=== PATIENT | female | born 1930 | race Caucasian/White ===

== ENCOUNTER 2017-07-06 14:17 | Emergency (ER) | payer MEDICARE ==
[2017-07-06 16:29] LABS: ADD MAN DIFF? NO
[2017-07-06 16:32] LABS: BASO % 0 % (0-3); EOS % 1 % (0-3); HEMATOCRIT 27.6 % (36.0-47.0); HEMOGLOBIN 9.1 g/dL (12.0-15.5); LYMPH # 1.5 x10^3/uL (1.0-4.8); LYMPH % 19 % (24-48); MEAN CORPUSCULAR HEMOGLOBIN 30 pg (25-35); MEAN CORPUSCULAR HGB CONC 33 g/dL (31-37); MEAN CORPUSCULAR VOLUME 92 fL (79-100); MONO # 0.5 x10^3/uL (0.0-1.1); MONO % 6 % (0-9); NEUT % 74 % (31-73); PLATELET COUNT 238 x10^3/uL (140-400); RED BLOOD COUNT 3.01 x10^6/uL (3.50-5.40); RED CELL DISTRIBUTION WIDTH 12.5 % (11.5-14.5); WHITE BLOOD COUNT 8.1 x10^3/uL (4.0-11.0)
[2017-07-06 16:35] LABS: BILIRUBIN,URINE NEGATIVE (NEG); CLARITY,URINE CLEAR; COLOR,URINE YELLOW; GLUCOSE,URINE NEGATIVE (NEG); NITRITE,URINE NEGATIVE (NEG); PROTEIN,URINE NEGATIVE (NEG-TRACE); UROBILINOGEN,URINE 0.2 mg/dL (0.2 mg/dL)
[2017-07-06 16:44] LABS: BACTERIA,URINE MANY /HPF (0-FEW); HYALINE CASTS, URINE FEW /HPF; RBC,URINE 0 /HPF (0-2)
[2017-07-06 16:45] LABS: ANION GAP 8 (6-14); BLOOD UREA NITROGEN 78 mg/dL (7-20); BUN/CREATININE RATIO 33 (6-20); CALCIUM 9.5 mg/dL (8.5-10.1); CARBON DIOXIDE 37 mmol/L (21-32); CHLORIDE 100 mmol/L (98-107); CREATININE 2.4 mg/dL (0.6-1.0); GFR 19.1; GLUCOSE 123 mg/dL (70-99); POTASSIUM 4.1 mmol/L (3.5-5.1); SODIUM 145 mmol/L (136-145)
[2017-07-06 16:48] LABS: ALBUMIN 3.4 g/dL (3.4-5.0); ALK PHOS 57 U/L (46-116); ALT (SGPT) 12 U/L (14-59); AST (SGOT) 18 U/L (15-37); TOTAL BILIRUBIN 0.1 mg/dL (0.2-1.0); TOTAL PROTEIN 6.9 g/dL (6.4-8.2)
== END 2017-07-06 18:20 | disposition home or self-care (01) ==
LOC: ER 14:17
DX: D64.9 Anemia, unspecified (principal); N30.00 Acute cystitis without hematuria; I13.0 Hypertensive heart and chronic kidney disease with heart failure and stage 1 through stage 4 chronic kidney disease, or unspecified chronic kidney disease; I50.9 Heart failure, unspecified; N18.9 Chronic kidney disease, unspecified; J44.9 Chronic obstructive pulmonary disease, unspecified; Z90.710 Acquired absence of both cervix and uterus; Z88.2 Allergy status to sulfonamides
CPT/HCPCS: 36415; 74176; 80053; 81001; 85025; 87086; 87186; 99285-25; P9612

== ENCOUNTER 2017-10-22 18:52 | Inpatient (IN) | payer MEDICARE ==
[2017-10-22 19:20] LABS: ADD MAN DIFF? NO
[2017-10-22 19:24] LABS: BASO % 0 % (0-3); EOS # 0.2 x10^3/uL (0.0-0.7); EOS % 2 % (0-3); HEMATOCRIT 29.2 % (36.0-47.0); HEMOGLOBIN 9.6 g/dL (12.0-15.5); LYMPH # 3.6 x10^3/uL (1.0-4.8); LYMPH % 41 % (24-48); MEAN CORPUSCULAR HEMOGLOBIN 30 pg (25-35); MEAN CORPUSCULAR HGB CONC 33 g/dL (31-37); MEAN CORPUSCULAR VOLUME 90 fL (79-100); MONO # 0.9 x10^3/uL (0.0-1.1); MONO % 10 % (0-9); NEUT % 46 % (31-73); PLATELET COUNT 255 x10^3/uL (140-400); RED BLOOD COUNT 3.24 x10^6/uL (3.50-5.40); RED CELL DISTRIBUTION WIDTH 13.5 % (11.5-14.5); WHITE BLOOD COUNT 8.7 x10^3/uL (4.0-11.0)
[2017-10-22 19:32] LABS: ANION GAP 2 (6-14); BLOOD UREA NITROGEN 54 mg/dL (7-20); CALCIUM 9.3 mg/dL (8.5-10.1); CARBON DIOXIDE 39 mmol/L (21-32); CHLORIDE 97 mmol/L (98-107); CREATININE 2.6 mg/dL (0.6-1.0); GFR 17.3; GLUCOSE 90 mg/dL (70-99); POTASSIUM 4.6 mmol/L (3.5-5.1); SODIUM 138 mmol/L (136-145)
[2017-10-22 19:33] LABS: INR 0.9 (0.8-1.1); PROTHROMBIN TIME PATIENT 11.5 SEC (11.7-14.0)
[2017-10-22 19:39] LABS: ALBUMIN 3.5 g/dL (3.4-5.0); ALK PHOS 77 U/L (46-116); ALT (SGPT) 14 U/L (14-59); AST (SGOT) 16 U/L (15-37); DIRECT BILIRUBIN < 0.1 mg/dL (0.0-0.2); TOTAL BILIRUBIN 0.3 mg/dL (0.2-1.0); TOTAL PROTEIN 6.5 g/dL (6.4-8.2)
[2017-10-22 19:41] LABS: TROPONINI < 0.017 ng/mL (0.000-0.055)
[2017-10-22 19:44] LABS: NT-PRO BNP 1545 pg/mL (0-449)
[2017-10-22] MEDS: NITROGLYCERIN OINT 1 GM PACKET. TP (19:45)
[2017-10-22] MEDS: IPRATRPIUM/ALBUTEROL 0.5/2.5MG 3 ML NEBU. NEB ×2 (20:37→21:44)
[2017-10-22] MEDS ORDERED: hydrALAZINE 20 MG/ML VIAL. IVP (21:15)
[2017-10-22] MEDS: FUROSEMIDE 40 MG/4 ML VIAL. IVP (21:29)
[2017-10-22] MEDS: cloNIDine HCL 0.1 MG TABLET PO (21:45)
[2017-10-22] MEDS: hydrALAZINE 20 MG/ML VIAL. IVP ×2 (21:47)
[2017-10-22] MEDS: ONDANSETRON PF 4 MG/2 ML VIAL. IV (22:19)
[2017-10-23 03:49] LABS: TROPONINI 0.033 ng/mL (0.000-0.055)
[2017-10-23 05:01] LABS: ADD MAN DIFF? NO
[2017-10-23 05:46] LABS: TROPONINI 0.025 ng/mL (0.000-0.055)
[2017-10-23 06:11] LABS: BASO % 0 % (0-3); EOS # 0.2 x10^3/uL (0.0-0.7); EOS % 2 % (0-3); HEMATOCRIT 27.6 % (36.0-47.0); HEMOGLOBIN 9.2 g/dL (12.0-15.5); LYMPH # 2.3 x10^3/uL (1.0-4.8); LYMPH % 23 % (24-48); MEAN CORPUSCULAR HEMOGLOBIN 30 pg (25-35); MEAN CORPUSCULAR HGB CONC 33 g/dL (31-37); MEAN CORPUSCULAR VOLUME 90 fL (79-100); MONO % 10 % (0-9); NEUT # 6.7 x10^3uL (1.8-7.7); NEUT % 65 % (31-73); PLATELET COUNT 216 x10^3/uL (140-400); RED BLOOD COUNT 3.06 x10^6/uL (3.50-5.40); RED CELL DISTRIBUTION WIDTH 13.7 % (11.5-14.5); WHITE BLOOD COUNT 10.2 x10^3/uL (4.0-11.0)
[2017-10-23] MEDS: IPRATRPIUM/ALBUTEROL 0.5/2.5MG 3 ML NEBU. NEB ×4 (07:43→19:14)
[2017-10-23 07:55] LABS: ANION GAP 2 (6-14); BLOOD UREA NITROGEN 55 mg/dL (7-20); CALCIUM 9.1 mg/dL (8.5-10.1); CARBON DIOXIDE 40 mmol/L (21-32); CHLORIDE 99 mmol/L (98-107); CREATININE 2.6 mg/dL (0.6-1.0); GFR 17.3; GLUCOSE 100 mg/dL (70-99); SODIUM 141 mmol/L (136-145)
[2017-10-23] MEDS ORDERED: ACETAMINOPHEN 325 MG TABLET. PO (08:45)
[2017-10-23] MEDS ORDERED: FUROSEMIDE 40 MG/4 ML VIAL. IVP (09:00)
[2017-10-23] MEDS: cloNIDine HCL 0.1 MG TABLET PO ×3 (09:11→22:13)
[2017-10-23] MEDS: SENNOSIDES/DOCUSATE 8.6/50MG TABLET. PO (09:11)
[2017-10-23] MEDS: PANTOPRAZOLE 40 MG TABLET.DR. PO (09:12)
[2017-10-23] MEDS: methylPREDNISolone SOD SUCC PF 40 MG/ML VIAL. IV ×2 (09:12→22:14)
[2017-10-23] MEDS: CHOLECALCIFEROL (VITAMIN D3) 1,000 UNIT TABLET PO (09:12)
[2017-10-23] MEDS: amLODIPine BESYLATE 2.5 MG TABLET PO (09:12)
[2017-10-23] MEDS: FUROSEMIDE 80 MG TABLET. PO (09:12)
[2017-10-23] MEDS: HEPARIN PF for SUB-Q USE 5,000 UNIT/0.5 ML VIAL. SQ ×2 (09:19→22:20)
[2017-10-23] MEDS: BUDESONIDE 0.5 MG/2 ML NEBU. NEB ×2 (11:34→19:14)
[2017-10-23] MEDS: cefTRIAXone IV Push 1 GM VIAL. IVP (13:57)
[2017-10-23] MEDS: FUROSEMIDE 40 MG TABLET. PO (17:47)
[2017-10-23] MEDS: LACTOBACILLUS RHAMNOSUS GG 1 CAPSULE. PO (22:13)
[2017-10-24 04:34] LABS: BASO % 0 % (0-3); EOS % 0 % (0-3); HEMATOCRIT 26.8 % (36.0-47.0); LYMPH # 0.7 x10^3/uL (1.0-4.8); LYMPH % 12 % (24-48); MEAN CORPUSCULAR HEMOGLOBIN 30 pg (25-35); MEAN CORPUSCULAR HGB CONC 34 g/dL (31-37); MEAN CORPUSCULAR VOLUME 90 fL (79-100); MONO % 1 % (0-9); NEUT # 4.7 x10^3uL (1.8-7.7); NEUT % 87 % (31-73); PLATELET COUNT 201 x10^3/uL (140-400); RED BLOOD COUNT 2.98 x10^6/uL (3.50-5.40); RED CELL DISTRIBUTION WIDTH 13.4 % (11.5-14.5); WHITE BLOOD COUNT 5.4 x10^3/uL (4.0-11.0)
[2017-10-24 05:05] LABS: ADD MAN DIFF? YES
[2017-10-24 05:09] LABS: ANION GAP 3 (6-14); BLOOD UREA NITROGEN 58 mg/dL (7-20); CALCIUM 9.4 mg/dL (8.5-10.1); CARBON DIOXIDE 39 mmol/L (21-32); CHLORIDE 98 mmol/L (98-107); CHOLESTEROL 223 mg/dL (0-200); CREATININE 2.7 mg/dL (0.6-1.0); GFR 16.6; GLUCOSE 182 mg/dL (70-99); HDLC 79 mg/dL (40-60); LDLC 132 mg/dL (0-100); MAGNESIUM 1.9 mg/dL (1.8-2.4); NON-HDL CHOLESTEROL 144 mg/dL (0-129); POTASSIUM 4.7 mmol/L (3.5-5.1); SODIUM 140 mmol/L (136-145); TRIGLYCERIDES 59 mg/dL (0-150); VLDLC 12 mg/dL (0-40)
[2017-10-24 05:30] LABS: CHOLESTEROL/HDL RATIO 2.8
[2017-10-24] MEDS: IPRATRPIUM/ALBUTEROL 0.5/2.5MG 3 ML NEBU. NEB ×4 (07:29→19:53)
[2017-10-24] MEDS: BUDESONIDE 0.5 MG/2 ML NEBU. NEB ×2 (07:29→19:53)
[2017-10-24] MEDS: SENNOSIDES/DOCUSATE 8.6/50MG TABLET. PO (08:20)
[2017-10-24] MEDS: LACTOBACILLUS RHAMNOSUS GG 1 CAPSULE. PO ×2 (08:20→21:09)
[2017-10-24] MEDS: PANTOPRAZOLE 40 MG TABLET.DR. PO (08:20)
[2017-10-24] MEDS: CHOLECALCIFEROL (VITAMIN D3) 1,000 UNIT TABLET PO (08:21)
[2017-10-24] MEDS: cloNIDine HCL 0.1 MG TABLET PO ×3 (08:21→21:10)
[2017-10-24] MEDS: amLODIPine BESYLATE 2.5 MG TABLET PO (08:21)
[2017-10-24] MEDS: methylPREDNISolone SOD SUCC PF 40 MG/ML VIAL. IV (08:21)
[2017-10-24] MEDS: FUROSEMIDE 80 MG TABLET. PO (08:21)
[2017-10-24] MEDS: HEPARIN PF for SUB-Q USE 5,000 UNIT/0.5 ML VIAL. SQ ×2 (08:28→21:18)
[2017-10-24] MEDS: TAMSULOSIN 0.4 MG CAP.ER.24H. PO (11:07)
[2017-10-24] MEDS: MAGNESIUM HYDROXIDE 2,400 MG/30 ML ORAL.SUSP. PO (12:11)
[2017-10-24 12:35] LABS: % BANDS 4 % (0-9); % LYMPHS 12 % (24-48); % MONOS 1 % (0-10); % SEGS 83 % (35-66); PLT ESTIMATE ADEQUATE (ADEQUATE)
[2017-10-24 12:36] LABS: OVALOCYTES FEW
[2017-10-24] MEDS: cefTRIAXone IV Push 1 GM VIAL. IVP (15:09)
[2017-10-24] MEDS: FUROSEMIDE 40 MG TABLET. PO (15:09)
[2017-10-25 05:40] LABS: BLOOD UREA NITROGEN 67 mg/dL (7-20); CALCIUM 9.5 mg/dL (8.5-10.1); CARBON DIOXIDE 41 mmol/L (21-32); CHLORIDE 99 mmol/L (98-107); CREATININE 2.5 mg/dL (0.6-1.0); GFR 18.1; GLUCOSE 107 mg/dL (70-99); POTASSIUM 4.7 mmol/L (3.5-5.1)
[2017-10-25 05:46] LABS: ANION GAP 0 (6-14); SODIUM 140 mmol/L (136-145)
[2017-10-25] MEDS: cloNIDine HCL 0.1 MG TABLET PO ×3 (08:24→20:31)
[2017-10-25] MEDS: FUROSEMIDE 80 MG TABLET. PO (08:24)
[2017-10-25] MEDS: SENNOSIDES/DOCUSATE 8.6/50MG TABLET. PO (08:25)
[2017-10-25] MEDS: TAMSULOSIN 0.4 MG CAP.ER.24H. PO (08:25)
[2017-10-25] MEDS: PANTOPRAZOLE 40 MG TABLET.DR. PO (08:25)
[2017-10-25] MEDS: predniSONE 10 MG TABLET PO (08:25)
[2017-10-25] MEDS: MAGNESIUM HYDROXIDE 2,400 MG/30 ML ORAL.SUSP. PO (08:25)
[2017-10-25] MEDS: LACTOBACILLUS RHAMNOSUS GG 1 CAPSULE. PO ×2 (08:25→20:31)
[2017-10-25] MEDS: CHOLECALCIFEROL (VITAMIN D3) 1,000 UNIT TABLET PO (08:25)
[2017-10-25] MEDS: amLODIPine BESYLATE 2.5 MG TABLET PO (08:26)
[2017-10-25] MEDS: HEPARIN PF for SUB-Q USE 5,000 UNIT/0.5 ML VIAL. SQ ×2 (08:32→20:38)
[2017-10-25] MEDS: BUDESONIDE 0.5 MG/2 ML NEBU. NEB ×2 (09:25→19:42)
[2017-10-25] MEDS: IPRATRPIUM/ALBUTEROL 0.5/2.5MG 3 ML NEBU. NEB ×4 (09:25→19:42)
[2017-10-25] MEDS: LACTULOSE 20 GM/30 ML SOLUTION. PO (11:50)
[2017-10-25] MEDS: cefTRIAXone IV Push 1 GM VIAL. IVP (15:34)
[2017-10-25] MEDS: CALCIUM CARBONATE 500 MG TAB.CHEW PO (20:29)
[2017-10-26 04:46] LABS: ANION GAP 1 (6-14); BLOOD UREA NITROGEN 70 mg/dL (7-20); CALCIUM 9.3 mg/dL (8.5-10.1); CARBON DIOXIDE 39 mmol/L (21-32); CHLORIDE 98 mmol/L (98-107); CREATININE 2.6 mg/dL (0.6-1.0); GFR 17.3; GLUCOSE 116 mg/dL (70-99); POTASSIUM 4.5 mmol/L (3.5-5.1); SODIUM 138 mmol/L (136-145)
[2017-10-26] MEDS: IPRATRPIUM/ALBUTEROL 0.5/2.5MG 3 ML NEBU. NEB ×4 (07:51→20:19)
[2017-10-26] MEDS: BUDESONIDE 0.5 MG/2 ML NEBU. NEB ×2 (07:51→20:19)
[2017-10-26] MEDS: CEFPODOXIME PROXETIL 100 MG TABLET. PO (08:41)
[2017-10-26] MEDS: SENNOSIDES/DOCUSATE 8.6/50MG TABLET. PO (08:41)
[2017-10-26] MEDS: LACTOBACILLUS RHAMNOSUS GG 1 CAPSULE. PO ×2 (08:41→21:23)
[2017-10-26] MEDS: TAMSULOSIN 0.4 MG CAP.ER.24H. PO (08:41)
[2017-10-26] MEDS: CHOLECALCIFEROL (VITAMIN D3) 1,000 UNIT TABLET PO (08:41)
[2017-10-26] MEDS: predniSONE 10 MG TABLET PO (08:41)
[2017-10-26] MEDS: PANTOPRAZOLE 40 MG TABLET.DR. PO (08:42)
[2017-10-26] MEDS: amLODIPine BESYLATE 2.5 MG TABLET PO (08:42)
[2017-10-26] MEDS: cloNIDine HCL 0.1 MG TABLET PO ×3 (08:42→21:23)
[2017-10-26] MEDS: HEPARIN PF for SUB-Q USE 5,000 UNIT/0.5 ML VIAL. SQ ×2 (08:43→21:29)
[2017-10-27 05:42] LABS: ANION GAP 1 (6-14); BLOOD UREA NITROGEN 73 mg/dL (7-20); CARBON DIOXIDE 37 mmol/L (21-32); CHLORIDE 99 mmol/L (98-107); CREATININE 2.5 mg/dL (0.6-1.0); GFR 18.1; GLUCOSE 155 mg/dL (70-99); POTASSIUM 4.7 mmol/L (3.5-5.1); SODIUM 137 mmol/L (136-145)
[2017-10-27] MEDS: BUDESONIDE 0.5 MG/2 ML NEBU. NEB (06:55)
[2017-10-27] MEDS: IPRATRPIUM/ALBUTEROL 0.5/2.5MG 3 ML NEBU. NEB ×2 (06:55→10:57)
[2017-10-27] MEDS: HEPARIN PF for SUB-Q USE 5,000 UNIT/0.5 ML VIAL. SQ (09:00)
[2017-10-27] MEDS: predniSONE 10 MG TABLET PO (09:54)
[2017-10-27] MEDS: cloNIDine HCL 0.1 MG TABLET PO (09:55)
[2017-10-27] MEDS: CHOLECALCIFEROL (VITAMIN D3) 1,000 UNIT TABLET PO (09:55)
[2017-10-27] MEDS: LACTOBACILLUS RHAMNOSUS GG 1 CAPSULE. PO (09:55)
[2017-10-27] MEDS: CEPHALEXIN 250 MG CAPSULE. PO (09:55)
[2017-10-27] MEDS: TAMSULOSIN 0.4 MG CAP.ER.24H. PO (09:56)
[2017-10-27] MEDS: PANTOPRAZOLE 40 MG TABLET.DR. PO (09:56)
[2017-10-27] MEDS: SENNOSIDES/DOCUSATE 8.6/50MG TABLET. PO (09:56)
[2017-10-27] MEDS: amLODIPine BESYLATE 2.5 MG TABLET PO (09:56)
== END 2017-10-27 12:50 | disposition home or self-care (01) | DRG 193 ==
LOC: ER 18:52 → 6 SOUTH 21:10
DX: J18.9 Pneumonia, unspecified organism (principal); J96.21 Acute and chronic respiratory failure with hypoxia; I27.81 Cor pulmonale (chronic); N18.4 Chronic kidney disease, stage 4 (severe); J44.0 Chronic obstructive pulmonary disease with (acute) lower respiratory infection; I13.0 Hypertensive heart and chronic kidney disease with heart failure and stage 1 through stage 4 chronic kidney disease, or unspecified chronic kidney disease; I50.32 Chronic diastolic (congestive) heart failure; J44.1 Chronic obstructive pulmonary disease with (acute) exacerbation; Z99.81 Dependence on supplemental oxygen; Z90.710 Acquired absence of both cervix and uterus; Z88.8 Allergy status to other drugs, medicaments and biological substances; E78.5 Hyperlipidemia, unspecified; I25.10 Atherosclerotic heart disease of native coronary artery without angina pectoris; K21.9 Gastro-esophageal reflux disease without esophagitis; Z98.49 Cataract extraction status, unspecified eye; F17.210 Nicotine dependence, cigarettes, uncomplicated; G47.33 Obstructive sleep apnea (adult) (pediatric); D63.8 Anemia in other chronic diseases classified elsewhere; F41.9 Anxiety disorder, unspecified; Z91.19 Patient's noncompliance with other medical treatment and regimen; Z87.11 Personal history of peptic ulcer disease; Z79.899 Other long term (current) drug therapy; T67.5XXA Heat exhaustion, unspecified, initial encounter; X30.XXXA Exposure to excessive natural heat, initial encounter; N26.1 Atrophy of kidney (terminal); R32 Unspecified urinary incontinence; H91.90 Unspecified hearing loss, unspecified ear; E04.2 Nontoxic multinodular goiter
CPT/HCPCS: 36415; 71045; 71250; 76770; 80048; 80061; 80076; 83735; 83880; 84484; 85007; 85025; 85610; 93005; 93306; 93970; 94640; 94760; 96374; 96375; 97116-GP; 97161-GP; 97165-GO; 97530-GO; 99285; 99285-25; J0360; J0696; J1940; J2405; J2920; J7512; J7620; J7626

== ENCOUNTER → 2017-11-05 | Outpatient (CLI) | payer MEDICARE | END | disposition home or self-care (01) | LOC: CT 10:31 | DX: J90 Pleural effusion, not elsewhere classified (principal); J43.9 Emphysema, unspecified; E04.2 Nontoxic multinodular goiter | CPT/HCPCS: 71250 ==

== ENCOUNTER 2017-12-16 22:21 | Inpatient (IN) | payer MEDICARE ==
[2017-12-16] MEDS: IPRATRPIUM/ALBUTEROL 0.5/2.5MG 3 ML NEBU. NEB (22:45)
[2017-12-16 23:11] LABS: BASE EXCESS ABG 9 mmol/L (-3-3); HCO3 ABG 35 mmol/L (21-28); PH ABG 7.37 (7.35-7.45); PO2 ABG 143 mmHg (65-108); SAT O2 ABG 98 % (92-99)
[2017-12-16 23:19] LABS: ADD MAN DIFF? NO
[2017-12-16 23:24] LABS: PCO2 ABG 62 mmHg (35-46)
[2017-12-16] MEDS: methylPREDNISolone SOD SUCC PF 125 MG/2 ML VIAL. IV (23:24)
[2017-12-16 23:25] LABS: FIO2 ABG 32
[2017-12-16 23:27] LABS: BASO # 0.1 x10^3/uL (0.0-0.2); BASO % 1 % (0-3); EOS # 0.2 x10^3/uL (0.0-0.7); EOS % 2 % (0-3); HEMATOCRIT 24.8 % (36.0-47.0); HEMOGLOBIN 8.1 g/dL (12.0-15.5); LYMPH % 28 % (24-48); MEAN CORPUSCULAR HEMOGLOBIN 29 pg (25-35); MEAN CORPUSCULAR HGB CONC 33 g/dL (31-37); MEAN CORPUSCULAR VOLUME 89 fL (79-100); MONO # 0.6 x10^3/uL (0.0-1.1); MONO % 9 % (0-9); NEUT # 4.3 x10^3uL (1.8-7.7); NEUT % 60 % (31-73); PLATELET COUNT 265 x10^3/uL (140-400); RED BLOOD COUNT 2.77 x10^6/uL (3.50-5.40); RED CELL DISTRIBUTION WIDTH 14.3 % (11.5-14.5); WHITE BLOOD COUNT 7.1 x10^3/uL (4.0-11.0)
[2017-12-16] MEDS: AZITHRMYCN 500MG IVPB FOR OMNI 250 ML IV (23:27)
[2017-12-16 23:33] LABS: INR 0.9 (0.8-1.1); PROTHROMBIN TIME PATIENT 12.1 SEC (11.7-14.0)
[2017-12-16 23:44] LABS: TROPONINI 0.017 ng/mL (0.000-0.055)
[2017-12-16 23:51] LABS: BLOOD UREA NITROGEN 37 mg/dL (7-20); BUN/CREATININE RATIO 19 (6-20); CALCIUM 9.1 mg/dL (8.5-10.1); CHLORIDE 101 mmol/L (98-107); CREATININE 1.9 mg/dL (0.6-1.0); GFR 24.9; GLUCOSE 113 mg/dL (70-99); POTASSIUM 4.3 mmol/L (3.5-5.1); SODIUM 137 mmol/L (136-145)
[2017-12-16 23:55] LABS: NT-PRO BNP 2472 pg/mL (0-449)
[2017-12-16 23:55] LABS: CKMB MASS 1.1 ng/mL (0.0-3.6); CREATINE KINASE 26 U/L (26-192)
[2017-12-16 23:57] LABS: ALBUMIN 2.7 g/dL (3.4-5.0); ALBUMIN/GLOBULIN RATIO 0.8 (1.0-1.7); ALK PHOS 74 U/L (46-116); ALT (SGPT) 10 U/L (14-59); AST (SGOT) 16 U/L (15-37); MAGNESIUM 1.8 mg/dL (1.8-2.4); TOTAL BILIRUBIN 0.2 mg/dL (0.2-1.0)
[2017-12-16 23:58] LABS: ANION GAP -1 (6-14); CARBON DIOXIDE 37 mmol/L (21-32)
[2017-12-17] MEDS: IPRATRPIUM/ALBUTEROL 0.5/2.5MG 3 ML NEBU. NEB ×4 (00:15→19:30)
[2017-12-17] MEDS: methylPREDNISolone SOD SUCC PF 40 MG/ML VIAL. IV ×3 (07:29→17:53)
[2017-12-17] MEDS ORDERED: ACETAMINOPHEN 325 MG TABLET. PO (10:30)
[2017-12-17] MEDS ORDERED: ALBUTEROL SULFATE 2.5 MG/3 ML NEBU. NEB (11:00)
[2017-12-17] MEDS: PANTOPRAZOLE 40 MG TABLET.DR. PO (14:24)
[2017-12-17] MEDS: SENNOSIDES/DOCUSATE 8.6/50MG TABLET. PO ×2 (14:24→22:31)
[2017-12-17] MEDS: BUMETANIDE 1 MG/4 ML VIAL. IV (14:25)
[2017-12-17] MEDS: cloNIDine HCL 0.1 MG TABLET PO ×2 (14:25→22:31)
[2017-12-17] MEDS: POLYETHYLENE GLYCOL 3350 17 GM PACKET. PO (14:25)
[2017-12-17] MEDS ORDERED: hydrALAZINE 20 MG/ML VIAL. IVP (14:45)
[2017-12-17 15:13] LABS: ANION GAP 2 (6-14); BLOOD UREA NITROGEN 41 mg/dL (7-20); CALCIUM 9.3 mg/dL (8.5-10.1); CARBON DIOXIDE 35 mmol/L (21-32); CHLORIDE 98 mmol/L (98-107); GFR 23.5; GLUCOSE 173 mg/dL (70-99); POTASSIUM 4.7 mmol/L (3.5-5.1); SODIUM 135 mmol/L (136-145)
[2017-12-17 15:15] LABS: MAGNESIUM 1.8 mg/dL (1.8-2.4)
[2017-12-17] MEDS: CARVEDILOL 3.125 MG TABLET. PO (17:53)
[2017-12-17] MEDS: MONTELUKAST SODIUM 10 MG TABLET. PO (22:31)
[2017-12-17] MEDS: TAMSULOSIN 0.4 MG CAP.ER.24H. PO (22:32)
[2017-12-18] MEDS: methylPREDNISolone SOD SUCC PF 40 MG/ML VIAL. IV ×4 (00:15→21:49)
[2017-12-18 05:58] LABS: ADD MAN DIFF? NO
[2017-12-18 06:02] LABS: BASO % 0 % (0-3); EOS % 0 % (0-3); HEMATOCRIT 25.3 % (36.0-47.0); HEMOGLOBIN 8.4 g/dL (12.0-15.5); LYMPH % 16 % (24-48); MEAN CORPUSCULAR HEMOGLOBIN 30 pg (25-35); MEAN CORPUSCULAR HGB CONC 33 g/dL (31-37); MEAN CORPUSCULAR VOLUME 89 fL (79-100); MONO # 0.1 x10^3/uL (0.0-1.1); MONO % 2 % (0-9); NEUT # 5.5 x10^3uL (1.8-7.7); NEUT % 82 % (31-73); PLATELET COUNT 270 x10^3/uL (140-400); RED BLOOD COUNT 2.85 x10^6/uL (3.50-5.40); RED CELL DISTRIBUTION WIDTH 14.6 % (11.5-14.5); WHITE BLOOD COUNT 6.7 x10^3/uL (4.0-11.0)
[2017-12-18] MEDS: MAGNESIUM HYDROXIDE 2,400 MG/30 ML ORAL.SUSP. PO (06:17)
[2017-12-18 06:18] LABS: ANION GAP 0 (6-14); BLOOD UREA NITROGEN 42 mg/dL (7-20); CALCIUM 9.2 mg/dL (8.5-10.1); CARBON DIOXIDE 38 mmol/L (21-32); CHLORIDE 99 mmol/L (98-107); CREATININE 1.9 mg/dL (0.6-1.0); GFR 24.9; GLUCOSE 153 mg/dL (70-99); MAGNESIUM 1.8 mg/dL (1.8-2.4); SODIUM 137 mmol/L (136-145)
[2017-12-18] MEDS: IPRATRPIUM/ALBUTEROL 0.5/2.5MG 3 ML NEBU. NEB ×4 (08:18→20:13)
[2017-12-18] MEDS: SENNOSIDES/DOCUSATE 8.6/50MG TABLET. PO ×2 (09:06→20:31)
[2017-12-18] MEDS: POLYETHYLENE GLYCOL 3350 17 GM PACKET. PO (09:06)
[2017-12-18] MEDS: PANTOPRAZOLE 40 MG TABLET.DR. PO (09:07)
[2017-12-18] MEDS: cloNIDine HCL 0.1 MG TABLET PO ×3 (09:07→20:32)
[2017-12-18] MEDS: CARVEDILOL 3.125 MG TABLET. PO ×2 (09:08→17:10)
[2017-12-18] MEDS: BUMETANIDE 1 MG/4 ML VIAL. IV ×2 (09:08→14:26)
[2017-12-18] MEDS: amLODIPine BESYLATE 10 MG TABLET PO (11:57)
[2017-12-18] MEDS: metOLazone 2.5 MG TABLET PO (11:57)
[2017-12-18] MEDS: MONTELUKAST SODIUM 10 MG TABLET. PO (20:32)
[2017-12-18] MEDS: TAMSULOSIN 0.4 MG CAP.ER.24H. PO (20:32)
[2017-12-19] MEDS: methylPREDNISolone SOD SUCC PF 40 MG/ML VIAL. IV ×2 (06:32→20:32)
[2017-12-19 06:50] LABS: ANION GAP 2 (6-14); BLOOD UREA NITROGEN 50 mg/dL (7-20); CALCIUM 9.3 mg/dL (8.5-10.1); CARBON DIOXIDE 38 mmol/L (21-32); CHLORIDE 98 mmol/L (98-107); CREATININE 1.9 mg/dL (0.6-1.0); GFR 24.9; GLUCOSE 133 mg/dL (70-99); MAGNESIUM 2.1 mg/dL (1.8-2.4); POTASSIUM 4.5 mmol/L (3.5-5.1); SODIUM 138 mmol/L (136-145)
[2017-12-19] MEDS: IPRATRPIUM/ALBUTEROL 0.5/2.5MG 3 ML NEBU. NEB ×4 (07:14→19:09)
[2017-12-19] MEDS: POLYETHYLENE GLYCOL 3350 17 GM PACKET. PO (08:43)
[2017-12-19] MEDS: BUMETANIDE 1 MG/4 ML VIAL. IV (08:44)
[2017-12-19] MEDS: amLODIPine BESYLATE 10 MG TABLET PO (08:45)
[2017-12-19] MEDS: PANTOPRAZOLE 40 MG TABLET.DR. PO (08:45)
[2017-12-19] MEDS: cloNIDine HCL 0.1 MG TABLET PO ×3 (08:45→20:44)
[2017-12-19] MEDS: CARVEDILOL 3.125 MG TABLET. PO ×2 (08:46→17:21)
[2017-12-19] MEDS: SENNOSIDES/DOCUSATE 8.6/50MG TABLET. PO ×2 (08:46→20:33)
[2017-12-19] MEDS: MONTELUKAST SODIUM 10 MG TABLET. PO (20:33)
[2017-12-19] MEDS: TAMSULOSIN 0.4 MG CAP.ER.24H. PO (20:33)
[2017-12-20 05:22] LABS: ANION GAP 0 (6-14); BLOOD UREA NITROGEN 54 mg/dL (7-20); CALCIUM 9.1 mg/dL (8.5-10.1); CARBON DIOXIDE 38 mmol/L (21-32); CHLORIDE 95 mmol/L (98-107); CREATININE 2.1 mg/dL (0.6-1.0); GFR 22.2; GLUCOSE 150 mg/dL (70-99); POTASSIUM 4.5 mmol/L (3.5-5.1); SODIUM 133 mmol/L (136-145)
[2017-12-20] MEDS: IPRATRPIUM/ALBUTEROL 0.5/2.5MG 3 ML NEBU. NEB ×4 (07:22→19:39)
[2017-12-20] MEDS: methylPREDNISolone SOD SUCC PF 40 MG/ML VIAL. IV (09:00)
[2017-12-20] MEDS: POLYETHYLENE GLYCOL 3350 17 GM PACKET. PO (09:11)
[2017-12-20] MEDS: BUMETANIDE 1 MG TABLET. PO (09:11)
[2017-12-20] MEDS: amLODIPine BESYLATE 10 MG TABLET PO (09:12)
[2017-12-20] MEDS: CARVEDILOL 3.125 MG TABLET. PO ×2 (09:12→18:08)
[2017-12-20] MEDS: PANTOPRAZOLE 40 MG TABLET.DR. PO (09:12)
[2017-12-20] MEDS: cloNIDine HCL 0.1 MG TABLET PO ×3 (09:12→22:27)
[2017-12-20] MEDS: SENNOSIDES/DOCUSATE 8.6/50MG TABLET. PO ×2 (09:13→22:27)
[2017-12-20] MEDS: LACTULOSE 20 GM/30 ML SOLUTION. PO (12:27)
[2017-12-20] MEDS: predniSONE 10 MG TABLET PO (12:28)
[2017-12-20] MEDS: MONTELUKAST SODIUM 10 MG TABLET. PO (22:27)
[2017-12-20] MEDS: MAGNESIUM HYDROXIDE 2,400 MG/30 ML ORAL.SUSP. PO (22:27)
[2017-12-20] MEDS: TAMSULOSIN 0.4 MG CAP.ER.24H. PO (22:27)
[2017-12-21 06:59] LABS: ANION GAP 0 (6-14); BLOOD UREA NITROGEN 61 mg/dL (7-20); CARBON DIOXIDE 40 mmol/L (21-32); CHLORIDE 96 mmol/L (98-107); GFR 23.5; GLUCOSE 110 mg/dL (70-99); POTASSIUM 4.4 mmol/L (3.5-5.1); SODIUM 136 mmol/L (136-145)
[2017-12-21] MEDS: IPRATRPIUM/ALBUTEROL 0.5/2.5MG 3 ML NEBU. NEB ×2 (07:10→11:03)
[2017-12-21] MEDS: MAGNESIUM HYDROXIDE 2,400 MG/30 ML ORAL.SUSP. PO (07:36)
[2017-12-21] MEDS: predniSONE 10 MG TABLET PO (07:37)
[2017-12-21] MEDS: POLYETHYLENE GLYCOL 3350 17 GM PACKET. PO (07:37)
[2017-12-21] MEDS: BUMETANIDE 1 MG TABLET. PO (07:37)
[2017-12-21] MEDS: CARVEDILOL 3.125 MG TABLET. PO (07:37)
[2017-12-21] MEDS: PANTOPRAZOLE 40 MG TABLET.DR. PO (07:38)
[2017-12-21] MEDS: SENNOSIDES/DOCUSATE 8.6/50MG TABLET. PO (07:38)
[2017-12-21] MEDS: cloNIDine HCL 0.1 MG TABLET PO (07:38)
== END 2017-12-21 11:59 | disposition home health service (06) | DRG 291 ==
LOC: 5 SOUTH 12-17 00:05 → ER 22:21
DX: I13.0 Hypertensive heart and chronic kidney disease with heart failure and stage 1 through stage 4 chronic kidney disease, or unspecified chronic kidney disease (principal); J96.21 Acute and chronic respiratory failure with hypoxia; I50.33 Acute on chronic diastolic (congestive) heart failure; J18.9 Pneumonia, unspecified organism; J96.22 Acute and chronic respiratory failure with hypercapnia; E46 Unspecified protein-calorie malnutrition; J44.0 Chronic obstructive pulmonary disease with (acute) lower respiratory infection; J44.1 Chronic obstructive pulmonary disease with (acute) exacerbation; N18.4 Chronic kidney disease, stage 4 (severe); I27.20 Pulmonary hypertension, unspecified; I27.29 Other secondary pulmonary hypertension; I27.81 Cor pulmonale (chronic); D63.8 Anemia in other chronic diseases classified elsewhere; E78.5 Hyperlipidemia, unspecified; F17.210 Nicotine dependence, cigarettes, uncomplicated; G47.33 Obstructive sleep apnea (adult) (pediatric); I89.0 Lymphedema, not elsewhere classified; K21.9 Gastro-esophageal reflux disease without esophagitis; K57.90 Diverticulosis of intestine, part unspecified, without perforation or abscess without bleeding; K59.09 Other constipation; H26.9 Unspecified cataract; M19.90 Unspecified osteoarthritis, unspecified site; R91.1 Solitary pulmonary nodule; D64.9 Anemia, unspecified; Z68.28 Body mass index [BMI] 28.0-28.9, adult; Z86.010 Personal history of colon polyps; Z87.11 Personal history of peptic ulcer disease; Z90.710 Acquired absence of both cervix and uterus; Z91.19 Patient's noncompliance with other medical treatment and regimen; Z99.81 Dependence on supplemental oxygen; Z88.6 Allergy status to analgesic agent; Z98.49 Cataract extraction status, unspecified eye
CPT/HCPCS: 36415; 36600; 71045; 71250; 80048; 80053; 82553; 82805; 83735; 83880; 84484; 85025; 85610; 93005; 93308; 93320; 93325; 93970; 94640; 94760; 96365; 96367; 96375; 97116-GP; 97162-GP; 99285; 99285-25; J0456; J0690; J2920; J2930; J3490; J7512; J7620

== ENCOUNTER 2018-01-08 12:03 | Inpatient (IN) | payer MEDICARE ==
[2018-01-08 12:47] LABS: ADD MAN DIFF? NO
[2018-01-08 12:49] LABS: BASO % 1 % (0-3); EOS # 0.1 x10^3/uL (0.0-0.7); EOS % 1 % (0-3); HEMATOCRIT 27.8 % (36.0-47.0); HEMOGLOBIN 9.4 g/dL (12.0-15.5); LYMPH # 1.5 x10^3/uL (1.0-4.8); LYMPH % 27 % (24-48); MEAN CORPUSCULAR HEMOGLOBIN 30 pg (25-35); MEAN CORPUSCULAR HGB CONC 34 g/dL (31-37); MEAN CORPUSCULAR VOLUME 89 fL (79-100); MONO # 0.5 x10^3/uL (0.0-1.1); MONO % 8 % (0-9); NEUT # 3.5 x10^3uL (1.8-7.7); NEUT % 63 % (31-73); PLATELET COUNT 198 x10^3/uL (140-400); RED BLOOD COUNT 3.12 x10^6/uL (3.50-5.40); RED CELL DISTRIBUTION WIDTH 15.4 % (11.5-14.5); WHITE BLOOD COUNT 5.5 x10^3/uL (4.0-11.0)
[2018-01-08 12:58] LABS: ANION GAP 4 (6-14); BLOOD UREA NITROGEN 24 mg/dL (7-20); BUN/CREATININE RATIO 16 (6-20); CALCIUM 9.5 mg/dL (8.5-10.1); CARBON DIOXIDE 36 mmol/L (21-32); CHLORIDE 98 mmol/L (98-107); CREATININE 1.5 mg/dL (0.6-1.0); GFR 32.7; GLUCOSE 93 mg/dL (70-99); SODIUM 138 mmol/L (136-145)
[2018-01-08 12:59] LABS: POTASSIUM 4.8 mmol/L (3.5-5.1)
[2018-01-08] MEDS: IPRATRPIUM/ALBUTEROL 0.5/2.5MG 3 ML NEBU. NEB ×2 (13:01→20:04)
[2018-01-08 13:04] LABS: ALBUMIN 3.2 g/dL (3.4-5.0); ALK PHOS 81 U/L (46-116); ALT (SGPT) 14 U/L (14-59); AST (SGOT) 21 U/L (15-37); MAGNESIUM 1.9 mg/dL (1.8-2.4); TOTAL BILIRUBIN 0.4 mg/dL (0.2-1.0); TOTAL PROTEIN 6.3 g/dL (6.4-8.2)
[2018-01-08 13:05] LABS: TROPONINI < 0.017 ng/mL (0.000-0.055)
[2018-01-08] MEDS: FUROSEMIDE 40 MG/4 ML VIAL. IVP ×2 (13:06→18:07)
[2018-01-08 13:10] LABS: NT-PRO BNP 3069 pg/mL (0-449)
[2018-01-08 13:53] LABS: BILIRUBIN,URINE NEGATIVE (NEG); CLARITY,URINE CLEAR; COLOR,URINE YELLOW; GLUCOSE,URINE NEGATIVE (NEG); NITRITE,URINE NEGATIVE (NEG); PROTEIN,URINE NEGATIVE (NEG-TRACE); UROBILINOGEN,URINE 0.2 mg/dL (0.2 mg/dL)
[2018-01-08 14:03] LABS: BACTERIA,URINE 0 /HPF (0-FEW); RBC,URINE 0 /HPF (0-2); SQUAMOUS EPITHELIAL CELL,UR FEW /LPF; WBC,URINE 0 /HPF (0-4)
[2018-01-08 14:04] LABS: HYALINE CASTS, URINE OCCASIONAL /HPF
[2018-01-08] MEDS: CARVEDILOL 3.125 MG TABLET. PO (18:07)
[2018-01-08] MEDS: hydrALAZINE 20 MG/ML VIAL. IVP (18:07)
[2018-01-08] MEDS: PANTOPRAZOLE 40 MG TABLET.DR. PO (18:07)
[2018-01-08] MEDS: ENOXAPARIN 30 MG/0.3 ML SYRINGE. SQ (18:08)
[2018-01-08] MEDS: NITROGLYCERIN PREMIX 250 ML IV (19:52)
[2018-01-08] MEDS: BUDESONIDE 0.5 MG/2 ML NEBU. NEB (20:04)
[2018-01-08] MEDS: POTASSIUM CHLORIDE 20 MEQ TABLET.ER. PO (21:31)
[2018-01-08] MEDS: cloNIDine HCL 0.1 MG TABLET PO (21:31)
[2018-01-08] MEDS: SENNOSIDES/DOCUSATE 8.6/50MG TABLET. PO (21:31)
[2018-01-08] MEDS: methylPREDNISolone SOD SUCC PF 40 MG/ML VIAL. IV (21:32)
[2018-01-09] MEDS: hydrALAZINE 20 MG/ML VIAL. IVP ×2 (00:02→22:38)
[2018-01-09] MEDS: ACETAMINOPHEN 325 MG TABLET. PO (02:54)
[2018-01-09 04:13] LABS: ADD MAN DIFF? NO
[2018-01-09 04:20] LABS: BASO % 0 % (0-3); EOS % 0 % (0-3); HEMATOCRIT 27.6 % (36.0-47.0); HEMOGLOBIN 9.3 g/dL (12.0-15.5); LYMPH # 0.7 x10^3/uL (1.0-4.8); LYMPH % 17 % (24-48); MEAN CORPUSCULAR HEMOGLOBIN 30 pg (25-35); MEAN CORPUSCULAR HGB CONC 34 g/dL (31-37); MEAN CORPUSCULAR VOLUME 89 fL (79-100); MONO % 1 % (0-9); NEUT # 3.4 x10^3uL (1.8-7.7); NEUT % 82 % (31-73); PLATELET COUNT 178 x10^3/uL (140-400); RED BLOOD COUNT 3.11 x10^6/uL (3.50-5.40); RED CELL DISTRIBUTION WIDTH 15.5 % (11.5-14.5); WHITE BLOOD COUNT 4.2 x10^3/uL (4.0-11.0)
[2018-01-09 04:34] LABS: ANION GAP 3 (6-14); BLOOD UREA NITROGEN 25 mg/dL (7-20); CALCIUM 9.1 mg/dL (8.5-10.1); CARBON DIOXIDE 36 mmol/L (21-32); CHLORIDE 100 mmol/L (98-107); CREATININE 1.7 mg/dL (0.6-1.0); GFR 28.3; GLUCOSE 141 mg/dL (70-99); MAGNESIUM 1.7 mg/dL (1.8-2.4); POTASSIUM 4.2 mmol/L (3.5-5.1); SODIUM 139 mmol/L (136-145)
[2018-01-09] MEDS: FUROSEMIDE 40 MG/4 ML VIAL. IVP ×3 (06:31→22:28)
[2018-01-09] MEDS: BUDESONIDE 0.5 MG/2 ML NEBU. NEB ×2 (07:27→19:19)
[2018-01-09] MEDS: IPRATRPIUM/ALBUTEROL 0.5/2.5MG 3 ML NEBU. NEB ×4 (07:27→19:19)
[2018-01-09] MEDS ORDERED: POTASSIUM CHLORIDE 20 MEQ TABLET.ER. PO (09:00)
[2018-01-09] MEDS: MAGNESIUM SULFATE 2GM 50 ML IV (09:19)
[2018-01-09] MEDS: methylPREDNISolone SOD SUCC PF 40 MG/ML VIAL. IV ×2 (09:22→20:05)
[2018-01-09] MEDS: TAMSULOSIN 0.4 MG CAP.ER.24H. PO (09:23)
[2018-01-09] MEDS: PANTOPRAZOLE 40 MG TABLET.DR. PO (09:23)
[2018-01-09] MEDS: SENNOSIDES/DOCUSATE 8.6/50MG TABLET. PO ×2 (09:23→20:02)
[2018-01-09] MEDS: CHOLECALCIFEROL (VITAMIN D3) 1,000 UNIT TABLET PO (09:23)
[2018-01-09] MEDS: POTASSIUM CHLORIDE 20 MEQ TABLET.ER. PO (09:23)
[2018-01-09] MEDS: CARVEDILOL 3.125 MG TABLET. PO ×2 (09:24→17:17)
[2018-01-09] MEDS: cloNIDine HCL 0.1 MG TABLET PO ×3 (09:24→20:02)
[2018-01-09] MEDS: POLYETHYLENE GLYCOL 3350 17 GM PACKET. PO (17:16)
[2018-01-09] MEDS: ENOXAPARIN 30 MG/0.3 ML SYRINGE. SQ (17:17)
[2018-01-10] MEDS: ALBUTEROL SULFATE 2.5 MG/3 ML NEBU. NEB (00:52)
[2018-01-10 05:52] LABS: ANION GAP 4 (6-14); BLOOD UREA NITROGEN 34 mg/dL (7-20); CALCIUM 9.9 mg/dL (8.5-10.1); CARBON DIOXIDE 36 mmol/L (21-32); CHLORIDE 97 mmol/L (98-107); CREATININE 2.1 mg/dL (0.6-1.0); GFR 22.2; GLUCOSE 142 mg/dL (70-99); MAGNESIUM 2.3 mg/dL (1.8-2.4); POTASSIUM 4.5 mmol/L (3.5-5.1); SODIUM 137 mmol/L (136-145)
[2018-01-10] MEDS: FUROSEMIDE 40 MG/4 ML VIAL. IVP ×2 (06:00→20:47)
[2018-01-10] MEDS: BUDESONIDE 0.5 MG/2 ML NEBU. NEB ×2 (07:53→19:58)
[2018-01-10] MEDS: IPRATRPIUM/ALBUTEROL 0.5/2.5MG 3 ML NEBU. NEB ×4 (07:53→19:58)
[2018-01-10] MEDS: POLYETHYLENE GLYCOL 3350 17 GM PACKET. PO (09:14)
[2018-01-10] MEDS: methylPREDNISolone SOD SUCC PF 40 MG/ML VIAL. IV ×2 (09:15→20:48)
[2018-01-10] MEDS: TAMSULOSIN 0.4 MG CAP.ER.24H. PO (09:15)
[2018-01-10] MEDS: CHOLECALCIFEROL (VITAMIN D3) 1,000 UNIT TABLET PO (09:15)
[2018-01-10] MEDS: SENNOSIDES/DOCUSATE 8.6/50MG TABLET. PO ×2 (09:15→20:46)
[2018-01-10] MEDS: POTASSIUM CHLORIDE 20 MEQ TABLET.ER. PO (09:16)
[2018-01-10] MEDS: PANTOPRAZOLE 40 MG TABLET.DR. PO (09:16)
[2018-01-10] MEDS: cloNIDine HCL 0.1 MG TABLET PO ×3 (09:16→20:47)
[2018-01-10] MEDS: CARVEDILOL 3.125 MG TABLET. PO ×2 (09:18→16:58)
[2018-01-10] MEDS: ENOXAPARIN 30 MG/0.3 ML SYRINGE. SQ (17:00)
[2018-01-11 04:44] LABS: ADD MAN DIFF? NO
[2018-01-11 04:53] LABS: BASO % 0 % (0-3); EOS % 0 % (0-3); HEMATOCRIT 25.5 % (36.0-47.0); HEMOGLOBIN 8.5 g/dL (12.0-15.5); LYMPH # 0.9 x10^3/uL (1.0-4.8); LYMPH % 12 % (24-48); MEAN CORPUSCULAR HEMOGLOBIN 30 pg (25-35); MEAN CORPUSCULAR HGB CONC 33 g/dL (31-37); MEAN CORPUSCULAR VOLUME 90 fL (79-100); MONO # 0.2 x10^3/uL (0.0-1.1); MONO % 3 % (0-9); NEUT # 6.6 x10^3uL (1.8-7.7); NEUT % 85 % (31-73); PLATELET COUNT 227 x10^3/uL (140-400); RED BLOOD COUNT 2.82 x10^6/uL (3.50-5.40); RED CELL DISTRIBUTION WIDTH 16.3 % (11.5-14.5); WHITE BLOOD COUNT 7.8 x10^3/uL (4.0-11.0)
[2018-01-11 05:10] LABS: ANION GAP -1 (6-14); BLOOD UREA NITROGEN 42 mg/dL (7-20); CARBON DIOXIDE 38 mmol/L (21-32); CHLORIDE 99 mmol/L (98-107); CREATININE 2.1 mg/dL (0.6-1.0); GFR 22.2; GLUCOSE 145 mg/dL (70-99); MAGNESIUM 2.2 mg/dL (1.8-2.4); SODIUM 136 mmol/L (136-145)
[2018-01-11] MEDS: POLYETHYLENE GLYCOL 3350 17 GM PACKET. PO (07:18)
[2018-01-11] MEDS: BUDESONIDE 0.5 MG/2 ML NEBU. NEB ×2 (07:52→19:26)
[2018-01-11] MEDS: IPRATRPIUM/ALBUTEROL 0.5/2.5MG 3 ML NEBU. NEB ×4 (07:52→19:26)
[2018-01-11] MEDS: methylPREDNISolone SOD SUCC PF 40 MG/ML VIAL. IV (08:33)
[2018-01-11] MEDS: CHOLECALCIFEROL (VITAMIN D3) 1,000 UNIT TABLET PO (08:33)
[2018-01-11] MEDS: CARVEDILOL 3.125 MG TABLET. PO ×2 (08:33→17:52)
[2018-01-11] MEDS: TAMSULOSIN 0.4 MG CAP.ER.24H. PO (08:33)
[2018-01-11] MEDS: PANTOPRAZOLE 40 MG TABLET.DR. PO (08:33)
[2018-01-11] MEDS: cloNIDine HCL 0.1 MG TABLET PO ×3 (08:34→20:51)
[2018-01-11] MEDS: FUROSEMIDE 80 MG TABLET. PO ×2 (09:19→13:55)
[2018-01-11] MEDS: SENNOSIDES/DOCUSATE 8.6/50MG TABLET. PO ×2 (09:23→20:43)
[2018-01-11] MEDS: ENOXAPARIN 30 MG/0.3 ML SYRINGE. SQ (17:52)
[2018-01-11] MEDS: MAGNESIUM HYDROXIDE 2,400 MG/30 ML ORAL.SUSP. PO (20:42)
[2018-01-11] MEDS: CALCIUM CARBONATE 500 MG TAB.CHEW PO (20:48)
[2018-01-11] MEDS: hydrALAZINE 20 MG/ML VIAL. IVP (23:27)
[2018-01-12] MEDS: BISACODYL 10 MG SUPP.RECT. PR (00:42)
[2018-01-12 04:46] LABS: ANION GAP 0 (6-14); BLOOD UREA NITROGEN 47 mg/dL (7-20); CARBON DIOXIDE 40 mmol/L (21-32); CHLORIDE 97 mmol/L (98-107); CREATININE 1.9 mg/dL (0.6-1.0); GFR 24.9; GLUCOSE 100 mg/dL (70-99); MAGNESIUM 2.3 mg/dL (1.8-2.4); POTASSIUM 4.3 mmol/L (3.5-5.1); SODIUM 137 mmol/L (136-145)
[2018-01-12] MEDS: POLYETHYLENE GLYCOL 3350 17 GM PACKET. PO (07:51)
[2018-01-12] MEDS: BUDESONIDE 0.5 MG/2 ML NEBU. NEB ×2 (07:53→20:46)
[2018-01-12] MEDS: IPRATRPIUM/ALBUTEROL 0.5/2.5MG 3 ML NEBU. NEB ×4 (07:53→20:46)
[2018-01-12] MEDS: TAMSULOSIN 0.4 MG CAP.ER.24H. PO (07:55)
[2018-01-12] MEDS: predniSONE 20 MG TABLET PO (07:55)
[2018-01-12] MEDS: cloNIDine HCL 0.1 MG TABLET PO ×3 (07:55→20:52)
[2018-01-12] MEDS: CARVEDILOL 3.125 MG TABLET. PO ×2 (07:55→17:37)
[2018-01-12] MEDS: CHOLECALCIFEROL (VITAMIN D3) 1,000 UNIT TABLET PO (07:55)
[2018-01-12] MEDS: SENNOSIDES/DOCUSATE 8.6/50MG TABLET. PO ×2 (07:55→20:53)
[2018-01-12] MEDS: PANTOPRAZOLE 40 MG TABLET.DR. PO (07:56)
[2018-01-12] MEDS: FUROSEMIDE 80 MG TABLET. PO ×2 (08:37→14:40)
[2018-01-12] MEDS: ENOXAPARIN 30 MG/0.3 ML SYRINGE. SQ (17:36)
[2018-01-13] MEDS: PANTOPRAZOLE 40 MG TABLET.DR. PO (06:07)
[2018-01-13 06:32] LABS: ANION GAP 1 (6-14); BLOOD UREA NITROGEN 48 mg/dL (7-20); CALCIUM 8.8 mg/dL (8.5-10.1); CARBON DIOXIDE 40 mmol/L (21-32); CHLORIDE 97 mmol/L (98-107); GFR 23.5; GLUCOSE 92 mg/dL (70-99); POTASSIUM 4.4 mmol/L (3.5-5.1); SODIUM 138 mmol/L (136-145)
[2018-01-13] MEDS: BUDESONIDE 0.5 MG/2 ML NEBU. NEB (07:30)
[2018-01-13] MEDS: IPRATRPIUM/ALBUTEROL 0.5/2.5MG 3 ML NEBU. NEB ×3 (07:30→15:37)
[2018-01-13] MEDS: TAMSULOSIN 0.4 MG CAP.ER.24H. PO (08:00)
[2018-01-13] MEDS: CARVEDILOL 3.125 MG TABLET. PO ×2 (08:00→15:48)
[2018-01-13] MEDS: SENNOSIDES/DOCUSATE 8.6/50MG TABLET. PO (08:01)
[2018-01-13] MEDS: CHOLECALCIFEROL (VITAMIN D3) 1,000 UNIT TABLET PO (08:01)
[2018-01-13] MEDS: FUROSEMIDE 80 MG TABLET. PO ×2 (08:02→15:48)
[2018-01-13] MEDS: cloNIDine HCL 0.1 MG TABLET PO ×2 (08:02→15:48)
[2018-01-13] MEDS: POLYETHYLENE GLYCOL 3350 17 GM PACKET. PO (08:02)
[2018-01-13] MEDS: predniSONE 20 MG TABLET PO ×2 (08:02→11:43)
[2018-01-14] MEDS ORDERED: predniSONE 20 MG TABLET PO (09:00)
== END 2018-01-13 15:40 | disposition home health service (06) | DRG 291 ==
LOC: ER 12:03 → 2 NORTH 13:30
DX: I13.0 Hypertensive heart and chronic kidney disease with heart failure and stage 1 through stage 4 chronic kidney disease, or unspecified chronic kidney disease (principal); I50.33 Acute on chronic diastolic (congestive) heart failure; J96.21 Acute and chronic respiratory failure with hypoxia; J44.1 Chronic obstructive pulmonary disease with (acute) exacerbation; N18.4 Chronic kidney disease, stage 4 (severe); N17.9 Acute kidney failure, unspecified; G47.33 Obstructive sleep apnea (adult) (pediatric); K21.9 Gastro-esophageal reflux disease without esophagitis; K57.90 Diverticulosis of intestine, part unspecified, without perforation or abscess without bleeding; M19.90 Unspecified osteoarthritis, unspecified site; D63.8 Anemia in other chronic diseases classified elsewhere; F17.210 Nicotine dependence, cigarettes, uncomplicated; H91.90 Unspecified hearing loss, unspecified ear; E83.42 Hypomagnesemia; E78.5 Hyperlipidemia, unspecified; I27.81 Cor pulmonale (chronic); N76.2 Acute vulvitis; I27.29 Other secondary pulmonary hypertension; R91.1 Solitary pulmonary nodule; Z90.710 Acquired absence of both cervix and uterus; Z88.6 Allergy status to analgesic agent; Z91.018 Allergy to other foods; Z91.19 Patient's noncompliance with other medical treatment and regimen; Z98.49 Cataract extraction status, unspecified eye; Z90.49 Acquired absence of other specified parts of digestive tract; Z82.49 Family history of ischemic heart disease and other diseases of the circulatory system; Z87.01 Personal history of pneumonia (recurrent); Z87.11 Personal history of peptic ulcer disease; Z79.899 Other long term (current) drug therapy; Z90.79 Acquired absence of other genital organ(s); Z90.722 Acquired absence of ovaries, bilateral; N28.1 Cyst of kidney, acquired
CPT/HCPCS: 36415; 71045; 80048; 80053; 81001; 83735; 83880; 84484; 85025; 93005; 93970; 94640; 94760; 96374; 97110-GP; 97116-GP; 97162-GP; 97166-GO; 97530-GO; 97535-GO; 99285; 99285-25; J0360; J1650; J1940; J2920; J3475; J3490; J7512; J7613; J7620; J7626

== ENCOUNTER 2018-02-05 08:18 | Inpatient (IN) | payer MEDICARE ==
[~2018-02-05] VITALS: Ht 160 cm; Wt 62.1 kg
[~2018-02-05 08:18] MED LIST: AMLO2.5T3 PO; BISA-42 PO; BUDE0.5A NEB; BUME2TAB PO; CARV3.122 PO; CEPH-264 PO; CEPH250C PO; CLON0.1T PO; CLON1PAT9 TD; DOCU100C28 PO; FURO40TA4 PO; FURO80TA3 PO; IPRA3AMP29 NEB; LOSA100T7 PO; OLME40TA12 PO; OMEP40CA5 PO; ONDA4TAB7 PO; POLY17PO29 PO; PRED-220 PO; PROAIR HFA8.5 GM INH; Pantoprazole PO; SENN8.6T4 PO; SENN8.6T99 PO; TAMS0.4C97 PO; VENTOLIN HFA18 GM INH
--- NOTE | 2018-02-05 09:22 | EKG ---
[facility] [address] [place] [address] Test Date: 2018-02-05 Test Time: 08:38:11 Pat Name: BINU FONTAINE Department: Room: Gender: F Internet Specialist: : [id number] Requested By: MARGI SÁNCHEZ Order Number: [id number] Reading MD: Clemente Nichols MD Measurements Intervals [place] Rate: 54 P: 39 MA: 170 QRS: -34 QRSD: 104 T: 69 QT: 424 QTc: 407 Interpretive Statements SINUS RHYTHM Electronically Signed On 02-05-2018 16:57:17 CDT by Clemente Nichols MD
[2018-02-05 09:50] LABS: BASO % 1 % (0-3); EOS # 0.1 x10^3/uL (0.0-0.7); EOS % 1 % (0-3); HEMATOCRIT 25.5 % (36.0-47.0); HEMOGLOBIN 8.8 g/dL (12.0-15.5); LYMPH % 33 % (24-48); MEAN CORPUSCULAR HEMOGLOBIN 30 pg (25-35); MEAN CORPUSCULAR HGB CONC 34 g/dL (31-37); MEAN CORPUSCULAR VOLUME 89 fL (79-100); MONO # 0.5 x10^3/uL (0.0-1.1); MONO % 9 % (0-9); NEUT # 3.5 x10^3uL (1.8-7.7); NEUT % 57 % (31-73); PLATELET COUNT 199 x10^3/uL (140-400); RED BLOOD COUNT 2.88 x10^6/uL (3.50-5.40); RED CELL DISTRIBUTION WIDTH 14.9 % (11.5-14.5); WHITE BLOOD COUNT 6.1 x10^3/uL (4.0-11.0)
[2018-02-05 09:55] LABS: ALBUMIN 3.1 g/dL (3.4-5.0); CALCIUM 9.4 mg/dL (8.5-10.1); CREATININE 2.5 mg/dL (0.6-1.0); GFR 18.1; TOTAL BILIRUBIN 0.3 mg/dL (0.2-1.0); TOTAL PROTEIN 6.3 g/dL (6.4-8.2)
[2018-02-05 09:58] LABS: PROTHROMBIN TIME PATIENT 12.3 SEC (11.7-14.0)
[2018-02-05 10:28] LABS: BILIRUBIN,URINE NEGATIVE (NEG); CLARITY,URINE CLEAR; COLOR,URINE YELLOW; NITRITE,URINE NEGATIVE (NEG); PROTEIN,URINE NEGATIVE (NEG-TRACE); UROBILINOGEN,URINE 0.2 mg/dL (0.2 mg/dL)
--- NOTE | 2018-02-05 11:10 | RAD ---
CT of the head without contrast, 02/05/2018: HISTORY: Altered mental status Comparison is made to a study from 03/16/2015. The ventricles are within normal limits in size. There is no shift of the midline structures. There is no evidence of acute intracranial hemorrhage or mass effect. A small amount of debris is present in the left sphenoid sinus, likely on an inflammatory basis. The bone windows show no evidence of a fracture. IMPRESSION: 1. No acute intracranial abnormality is detected. 2. Material in the left sphenoid sinus likely on an inflammatory basis. Electronically signed by: Germain Earl MD (02/05/2018 11:07 AM) [facility]
[2018-02-05 11:11] LABS: SQUAMOUS EPITHELIAL CELL,UR FEW /LPF
[2018-02-05 11:12] LABS: BACTERIA,URINE 0 /HPF (0-FEW); HYALINE CASTS, URINE FEW /HPF; RBC,URINE OCC /HPF (0-2)
[2018-02-05] MEDS ORDERED: POTASSIUM CHLORIDE 20 MEQ TABLET.ER. PO ONE (11:30)
--- NOTE | 2018-02-05 13:11 | PHYS DOC ---
Past Medical History Past Medical History: Anemia, COPD, Hypertension, Renal Failure Additional Past Medical Histor: Sleep Apnea, CKD Past Surgical History: Colectomy, Hysterectomy Additional Past Surgical Histo: Hernia Repair Additional Information: Quit 2013 Alcohol Use: Rarely Drug Use: None Adult General Chief Complaint Chief Complaint: MECHANICAL FALL HPI HPI Patient is a 87 year old [f__sex] who presents with [] Review of Systems Review of Systems Constitutional: Denies fever or chills [] Eyes: Denies change in visual acuity, redness, or eye pain [] HENT: Denies nasal congestion or sore throat [] Respiratory: Denies cough or shortness of breath [] Cardiovascular: No additional information not addressed in HPI [] GI: Denies abdominal pain, nausea, vomiting, bloody stools or diarrhea [] : Denies dysuria or hematuria [] Musculoskeletal: Denies back pain or joint pain [] Integument: Denies rash or skin lesions [] Neurologic: Denies headache, focal weakness or sensory changes [] Endocrine: Denies polyuria or polydipsia [] All other systems were reviewed and found to be within normal limits, except as documented in this note. Current Medications Current Medications Current Medications Medications (Trade) Dose Ordered Sig/Ofe Start Time Stop Time Status Last Admin Dose Admin Potassium Chloride (Klor-Con) 40 meq 1X ONCE 02/05/18 11:30 02/05/18 11:31 DC 02/05/18 11:36 40 MEQ Allergies Allergies Allergies Coded Allergies Type Severity Reaction Last Updated Verified aspirin Allergy Intermediate 12/17/17 Yes ciprofloxacin Allergy Intermediate Unknown 02/05/18 Yes honey Allergy Intermediate 12/17/17 Yes hydralazine Allergy Intermediate Leg Edema 02/05/18 Yes sertraline Allergy Intermediate Anxiety 02/05/18 Yes simvastatin Allergy Mild Nausea 02/05/18 Yes Physical Exam Physical Exam Constitutional: Well developed, well nourished, no acute distress, non-toxic appearance. [] HENT: Normocephalic, atraumatic, bilateral external ears normal, oropharynx moist, no oral exudates, nose normal. [] Eyes: PERRLA, EOMI, conjunctiva normal, no discharge. [] Neck: Normal range of motion, no tenderness, supple, no stridor. [] Cardiovascular:Heart rate regular rhythm, no murmur [] Lungs & Thorax: Bilateral breath sounds clear to auscultation [] Abdomen: Bowel sounds normal, soft, no tenderness, no masses, no pulsatile masses. [] Skin: Warm, dry, no erythema, no rash. [] Back: No tenderness, no CVA tenderness. [] Extremities: No tenderness, no cyanosis, no clubbing, ROM intact, no edema. [] Neurologic: Alert and oriented X 3, normal motor function, normal sensory function, no focal deficits noted. [] Psychologic: Affect normal, judgement normal, mood normal. [] Current Patient Data Vital Signs Vital Signs Date Time Temp Pulse Resp B/P (MAP) Pulse Ox O2 Delivery O2 Flow Rate FiO2 02/05/18 11:42 55 18 100 02/05/18 08:19 97.7 199/80 (119) Room Air 97.7 Lab Values Laboratory Tests Test 02/05/18 09:30 02/05/18 10:10 White Blood Count 6.1 x10^3/uL (4.0-11.0) Red Blood Count 2.88 x10^6/uL (3.50-5.40) L Hemoglobin 8.8 g/dL (12.0-15.5) L Hematocrit 25.5 % (36.0-47.0) L Mean Corpuscular Volume 89 fL (79-100) Mean Corpuscular Hemoglobin 30 pg (25-35) Mean Corpuscular Hemoglobin Concent 34 g/dL (31-37) Red Cell Distribution Width 14.9 % (11.5-14.5) H Platelet Count 199 x10^3/uL (140-400) Neutrophils (%) (Auto) 57 % (31-73) Lymphocytes (%) (Auto) 33 % (24-48) Monocytes (%) (Auto) 9 % (0-9) Eosinophils (%) (Auto) 1 % (0-3) Basophils (%) (Auto) 1 % (0-3) Neutrophils # (Auto) 3.5 x10^3uL (1.8-7.7) Lymphocytes # (Auto) 2.0 x10^3/uL (1.0-4.8) Monocytes # (Auto) 0.5 x10^3/uL (0.0-1.1) Eosinophils # (Auto) 0.1 x10^3/uL (0.0-0.7) Basophils # (Auto) 0.0 x10^3/uL (0.0-0.2) Prothrombin Time 12.3 SEC (11.7-14.0) Prothrombin Time INR 1.0 (0.8-1.1) Sodium Level 137 mmol/L (136-145) Potassium Level 3.0 mmol/L (3.5-5.1) L Chloride Level 95 mmol/L (98-107) L Carbon Dioxide Level 40 mmol/L (21-32) H Anion Gap 2 (6-14) L Blood Urea Nitrogen 71 mg/dL (7-20) H Creatinine 2.5 mg/dL (0.6-1.0) H Estimated GFR (Cockcroft-Gault) 18.1 BUN/Creatinine Ratio 28 (6-20) H Glucose Level 114 mg/dL (70-99) H Calcium Level 9.4 mg/dL (8.5-10.1) Total Bilirubin 0.3 mg/dL (0.2-1.0) Aspartate Amino Transferase (AST) 12 U/L (15-37) L Alanine Aminotransferase (ALT) 15 U/L (14-59) Alkaline Phosphatase 68 U/L (46-116) Troponin I Quantitative < 0.017 ng/mL (0.000-0.055) EM-Wkw-X-Type Natriuretic Peptide 1946 pg/mL (0-449) H Total Protein 6.3 g/dL (6.4-8.2) L Albumin 3.1 g/dL (3.4-5.0) L Albumin/Globulin Ratio 1.0 (1.0-1.7) Urine Color Yellow Urine Clarity Clear Urine pH 7.0 Urine Specific [place] 1.010 Urine Protein Negative mg/dL (NEG-TRACE) Urine Glucose (UA) Negative mg/dL (NEG) Urine Ketones (Stick) Negative mg/dL (NEG) Urine Blood Negative (NEG) Urine Nitrite Negative (NEG) Urine Bilirubin Negative (NEG) Urine Urobilinogen Dipstick 0.2 mg/dL (0.2 mg/dL) Urine Leukocyte Esterase Negative (NEG) Urine RBC Occ /HPF (0-2) Urine WBC 1-4 /HPF (0-4) Urine Squamous Epithelial Cells Few /LPF Urine Bacteria 0 /HPF (0-FEW) Urine Hyaline Casts Few /HPF Urine Mucus Slight /LPF Laboratory Tests 02/05/18 09:30 Laboratory Tests 02/05/18 09:30 EKG EKG [] Radiology/Procedures Radiology/Procedures [] Course & Med Decision Making Course & Med Decision Making Pertinent Labs and Imaging studies reviewed. (See chart for details) [] Dragon Disclaimer Dragon Disclaimer This electronic medical record was generated, in whole or in part, using a voice recognition dictation system. Departure Departure Impression: Primary Impression: Syncope Additional Impressions: Hypokalemia Chronic kidney disease (CKD) Disposition: ADMITTED INPATIENT Admitting Physician: Tim Henao Condition: STABLE Referrals: TIM HENAO MD (PCP) Problem Qualifiers Primary Impression: Syncope Syncope type: unspecified Qualified Codes: R55 - Syncope and collapse Additional Impressions: Chronic kidney disease (CKD) Chronic kidney disease stage: unspecified stage Qualified Codes: N18.9 - Chronic kidney disease, unspecified MARGI SÁNCHEZ APRN Feb 05, 2018 13:11
[2018-02-05 13:45] VITALS: BP 177/64
--- NOTE | 2018-02-05 15:29 | PDOC2 ---
CARDIAC CONSULT DATE OF CONSULT Date of Consult DATE: 02/05/18 TIME: 15:26 REASON FOR CONSULT Reason for Consult: syncope REFERRING PHYSICIAN Referring Physician: Wilner SOURCE Source: Chart review HISTORY OF PRESENT ILLNESS HISTORY OF PRESENT ILLNESS 87 year old female admitted through ER after fall a week ago today. Reports she was leaving bathroom, fell backwards striking her head and left shoulder on the tub and toilet. She remembers coming to on the floor and not being able to get up so she crawled into her kitchen and then used the counter to pull herself up and sit in a captain's chair. She reports not finding any injuries so did not seek evaluation. She was seen and evaluated in her PCP's office earlier today and sent to the ER. She reports no recent increase in her dyspnea and denies having chest pain prior to her syncopal episode but reports occasional bilateral and single sided chest pain, though she does not have specific details. EKG without acute changes and initial troponin not consistent with AMI. CT head without acute abnormality. CT of chest demonstrates an increase in the BRITNEY nodule that was 7 mm 10/2017 and is now 1.1 X 1.2 cm. Anemic with Hgb of 8.8; hypokalemic with K of 3.0. Known history of CKD and BUN now 71 and Cr of 2.5 with NT-proBNP of 1946. BP of 199/60 on presentation - reports not taking meds today. Reason for Visit: syncope PAST MEDICAL HISTORY Cardiovascular: CHF (diastolic), HTN, Hyperlipidemia, Valve insufficiency, Pulmonary hypertension Pulmonary: COPD, Other (SHERRY) CENTRAL NERVOUS SYSTEM: Other (none) GI: Constipation, Diverticulosis, GERD, Peptic Ulcer disease Heme/Onc: Anemia NOS Hepatobiliary: No pertinent hx Psych: No pertinent hx Musculoskeletal: Osteoarthritis Rheumatologic: No pertinent hx Infectious disease: No pertinent hx ENT: No pertinent hx Renal/: Chronic renal insuff (stage IV), Urinary Incontinence Endocrine: No pertinent hx Dermatology: No pertinent hx PAST SURGICAL HISTORY Past Surgical History: Appendectomy, Cataract Removal, Hernia Repair FAMILY HISTORY Family History: Hypertension SOCIAL HISTORY Smoke: No ALCOHOL: rare Drugs: None Lives: with Family CURRENT MEDICATIONS CURRENT MEDICATIONS Current Medications Medications (Trade) Dose Ordered Sig/Ofe Route PRN Reason Start Time Stop Time Status Last Admin Dose Admin Potassium Chloride (Klor-Con) 40 meq 1X ONCE PO 02/05/18 11:30 02/05/18 11:31 DC 02/05/18 11:36 ALLERGIES ALLERGIES: Coded Allergies: aspirin (Verified Allergy, Intermediate, 12/17/17) ciprofloxacin (Verified Allergy, Intermediate, Unknown, 02/05/18) honey (Verified Allergy, Intermediate, 12/17/17) hydralazine (Verified Allergy, Intermediate, Leg Edema, 02/05/18) sertraline (Verified Allergy, Intermediate, Anxiety, 02/05/18) simvastatin (Verified Allergy, Mild, Nausea, 02/05/18) ROS General: No: Chills, Night Sweats, Fatigue, Malaise, Appetite, Other PSYCHOLOGICAL ROS: No: Anxiety, Behavioral Disorder, Concentration difficultie , Decreased libido, Depression, Disorientation, Hallucinations, Hostility, Irritablity, Memory difficulties, Mood Swings, Obsessive thoughts, Physical abuse, Sexual abuse, Sleep disturbances, Suicidal ideation, Other Eyes: No Blurry vision, No Decreased vision, No Double vision, No Dry eyes, No Excessive tearing, No Eye Pain, No Itchy Eyes, No Loss of vision, No Photophobia , No Scotomata, No Uses contacts, No Uses glasses, No Other HEENT: No: Heacaches, Visual Changes, Hearing change, Nasal congestion, Nasal discharge, Oral lesions, Sinus pain, Sore Throat, Epistaxis, Sneezing, Snoring, Tinnitus, Vertigo, Vocal changes, Other ALLERGY AND IMMUNOLOGY: No: Hives, Insect Bite Sensitivity, Itchy/Watery Eyes, Nasal Congestion, Post Nasal Drip, Seasonal Allergies, Other Hematological and Lymphatic: YES: Brusing; No: Bleeding Problems, Blood Clots, Blood Transfusions, Night Sweats, Pallor , Swollen Lymph Nodes, Other ENDOCRINE: No: Breast Changes, Galactorrhea, Hair Pattern Changes, Hot Flashes , Malaise/lethargy, Mood Swings, Palpitations, Polydipsia/polyuria, Skin Changes , Temperature Intolerance, Unexpected Weight Changes, Other Respiratory: YES: SOB with excertion, Wheezing; No: Cough, Hemoptysis, Orthopnea, Pleuritic Pain, Shortness of breath, Sputum Changes, Stridor, Tachypnea, Other Cardiovascular: yes Chest Pain; No Palpitations, No Orthopnea, No Paroxysmal Noc. Dyspnea, No Edema, No Lt Headedness, No Other Gastrointestinal: No Nausea, No Vomiting, No Abdominal Pain, No Diarrhea, No Constipation, No Melena, No Hematochezia, No Other Genitourinary: YES ; No Dysuria, No Frequency, No Incontinence, No Hematuria, No Retention, No Discharge, No Urgency, No Pain, No Flank Pain, No Other Musculoskeletal: No Gait Disturbance, No Joint Pain, No Joint Stiffness, No Joint Swelling, No Muscle Pain, No Muscular Weakness, No Pain In:, No Swelling In:, No Other Neurological: No Behavorial Changes, No Bowel/Bladder ControlChng, No Confusion , No Dizziness, No Gait Disturbance, No Headaches, No Impaired Coord/balance, No Memory Loss, No Numbness/Tingling, No Seizures, No Speech Problems, No Tremors, No Visual Changes, No Weakness, No Other Skin: No Dry Skin, No Eczema, No Hair Changes, No Lumps, No Mole Changes, No Mottling, No Nail Changes, No Pruritus, No Rash, No Skin Lesion Changes, No Other, No Acne PHYSICAL EXAM General: Alert, Oriented X3, Cooperative HEENT: Atraumatic Lungs: Other (exp wheezing throughout) Heart: Normal S1, Normal S2, Other (tele: no dysrhythmias) Abdomen: Soft Extremities: No edema Skin: No rashes Neuro: Normal speech Psych/Mental Status: Mental status NL, Mood NL MUSCULOSKELETAL: Osteoarthritic changes both hands VITALS VITALS Vital Signs Date Time Temp Pulse Resp B/P (MAP) Pulse Ox O2 Delivery O2 Flow Rate FiO2 02/05/18 13:45 97.8 56 17 177/64 (101) 100 Room Air 97.8 LABS Lab: Laboratory Tests Test 02/05/18 09:30 02/05/18 10:10 White Blood Count 6.1 x10^3/uL (4.0-11.0) Red Blood Count 2.88 x10^6/uL (3.50-5.40) Hemoglobin 8.8 g/dL (12.0-15.5) Hematocrit 25.5 % (36.0-47.0) Mean Corpuscular Volume 89 fL (79-100) Mean Corpuscular Hemoglobin 30 pg (25-35) Mean Corpuscular Hemoglobin Concent 34 g/dL (31-37) Red Cell Distribution Width 14.9 % (11.5-14.5) Platelet Count 199 x10^3/uL (140-400) Neutrophils (%) (Auto) 57 % (31-73) Lymphocytes (%) (Auto) 33 % (24-48) Monocytes (%) (Auto) 9 % (0-9) Eosinophils (%) (Auto) 1 % (0-3) Basophils (%) (Auto) 1 % (0-3) Neutrophils # (Auto) 3.5 x10^3uL (1.8-7.7) Lymphocytes # (Auto) 2.0 x10^3/uL (1.0-4.8) Monocytes # (Auto) 0.5 x10^3/uL (0.0-1.1) Eosinophils # (Auto) 0.1 x10^3/uL (0.0-0.7) Basophils # (Auto) 0.0 x10^3/uL (0.0-0.2) Prothrombin Time 12.3 SEC (11.7-14.0) Prothromb Time International Ratio 1.0 (0.8-1.1) Sodium Level 137 mmol/L (136-145) Potassium Level 3.0 mmol/L (3.5-5.1) Chloride Level 95 mmol/L (98-107) Carbon Dioxide Level 40 mmol/L (21-32) Anion Gap 2 (6-14) Blood Urea Nitrogen 71 mg/dL (7-20) Creatinine 2.5 mg/dL (0.6-1.0) Estimated GFR (Cockcroft-Gault) 18.1 BUN/Creatinine Ratio 28 (6-20) Glucose Level 114 mg/dL (70-99) Calcium Level 9.4 mg/dL (8.5-10.1) Total Bilirubin 0.3 mg/dL (0.2-1.0) Aspartate Amino Transf (AST/SGOT) 12 U/L (15-37) Alanine Aminotransferase (ALT/SGPT) 15 U/L (14-59) Alkaline Phosphatase 68 U/L (46-116) Troponin I Quantitative < 0.017 ng/mL (0.000-0.055) XL-Mmp-L-Type Natriuretic Peptide 1946 pg/mL (0-449) Total Protein 6.3 g/dL (6.4-8.2) Albumin 3.1 g/dL (3.4-5.0) Albumin/Globulin Ratio 1.0 (1.0-1.7) Urine Color Yellow Urine Clarity Clear Urine pH 7.0 Urine Specific [place] 1.010 Urine Protein Negative mg/dL (NEG-TRACE) Urine Glucose (UA) Negative mg/dL (NEG) Urine Ketones (Stick) Negative mg/dL (NEG) Urine Blood Negative (NEG) Urine Nitrite Negative (NEG) Urine Bilirubin Negative (NEG) Urine Urobilinogen Dipstick 0.2 mg/dL (0.2 mg/dL) Urine Leukocyte Esterase Negative (NEG) Urine RBC Occ /HPF (0-2) Urine WBC 1-4 /HPF (0-4) Urine Squamous Epithelial Cells Few /LPF Urine Bacteria 0 /HPF (0-FEW) Urine Hyaline Casts Few /HPF Urine Mucus Slight /LPF IMAGES IMAGES CT chest: 1. A 1.1 x 1.2 cm left upper lobe spiculated lung nodule is seen, which has increased in size measuring 7 mm on 10/23/2017. Given the interval enlargement and suspicious imaging features, histopathologic correlation versus PET scan is recommended. 2. Multiple thyroid nodules are seen, which extend into the mediastinum, likely not amenable to percutaneous biopsy or adequate sonographic assessment. These are stable however. 3. Lobar atelectasis of the middle lobe with associated air bronchograms. This is of uncertain etiology as no discrete obstructing mass is identified and can be further assessed by bronchoscopy if clinically indicated. EKG EKG no acute changes ECHOCARDIOGRAM ECHOCARDIOGRAM 12/18/2017: TTE: The left ventricular systolic function is normal and the ejection fraction is within normal range. EF 55% Doppler and Color Flow revealed mild to moderate tricuspid regurgitation.There is moderate-severe pulmonary hypertension.The PA pressure was estimated at 70 mmHg. The IVC is dilated and collapses <50% with inspiration. Technically limited study. 10/23/2017: TTE: <Conclusion> Left ventricle systolic function is normal. The Ejection Fraction is 50-55%. There is normal LV segmental wall motion. ASSESSMENT/PLAN ASSESSMENT/PLAN 1. syncope --no evidence of dysrhythmias on tele so far; continue to monitor --EKG and troponin levels not consistent with AMI --recent TTE with preserved LVEF --check orthostatics --? vasovagal vs dehydration as BUN/Cr more elevated than previously 2. BRITNEY nodule --size increased from 10/2017 --consult to PULM 3. ? AECOPD with pulmonary HTN --wheezing, will restart DuoNeb --Pulm consult 4. MARY ELLEN/CKD --has been treated with diuretics and metolazone 5. chronic diastolic HF --reasonably compensated at this time 6. hypokalemia --has been replaced --check Mg and replace if < 2 CAMELIA PENA APRN Feb 05, 2018 15:29
[2018-02-05] MEDS ORDERED: METO2.5T PO (15:41)
[2018-02-05] MEDS ORDERED: MONT5TAB9 PO (15:45)
[2018-02-05] MEDS ORDERED: PANT20TA2 PO (15:46)
[2018-02-05] MEDS ORDERED: TAMS0.4C2 PO (15:48)
[2018-02-05] MEDS ORDERED: PROAIR RESPICL90 MCG IH (15:49)
[2018-02-05] MEDS ORDERED: CHOL10003 PO (15:49)
[2018-02-05] MEDS: IPRATRPIUM/ALBUTEROL 0.5/2.5MG 3 ML NEBU. NEB SCH ×2 (17:04→19:55)
[2018-02-05] MEDS ORDERED: MAGNESIUM SULFATE 2GM 50 ML IV ONE (17:45)
[2018-02-05] MEDS ORDERED: ACETAMINOPHEN 325 MG TABLET. PO PRN (17:45)
--- NOTE | 2018-02-05 17:56 | PDOC ---
Provider Note Provider Note history and physical dictated # [id number] HANS ELIZONDO MD Feb 05, 2018 17:56
[2018-02-05] MEDS ORDERED: ALBUTEROL SULFATE 2.5 MG/3 ML NEBU. NEB PRN (18:00)
[2018-02-05] MEDS: CARVEDILOL 3.125 MG TABLET. PO SCH (18:38)
--- NOTE | 2018-02-05 18:52 | HP ---
ADMIT DATE: 02/05/2018 LOCATION: Room 648, Bed 1. HISTORY OF PRESENT ILLNESS: The patient is an 87-year-old white female who has a history of chronic diastolic congestive heart failure, chronic obstructive pulmonary disease with chronic kidney disease stage 4, secondary pulmonary hypertension, left upper lobe lung nodule, bilateral lower extremity swelling secondary to her chronic diastolic congestive heart failure and secondary pulmonary hypertension, treated with diuretics, was admitted to [facility] through the Emergency Room on 02/05/2018 for apparent syncopal episode about a week ago. She apparently was leaving the bathroom and she fell backwards striking her head and left shoulder on the tub and toilet and remembers coming off the floor and crawling to the kitchen, used the corner to pull herself up and went into a chair. She hurt the back of her head behind the left ear. She actually was seen in my office a couple days ago on 02/02/2018. A CAT scan of head was to be ordered. At that time, her lungs were clear and her lower extremity edema was much improved. A basic metabolic profile was actually ordered, but only the BUN was 65 and there was no creatinine or electrolytes on the lab test that was ordered. In any case, the patient went on her own to the Emergency Room because she said she felt pain all over and weak and did not feel well. In the Emergency Room, EKG showed no acute change, a chest x-ray apparently has not been done, initial troponin was negative, and a CAT scan of head showed no acute abnormality. She did have a workup recently including a CAT scan of the chest, which showed that her left upper lobe lung nodule increased from 7 mm in 10/2017 to 1.1 cm I believe about a couple of months later. She also had a transthoracic echocardiogram done on 10/23/2017 which showed a left ventricular ejection fraction of 50-55%. She was therefore admitted for further evaluation of her syncopal episode and acute exacerbation of chronic obstructive pulmonary disease and acute kidney injury on top of chronic kidney disease. Her lower extremity edema was quite significant and has been treated as an outpatient. She has been on various diuretics, but currently he was on furosemide 80 mg p.o. b.i.d. and metolazone 2.5 mg on Tuesdays and Fridays prior to admission. She had about 3+ bilateral lower extremity edema, the edema has pretty much resolved at the expense of an elevated BUN and creatinine, which is expected. As mentioned, she has a history of chronic kidney disease stage 4 and her previous serum creatinine was 2.0, now is 2.5. Previous BUN was in the neighborhood of about 48, now it is in the 70s. She is on chronic oxygen and has chronic hypoxic respiratory failure. ALLERGIES AND INTOLERANCES: ASPIRIN, CIPROFLOXACIN, HONEY, HYDRALAZINE, SERTRALINE AND SIMVASTATIN. MEDICATIONS: Prior to admission include furosemide 80 mg p.o. b.i.d., metolazone 2.5 mg on Tuesdays and Fridays, vitamin D 1000 units every day, ProAir inhaler 1-2 puffs every 4 hours p.r.n., clonidine 0.1 mg t.i.d., tamsulosin 0.4 mg every day, carvedilol 3.125 mg b.i.d., Protonix 40 mg every day, MiraLax 17 grams 8 ounces of fluid every day, DuoNeb nebulizer treatments every 4 hours p.r.n. PAST MEDICAL HISTORY: Significant for chronic obstructive pulmonary disease, chronic diastolic congestive heart failure, chronic hypoxic respiratory failure, chronic kidney disease stage 4, obstructive sleep apnea, I believe in the past. She also has anemia of chronic disease, chronic cor pulmonale secondary to pulmonary hypertension from her chronic obstructive pulmonary disease. She had gastritis and esophagitis in 2010, had a colon polypectomy I believe in 2010, cardiac catheterization in 2003, pneumonia in 2002. She had a gastric ulcer in 2010, had an abdominal hernia repair in 2010, benign colon polypectomy was in 2008. She had a release of a small-bowel obstruction due to adhesions in 2007. She has gastroesophageal reflux disease and hyperlipidemia, has a mention of coronary artery disease. She has chronic cor pulmonale. She has a history of obstructive sleep apnea, treated with CPAP in the past. She has had an appendectomy, hysterectomy and cataract extraction. SOCIAL HISTORY: She does not drink alcohol. She did smoke in the past, it is unclear how much she is actually smoking now or if she is smoking at all. FAMILY HISTORY: Noncontributory. REVIEW OF SYSTEMS: GENERAL: There has been no fever, chills or sweats in the last 3 days. CARDIOVASCULAR: No chest pain. PULMONARY: She is wheezing. GASTROINTESTINAL: No diarrhea. ENDOCRINE: No diabetes mellitus. SKIN: No rashes. The rest of systems reviewed are negative except as stated in history of present illness. PHYSICAL EXAMINATION: VITAL SIGNS: Temperature 97.8 degrees, apical pulse regular at 56, respiratory rate 17, blood pressure 177/64, oxygen saturation 95% here on room air, but she has been on 2 liters of oxygen per nasal cannula. HEENT: Eyes: Gaze is conjugate. Mouth: Tongue is midline. NECK: There is no cervical lymphadenopathy or thyroid enlargement. HEART: Reveals an S1, S2. There is no S3 or murmur. LUNGS: She has got bilateral expiratory wheezes with decreased breath sounds. ABDOMEN: Soft, nontender. EXTREMITIES: Lower extremities without edema. SKIN: No rashes. NEUROLOGIC: She is coherent, hard of hearing. No focal weakness in arms or legs or facial asymmetry. LABORATORY DATA: White count is 6.1, hemoglobin 8.8, this is unchanged. Platelet count 199,000, 57 polys, 33 lymphocytes. Previous hemoglobins have been 8.5 and 9.3. She had 57 polys and 33 lymphocytes, platelet count 199,000. INR 1.0. Sodium 137, potassium 3.0, chloride 95, total CO2 was 40 with a BUN of 71 and the previous BUN was 48. Her serum creatinine was 2.5 and her previous serum creatinine was 2.0 on 01/13/2018. Her blood sugar was 114. Magnesium was low at 1.7. Liver function tests were okay. ProBNP was increased to 1946 in the setting of chronic kidney disease. Troponin level was less than 0.017. Albumin 3.1. Urinalysis showed 1-4 white cells and occasional red blood cell. She had a CAT scan of the head, which showed no acute abnormality. ASSESSMENT: 1. Acute exacerbation of chronic obstructive pulmonary disease. 2. Recent syncopal episode. 3. Chronic diastolic congestive heart failure. 4. Acute kidney injury, expected on diuretics on chronic kidney disease stage 4. 5. Hypokalemia. 6. Hypomagnesemia. 7. Hypertension. 8. Secondary pulmonary hypertension with chronic cor pulmonale. 9. Left lung nodule. 10. Chronic hypoxic respiratory failure. 11. Anemia of chronic disease. PLAN: At this time is to consult Dr. Nichols and his nurse practitioner has already seen the patient. I will also consult Dr. Ace for Pulmonary, Dr. Ku for Nephrology. As far as her syncopal episode, we will continue with the telemetry and check orthostatic blood pressures. As far as her acute exacerbation of chronic obstructive pulmonary disease, we will start her on IV Solu-Medrol and also DuoNeb nebulized treatments q.i.d. and every 4 hours p.r.n. We will also have Dr. Ace follow up on the left upper lobe lung nodule in addition to her acute exacerbation of COPD. Dr. Ku will see the patient for acute kidney injury on top of chronic kidney disease and we will currently hold her diuretics. We will also recheck her labs tomorrow including a basic metabolic profile and magnesium. We will give her 2 g of magnesium sulfate IV and she received 40 mEq of potassium chloride in the Emergency Room. We will also order SCDs for deep vein thrombosis prophylaxis and physical and occupational therapy. Continue with her antihypertensive medication, clonidine and carvedilol. HANS ELIZONDO MD DR: BENNY/jessica JOB#: [id number] / [id number]
[2018-02-05 19:00] VITALS: BP_SYST 147; BP_SYST 158; BP_SYST 166; BP_DIAS 46; BP_DIAS 48; BP_DIAS 50
[2018-02-05] MEDS: TAMSULOSIN 0.4 MG CAP.ER.24H. PO SCH (21:48)
[2018-02-05] MEDS: cloNIDine HCL 0.1 MG TABLET PO SCH (21:48)
[2018-02-05] MEDS: methylPREDNISolone SOD SUCC PF 40 MG/ML VIAL. IV SCH (21:49)
[2018-02-05 22:37] VITALS: BP 180/56
[2018-02-06] VITALS (7 sets, daily range): BP systolic 131–188; BP diastolic 36–62
[2018-02-06 05:39] LABS: CALCIUM 8.9 mg/dL (8.5-10.1); CREATININE 2.4 mg/dL (0.6-1.0); MAGNESIUM 2.3 mg/dL (1.8-2.4); POTASSIUM 3.8 mmol/L (3.5-5.1)
[2018-02-06 06:14] LABS: FREE T4 1.15 ng/dL (0.76-1.46); THYROID STIM HORMONE (TSH) 0.599 uIU/mL (0.358-3.74)
[2018-02-06] MEDS: IPRATRPIUM/ALBUTEROL 0.5/2.5MG 3 ML NEBU. NEB SCH ×4 (07:10→20:21)
--- NOTE | 2018-02-06 07:48 | RAD ---
EXAM: Chest, single view. HISTORY: Wheezing. COMPARISON: CT dated 02/05/2018. FINDINGS: A frontal view of the chest is obtained. There is stable right middle lobe consolidation. There is stable small right and trace left pleural effusions. There is stable right basilar infiltrate. There is stable right upper lobe interstitial opacity likely due to interstitial infiltrate. There is a stable nodular opacity overlying the left upper lobe. There is no pneumothorax. The heart is normal in size. There is dense calcification of the mitral valve annulus. IMPRESSION: 1. Stable right middle lobe consolidation.. 2. Stable right basilar and upper lobe infiltrate and small right and trace left pleural effusions. 3. Stable left upper lobe pulmonary nodule, better characterized on the prior CT. Please refer to the CT report for further recommendations regarding this finding. Electronically signed by: Marisa Sierra MD (02/06/2018 7:45 AM) [facility]
[2018-02-06] MEDS: methylPREDNISolone SOD SUCC PF 40 MG/ML VIAL. IV SCH ×3 (08:03→20:58)
[2018-02-06] MEDS: PANTOPRAZOLE 40 MG TABLET.DR. PO SCH (08:03)
[2018-02-06] MEDS: CHOLECALCIFEROL (VITAMIN D3) 1,000 UNIT TABLET PO SCH (08:03)
[2018-02-06] MEDS: CARVEDILOL 3.125 MG TABLET. PO SCH (08:05)
[2018-02-06] MEDS: cloNIDine HCL 0.1 MG TABLET PO SCH ×3 (08:06→20:58)
[2018-02-06] MEDS: POLYETHYLENE GLYCOL 3350 17 GM PACKET. PO SCH (08:06)
--- NOTE | 2018-02-06 09:18 | PDOC ---
CARDIOLOGY PROGRESS NOTE SUBJECTIVE: Reports feeling better. No chest pain. No near syncope. OBJECTIVE: Vital SIgns: bradycardic Objective: Gen: A/o x3. NAD CVS: RRR PULM: Bilateral rhonchi. No edema. CURRENT MEDICATIONS: coreg, clonidine previously on bumex and amlodipine and metolazone DIAGNOSTIC TESTING: Hgb 8.8 Cr 2.5 ASSESSMENT: 1. Syncope - She states that her legs gave out and thats why she fell. DDx is broad but bradycardia could also be contributing. 2. Chronic diastolic HF - stable 3. MARY ELLEN on CKD 4. HTN PLAN: 1. Await input from Dr. Henao and [place], but would stop Coreg. Restart amlodipine for her BP and when diuretics can be restarted, she will have good BP control. Removing coreg will help improve her HR and take this out as a possibility of her syncope/fall. Supportive care from cardiac standpoint. PT/OT eval pending. WILLAM MONTERO MD Feb 06, 2018 09:18
--- NOTE | 2018-02-06 11:18 | PDOC ---
PROGRESS NOTES Subjective Subjective feels better . not short of breath. lab reviewed. bun 70 and creatinine 2.4 and will hold off on lasix for now. no leg edema.. ct chest shows slowly growing BRITNEY lung nodule located far from chest wall making a percutaneous bx difficult . has persistent RML lung atalectasis. discussed with dr. Ace and patient and patient concurs with bronchoscopy on Thursday and out patient PET scan. will d/ c carvedilol as heart rate 57. she had more leg edema in past on amlodipine . note wide pulse pressure consistent with endothelial dysfunction. would like to keep [id number] or higher. will hold off on amlodipine for the time being as diastolic bp less than 60 and last systolic bp was okay. Objective Objective Vital Signs Date Time Temp Pulse Resp B/P (MAP) Pulse Ox O2 Delivery O2 Flow Rate FiO2 02/06/18 11:00 97.7 56 20 137/45 (75) 100 Nasal Cannula 2.5 97.7 131/36 (67) Intake and Output 02/06/18 07:00 Intake Total 320 ml Output Total 0 ml Balance 320 ml Intake Oral 320 ml Output Urine Total 0 ml # Voids 1 Physical Exam Abdomen: Soft Heart: Normal S1, Normal S2 Extremities: No edema General: Alert, Cooperative HEENT: Atraumatic, Other Lungs: Other (decreased breath sounds with mild wheezes) Neuro: Normal speech Psych/Mental Status: Mental status NL Skin: No rashes Assessment Assessment Problems1. Acute exacerbation of chronic obstructive pulmonary disease. 2. Recent syncopal episode. 3. Chronic diastolic congestive heart failure. 4. Acute kidney injury, expected on diuretics on chronic kidney disease stage 4 5. Hypokalemia.resolved 6. Hypomagnesemia.resolved 7. Hypertension. 8. Secondary pulmonary hypertension with chronic cor pulmonale. 9. Left lung nodule.slow increase in size 10. Chronic hypoxic respiratory failure. 11. Anemia of chronic disease. RML atalectasis Medical Problems: (1) Chronic kidney disease (CKD) Status: Acute (2) Hypokalemia Status: Acute (3) Syncope Status: Acute Plan Plan of Care bronchoscopy thursday out patient PET scan continue iv solumedrol and oxygen and nebulizer rx. add budesonide rx d/c carvedilol and continue clonidine hold furosemide for now elevate legs Comment Review of Relevant I have reviewed the following items brandan (where applicable) has been applied. Labs Laboratory Tests Test 02/05/18 09:30 02/05/18 10:10 02/06/18 04:25 White Blood Count 6.1 x10^3/uL (4.0-11.0) Red Blood Count 2.88 x10^6/uL (3.50-5.40) Hemoglobin 8.8 g/dL (12.0-15.5) Hematocrit 25.5 % (36.0-47.0) Mean Corpuscular Volume 89 fL (79-100) Mean Corpuscular Hemoglobin 30 pg (25-35) Mean Corpuscular Hemoglobin Concent 34 g/dL (31-37) Red Cell Distribution Width 14.9 % (11.5-14.5) Platelet Count 199 x10^3/uL (140-400) Neutrophils (%) (Auto) 57 % (31-73) Lymphocytes (%) (Auto) 33 % (24-48) Monocytes (%) (Auto) 9 % (0-9) Eosinophils (%) (Auto) 1 % (0-3) Basophils (%) (Auto) 1 % (0-3) Neutrophils # (Auto) 3.5 x10^3uL (1.8-7.7) Lymphocytes # (Auto) 2.0 x10^3/uL (1.0-4.8) Monocytes # (Auto) 0.5 x10^3/uL (0.0-1.1) Eosinophils # (Auto) 0.1 x10^3/uL (0.0-0.7) Basophils # (Auto) 0.0 x10^3/uL (0.0-0.2) Prothrombin Time 12.3 SEC (11.7-14.0) Prothromb Time International Ratio 1.0 (0.8-1.1) Sodium Level 137 mmol/L (136-145) 136 mmol/L (136-145) Potassium Level 3.0 mmol/L (3.5-5.1) 3.8 mmol/L (3.5-5.1) Chloride Level 95 mmol/L (98-107) 93 mmol/L (98-107) Carbon Dioxide Level 40 mmol/L (21-32) 38 mmol/L (21-32) Anion Gap 2 (6-14) 5 (6-14) Blood Urea Nitrogen 71 mg/dL (7-20) 70 mg/dL (7-20) Creatinine 2.5 mg/dL (0.6-1.0) 2.4 mg/dL (0.6-1.0) Estimated GFR (Cockcroft-Gault) 18.1 19.0 BUN/Creatinine Ratio 28 (6-20) Glucose Level 114 mg/dL (70-99) 174 mg/dL (70-99) Calcium Level 9.4 mg/dL (8.5-10.1) 8.9 mg/dL (8.5-10.1) Magnesium Level 1.7 mg/dL (1.8-2.4) 2.3 mg/dL (1.8-2.4) Total Bilirubin 0.3 mg/dL (0.2-1.0) Aspartate Amino Transf (AST/SGOT) 12 U/L (15-37) Alanine Aminotransferase (ALT/SGPT) 15 U/L (14-59) Alkaline Phosphatase 68 U/L (46-116) Troponin I Quantitative < 0.017 ng/mL (0.000-0.055) [id number]-Wrk-F-Type Natriuretic Peptide 1946 pg/mL (0-449) Total Protein 6.3 g/dL (6.4-8.2) Albumin 3.1 g/dL (3.4-5.0) Albumin/Globulin Ratio 1.0 (1.0-1.7) Urine Color Yellow Urine Clarity Clear Urine pH 7.0 Urine Specific [place] 1.010 Urine Protein Negative mg/dL (NEG-TRACE) Urine Glucose (UA) Negative mg/dL (NEG) Urine Ketones (Stick) Negative mg/dL (NEG) Urine Blood Negative (NEG) Urine Nitrite Negative (NEG) Urine Bilirubin Negative (NEG) Urine Urobilinogen Dipstick 0.2 mg/dL (0.2 mg/dL) Urine Leukocyte Esterase Negative (NEG) Urine RBC Occ /HPF (0-2) Urine WBC 1-4 /HPF (0-4) Urine Squamous Epithelial Cells Few /LPF Urine Bacteria 0 /HPF (0-FEW) Urine Hyaline Casts Few /HPF Urine Mucus Slight /LPF Thyroid Stimulating Hormone (TSH) 0.599 uIU/mL (0.358-3.74) Free Thyroxine 1.15 ng/dL (0.76-1.46) Laboratory Tests Test 02/06/18 04:25 Sodium Level 136 mmol/L (136-145) Potassium Level 3.8 mmol/L (3.5-5.1) Chloride Level 93 mmol/L (98-107) Carbon Dioxide Level 38 mmol/L (21-32) Anion Gap 5 (6-14) Blood Urea Nitrogen 70 mg/dL (7-20) Creatinine 2.4 mg/dL (0.6-1.0) Estimated GFR (Cockcroft-Gault) 19.0 Glucose Level 174 mg/dL (70-99) Calcium Level 8.9 mg/dL (8.5-10.1) Magnesium Level 2.3 mg/dL (1.8-2.4) Thyroid Stimulating Hormone (TSH) 0.599 uIU/mL (0.358-3.74) Free Thyroxine 1.15 ng/dL (0.76-1.46) Medications Current Medications Potassium Chloride (Klor-Con) 40 meq 1X ONCE PO Last administered on at 11:36; Start 02/05/18 at 11:30; Stop 02/05/18 at 11:31; Status DC Albuterol/ Ipratropium (Duoneb) 3 ml RTQID NEB Last administered on 02/06/18 07:10; Start 02/05/18 at 16:30 Methylprednisolone Sodium Succinate (SOLU-Medrol 40MG VIAL) 40 mg Q8HRS IV Last administered on 02/06/18 08:03; Start 02/05/18 at 22:00 Vitamin D (Vitamin D3) 1,000 unit DAILY PO Last administered on 02/06/18 08:03 ; Start 02/06/18 at 09:00 Clonidine HCl (Catapres) 0.1 mg TID PO Last administered on 02/06/18 08:06; Start 02/05/18 at 21:00 Tamsulosin HCl (Flomax) 0.4 mg QHS PO Last administered on 02/05/18 21:48; Start 02/05/18 at 21:00 Carvedilol (Coreg) 3.125 mg BIDWMEALS PO Last administered on 02/06/18 08:05; Start 02/05/18 at 18:00 Pantoprazole Sodium (Protonix) 40 mg DAILYAC PO Last administered on 02/06/18at 08:03; Start 02/06/18 at 07:30 Polyethylene Glycol (miraLAX PACKET) 17 gm DAILY PO Last administered on at 08:06; Start 02/06/18 at 09:00 Acetaminophen (Tylenol) 650 mg PRN Q6HRS PRN PO MILD PAIN / TEMP; Start at 17:45 Albuterol Sulfate (Ventolin Neb Soln) 2.5 mg PRN Q4HRS PRN NEB SHORTNESS OF BREATH; Start 02/05/18 at 18:00 Magnesium Sulfate 50 ml @ 25 mls/hr 1X ONCE IV Last administered on 02/05/18at 18:38; Start 02/05/18 at 17:45; Stop 02/05/18 at 19:44; Status DC Active Scripts Active Budesonide 0.5 Mg/2 Ml Ampul.neb 0.5 Mg NEB RTBID 30 Days Furosemide 80 Mg Tablet 80 Mg PO [id number] 30 Days Omeprazole 40 Mg Capsule.dr 40 Mg PO DAILY 30 Days Prednisone (Prednisone) 10 Mg Tablet 40 Mg PO DAILY 8 Days Duoneb 0.5-3(2.5) Mg/3 Ml (Albuterol/Ipratropium) 3 Ml Ampul.neb 3 Ml NEB RTQID 30 Days Flomax (Tamsulosin Hcl) 0.4 Mg Cap.er.24h 0.4 Mg PO DAILY 30 Days Reported Proair Respiclick (Albuterol Sulfate) 90 Mcg Aer.pow.ba 1 Puff IH PRN Q4HRS PRN Vitamin D3 (Cholecalciferol (Vitamin D3)) 1,000 Unit Tablet 1 Tab PO DAILY Protonix (Pantoprazole Sodium) 20 Mg Tablet. 40 Mg PO DAILY Montelukast Sodium Chew.tablet (Montelukast Sodium) 5 Mg Tab.chew 10 Mg PO HS Metolazone 2.5 Mg Tablet 2.5 Mg PO TWICE WEEKLY Senokot (Sennosides) 8.6 Mg Tablet 1 Tab PO BID Miralax (Polyethylene Glycol 3350) 17 Gm Powd.pack 1 Packet PO DAILY Carvedilol 3.125 Mg Tablet 1 Tab PO BID Clonidine Hcl 0.1 Mg Tablet 0.1 Mg PO TID Vitals/I & O Vital Sign - Last 24 Hours 02/05/18 02/05/18 02/05/18 02/05/18 11:17 11:42 12:12 13:45 Temp 97.8 97.8 Pulse 54 55 56 56 Resp 18 18 24 17 B/P (MAP) 177/64 (101) Pulse Ox 100 100 100 100 O2 Delivery Room Air 02/05/18 02/05/18 02/05/18 02/05/18 15:53 17:06 18:38 19:00 Temp 97.7 97.7 Pulse 56 65 Resp 18 B/P (MAP) 177/64 158/46 (83) Pulse Ox 95 99 O2 Delivery Nasal Cannula Room Air Nasal Cannula O2 Flow Rate 2.0 3.5 02/05/18 02/05/18 02/05/18 02/05/18 19:00 19:00 19:55 20:04 Pulse 68 65 B/P (MAP) 147/48 (81) 166/50 (88) Pulse Ox 98 O2 Delivery Nasal Cannula Room Air O2 Flow Rate 3.5 02/05/18 02/05/18 02/06/18 02/06/18 21:48 22:37 02:47 07:00 Temp 97.7 97.7 97.5 97.7 97.7 97.5 Pulse 65 62 61 57 Resp 18 18 16 B/P (MAP) 166/50 180/56 (97) 173/55 (94) 157/46 (83) Pulse Ox 99 98 100 O2 Delivery Nasal Cannula Nasal Cannula Nasal Cannula O2 Flow Rate 3.5 3.5 3.0 02/06/18 02/06/18 02/06/18 02/06/18 07:11 07:20 08:05 08:06 Pulse 57 57 B/P (MAP) 157/46 157/46 Pulse Ox 99 O2 Delivery Nasal Cannula Nasal Cannula O2 Flow Rate 3.0 2.0 02/06/18 11:00 Temp 97.7 97.7 Pulse 56 Resp 20 B/P (MAP) 137/45 (75) 131/36 (67) Pulse Ox 100 O2 Delivery Nasal Cannula O2 Flow Rate 2.5 Intake and Output 02/05/18 02/05/18 02/06/18 15:00 23:00 07:00 Intake Total 320 ml Output Total 0 ml Balance 320 ml 0 ml HANS ELIZONDO MD Feb 06, 2018 11:18
--- NOTE | 2018-02-06 12:27 | CONS ---
DATE OF CONSULTATION: ATTENDING PHYSICIAN: Dr. Henao. REASON FOR CONSULTATION: Enlarging lung nodule and abnormal CT chest. HISTORY OF PRESENT ILLNESS: The patient is an 87-year-old pleasant female who has a history of tobacco use for at least 40 years before quitting 3-4 years ago. She says that she does wear oxygen up to 3-4 liters. She was brought in to the hospital after she tripped and fell. The patient was worked up and a CT of the chest was performed. I personally reviewed the CT chest and compared the one from December as well as from October of this year. The patient's CT of the chest had shown an enlarging left upper lobe nodule. This was 7 mm in October and then increased to 10 mm in December and now it is 1.1 x 1.2 cm in size. The patient also noted to have persistent atelectasis involving the right middle lobe. No definite mass was observed on the right side. I have been asked to see her for further evaluation. The patient says that she has lost some weight over the last few years. She used to be in the 190s. Now, she is in the 120s. She has an occasional cough with thick white sputum production. No hemoptysis. She has occasional shortness of breath. No headaches, no nausea or vomiting, no diarrhea. Consultation requested for further evaluation and management. PAST MEDICAL HISTORY: Significant for history of chronic obstructive airway disease, history of chronic respiratory failure, history of chronic diastolic heart failure, history of cor pulmonale, history of esophagitis and history of gastric ulcer. PAST SURGICAL HISTORY: Including colonoscopy, polypectomy, history of cardiac catheterization, history of adhesions removal post-bowel obstruction, appendectomy and hysterectomy. SOCIAL HISTORY: Quit tobacco about 3 years ago, before that she smoked for at least 40 years. FAMILY HISTORY: Noncontributory to lungs. REVIEW OF SYSTEMS: Twelve-point system obtained. Pertinent positives discussed in my history of present illness, otherwise noncontributory. All systems that were negative were reviewed as well. ALLERGIES: ASPIRIN, CIPRO, HONEY, HYDRALAZINE, SERTRALINE and SIMVASTATIN. MEDICATIONS: On admission were all reviewed including bronchodilator, DuoNebs and IV steroids. PHYSICAL EXAMINATION: GENERAL: She is awake, following commands. VITAL SIGNS: Reviewed. They were stable. Pulse ox 99% on 2.5 liters. HEENT: Sclerae nonicteric. NECK: Supple. LUNGS: With diminished breath sounds at the bases. CARDIOVASCULAR: Regular rate. ABDOMEN: Soft, nontender. EXTREMITIES: With 1+ pitting edema. LABORATORY DATA: Reviewed. White cell count 6.1, hemoglobin 8.8 and platelets are 199. INR 1.0. BUN is 17 and creatinine of 2.4. IMPRESSION: 1. Enlarging left upper lobe nodule. This is now 1.1 cm in size. This was 0.7 mm in October and 10 mm in December. 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 The patient also has a persistent right middle lobe atelectasis, which was seen in December and now is persistent. Although no obvious mass is seen on the CT chest, but a small endobronchial lesion cannot be ruled out. 2. Underlying chronic obstructive pulmonary disease with chronic hypoxic respiratory failure. 3. Weight loss over the past few years. Could be related to underlying malignancy. 4. History of coronary artery disease and diastolic heart failure, clinically compensated. 5. Chronic kidney disease. RECOMMENDATIONS: 1. I have discussed with the patient in detail about her abnormal CT chest findings. She says that she makes her own decisions and she wants to live and I did give her the options of bronchoscopy to rule out the possibility of any endobronchial lesion in the right middle lobe. I also explained to her that the bronchoscopy would not be able to diagnose the nodule seen on the left upper lobe and for that reason she would need an outpatient PET scan. The nodule is not close to the chest wall and it would be tough to get a CT-guided biopsy if the PET scan is positive. 2. The patient says that she will think about the invasive procedure bronchoscopy and let me know in the next 24 hours. 3. Continue bronchodilators. 4. Taper steroids. 5. Follow renal function. 6. Discussed with Dr. Henao and further recommendations to follow. MADHAVI HEATH MD DR: MAYDA/jessica JOB#: [id number] / [id number]
--- NOTE | 2018-02-06 12:53 | PDOC2 ---
CONSULT Date of Consult Date of Consult DATE: 02/06/18 TIME: 12:49 Reason for Consult Reason for Consult: Acute kidney injury on CK D stage IV Referring Physician Referring Physician: Dr. Henao Identification/Chief Complaint Chief Complaint : "I had multiple problems" Source Source: Chart review, Patient History of Present Illness Reason for Visit: Yee is an 87-year-old female who is followed by Dr. Henao on a regular basis. She is known to have underlying chronic renal insufficiency with what appears to be an atrophied right kidney. She is not aware of having seen nephrology in the past. TMs to run a baseline creatinine of approximately 1.7- 2.1 in the past. She recently has developed issues with edema in her lower extremity requiring diuresis. Her edema was attribute it to pulmonary hypertension. Most recent echo did not report pulmonary pressure and is felt to have at least some amount of diastolic dysfunction. Patient is a poor historian and is unable to provide me much in terms of details of her current ongoing problems. I have discussed her care with Dr. Henao whereby it appears that this is the best she has been with regards to her edema. Her other imaging studies do reveal significant amount of atherosclerotic vascular disease. She does admit to taking NSAIDs from time to time. UA at presentation was nonrevealing for gross abnormalities. She does admit to being "sick to my stomach"on arrival. Past Medical History Cardiovascular: CHF (diastolic), HTN, Hyperlipidemia, Valve insufficiency, Pulmonary hypertension Pulmonary: COPD, Other ([place]) CENTRAL NERVOUS SYSTEM: Other (none) GI: Constipation, Diverticulosis, GERD, Peptic Ulcer disease Heme/Onc: Anemia NOS Hepatobiliary: No pertinent hx Musculoskeletal: Osteoarthritis ENT: Other ([place]) Renal/: Chronic renal insuff (stage IV), Urinary Incontinence Endocrine: No pertinent hx Dermatology: No pertinent hx Past Surgical History Past Surgical History: Appendectomy, Cataract Removal, Hernia Repair Family History Family History: Hypertension Social History No ALCOHOL: rare Drugs: None Lives: with Family Current Problem List Problem List Problems Medical Problems: (1) Chronic kidney disease (CKD) Status: Acute (2) Hypokalemia Status: Acute (3) Syncope Status: Acute Current Medications Current Medications Current Medications Potassium Chloride (Klor-Con) 40 meq 1X ONCE PO Last administered on at 11:36; Start 02/05/18 at 11:30; Stop 02/05/18 at 11:31; Status DC Albuterol/ Ipratropium (Duoneb) 3 ml RTQID NEB Last administered on 02/06/18 11:17; Start 02/05/18 at 16:30 Methylprednisolone Sodium Succinate (SOLU-Medrol 40MG VIAL) 40 mg Q8HRS IV Last administered on 02/06/18 12:44; Start 02/05/18 at 22:00 Vitamin D (Vitamin D3) 1,000 unit DAILY PO Last administered on 02/06/18 08:03 ; Start 02/06/18 at 09:00 Clonidine HCl (Catapres) 0.1 mg TID PO Last administered on 02/06/18 08:06; Start 02/05/18 at 21:00 Tamsulosin HCl (Flomax) 0.4 mg QHS PO Last administered on 02/05/18 21:48; Start 02/05/18 at 21:00 Carvedilol (Coreg) 3.125 mg BIDWMEALS PO Last administered on 02/06/18 08:05; Start 02/05/18 at 18:00; Stop 02/06/18 at 11:23; Status DC Pantoprazole Sodium (Protonix) 40 mg DAILYAC PO Last administered on 02/06/18 08:03; Start 02/06/18 at 07:30 Polyethylene Glycol (miraLAX PACKET) 17 gm DAILY PO Last administered on 08:06; Start 02/06/18 at 09:00 Acetaminophen (Tylenol) 650 mg PRN Q6HRS PRN PO MILD PAIN / TEMP; Start at 17:45 Albuterol Sulfate (Ventolin Neb Soln) 2.5 mg PRN Q4HRS PRN NEB SHORTNESS OF BREATH; Start 02/05/18 at 18:00 Magnesium Sulfate 50 ml @ 25 mls/hr 1X ONCE IV Last administered on 02/05/18at 18:38; Start 02/05/18 at 17:45; Stop 02/05/18 at 19:44; Status DC Lactulose (Lactulose) 20 gm BID PO Last administered on 02/06/18 12:43; Start 02/06/18 at 13:00; Stop 02/06/18 at 18:00 Budesonide (Pulmicort) 0.5 mg RTBID NEB ; Start 02/06/18 at 20:00 Active Scripts Active Budesonide 0.5 Mg/2 Ml Ampul.neb 0.5 Mg NEB RTBID 30 Days Furosemide 80 Mg Tablet 80 Mg PO BID92 30 Days Omeprazole 40 Mg Capsule.dr 40 Mg PO DAILY 30 Days Prednisone (Prednisone) 10 Mg Tablet 40 Mg PO DAILY 8 Days Duoneb 0.5-3(2.5) Mg/3 Ml (Albuterol/Ipratropium) 3 Ml Ampul.neb 3 Ml NEB RTQID 30 Days Flomax (Tamsulosin Hcl) 0.4 Mg Cap.er.24h 0.4 Mg PO DAILY 30 Days Reported Proair Respiclick (Albuterol Sulfate) 90 Mcg Aer.pow.ba 1 Puff IH PRN Q4HRS PRN Vitamin D3 (Cholecalciferol (Vitamin D3)) 1,000 Unit Tablet 1 Tab PO DAILY Protonix (Pantoprazole Sodium) 20 Mg Tablet.dr 40 Mg PO DAILY Montelukast Sodium Chew.tablet (Montelukast Sodium) 5 Mg Tab.chew 10 Mg PO HS Metolazone 2.5 Mg Tablet 2.5 Mg PO TWICE WEEKLY Senokot (Sennosides) 8.6 Mg Tablet 1 Tab PO BID Miralax (Polyethylene Glycol 3350) 17 Gm Powd.pack 1 Packet PO DAILY Carvedilol 3.125 Mg Tablet 1 Tab PO BID Clonidine Hcl 0.1 Mg Tablet 0.1 Mg PO TID Allergies Allergies: Coded Allergies: aspirin (Verified Allergy, Intermediate, 12/17/17) ciprofloxacin (Verified Allergy, Intermediate, Unknown, 02/05/18) honey (Verified Allergy, Intermediate, 12/17/17) hydralazine (Verified Allergy, Intermediate, Leg Edema, 02/05/18) sertraline (Verified Allergy, Intermediate, Anxiety, 02/05/18) simvastatin (Verified Allergy, Mild, Nausea, 02/05/18) ROS Review of System She denies any specific complaints at this time. Given her difficulty hearing I am not sure that she is able to provide me with accurate review of systems. Her son is sitting at her side but does not have any comment with regards to specific complaints. Physical Exam Physical Exam General Appearance: Awake Alert Oriented x 1-2 In no Distress Eyes: VIsion Unchanged Conjunctiva Normal EN: No EN Drainage Mucous Memb. m oist Neck: no JVD min JVP Supple no Thyromegaly CVS: S1 S2 ? Soft Murmur No Gallop No Rub no Edema Resp: no Rales ? Wheeze vs Rhonchi in Rt LLL no Acc. Muscle use GI: BAS +ve NO Bruit Non Tender Non Distended : no CVA tenderness; no Suprapubic Tenderness SKIN: no Rashes Breast Exam deferred Mu.Sk: Adequate ROM no Muscle Atrophy Heme: Unable to palpate Obvious LAD no Splenomegaly NEURO: Good Strength and Tone no asterixis was elicitable Psych: no Depressed no Active hallucination Vital Signs Vital Signs Date Time Temp Pulse Resp B/P (MAP) Pulse Ox O2 Delivery O2 Flow Rate FiO2 02/06/18 11:44 56 131/36 02/06/18 11:17 99 Nasal Cannula 2.5 02/06/18 11:00 97.7 20 97.7 Assessment & Plan CK D stage IV: Current FLuid and E-lyte status does not necessitate emergent need for Dialysis. I believe this will be her new baseline in a fluid optimized state Atrophic right kidney with numerous cysts as noted on recent sonogram: Presumed ischemic given other atherosclerotic vascular disease foci Anemia: We'll check iron profile, and order Epogen if needed, she appears asymptomatic currently HTN: Blood pressures appear to be well controlled on Current BP meds as reviewed. No changes recommended at this time. Bone & Mineral: Can check PTH and vitamin D for completion if needed Hypomagnesemia and hypokalemia yesterday: Now corrected Left lower pole kidney mass: Deemed stable on most recent sonogram. Given advanced age I am not sure that she would be a candidate for any intervention. Urological input would be useful to outline further plans "Sick to my stomach" unclear if this is an early uremic indication. Albumin is low suggesting decreased by mouth intake Discussed Plan of Care and prognosis etc. at length with family. Labs Labs Laboratory Tests Test 02/05/18 09:30 02/05/18 10:10 02/06/18 04:25 White Blood Count 6.1 x10^3/uL (4.0-11.0) Red Blood Count 2.88 x10^6/uL (3.50-5.40) Hemoglobin 8.8 g/dL (12.0-15.5) Hematocrit 25.5 % (36.0-47.0) Mean Corpuscular Volume 89 fL (79-100) Mean Corpuscular Hemoglobin 30 pg (25-35) Mean Corpuscular Hemoglobin Concent 34 g/dL (31-37) Red Cell Distribution Width 14.9 % (11.5-14.5) Platelet Count 199 x10^3/uL (140-400) Neutrophils (%) (Auto) 57 % (31-73) Lymphocytes (%) (Auto) 33 % (24-48) Monocytes (%) (Auto) 9 % (0-9) Eosinophils (%) (Auto) 1 % (0-3) Basophils (%) (Auto) 1 % (0-3) Neutrophils # (Auto) 3.5 x10^3uL (1.8-7.7) Lymphocytes # (Auto) 2.0 x10^3/uL (1.0-4.8) Monocytes # (Auto) 0.5 x10^3/uL (0.0-1.1) Eosinophils # (Auto) 0.1 x10^3/uL (0.0-0.7) Basophils # (Auto) 0.0 x10^3/uL (0.0-0.2) Prothrombin Time 12.3 SEC (11.7-14.0) Prothromb Time International Ratio 1.0 (0.8-1.1) Sodium Level 137 mmol/L (136-145) 136 mmol/L (136-145) Potassium Level 3.0 mmol/L (3.5-5.1) 3.8 mmol/L (3.5-5.1) Chloride Level 95 mmol/L (98-107) 93 mmol/L (98-107) Carbon Dioxide Level 40 mmol/L (21-32) 38 mmol/L (21-32) Anion Gap 2 (6-14) 5 (6-14) Blood Urea Nitrogen 71 mg/dL (7-20) 70 mg/dL (7-20) Creatinine 2.5 mg/dL (0.6-1.0) 2.4 mg/dL (0.6-1.0) Estimated GFR (Cockcroft-Gault) 18.1 19.0 BUN/Creatinine Ratio 28 (6-20) Glucose Level 114 mg/dL (70-99) 174 mg/dL (70-99) Calcium Level 9.4 mg/dL (8.5-10.1) 8.9 mg/dL (8.5-10.1) Magnesium Level 1.7 mg/dL (1.8-2.4) 2.3 mg/dL (1.8-2.4) Total Bilirubin 0.3 mg/dL (0.2-1.0) Aspartate Amino Transf (AST/SGOT) 12 U/L (15-37) Alanine Aminotransferase (ALT/SGPT) 15 U/L (14-59) Alkaline Phosphatase 68 U/L (46-116) Troponin I Quantitative < 0.017 ng/mL (0.000-0.055) [id number]-Wtz-X-Type Natriuretic Peptide 1946 pg/mL (0-449) Total Protein 6.3 g/dL (6.4-8.2) Albumin 3.1 g/dL (3.4-5.0) Albumin/Globulin Ratio 1.0 (1.0-1.7) Urine Color Yellow Urine Clarity Clear Urine pH 7.0 Urine Specific [place] 1.010 Urine Protein Negative mg/dL (NEG-TRACE) Urine Glucose (UA) Negative mg/dL (NEG) Urine Ketones (Stick) Negative mg/dL (NEG) Urine Blood Negative (NEG) Urine Nitrite Negative (NEG) Urine Bilirubin Negative (NEG) Urine Urobilinogen Dipstick 0.2 mg/dL (0.2 mg/dL) Urine Leukocyte Esterase Negative (NEG) Urine RBC Occ /HPF (0-2) Urine WBC 1-4 /HPF (0-4) Urine Squamous Epithelial Cells Few /LPF Urine Bacteria 0 /HPF (0-FEW) Urine Hyaline Casts Few /HPF Urine Mucus Slight /LPF Thyroid Stimulating Hormone (TSH) 0.599 uIU/mL (0.358-3.74) Free Thyroxine 1.15 ng/dL (0.76-1.46) Laboratory Tests Test 02/06/18 04:25 Sodium Level 136 mmol/L (136-145) Potassium Level 3.8 mmol/L (3.5-5.1) Chloride Level 93 mmol/L (98-107) Carbon Dioxide Level 38 mmol/L (21-32) Anion Gap 5 (6-14) Blood Urea Nitrogen 70 mg/dL (7-20) Creatinine 2.4 mg/dL (0.6-1.0) Estimated GFR (Cockcroft-Gault) 19.0 Glucose Level 174 mg/dL (70-99) Calcium Level 8.9 mg/dL (8.5-10.1) Magnesium Level 2.3 mg/dL (1.8-2.4) Thyroid Stimulating Hormone (TSH) 0.599 uIU/mL (0.358-3.74) Free Thyroxine 1.15 ng/dL (0.76-1.46) Review All relevant outside records, renal labs, imaging studies, telemetry/EKG's were reviewed. Images Images CT scan of the abdomen pelvis done June 2017 shows: Right renal cortical atrophy. Calcifications within both kidneys may be related to nonobstructing calculi or vascular calcification, vascular calcification is favored. Left inferior renal pole mass, likely a cyst is stable. Diffuse atheromatous aortic calcification without aneurysm. Renal ultrasound : 10/23/2017 IMPRESSION: 1. Atrophic right kidney containing several cysts. 2. Stable left lower pole renal mass. 3. No evidence of hydronephrosis. KAYLYNN JIMENEZ MD Feb 06, 2018 12:53
[2018-02-06] MEDS ORDERED: LACTULOSE 20 GM/30 ML SOLUTION. PO SCH (13:00)
[2018-02-06] MEDS: MAG HYDROX/ALUMINUM HYD/SIMETH 30 ML ORAL.SUSP PO PRN ×2 (15:28→17:55)
[2018-02-06] MEDS: BUDESONIDE 0.5 MG/2 ML NEBU. NEB SCH (20:21)
[2018-02-06] MEDS: TAMSULOSIN 0.4 MG CAP.ER.24H. PO SCH (20:58)
[2018-02-07 03:10] VITALS: BP 147/50
[2018-02-07] MEDS: methylPREDNISolone SOD SUCC PF 40 MG/ML VIAL. IV SCH ×2 (05:25→21:29)
[2018-02-07 06:03] LABS: CALCIUM 9.6 mg/dL (8.5-10.1); CREATININE 2.1 mg/dL (0.6-1.0); GFR 22.2; POTASSIUM 3.7 mmol/L (3.5-5.1)
[2018-02-07 07:00] VITALS: BP 163/48
[2018-02-07] MEDS: IPRATRPIUM/ALBUTEROL 0.5/2.5MG 3 ML NEBU. NEB SCH ×3 (07:23→19:42)
[2018-02-07] MEDS: BUDESONIDE 0.5 MG/2 ML NEBU. NEB SCH ×2 (07:24→19:43)
[2018-02-07] MEDS: CHOLECALCIFEROL (VITAMIN D3) 1,000 UNIT TABLET PO SCH (09:52)
[2018-02-07] MEDS: PANTOPRAZOLE 40 MG TABLET.DR. PO SCH (09:52)
[2018-02-07] MEDS: cloNIDine HCL 0.1 MG TABLET PO SCH ×3 (09:52→21:30)
[2018-02-07] MEDS: POLYETHYLENE GLYCOL 3350 17 GM PACKET. PO SCH (09:52)
--- NOTE | 2018-02-07 10:17 | PDOC ---
SUBJECTIVE ROS Asked to see for elevated creatinine, CK D stage IV Patient denies any new complaints today. CVS: no Orthopnea, no CP RESP: no SOB, no BECERRA GI: no Nausea, no Vomiting : no Dysuria, no Urgency OBJECTIVE Vital Signs Vital Signs Date Time Temp Pulse Resp B/P (MAP) Pulse Ox O2 Delivery O2 Flow Rate FiO2 02/07/18 09:52 60 163/48 02/07/18 07:00 97.7 16 98 Nasal Cannula 2.0 97.7 I & 0 Intake and Output 02/07/18 07:00 Intake Total 840 ml Output Total 651 ml Balance 189 ml Intake Oral 840 ml Output Urine Total 651 ml # Voids 1 # Bowel Movements 2 PHYSICAL EXAM Physical Exam General Appearance: Awake Alert Oriented x 1-2 In no Distress Eyes: VIsion Unchanged Conjunctiva Normal EN: No EN Drainage Mucous Memb. m oist Neck: no JVD min JVP Supple no Thyromegaly CVS: S1 S2 ? Soft Murmur No Gallop No Rub no Edema Resp: no Rales ? Wheeze vs Rhonchi in Rt LLL no Acc. Muscle use GI: BAS +ve NO Bruit Non Tender Non Distended : no CVA tenderness; no Suprapubic Tenderness DIAGNOSIS/ASSESSMENT Assessment & Plan CK D stage IV: Current FLuid and E-lyte status does not necessitate emergent need for Dialysis. I believe this will be her new baseline in a fluid optimized state Atrophic right kidney with numerous cysts as noted on recent sonogram: Presumed ischemic given other atherosclerotic vascular disease foci Anemia: We'll check iron profile, and order Epogen if needed, she appears asymptomatic currently HTN: Blood pressures appear to be inadequately controlled currently. Hence we' ll add Cardura given her listed allergy to hydralazine, inability to use our AAS blockade agents due to proximity to ESRD status and risk for hyperkalemia, tendency to edema(which makes calcium channel blockers challenging to use). May benefit from resuming metolazone Bone & Mineral: will check PTH and then vitamin D for completion if needed Left lower pole kidney mass: Deemed stable on most recent sonogram. Given advanced age I am not sure that she would be a candidate for any intervention. Urological input would be useful to outline further plans "Sick to my stomach" unclear if this is an early uremic indication. Albumin is low suggesting decreased by mouth intake. Will begin 24-hour urine collection to assess renal function Discussed Plan of Care and prognosis etc. at length with family. COMMENT/RELEVANT DATA Meds Current Medications Medications (Trade) Dose Ordered Sig/Ofe Start Time Stop Time Status Last Admin Dose Admin Acetaminophen (Tylenol) 650 mg PRN Q6HRS PRN 02/05/18 17:45 Al Hydroxide/Mg Hydroxide (Mylanta Plus Xs) 30 ml PRN Q2HR PRN 02/06/18 15:15 02/06/18 17:55 30 ML Albuterol Sulfate (Ventolin Neb Soln) 2.5 mg PRN Q4HRS PRN 02/05/18 18:00 Albuterol/ Ipratropium (Duoneb) 3 ml RTQID 02/05/18 16:30 02/06/18 15:27 3 ML Budesonide (Pulmicort) 0.5 mg RTBID 02/06/18 20:00 Carvedilol (Coreg) 3.125 mg BIDWMEALS 02/05/18 18:00 02/06/18 11:23 DC 02/06/18 08:05 3.125 MG Clonidine HCl (Catapres) 0.1 mg TID 02/05/18 21:00 02/07/18 09:52 0.1 MG Lactulose (Lactulose) 20 gm BID 02/06/18 13:00 02/06/18 18:00 DC 02/06/18 12:43 20 GM Magnesium Sulfate 50 ml @ 25 mls/hr 1X ONCE 02/05/18 17:45 02/05/18 19:44 DC 02/05/18 18:38 25 MLS/HR Methylprednisolone Sodium Succinate (SOLU-Medrol 40MG VIAL) 40 mg Q8HRS 02/05/18 22:00 02/07/18 05:25 40 MG Pantoprazole Sodium (Protonix) 40 mg DAILYAC 02/06/18 07:30 02/07/18 09:52 40 MG Polyethylene Glycol (miraLAX PACKET) 17 gm DAILY 02/06/18 09:00 02/07/18 09:52 17 GM Potassium Chloride (Klor-Con) 40 meq 1X ONCE 02/05/18 11:30 02/05/18 11:31 DC 02/05/18 11:36 40 MEQ Tamsulosin HCl (Flomax) 0.4 mg QHS 02/05/18 21:00 02/06/18 20:58 0.4 MG Vitamin D (Vitamin D3) 1,000 unit DAILY 02/06/18 09:00 02/07/18 09:52 1,000 UNIT Lab Laboratory Tests Test 02/07/18 04:40 Sodium Level 133 mmol/L (136-145) Potassium Level 3.7 mmol/L (3.5-5.1) Chloride Level 93 mmol/L (98-107) Carbon Dioxide Level 39 mmol/L (21-32) Anion Gap 1 (6-14) Blood Urea Nitrogen 73 mg/dL (7-20) Creatinine 2.1 mg/dL (0.6-1.0) Estimated GFR (Cockcroft-Gault) 22.2 Glucose Level 160 mg/dL (70-99) Calcium Level 9.6 mg/dL (8.5-10.1) Results All relevant outside records, renal labs, imaging studies, telemetry/EKG's were reviewed. KAYLYNN JIMENEZ MD Feb 07, 2018 10:17
--- NOTE | 2018-02-07 10:48 | PDOC ---
PROGRESS NOTES Subjective Subjective feels better. no wheezes. lungs are clear. says second albuterol rx caused nausea yesterday, lab reviewed, Objective Objective Vital Signs Date Time Temp Pulse Resp B/P (MAP) Pulse Ox O2 Delivery O2 Flow Rate FiO2 02/07/18 09:52 60 163/48 02/07/18 07:00 97.7 16 98 Nasal Cannula 2.0 97.7 Intake and Output 02/07/18 07:00 Intake Total 840 ml Output Total 651 ml Balance 189 ml Intake Oral 840 ml Output Urine Total 651 ml # Voids 1 # Bowel Movements 2 Physical Exam Abdomen: Soft Heart: Regular rate, Normal S1, Normal S2 Extremities: No edema General: Alert HEENT: Atraumatic Lungs: Clear to auscultation Neuro: Normal speech Psych/Mental Status: Mood NL Skin: No rashes Assessment Assessment Problems1. Acute exacerbation of chronic obstructive pulmonary disease. improved 2. Recent syncopal episode. 3. Chronic diastolic congestive heart failure. 4. Acute kidney injury, expected on diuretics on chronic kidney disease stage 4 5. Hypokalemia.resolved 6. Hypomagnesemia.resolved 7. Hypertension. 8. Secondary pulmonary hypertension with chronic cor pulmonale. 9. Left lung nodule.slow increase in size 10. Chronic hypoxic respiratory failure. 11. Anemia of chronic disease. RML atelectasis left kidney mass. stable on 10/30 ultrasound. likely cyst on ct scan abdomen/pelvis 07/02 Medical Problems: (1) Chronic kidney disease (CKD) Status: Acute (2) Hypokalemia Status: Acute (3) Syncope Status: Acute Plan Plan of Care decrease iv solumedrol and decrease duoneb nebulizer rx and continue budesonide nebulizer rx bronchoscopy tomorrow zofran prn consult urology for left kidney mass ultrasound of kidneys hold furosemide lab tomorrow 24 hour urine collection for cr cl and protein Comment Review of Relevant I have reviewed the following items brandan (where applicable) has been applied. Labs Laboratory Tests Test 02/06/18 04:25 02/07/18 04:40 Sodium Level 136 mmol/L (136-145) 133 mmol/L (136-145) Potassium Level 3.8 mmol/L (3.5-5.1) 3.7 mmol/L (3.5-5.1) Chloride Level 93 mmol/L (98-107) 93 mmol/L (98-107) Carbon Dioxide Level 38 mmol/L (21-32) 39 mmol/L (21-32) Anion Gap 5 (6-14) 1 (6-14) Blood Urea Nitrogen 70 mg/dL (7-20) 73 mg/dL (7-20) Creatinine 2.4 mg/dL (0.6-1.0) 2.1 mg/dL (0.6-1.0) Estimated GFR (Cockcroft-Gault) 19.0 22.2 Glucose Level 174 mg/dL (70-99) 160 mg/dL (70-99) Calcium Level 8.9 mg/dL (8.5-10.1) 9.6 mg/dL (8.5-10.1) Magnesium Level 2.3 mg/dL (1.8-2.4) Thyroid Stimulating Hormone (TSH) 0.599 uIU/mL (0.358-3.74) Free Thyroxine 1.15 ng/dL (0.76-1.46) Laboratory Tests Test 02/07/18 04:40 Sodium Level 133 mmol/L (136-145) Potassium Level 3.7 mmol/L (3.5-5.1) Chloride Level 93 mmol/L (98-107) Carbon Dioxide Level 39 mmol/L (21-32) Anion Gap 1 (6-14) Blood Urea Nitrogen 73 mg/dL (7-20) Creatinine 2.1 mg/dL (0.6-1.0) Estimated GFR (Cockcroft-Gault) 22.2 Glucose Level 160 mg/dL (70-99) Calcium Level 9.6 mg/dL (8.5-10.1) Medications Current Medications Potassium Chloride (Klor-Con) 40 meq 1X ONCE PO Last administered on at 11:36; Start 02/05/18 at 11:30; Stop 02/05/18 at 11:31; Status DC Albuterol/ Ipratropium (Duoneb) 3 ml RTQID NEB Last administered on 02/06/18at 15:27; Start 02/05/18 at 16:30; Stop 02/07/18 at 10:38; Status DC Methylprednisolone Sodium Succinate (SOLU-Medrol 40MG VIAL) 40 mg Q8HRS IV Last administered on 02/07/18 05:25; Start 02/05/18 at 22:00; Stop 02/07/18 at 10:38; Status DC Vitamin D (Vitamin D3) 1,000 unit DAILY PO Last administered on 02/07/18 09:52 ; Start 02/06/18 at 09:00 Clonidine HCl (Catapres) 0.1 mg TID PO Last administered on 02/07/18 09:52; Start 02/05/18 at 21:00 Tamsulosin HCl (Flomax) 0.4 mg QHS PO Last administered on 02/06/18 20:58; Start 02/05/18 at 21:00 Carvedilol (Coreg) 3.125 mg BIDWMEALS PO Last administered on 02/06/18 08:05; Start 02/05/18 at 18:00; Stop 02/06/18 at 11:23; Status DC Pantoprazole Sodium (Protonix) 40 mg DAILYAC PO Last administered on 02/07/18 09:52; Start 02/06/18 at 07:30 Polyethylene Glycol (miraLAX PACKET) 17 gm DAILY PO Last administered on 09:52; Start 02/06/18 at 09:00 Acetaminophen (Tylenol) 650 mg PRN Q6HRS PRN PO MILD PAIN / TEMP; Start at 17:45 Albuterol Sulfate (Ventolin Neb Soln) 2.5 mg PRN Q4HRS PRN NEB SHORTNESS OF BREATH; Start 02/05/18 at 18:00 Magnesium Sulfate 50 ml @ 25 mls/hr 1X ONCE IV Last administered on 02/05/18at 18:38; Start 02/05/18 at 17:45; Stop 02/05/18 at 19:44; Status DC Lactulose (Lactulose) 20 gm BID PO Last administered on 02/06/18at 12:43; Start 02/06/18 at 13:00; Stop 02/06/18 at 18:00; Status DC Budesonide (Pulmicort) 0.5 mg RTBID NEB ; Start 02/06/18 at 20:00 Al Hydroxide/Mg Hydroxide (Mylanta Plus Xs) 30 ml PRN Q2HR PRN PO HEARTBURN / GAS Last administered on 02/06/18at 17:55; Start 02/06/18 at 15:15 Albuterol/ Ipratropium (Duoneb) 3 ml TID NEB ; Start 02/07/18 at 14:00 Methylprednisolone Sodium Succinate (SOLU-Medrol 40MG VIAL) 40 mg Q12HR IV ; Start 02/07/18 at 21:00 Active Scripts Active Budesonide 0.5 Mg/2 Ml Ampul.neb 0.5 Mg NEB RTBID 30 Days Furosemide 80 Mg Tablet 80 Mg PO BID92 30 Days Omeprazole 40 Mg Capsule.dr 40 Mg PO DAILY 30 Days Prednisone (Prednisone) 10 Mg Tablet 40 Mg PO DAILY 8 Days Duoneb 0.5-3(2.5) Mg/3 Ml (Albuterol/Ipratropium) 3 Ml Ampul.neb 3 Ml NEB RTQID 30 Days Flomax (Tamsulosin Hcl) 0.4 Mg Cap.er.24h 0.4 Mg PO DAILY 30 Days Reported Proair Respiclick (Albuterol Sulfate) 90 Mcg Aer.pow.ba 1 Puff IH PRN Q4HRS PRN Vitamin D3 (Cholecalciferol (Vitamin D3)) 1,000 Unit Tablet 1 Tab PO DAILY Protonix (Pantoprazole Sodium) 20 Mg Tablet.dr 40 Mg PO DAILY Montelukast Sodium Chew.tablet (Montelukast Sodium) 5 Mg Tab.chew 10 Mg PO HS Metolazone 2.5 Mg Tablet 2.5 Mg PO TWICE WEEKLY Senokot (Sennosides) 8.6 Mg Tablet 1 Tab PO BID Miralax (Polyethylene Glycol 3350) 17 Gm Powd.pack 1 Packet PO DAILY Carvedilol 3.125 Mg Tablet 1 Tab PO BID Clonidine Hcl 0.1 Mg Tablet 0.1 Mg PO TID Vitals/I & O Vital Sign - Last 24 Hours 02/06/18 02/06/18 02/06/18 02/06/18 11:00 11:17 11:44 15:00 Temp 97.7 96.3 97.7 96.3 Pulse 56 56 57 Resp 20 20 B/P (MAP) 137/45 (75) 131/36 167/50 (89) 131/36 (67) Pulse Ox 100 99 99 O2 Delivery Nasal Cannula Nasal Cannula Nasal Cannula O2 Flow Rate 2.5 2.5 2.5 02/06/18 02/06/18 02/06/1825/18 15:28 19:20 20:00 20:58 Temp 98.3 98.3 Pulse 67 67 Resp 16 B/P (MAP) 188/62 (104) 188/62 Pulse Ox 98 O2 Delivery Nasal Cannula Nasal Cannula Nasal Cannula O2 Flow Rate 2.0 2.0 2.0 02/06/18 02/06/18 02/07/18 02/07/18 22:00 22:01 03:10 07:00 Temp 97.9 97.8 97.7 97.9 97.8 97.7 Pulse 63 65 60 Resp 16 18 16 B/P (MAP) 174/54 (94) 170/55 (93) 147/50 (82) 163/48 (86) Pulse Ox 99 99 98 O2 Delivery Room Air Nasal Cannula Nasal Cannula O2 Flow Rate 2.0 2.0 02/07/18 09:52 Pulse 60 B/P (MAP) 163/48 Intake and Output 02/06/18 02/06/18 02/07/18 15:00 23:00 07:00 Intake Total 360 ml 180 ml 300 ml Output Total 1 ml 225 ml 425 ml Balance 359 ml -45 ml -125 ml HANS ELIZONDO MD Feb 07, 2018 10:48
[2018-02-07 10:49] VITALS: BP 152/42
[2018-02-07] MEDS ORDERED: ONDANSETRON ODT 4 MG TAB.RAPDIS. PO PRN (11:00)
--- NOTE | 2018-02-07 11:17 | PDOC ---
PULMONARY PROGRESS NOTES Subjective no soa feels better Vitals Vital Signs Date Time Temp Pulse Resp B/P (MAP) Pulse Ox O2 Delivery O2 Flow Rate FiO2 02/07/18 10:49 97.5 61 20 152/42 (78) 100 Nasal Cannula 2.0 97.5 ROS: No Chest Pain, No Increase Cough General: Alert, No acute distress Lungs: Clear Cardiovascular: S1, S2 Abdomen: Soft, Non-tender Neuro Exam: Alert Extremities: No Edema, Other Labs Laboratory Tests Test 02/06/18 04:25 02/07/18 04:40 Sodium Level 136 mmol/L (136-145) 133 mmol/L (136-145) Potassium Level 3.8 mmol/L (3.5-5.1) 3.7 mmol/L (3.5-5.1) Chloride Level 93 mmol/L (98-107) 93 mmol/L (98-107) Carbon Dioxide Level 38 mmol/L (21-32) 39 mmol/L (21-32) Anion Gap 5 (6-14) 1 (6-14) Blood Urea Nitrogen 70 mg/dL (7-20) 73 mg/dL (7-20) Creatinine 2.4 mg/dL (0.6-1.0) 2.1 mg/dL (0.6-1.0) Estimated GFR (Cockcroft-Gault) 19.0 22.2 Glucose Level 174 mg/dL (70-99) 160 mg/dL (70-99) Calcium Level 8.9 mg/dL (8.5-10.1) 9.6 mg/dL (8.5-10.1) Magnesium Level 2.3 mg/dL (1.8-2.4) Thyroid Stimulating Hormone (TSH) 0.599 uIU/mL (0.358-3.74) Free Thyroxine 1.15 ng/dL (0.76-1.46) Laboratory Tests Test 02/07/18 04:40 Sodium Level 133 mmol/L (136-145) Potassium Level 3.7 mmol/L (3.5-5.1) Chloride Level 93 mmol/L (98-107) Carbon Dioxide Level 39 mmol/L (21-32) Anion Gap 1 (6-14) Blood Urea Nitrogen 73 mg/dL (7-20) Creatinine 2.1 mg/dL (0.6-1.0) Estimated GFR (Cockcroft-Gault) 22.2 Glucose Level 160 mg/dL (70-99) Calcium Level 9.6 mg/dL (8.5-10.1) Medications Active Scripts Medications Dose Route/Sig Max Daily Dose Days Date Category Proair Respiclick (Albuterol Sulfate) 90 Mcg Aer.pow.ba 1 Puff IH PRN Q4HRS PRN 02/05/18 Reported Vitamin D3 (Cholecalciferol (Vitamin D3)) 1,000 Unit Tablet 1 Tab PO DAILY 02/05/18 Reported Protonix (Pantoprazole Sodium) 20 Mg Tablet.dr 40 Mg PO DAILY 02/05/18 Reported Montelukast Sodium Chew.tablet (Montelukast Sodium) 5 Mg Tab.chew 10 Mg PO HS 02/05/18 Reported Metolazone 2.5 Mg Tablet 2.5 Mg PO TWICE WEEKLY 02/05/18 Reported Budesonide 0.5 Mg/2 Ml Ampul.neb 0.5 Mg NEB RTBID 30 01/13/18 Rx Furosemide 80 Mg Tablet 80 Mg PO BID92 30 01/13/18 Rx Omeprazole 40 Mg Capsule.dr 40 Mg PO DAILY 30 01/13/18 Rx Prednisone (Prednisone) 10 Mg Tablet 40 Mg PO DAILY 8 12/21/17 Rx Duoneb 0.5-3(2.5) Mg/3 Ml (Albuterol/Ipratropium) 3 Ml Ampul.neb 3 Ml NEB RTQID 30 12/21/17 Rx Senokot (Sennosides) 8.6 Mg Tablet 1 Tab PO BID 12/17/17 Reported Miralax (Polyethylene Glycol 3350) 17 Gm Powd.pack 1 Packet PO DAILY 12/17/17 Reported Carvedilol 3.125 Mg Tablet 1 Tab PO BID 12/17/17 Reported Flomax (Tamsulosin Hcl) 0.4 Mg Cap.er.24h 0.4 Mg PO DAILY 30 10/27/17 Rx Clonidine Hcl 0.1 Mg Tablet 0.1 Mg PO TID 08/24/17 Reported Impression . 1. Enlarging left upper lobe nodule. This is now 1.1 cm in size. This was 0.7 mm in October and 10 mm in December. 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 The patient also has a persistent right middle lobe atelectasis, which was seen in December and now is persistent. Although no obvious mass is seen on the CT chest, but a small endobronchial lesion cannot be ruled out. 2. Underlying chronic obstructive pulmonary disease with chronic hypoxic respiratory failure. 3. Weight loss over the past few years. Could be related to underlying malignancy. 4. History of coronary artery disease and diastolic heart failure, clinically compensated. 5. Chronic kidney disease. Plan . 1. I have discussed with the patient in detail about her abnormal CT chest findings. She says that she makes her own decisions and she wants to live and I did give her the options of bronchoscopy to rule out the possibility of any endobronchial lesion in the right middle lobe. I also explained to her that the bronchoscopy would not be able to diagnose the nodule seen on the left upper lobe and for that reason she would need an outpatient PET scan. The nodule is not close to the chest wall and it would be tough to get a CT-guided biopsy if the PET scan is positive. 2. Patient agrees to proceed with bronchoscopy .All R/B explained. Dr Grigsby will perform in am 3. Continue bronchodilators. 4. Taper steroids. 5. Follow renal function. 6. Discussed with Dr. Henao 7. PET scan as MADHAVI LARA MD Feb 07, 2018 11:17
--- NOTE | 2018-02-07 14:57 | RAD ---
EXAM: Renal sonogram. HISTORY: Renal mass. TECHNIQUE: Sonographic imaging of the kidneys and bladder was performed. COMPARISON: CT dated 07/06/2017. FINDINGS: The right kidney measures 7.4 cm. The left kidney measures 10.2 cm [id number]. There is a 1.6 cm suspected cyst with internal echoes within the upper mid zone of the left kidney. There is a 1.5 cm cyst within the lower pole the right kidney and 1.7 cm cyst with internal septation within the lateral right kidney. The right kidney is atrophic and hyperechoic. There is a suspected 4 mm nonobstructing right renal stone or vascular calcification. The proximal abdominal aorta is obscured due to bowel gas. The remainder of the abdominal aorta is normal in caliber. The inferior vena cava is patent. There is a Kwong catheter within a decompressed urinary bladder. There is a right pleural effusion. IMPRESSION: 1. Atrophic right kidney. There is increased right renal parenchymal echogenicity, a finding which can be seen with medical renal disease. 2. Right renal cysts, the larger of which measures 1.7 cm and contains a suspected internal septation. There is also a suspected complex cyst within the left kidney measuring 1.6 cm. No convincing solid renal lesion is seen. Continued follow-up is recommended. 3. Kwong catheter within the bladder. 4. Right pleural effusion. Electronically signed by: Marisa Sierra MD (02/07/2018 2:54 PM) [facility]
[2018-02-07 15:35] VITALS: BP 144/46
[2018-02-07 19:00] VITALS: BP 128/50
[2018-02-07] MEDS: TAMSULOSIN 0.4 MG CAP.ER.24H. PO SCH (21:29)
[2018-02-07 23:00] VITALS: BP 138/41
[2018-02-08 00:11] LABS: CALCIUM PTH 9.5 mg/dL (8.7-10.3); CREATININE PTH 2.05 mg/dL (0.57-1.00); PHOSPHORUS PTH 3.3 mg/dL (2.5-4.5); PTH INTACT 108 pg/mL (15-65)
[2018-02-08 03:00] VITALS: BP 138/41
[2018-02-08 04:43] LABS: BASO % 0 % (0-3); EOS % 0 % (0-3); HEMATOCRIT 27.5 % (36.0-47.0); HEMOGLOBIN 9.3 g/dL (12.0-15.5); LYMPH # 1.4 x10^3/uL (1.0-4.8); LYMPH % 14 % (24-48); MEAN CORPUSCULAR HEMOGLOBIN 30 pg (25-35); MEAN CORPUSCULAR HGB CONC 34 g/dL (31-37); MEAN CORPUSCULAR VOLUME 90 fL (79-100); MONO # 0.2 x10^3/uL (0.0-1.1); MONO % 2 % (0-9); NEUT # 8.5 x10^3uL (1.8-7.7); NEUT % 84 % (31-73); PLATELET COUNT 243 x10^3/uL (140-400); RED BLOOD COUNT 3.06 x10^6/uL (3.50-5.40)
[2018-02-08 05:33] LABS: CALCIUM 9.5 mg/dL (8.5-10.1); CREATININE 2.3 mg/dL (0.6-1.0); MAGNESIUM 3.5 mg/dL (1.8-2.4)
[2018-02-08] MEDS: PANTOPRAZOLE 40 MG TABLET.DR. PO SCH (07:30)
[2018-02-08] MEDS: IPRATRPIUM/ALBUTEROL 0.5/2.5MG 3 ML NEBU. NEB SCH ×3 (07:42→19:43)
[2018-02-08 07:49] VITALS: BP 152/37
[2018-02-08] MEDS: methylPREDNISolone SOD SUCC PF 40 MG/ML VIAL. IV SCH ×2 (08:12→20:29)
[2018-02-08] MEDS: cloNIDine HCL 0.1 MG TABLET PO SCH ×3 (08:22→20:29)
[2018-02-08] MEDS: CHOLECALCIFEROL (VITAMIN D3) 1,000 UNIT TABLET PO SCH (08:23)
--- NOTE | 2018-02-08 08:41 | PDOC ---
PROGRESS NOTES Subjective Subjective feels better. mild wheezes this morning. lab reviewed. Objective Objective Vital Signs Date Time Temp Pulse Resp B/P (MAP) Pulse Ox O2 Delivery O2 Flow Rate FiO2 02/08/18 08:22 50 152/37 02/08/18 08:16 Nasal Cannula 2.0 02/08/18 07:49 97.5 18 98 97.5 Intake and Output 02/08/18 07:00 Intake Total 1020 ml Output Total 600 ml Balance 420 ml Intake Oral 1020 ml Output Urine Total 600 ml Physical Exam Abdomen: Soft Heart: Regular rate, Normal S1, Normal S2 Extremities: No edema General: Alert HEENT: Atraumatic Lungs: Other (mild wheezes) Neuro: Normal speech Psych/Mental Status: Mental status NL Skin: No rashes Assessment Assessment Problems1. Acute exacerbation of chronic obstructive pulmonary disease. improved 2. Recent syncopal episode. 3. Chronic diastolic congestive heart failure. 4. chronic kidney disease stage 4 5. Hypokalemia.resolved 6. Hypomagnesemia.resolved 7. Hypertension. 8. Secondary pulmonary hypertension with chronic cor pulmonale. 9. Left lung nodule.slow increase in size 10. Chronic hypoxic respiratory failure. 11. Anemia of chronic disease. RML atelectasis left kidney mass. stable on 10/30 ultrasound. likely cyst on ct scan abdomen/pelvis 07/02 Medical Problems: (1) Chronic kidney disease (CKD) Status: Acute (2) Hypokalemia Status: Acute (3) Syncope Status: Acute Plan Plan of Care bronchoscopy today continue oxygen and nebulizer rx and solumedrol start singulair continue clonidine d/c hickman after urine collection completed PT hold furosemide as no leg swelling Comment Review of Relevant I have reviewed the following items brandan (where applicable) has been applied. Labs Laboratory Tests Test 02/07/18 04:40 02/07/18 11:00 02/08/18 03:00 Sodium Level 133 mmol/L (136-145) 135 mmol/L (136-145) Potassium Level 3.7 mmol/L (3.5-5.1) 4.0 mmol/L (3.5-5.1) Chloride Level 93 mmol/L (98-107) 96 mmol/L (98-107) Carbon Dioxide Level 39 mmol/L (21-32) 38 mmol/L (21-32) Anion Gap 1 (6-14) 1 (6-14) Blood Urea Nitrogen 73 mg/dL (7-20) 79 mg/dL (7-20) Creatinine 2.1 mg/dL (0.6-1.0) 2.3 mg/dL (0.6-1.0) Estimated GFR (Cockcroft-Gault) 22.2 20.0 Glucose Level 160 mg/dL (70-99) 153 mg/dL (70-99) Calcium Level 9.6 mg/dL (8.5-10.1) 9.5 mg/dL (8.5-10.1) Estimated GFR (Non- 21 (>59) EGFR 24 (>59) PTH (Intact) Specimen Description Comment (.) Parathyroid Hormone (Intact) 108 pg/mL (15-65) Calcium (PTH Intact) 9.5 mg/dL (8.7-10.3) Creatinine (PTH Intact) 2.05 mg/dL (0.57-1.00) Phosphorus (PTH Intact) 3.3 mg/dL (2.5-4.5) White Blood Count 10.0 x10^3/uL (4.0-11.0) Red Blood Count 3.06 x10^6/uL (3.50-5.40) Hemoglobin 9.3 g/dL (12.0-15.5) Hematocrit 27.5 % (36.0-47.0) Mean Corpuscular Volume 90 fL (79-100) Mean Corpuscular Hemoglobin 30 pg (25-35) Mean Corpuscular Hemoglobin Concent 34 g/dL (31-37) Red Cell Distribution Width 15.0 % (11.5-14.5) Platelet Count 243 x10^3/uL (140-400) Neutrophils (%) (Auto) 84 % (31-73) Lymphocytes (%) (Auto) 14 % (24-48) Monocytes (%) (Auto) 2 % (0-9) Eosinophils (%) (Auto) 0 % (0-3) Basophils (%) (Auto) 0 % (0-3) Neutrophils # (Auto) 8.5 x10^3uL (1.8-7.7) Lymphocytes # (Auto) 1.4 x10^3/uL (1.0-4.8) Monocytes # (Auto) 0.2 x10^3/uL (0.0-1.1) Eosinophils # (Auto) 0.0 x10^3/uL (0.0-0.7) Basophils # (Auto) 0.0 x10^3/uL (0.0-0.2) Magnesium Level 3.5 mg/dL (1.8-2.4) Laboratory Tests Test 02/07/18 11:00 02/08/18 03:00 Estimated GFR (Non- 21 (>59) EGFR 24 (>59) PTH (Intact) Specimen Description Comment (.) Parathyroid Hormone (Intact) 108 pg/mL (15-65) Calcium (PTH Intact) 9.5 mg/dL (8.7-10.3) Creatinine (PTH Intact) 2.05 mg/dL (0.57-1.00) Phosphorus (PTH Intact) 3.3 mg/dL (2.5-4.5) White Blood Count 10.0 x10^3/uL (4.0-11.0) Red Blood Count 3.06 x10^6/uL (3.50-5.40) Hemoglobin 9.3 g/dL (12.0-15.5) Hematocrit 27.5 % (36.0-47.0) Mean Corpuscular Volume 90 fL (79-100) Mean Corpuscular Hemoglobin 30 pg (25-35) Mean Corpuscular Hemoglobin Concent 34 g/dL (31-37) Red Cell Distribution Width 15.0 % (11.5-14.5) Platelet Count 243 x10^3/uL (140-400) Neutrophils (%) (Auto) 84 % (31-73) Lymphocytes (%) (Auto) 14 % (24-48) Monocytes (%) (Auto) 2 % (0-9) Eosinophils (%) (Auto) 0 % (0-3) Basophils (%) (Auto) 0 % (0-3) Neutrophils # (Auto) 8.5 x10^3uL (1.8-7.7) Lymphocytes # (Auto) 1.4 x10^3/uL (1.0-4.8) Monocytes # (Auto) 0.2 x10^3/uL (0.0-1.1) Eosinophils # (Auto) 0.0 x10^3/uL (0.0-0.7) Basophils # (Auto) 0.0 x10^3/uL (0.0-0.2) Sodium Level 135 mmol/L (136-145) Potassium Level 4.0 mmol/L (3.5-5.1) Chloride Level 96 mmol/L (98-107) Carbon Dioxide Level 38 mmol/L (21-32) Anion Gap 1 (6-14) Blood Urea Nitrogen 79 mg/dL (7-20) Creatinine 2.3 mg/dL (0.6-1.0) Estimated GFR (Cockcroft-Gault) 20.0 Glucose Level 153 mg/dL (70-99) Calcium Level 9.5 mg/dL (8.5-10.1) Magnesium Level 3.5 mg/dL (1.8-2.4) Medications Current Medications Potassium Chloride (Klor-Con) 40 meq 1X ONCE PO Last administered on at 11:36; Start 02/05/18 at 11:30; Stop 02/05/18 at 11:31; Status DC Albuterol/ Ipratropium (Duoneb) 3 ml RTQID NEB Last administered on 02/06/18at 15:27; Start 02/05/18 at 16:30; Stop 02/07/18 at 10:38; Status DC Methylprednisolone Sodium Succinate (SOLU-Medrol 40MG VIAL) 40 mg Q8HRS IV Last administered on 02/07/18at 05:25; Start 02/05/18 at 22:00; Stop 02/07/18 at 10:38; Status DC Vitamin D (Vitamin D3) 1,000 unit DAILY PO Last administered on 02/07/18at 09:52 ; Start 02/06/18 at 09:00 Clonidine HCl (Catapres) 0.1 mg TID PO Last administered on 02/07/18at 21:30; Start 02/05/18 at 21:00 Tamsulosin HCl (Flomax) 0.4 mg QHS PO Last administered on 02/07/18at 21:29; Start 02/05/18 at 21:00 Carvedilol (Coreg) 3.125 mg BIDWMEALS PO Last administered on 02/06/18at 08:05; Start 02/05/18 at 18:00; Stop 02/06/18 at 11:23; Status DC Pantoprazole Sodium (Protonix) 40 mg DAILYAC PO Last administered on 02/07/18at 09:52; Start 02/06/18 at 07:30 Polyethylene Glycol (miraLAX PACKET) 17 gm DAILY PO Last administered on at 09:52; Start 02/06/18 at 09:00 Acetaminophen (Tylenol) 650 mg PRN Q6HRS PRN PO MILD PAIN / TEMP; Start at 17:45 Albuterol Sulfate (Ventolin Neb Soln) 2.5 mg PRN Q4HRS PRN NEB SHORTNESS OF BREATH; Start 02/05/18 at 18:00 Magnesium Sulfate 50 ml @ 25 mls/hr 1X ONCE IV Last administered on 02/05/18at 18:38; Start 02/05/18 at 17:45; Stop 02/05/18 at 19:44; Status DC Lactulose (Lactulose) 20 gm BID PO Last administered on 02/06/18at 12:43; Start 02/06/18 at 13:00; Stop 02/06/18 at 18:00; Status DC Budesonide (Pulmicort) 0.5 mg RTBID NEB ; Start 02/06/18 at 20:00 Al Hydroxide/Mg Hydroxide (Mylanta Plus Xs) 30 ml PRN Q2HR PRN PO HEARTBURN / GAS Last administered on 02/06/18at 17:55; Start 02/06/18 at 15:15 Albuterol/ Ipratropium (Duoneb) 3 ml TID NEB Last administered on 02/08/18at 07: 42; Start 02/07/18 at 14:00 Methylprednisolone Sodium Succinate (SOLU-Medrol 40MG VIAL) 40 mg Q12HR IV Last administered on 02/08/18at 08:12; Start 02/07/18 at 21:00 Ondansetron HCl (Zofran Odt) 4 mg PRN Q6HRS PRN PO NAUSEA/VOMITING; Start 02/07 at 11:00 Active Scripts Active Budesonide 0.5 Mg/2 Ml Ampul.neb 0.5 Mg NEB RTBID 30 Days Furosemide 80 Mg Tablet 80 Mg PO BID92 30 Days Omeprazole 40 Mg Capsule.dr 40 Mg PO DAILY 30 Days Prednisone (Prednisone) 10 Mg Tablet 40 Mg PO DAILY 8 Days Duoneb 0.5-3(2.5) Mg/3 Ml (Albuterol/Ipratropium) 3 Ml Ampul.neb 3 Ml NEB RTQID 30 Days Flomax (Tamsulosin Hcl) 0.4 Mg Cap.er.24h 0.4 Mg PO DAILY 30 Days Reported Proair Respiclick (Albuterol Sulfate) 90 Mcg Aer.pow.ba 1 Puff IH PRN Q4HRS PRN Vitamin D3 (Cholecalciferol (Vitamin D3)) 1,000 Unit Tablet 1 Tab PO DAILY Protonix (Pantoprazole Sodium) 20 Mg Tablet.dr 40 Mg PO DAILY Montelukast Sodium Chew.tablet (Montelukast Sodium) 5 Mg Tab.chew 10 Mg PO HS Metolazone 2.5 Mg Tablet 2.5 Mg PO TWICE WEEKLY Senokot (Sennosides) 8.6 Mg Tablet 1 Tab PO BID Miralax (Polyethylene Glycol 3350) 17 Gm Powd.pack 1 Packet PO DAILY Carvedilol 3.125 Mg Tablet 1 Tab PO BID Clonidine Hcl 0.1 Mg Tablet 0.1 Mg PO TID Vitals/I & O Vital Sign - Last 24 Hours 02/07/18 02/07/18 02/07/18 02/07/18 09:52 10:49 13:27 13:52 Temp 97.5 97.5 Pulse 60 61 61 Resp 20 B/P (MAP) 163/48 152/42 (78) 152/42 Pulse Ox 100 98 O2 Delivery Nasal Cannula Nasal Cannula O2 Flow Rate 2.0 2.0 02/07/18 02/07/18 02/07/18 02/07/18 15:35 19:00 19:43 20:00 Temp 97.7 97.9 97.7 97.9 Pulse 79 59 Resp 19 18 B/P (MAP) 144/46 (78) 128/50 (76) Pulse Ox 99 97 98 O2 Delivery Nasal Cannula Nasal Cannula Nasal Cannula Nasal Cannula O2 Flow Rate 2.0 2.0 2.0 2.0 02/07/18 02/07/18 02/08/18 02/08/18 21:30 23:00 03:00 07:44 Temp 97.1 97.1 97.1 97.1 Pulse 59 59 57 Resp 18 17 B/P (MAP) 128/50 138/41 (73) 138/41 (73) Pulse Ox 100 99 98 O2 Delivery Nasal Cannula Nasal Cannula Nasal Cannula O2 Flow Rate 2.0 2.0 2.0 02/08/18 02/08/18 02/08/18 02/08/18 07:45 07:49 08:16 08:22 Temp 97.5 97.5 Pulse 50 50 Resp 18 B/P (MAP) 152/37 (75) 152/37 Pulse Ox 98 98 O2 Delivery Nasal Cannula Nasal Cannula Nasal Cannula O2 Flow Rate 2.0 2.0 2.0 Intake and Output 02/07/18 02/07/18 02/08/18 15:00 23:00 07:00 Intake Total 180 ml 300 ml 540 ml Output Total 600 ml Balance 180 ml 300 ml -60 ml HANS ELIZONDO MD Feb 08, 2018 08:41
[2018-02-08] MEDS: POLYETHYLENE GLYCOL 3350 17 GM PACKET. PO SCH (09:00)
--- NOTE | 2018-02-08 09:10 | PDOC ---
PULMONARY PROGRESS NOTES Subjective not more soa no chest pain Vitals Vital Signs Date Time Temp Pulse Resp B/P (MAP) Pulse Ox O2 Delivery O2 Flow Rate FiO2 02/08/18 08:22 50 152/37 02/08/18 08:16 Nasal Cannula 2.0 02/08/18 07:49 97.5 18 98 97.5 ROS: No Nausea, No Chest Pain, No Abdominal Pain, No Increase Cough General: Alert, No acute distress Lungs: Clear Cardiovascular: S1, S2 Abdomen: Soft, Non-tender Neuro Exam: Alert Extremities: No Edema, Other Labs Laboratory Tests Test 02/07/18 04:40 02/07/18 11:00 02/08/18 03:00 Sodium Level 133 mmol/L (136-145) 135 mmol/L (136-145) Potassium Level 3.7 mmol/L (3.5-5.1) 4.0 mmol/L (3.5-5.1) Chloride Level 93 mmol/L (98-107) 96 mmol/L (98-107) Carbon Dioxide Level 39 mmol/L (21-32) 38 mmol/L (21-32) Anion Gap 1 (6-14) 1 (6-14) Blood Urea Nitrogen 73 mg/dL (7-20) 79 mg/dL (7-20) Creatinine 2.1 mg/dL (0.6-1.0) 2.3 mg/dL (0.6-1.0) Estimated GFR (Cockcroft-Gault) 22.2 20.0 Glucose Level 160 mg/dL (70-99) 153 mg/dL (70-99) Calcium Level 9.6 mg/dL (8.5-10.1) 9.5 mg/dL (8.5-10.1) Estimated GFR (Non- 21 (>59) EGFR 24 (>59) PTH (Intact) Specimen Description Comment (.) Parathyroid Hormone (Intact) 108 pg/mL (15-65) Calcium (PTH Intact) 9.5 mg/dL (8.7-10.3) Creatinine (PTH Intact) 2.05 mg/dL (0.57-1.00) Phosphorus (PTH Intact) 3.3 mg/dL (2.5-4.5) White Blood Count 10.0 x10^3/uL (4.0-11.0) Red Blood Count 3.06 x10^6/uL (3.50-5.40) Hemoglobin 9.3 g/dL (12.0-15.5) Hematocrit 27.5 % (36.0-47.0) Mean Corpuscular Volume 90 fL (79-100) Mean Corpuscular Hemoglobin 30 pg (25-35) Mean Corpuscular Hemoglobin Concent 34 g/dL (31-37) Red Cell Distribution Width 15.0 % (11.5-14.5) Platelet Count 243 x10^3/uL (140-400) Neutrophils (%) (Auto) 84 % (31-73) Lymphocytes (%) (Auto) 14 % (24-48) Monocytes (%) (Auto) 2 % (0-9) Eosinophils (%) (Auto) 0 % (0-3) Basophils (%) (Auto) 0 % (0-3) Neutrophils # (Auto) 8.5 x10^3uL (1.8-7.7) Lymphocytes # (Auto) 1.4 x10^3/uL (1.0-4.8) Monocytes # (Auto) 0.2 x10^3/uL (0.0-1.1) Eosinophils # (Auto) 0.0 x10^3/uL (0.0-0.7) Basophils # (Auto) 0.0 x10^3/uL (0.0-0.2) Magnesium Level 3.5 mg/dL (1.8-2.4) Laboratory Tests Test 02/07/18 11:00 02/08/18 03:00 Estimated GFR (Non- 21 (>59) EGFR 24 (>59) PTH (Intact) Specimen Description Comment (.) Parathyroid Hormone (Intact) 108 pg/mL (15-65) Calcium (PTH Intact) 9.5 mg/dL (8.7-10.3) Creatinine (PTH Intact) 2.05 mg/dL (0.57-1.00) Phosphorus (PTH Intact) 3.3 mg/dL (2.5-4.5) White Blood Count 10.0 x10^3/uL (4.0-11.0) Red Blood Count 3.06 x10^6/uL (3.50-5.40) Hemoglobin 9.3 g/dL (12.0-15.5) Hematocrit 27.5 % (36.0-47.0) Mean Corpuscular Volume 90 fL (79-100) Mean Corpuscular Hemoglobin 30 pg (25-35) Mean Corpuscular Hemoglobin Concent 34 g/dL (31-37) Red Cell Distribution Width 15.0 % (11.5-14.5) Platelet Count 243 x10^3/uL (140-400) Neutrophils (%) (Auto) 84 % (31-73) Lymphocytes (%) (Auto) 14 % (24-48) Monocytes (%) (Auto) 2 % (0-9) Eosinophils (%) (Auto) 0 % (0-3) Basophils (%) (Auto) 0 % (0-3) Neutrophils # (Auto) 8.5 x10^3uL (1.8-7.7) Lymphocytes # (Auto) 1.4 x10^3/uL (1.0-4.8) Monocytes # (Auto) 0.2 x10^3/uL (0.0-1.1) Eosinophils # (Auto) 0.0 x10^3/uL (0.0-0.7) Basophils # (Auto) 0.0 x10^3/uL (0.0-0.2) Sodium Level 135 mmol/L (136-145) Potassium Level 4.0 mmol/L (3.5-5.1) Chloride Level 96 mmol/L (98-107) Carbon Dioxide Level 38 mmol/L (21-32) Anion Gap 1 (6-14) Blood Urea Nitrogen 79 mg/dL (7-20) Creatinine 2.3 mg/dL (0.6-1.0) Estimated GFR (Cockcroft-Gault) 20.0 Glucose Level 153 mg/dL (70-99) Calcium Level 9.5 mg/dL (8.5-10.1) Magnesium Level 3.5 mg/dL (1.8-2.4) Medications Active Scripts Medications Dose Route/Sig Max Daily Dose Days Date Category Proair Respiclick (Albuterol Sulfate) 90 Mcg Aer.pow.ba 1 Puff IH PRN Q4HRS PRN 02/05/18 Reported Vitamin D3 (Cholecalciferol (Vitamin D3)) 1,000 Unit Tablet 1 Tab PO DAILY 02/05/18 Reported Protonix (Pantoprazole Sodium) 20 Mg Tablet.dr 40 Mg PO DAILY 02/05/18 Reported Montelukast Sodium Chew.tablet (Montelukast Sodium) 5 Mg Tab.chew 10 Mg PO HS 02/05/18 Reported Metolazone 2.5 Mg Tablet 2.5 Mg PO TWICE WEEKLY 02/05/18 Reported Budesonide 0.5 Mg/2 Ml Ampul.neb 0.5 Mg NEB RTBID 30 01/13/18 Rx Furosemide 80 Mg Tablet 80 Mg PO BID92 30 01/13/18 Rx Omeprazole 40 Mg Capsule.dr 40 Mg PO DAILY 30 01/13/18 Rx Prednisone (Prednisone) 10 Mg Tablet 40 Mg PO DAILY 8 12/21/17 Rx Duoneb 0.5-3(2.5) Mg/3 Ml (Albuterol/Ipratropium) 3 Ml Ampul.neb 3 Ml NEB RTQID 30 12/21/17 Rx Senokot (Sennosides) 8.6 Mg Tablet 1 Tab PO BID 12/17/17 Reported Miralax (Polyethylene Glycol 3350) 17 Gm Powd.pack 1 Packet PO DAILY 12/17/17 Reported Carvedilol 3.125 Mg Tablet 1 Tab PO BID 12/17/17 Reported Flomax (Tamsulosin Hcl) 0.4 Mg Cap.er.24h 0.4 Mg PO DAILY 30 10/27/17 Rx Clonidine Hcl 0.1 Mg Tablet 0.1 Mg PO TID 08/24/17 Reported Impression . 1. Enlarging left upper lobe nodule. This is now 1.1 cm in size. This was 0.7 mm in October and 10 mm in December. 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 The patient also has a persistent right middle lobe atelectasis, which was seen in December and now is persistent. Although no obvious mass is seen on the CT chest, but a small endobronchial lesion cannot be ruled out. 2. Underlying chronic obstructive pulmonary disease with chronic hypoxic respiratory failure. 3. Weight loss over the past few years. Could be related to underlying malignancy. 4. History of coronary artery disease and diastolic heart failure, clinically compensated. 5. Chronic kidney disease. Plan . REVIEWED R/B AND A TO BRONCH PT CONSENTED WILL PROCEED WITH BRONCH AND POSSIBLE BX OUPT PET SCAN KATALINA LE MD Feb 08, 2018 09:10
--- NOTE | 2018-02-08 10:49 | PDOC ---
Renal-Progress Notes Subjective Notes Notes NONE History of Present Illness Hx of present illness STABLE Vitals Vitals Vital Signs Date Time Temp Pulse Resp B/P (MAP) Pulse Ox O2 Delivery O2 Flow Rate FiO2 02/08/18 08:22 50 152/37 02/08/18 08:16 Nasal Cannula 2.0 02/08/18 07:49 97.5 18 98 97.5 Weight Weight [ ] I.O. Intake and Output Intake and Output 02/08/18 07:00 Intake Total 1020 ml Output Total 600 ml Balance 420 ml Intake Oral 1020 ml Output Urine Total 600 ml Labs Labs Laboratory Tests Test 02/07/18 11:00 02/08/18 03:00 Estimated GFR (Non- 21 (>59) EGFR 24 (>59) PTH (Intact) Specimen Description Comment (.) Parathyroid Hormone (Intact) 108 pg/mL (15-65) Calcium (PTH Intact) 9.5 mg/dL (8.7-10.3) Creatinine (PTH Intact) 2.05 mg/dL (0.57-1.00) Phosphorus (PTH Intact) 3.3 mg/dL (2.5-4.5) White Blood Count 10.0 x10^3/uL (4.0-11.0) Red Blood Count 3.06 x10^6/uL (3.50-5.40) Hemoglobin 9.3 g/dL (12.0-15.5) Hematocrit 27.5 % (36.0-47.0) Mean Corpuscular Volume 90 fL (79-100) Mean Corpuscular Hemoglobin 30 pg (25-35) Mean Corpuscular Hemoglobin Concent 34 g/dL (31-37) Red Cell Distribution Width 15.0 % (11.5-14.5) Platelet Count 243 x10^3/uL (140-400) Neutrophils (%) (Auto) 84 % (31-73) Lymphocytes (%) (Auto) 14 % (24-48) Monocytes (%) (Auto) 2 % (0-9) Eosinophils (%) (Auto) 0 % (0-3) Basophils (%) (Auto) 0 % (0-3) Neutrophils # (Auto) 8.5 x10^3uL (1.8-7.7) Lymphocytes # (Auto) 1.4 x10^3/uL (1.0-4.8) Monocytes # (Auto) 0.2 x10^3/uL (0.0-1.1) Eosinophils # (Auto) 0.0 x10^3/uL (0.0-0.7) Basophils # (Auto) 0.0 x10^3/uL (0.0-0.2) Sodium Level 135 mmol/L (136-145) Potassium Level 4.0 mmol/L (3.5-5.1) Chloride Level 96 mmol/L (98-107) Carbon Dioxide Level 38 mmol/L (21-32) Anion Gap 1 (6-14) Blood Urea Nitrogen 79 mg/dL (7-20) Creatinine 2.3 mg/dL (0.6-1.0) Estimated GFR (Cockcroft-Gault) 20.0 Glucose Level 153 mg/dL (70-99) Calcium Level 9.5 mg/dL (8.5-10.1) Magnesium Level 3.5 mg/dL (1.8-2.4) Review of Systems Constitutional: yes: alert, oriented Ears/Nose/Throat: Yes: no symptom reported Eyes: Yes: no symptom reported Pulmonary: Yes no symptom reported Cardiovascular: Yes no symptom reported Gastrointestional: Yes: no symptom reported Genitourinary: Yes: no symptom reported Musculoskeletal: Yes: no symptom reported Skin: Yes no symptom reported Endocrine: Yes: no symptom reported Physical Exam General Appearance: no apparent distress Respiratory: bilateral CTA Heart: S1S2 Abdomen: soft, bowel sounds present Extremities: pulses present Neurology: alert Musculoskeletal: Osteoarthritis Assessment Assessment IMP HTN CKD STAGE 3-STABLE CR AT 2.3 COPD ? RENAL MASS VS CYST PLAN CONT SAME NO NEED FOR FURTHER LEFT RENAL MASS F/U SINCE PT IS NOT A CANDIDATE FOR ANY TX EVEN IF IT WAS A [facility] WILL FOLLOW ARSEN SUAREZ MD Feb 08, 2018 10:49
[2018-02-08] MEDS ORDERED: ALBUTEROL SULFATE 2.5 MG/3 ML NEBU. NEB PRN (11:00)
[2018-02-08] MEDS ORDERED: LIDOCAINE 1% Multi-Dose 50 ML VIAL. INJ PRN (11:00)
[2018-02-08] MEDS ORDERED: LIDOCAINE 2% VISCOUS 100 ML BOTTLE. MM PRN (11:00)
[2018-02-08] MEDS ORDERED: LIDOCAINE 4% TOPICAL 50 ML SOLUTION. MM PRN (11:00)
[2018-02-08] MEDS ORDERED: 0.9 % SODIUM CHLORIDE 10 ML DISP.SYRIN. IV PRN (11:00)
[2018-02-08] MEDS ORDERED: EPINEPHrine 1 MG/ML VIAL INJ PRN (11:00)
[2018-02-08 11:07] VITALS: BP 185/57
--- NOTE | 2018-02-08 12:29 | PDOC2 ---
LATISHA DELAROSA Joel [employer] 02/08/18 1229: UROLOGY CONSULT Date of Consult Date of Consult DATE: 02/08/18 TIME: 12:17 Reason for Consult Reason for Consult: Right renal cysts, (1.7 cm) and contains a suspected internal septation. There is also a suspected complex cyst within the left kidney Identification/Chief Complaint Chief Complaint Renal cysts. Source Source: Caregiver, Chart review, Patient History of Present Illness Reason for Visit: 87 year old female admitted with recent syncopal episode, COPD, MARY ELLEN, hypokalemia , hypomagnesemia, HTN and secondary pulmonary hypertension with chronic cor pulmonale. During the course of her hospitalization, a renal ultrasound was done. She was found to have an atrophic right kidney and bilateral renal cysts. The larger of which measures 1.7 cm and contains a suspected internal septation. There is also a suspected complex cyst within the left kidney measuring 1.6 cm. She denies any flank pain, history of kidney cysts or cancer that she is aware of, and she also denies history of kidney stones or cancer. Past Medical History Cardiovascular: CHF (diastolic), HTN, Hyperlipidemia, Valve insufficiency, Pulmonary hypertension Pulmonary: COPD, Other (SH[place]Y) CENTRAL NERVOUS SYSTEM: Other (none) GI: Constipation, Diverticulosis, GERD, Peptic Ulcer disease Heme/Onc: Anemia NOS Hepatobiliary: No pertinent hx Musculoskeletal: Osteoarthritis ENT: Other ([place]) Renal/: Chronic renal insuff (stage IV), Urinary Incontinence Endocrine: No pertinent hx Dermatology: No pertinent hx Past Surgical History Past Surgical History: Appendectomy, Cataract Removal, Hernia Repair Family History Family History: Hypertension Social History No ALCOHOL: rare Drugs: None Lives: with Family Current Problem List Problems: (1) Kidney cysts (2) Chronic kidney disease (CKD) Current Medications Current Medications Current Medications Albuterol Sulfate (Ventolin Neb Soln) 2.5 mg PRN 1X PRN NEB SHORTNESS OF BREATH ; Start 02/08/18 at 11:00; Stop 02/09/18 at 10:59 Albuterol/ Ipratropium (Duoneb) 3 ml TID NEB Last administered on 02/08/18at 11: 50; Start 02/07/18 at 14:00 Epinephrine HCl (Adrenalin) 1 mg PRN 1X PRN INJ SEE COMMENTS; Start 02/08/18 at 11:00; Stop 02/09/18 at 10:59 Lidocaine HCl 2 ml PRN 1X PRN MM MOUTH PAIN; Start 02/08/18 at 11:00; Stop at 10:59 Lidocaine HCl 50 ml PRN 1X PRN MM SEE COMMENTS; Start 02/08/18 at 11:00; Stop 02/09/18 at 10:59 Lidocaine HCl (Lidocaine 1% 50ml Vial) 50 ml PRN 1X PRN INJ SEE COMMENTS; Start 02/08/18 at 11:00; Stop 02/09/18 at 10:59 Methylprednisolone Sodium Succinate (SOLU-Medrol 40MG VIAL) 40 mg Q12HR IV Last administered on 02/08/18at 08:12; Start 02/07/18 at 21:00 Montelukast Sodium (Singulair) 10 mg QHS PO ; Start 02/08/18 at 21:00 Sodium Chloride (Normal Saline Flush) 3 ml QSHIFT PRN IV AFTER MEDS AND BLOOD DRAWS; Start 02/08/18 at 11:00 Allergies Allergies: Coded Allergies: aspirin (Verified Allergy, Intermediate, 02/08/18) ciprofloxacin (Verified Allergy, Intermediate, Unknown, 02/08/18) honey (Verified Allergy, Intermediate, 02/08/18) hydralazine (Verified Allergy, Intermediate, Leg Edema, 02/08/18) sertraline (Verified Allergy, Intermediate, Anxiety, 02/08/18) simvastatin (Verified Allergy, Mild, Nausea, 02/08/18) ROS Review Of Systems: CONSTITUTIONAL: No fever or chills EYES: No recent changes SKIN: No rash or itching CARDIOVASCULAR: No chest pain, syncope, palpitations, or edema RESPIRATORY: No SOB or cough GASTROINTESTINAL: No nausea, vomiting or abdominal pain NEUROLOGICAL: No headaches or weakness ENDOCRINE: No cold or heat intolerance GENITOURINARY: No urgency or frequency of urination MUSCULOSKELETAL: No back pain or joint pain LYMPHATICS: No enlarged lymph nodes PSYCHIATRIC: No anxiety or depression Physical Exam Physical Exam: General: Pleasant, no acute distress, well groomed Eyes: conjunctiva anicteric, eyes full range of motion ENT: moist oral mucosa, normal dentition Neck: Trachea midline, no masses Respiratory: unlabored breathing, not using accessory muscles. Back: No CVA pain bilaterally. Abdomen: nontender, nondistended, no hepatosplenomegaly, no masses Skin: no rashes or skin lesions on visualized skin Psych: normal mood, affect. Alert and oriented x 3. Vitals VITALS Vital Signs Date Time Temp Pulse Resp B/P (MAP) Pulse Ox O2 Delivery O2 Flow Rate FiO2 02/08/18 11:51 97 Nasal Cannula 2.0 02/08/18 11:07 97.5 53 18 185/57 (99) 97.5 Labs Labs Laboratory Tests Test 02/07/18 04:40 02/07/18 11:00 02/08/18 03:00 Sodium Level 133 mmol/L (136-145) 135 mmol/L (136-145) Potassium Level 3.7 mmol/L (3.5-5.1) 4.0 mmol/L (3.5-5.1) Chloride Level 93 mmol/L (98-107) 96 mmol/L (98-107) Carbon Dioxide Level 39 mmol/L (21-32) 38 mmol/L (21-32) Anion Gap 1 (6-14) 1 (6-14) Blood Urea Nitrogen 73 mg/dL (7-20) 79 mg/dL (7-20) Creatinine 2.1 mg/dL (0.6-1.0) 2.3 mg/dL (0.6-1.0) Estimated GFR (Cockcroft-Gault) 22.2 20.0 Glucose Level 160 mg/dL (70-99) 153 mg/dL (70-99) Calcium Level 9.6 mg/dL (8.5-10.1) 9.5 mg/dL (8.5-10.1) Estimated GFR (Non- 21 (>59) EGFR 24 (>59) PTH (Intact) Specimen Description Comment (.) Parathyroid Hormone (Intact) 108 pg/mL (15-65) Calcium (PTH Intact) 9.5 mg/dL (8.7-10.3) Creatinine (PTH Intact) 2.05 mg/dL (0.57-1.00) Phosphorus (PTH Intact) 3.3 mg/dL (2.5-4.5) White Blood Count 10.0 x10^3/uL (4.0-11.0) Red Blood Count 3.06 x10^6/uL (3.50-5.40) Hemoglobin 9.3 g/dL (12.0-15.5) Hematocrit 27.5 % (36.0-47.0) Mean Corpuscular Volume 90 fL (79-100) Mean Corpuscular Hemoglobin 30 pg (25-35) Mean Corpuscular Hemoglobin Concent 34 g/dL (31-37) Red Cell Distribution Width 15.0 % (11.5-14.5) Platelet Count 243 x10^3/uL (140-400) Neutrophils (%) (Auto) 84 % (31-73) Lymphocytes (%) (Auto) 14 % (24-48) Monocytes (%) (Auto) 2 % (0-9) Eosinophils (%) (Auto) 0 % (0-3) Basophils (%) (Auto) 0 % (0-3) Neutrophils # (Auto) 8.5 x10^3uL (1.8-7.7) Lymphocytes # (Auto) 1.4 x10^3/uL (1.0-4.8) Monocytes # (Auto) 0.2 x10^3/uL (0.0-1.1) Eosinophils # (Auto) 0.0 x10^3/uL (0.0-0.7) Basophils # (Auto) 0.0 x10^3/uL (0.0-0.2) Magnesium Level 3.5 mg/dL (1.8-2.4) Laboratory Tests Test 02/08/18 03:00 White Blood Count 10.0 x10^3/uL (4.0-11.0) Red Blood Count 3.06 x10^6/uL (3.50-5.40) Hemoglobin 9.3 g/dL (12.0-15.5) Hematocrit 27.5 % (36.0-47.0) Mean Corpuscular Volume 90 fL (79-100) Mean Corpuscular Hemoglobin 30 pg (25-35) Mean Corpuscular Hemoglobin Concent 34 g/dL (31-37) Red Cell Distribution Width 15.0 % (11.5-14.5) Platelet Count 243 x10^3/uL (140-400) Neutrophils (%) (Auto) 84 % (31-73) Lymphocytes (%) (Auto) 14 % (24-48) Monocytes (%) (Auto) 2 % (0-9) Eosinophils (%) (Auto) 0 % (0-3) Basophils (%) (Auto) 0 % (0-3) Neutrophils # (Auto) 8.5 x10^3uL (1.8-7.7) Lymphocytes # (Auto) 1.4 x10^3/uL (1.0-4.8) Monocytes # (Auto) 0.2 x10^3/uL (0.0-1.1) Eosinophils # (Auto) 0.0 x10^3/uL (0.0-0.7) Basophils # (Auto) 0.0 x10^3/uL (0.0-0.2) Sodium Level 135 mmol/L (136-145) Potassium Level 4.0 mmol/L (3.5-5.1) Chloride Level 96 mmol/L (98-107) Carbon Dioxide Level 38 mmol/L (21-32) Anion Gap 1 (6-14) Blood Urea Nitrogen 79 mg/dL (7-20) Creatinine 2.3 mg/dL (0.6-1.0) Estimated GFR (Cockcroft-Gault) 20.0 Glucose Level 153 mg/dL (70-99) Calcium Level 9.5 mg/dL (8.5-10.1) Magnesium Level 3.5 mg/dL (1.8-2.4) Images Images IMPRESSION Renal Ultrasound: 1. Atrophic right kidney. There is increased right renal parenchymal echogenicity, a finding which can be seen with medical renal disease. 2. Right renal cysts, the larger of which measures 1.7 cm and contains a suspected internal septation. There is also a suspected complex cyst within the left kidney measuring 1.6 cm. No convincing solid renal lesion is seen. Continued follow-up is recommended. 3. Kwong catheter within the bladder. 4. Right pleural effusion. Assessment/Plan Assessment/Plan Renal cysts, asymptomatic: Recommend follow up US in six months. This can be done as an outpatient. Discussed case with Dr. Ocampo, who will see patient tomorrow. Will coordinate with microbiology quality control technician to get her a follow up appointment with Dr. Ocampo of Urology. Will follow while in house, but from a urology perspective could go home whenever medical team/other specialities are ready. TERRELL COAMPO MD 02/09/18 4520: UROLOGY CONSULT Assessment/Plan Assessment/Plan 87 yo female with multiple medical comorbidites found to have incidental complex renal cysts. Has baseline renal insufficiency with a Cr around 2. Do not recommend intervention given that they are likely benign and any intervention could jeopardize her renal fcn. Offered surveillance imaging with repeat renal US in 6 mo. She decline observation and states that she will f/u with us in clinic only as needed. LATISHA DELAROSA APRN Feb 08, 2018 12:29 TERRELL OCAMPO MD Feb 09, 2018 17:18
[2018-02-08] MEDS: IV RINGERS,LACTATED 1000ML 1,000 ML IV SCH ×2 (12:50→13:39)
[2018-02-08] MEDS ORDERED: PROPOFOL 20 ML IV ONE (13:32)
--- NOTE | 2018-02-08 13:49 | PDOC4 ---
PROCEDURE Procedure BRONCH/BAL NO ENDOBRONCHIAL LESION BAL OF RML DONE RML OPENING SLIGHTLY NARROWED SPOKE WITH FAMILY KATALINA LE MD Feb 08, 2018 13:49
--- NOTE | 2018-02-08 14:18 | OP ---
DATE OF SURGERY: 02/08/2018 ATTENDING PHYSICIAN: Tim Henao MD. PROCEDURE: Bronchoscopy, bronchoalveolar lavage. INDICATION: The patient with persistent right middle lobe atelectasis and an enlarging left upper lobe pulmonary nodule, undergoing a diagnostic bronchoscopy. Risks, benefits, and alternatives reviewed with the patient and she consented. DESCRIPTION OF PROCEDURE: A timeout was performed prior to sedation. Vital signs and O2 saturation were maintained within normal limits throughout the procedure. The patient was sedated with the aid of the anesthesiologist. Please see the note. Bronchoscope was passed orally through a bite block. The vocal cords were identified moving bilaterally without any dysfunction. The vocal cords were then anesthetized with a total of 5 mL of 4% lidocaine. The bronchoscope was passed through the vocal cords into the proximal trachea, which was normal. The distal trachea was likewise normal. The right and left segments and subsegments were all visualized. There were no endobronchial lesions. The scope was then wedged into the right middle lobe. The opening to the right middle lobe segment was slightly fishmouth, but I was able to pass the scope through. A lavage of that area was performed. FINDINGS: 1. Normal vocal cords. 2. Normal trachea. 3. No endobronchial lesions. 4. Slight variant to the opening of the right middle lobe, slightly fishmouth in appearance. 5. No endobronchial lesion seen on the right or left. PLAN: We will await the BAL results. The patient tolerated procedure well with no immediate complications. KATALINA LE MD DR: LUCINDA/jessica JOB#: [id number] / [id number]
[2018-02-08 15:30] VITALS: BP 127/40
[2018-02-08 18:34] VITALS: BP 190/58
[2018-02-08] MEDS: BUDESONIDE 0.5 MG/2 ML NEBU. NEB SCH (19:44)
[2018-02-08 20:10] LABS: TOTAL SERUM CREATININE 1.99 mg/dL (0.57-1.00); TOTAL URINE CREATININE 54.7 mg/dL (Not Estab.); UR PROTEIN 14.3 mg/dL (Not Estab.)
[2018-02-08] MEDS: TAMSULOSIN 0.4 MG CAP.ER.24H. PO SCH (20:30)
[2018-02-08] MEDS: MONTELUKAST SODIUM 10 MG TABLET. PO SCH (20:30)
[2018-02-08 23:00] VITALS: BP 156/50
[2018-02-09 03:19] VITALS: BP 153/50
[2018-02-09 04:43] LABS: CALCIUM 9.4 mg/dL (8.5-10.1); CREATININE 2.4 mg/dL (0.6-1.0); POTASSIUM 4.2 mmol/L (3.5-5.1)
[2018-02-09] MEDS: IPRATRPIUM/ALBUTEROL 0.5/2.5MG 3 ML NEBU. NEB SCH ×3 (07:13→19:28)
[2018-02-09] MEDS: BUDESONIDE 0.5 MG/2 ML NEBU. NEB SCH ×2 (07:13→19:28)
[2018-02-09 07:35] VITALS: BP 161/52
--- NOTE | 2018-02-09 09:12 | PDOC ---
PROGRESS NOTES Subjective Subjective no endobronchial mass per bronchoscopy. constipated and will order lactulose today. lab reviewed. bun higher 87 and creatinine 2.4. will order gentle iv hydration . off diuretics. says she did not drink much yesterday due to npo before bronchoscopy. Objective Objective Vital Signs Date Time Temp Pulse Resp B/P (MAP) Pulse Ox O2 Delivery O2 Flow Rate FiO2 02/09/18 07:35 97.7 58 18 161/52 (88) 98 Nasal Cannula 2.0 97.7 Intake and Output 02/09/18 07:00 Intake Total 1000 ml Output Total 950 ml Balance 50 ml Intake Oral 800 ml IV Total 200 ml Output Urine Total 950 ml # Bowel Movements 1 Physical Exam Abdomen: Soft Heart: Regular rate, Normal S1, Normal S2 Extremities: No edema General: Alert HEENT: Atraumatic Lungs: Other (decreased breath sounds. scattered mild rhonchi and wheezes) Neuro: Normal speech Psych/Mental Status: Mood NL Skin: No rashes Assessment Assessment Problems. Acute exacerbation of chronic obstructive pulmonary disease. improved 2. Recent syncopal episode. 3. Chronic diastolic congestive heart failure. 4. chronic kidney disease stage 4. EST GFR 21. bun higher 5. Hypokalemia.resolved 6. Hypomagnesemia.resolved 7. Hypertension. 8. Secondary pulmonary hypertension with chronic cor pulmonale. 9. Left lung nodule.slow increase in size 10. Chronic hypoxic respiratory failure. 11. Anemia of chronic disease. RML atelectasis. no endobronchial lesion per bronchoscopy left kidney mass. stable on 10/30 ultrasound. likely cyst on ct scan abdomen/pelvis constipation Medical Problems: (1) Chronic kidney disease (CKD) Status: Acute (2) Hypokalemia Status: Acute (3) Syncope Status: Acute Plan Plan of Care gently iv hydration NS at 40cc/hr labs tomorrow continue iv solumedrol and nebulizer rx lactulose today PT Comment Review of Relevant I have reviewed the following items brandan (where applicable) has been applied. Labs Laboratory Tests Test 02/07/18 10:50 02/07/18 11:00 02/08/18 03:00 02/09/18 03:00 Urine Protein 14.3 mg/dL (Not Estab.) Urine Creatinine 24 Hour 55.0 mg/dL (Not Estab.) Urine Creatinine mg/24 hr 633 mg/24 hr (800-1800) Creatinine Clearance 24 Hour 22 mL/min (88-128) Urine Protein 24 Hr Calculated 164 mg/24 hr (30-150) Creatinine 1.99 mg/dL (0.57-1.00) 2.3 mg/dL (0.6-1.0) 2.4 mg/dL (0.6-1.0) Estimated GFR (Non- 22 (>59) 21 (>59) EGFR 25 (>59) 24 (>59) PTH (Intact) Specimen Description Comment (.) Parathyroid Hormone (Intact) 108 pg/mL (15-65) Calcium (PTH Intact) 9.5 mg/dL (8.7-10.3) Creatinine (PTH Intact) 2.05 mg/dL (0.57-1.00) Phosphorus (PTH Intact) 3.3 mg/dL (2.5-4.5) White Blood Count 10.0 x10^3/uL (4.0-11.0) Red Blood Count 3.06 x10^6/uL (3.50-5.40) Hemoglobin 9.3 g/dL (12.0-15.5) Hematocrit 27.5 % (36.0-47.0) Mean Corpuscular Volume 90 fL (79-100) Mean Corpuscular Hemoglobin 30 pg (25-35) Mean Corpuscular Hemoglobin Concent 34 g/dL (31-37) Red Cell Distribution Width 15.0 % (11.5-14.5) Platelet Count 243 x10^3/uL (140-400) Neutrophils (%) (Auto) 84 % (31-73) Lymphocytes (%) (Auto) 14 % (24-48) Monocytes (%) (Auto) 2 % (0-9) Eosinophils (%) (Auto) 0 % (0-3) Basophils (%) (Auto) 0 % (0-3) Neutrophils # (Auto) 8.5 x10^3uL (1.8-7.7) Lymphocytes # (Auto) 1.4 x10^3/uL (1.0-4.8) Monocytes # (Auto) 0.2 x10^3/uL (0.0-1.1) Eosinophils # (Auto) 0.0 x10^3/uL (0.0-0.7) Basophils # (Auto) 0.0 x10^3/uL (0.0-0.2) Sodium Level 135 mmol/L (136-145) 138 mmol/L (136-145) Potassium Level 4.0 mmol/L (3.5-5.1) 4.2 mmol/L (3.5-5.1) Chloride Level 96 mmol/L (98-107) 99 mmol/L (98-107) Carbon Dioxide Level 38 mmol/L (21-32) 38 mmol/L (21-32) Anion Gap 1 (6-14) 1 (6-14) Blood Urea Nitrogen 79 mg/dL (7-20) 87 mg/dL (7-20) Estimated GFR (Cockcroft-Gault) 20.0 19.0 Glucose Level 153 mg/dL (70-99) 137 mg/dL (70-99) Calcium Level 9.5 mg/dL (8.5-10.1) 9.4 mg/dL (8.5-10.1) Magnesium Level 3.5 mg/dL (1.8-2.4) Medications Current Medications Potassium Chloride (Klor-Con) 40 meq 1X ONCE PO Last administered on at 11:36; Start 02/05/18 at 11:30; Stop 02/05/18 at 11:31; Status DC Albuterol/ Ipratropium (Duoneb) 3 ml RTQID NEB Last administered on 02/06/18at 15:27; Start 02/05/18 at 16:30; Stop 02/07/18 at 10:38; Status DC Methylprednisolone Sodium Succinate (SOLU-Medrol 40MG VIAL) 40 mg Q8HRS IV Last administered on 02/07/18at 05:25; Start 02/05/18 at 22:00; Stop 02/07/18 at 10:38; Status DC Vitamin D (Vitamin D3) 1,000 unit DAILY PO Last administered on 02/07/18at 09:52 ; Start 02/06/18 at 09:00 Clonidine HCl (Catapres) 0.1 mg TID PO Last administered on 02/08/18at 20:29; Start 02/05/18 at 21:00 Tamsulosin HCl (Flomax) 0.4 mg QHS PO Last administered on 02/08/18at 20:30; Start 02/05/18 at 21:00 Carvedilol (Coreg) 3.125 mg BIDWMEALS PO Last administered on 02/06/18at 08:05; Start 02/05/18 at 18:00; Stop 02/06/18 at 11:23; Status DC Pantoprazole Sodium (Protonix) 40 mg DAILYAC PO Last administered on 02/07/18 09:52; Start 02/06/18 at 07:30 Polyethylene Glycol (miraLAX PACKET) 17 gm DAILY PO Last administered on at 09:52; Start 02/06/18 at 09:00 Acetaminophen (Tylenol) 650 mg PRN Q6HRS PRN PO MILD PAIN / TEMP; Start at 17:45 Albuterol Sulfate (Ventolin Neb Soln) 2.5 mg PRN Q4HRS PRN NEB SHORTNESS OF BREATH; Start 02/05/18 at 18:00 Magnesium Sulfate 50 ml @ 25 mls/hr 1X ONCE IV Last administered on 02/05/18at 18:38; Start 02/05/18 at 17:45; Stop 02/05/18 at 19:44; Status DC Lactulose (Lactulose) 20 gm BID PO Last administered on 02/06/18at 12:43; Start 02/06/18 at 13:00; Stop 02/06/18 at 18:00; Status DC Budesonide (Pulmicort) 0.5 mg RTBID NEB Last administered on 02/09/18at 07:13; Start 02/06/18 at 20:00 Al Hydroxide/Mg Hydroxide (Mylanta Plus Xs) 30 ml PRN Q2HR PRN PO HEARTBURN / GAS Last administered on 02/06/18at 17:55; Start 02/06/18 at 15:15 Albuterol/ Ipratropium (Duoneb) 3 ml TID NEB Last administered on 02/09/18at 07: 13; Start 02/07/18 at 14:00 Methylprednisolone Sodium Succinate (SOLU-Medrol 40MG VIAL) 40 mg Q12HR IV Last administered on 02/08/18at 20:29; Start 02/07/18 at 21:00 Ondansetron HCl (Zofran Odt) 4 mg PRN Q6HRS PRN PO NAUSEA/VOMITING; Start 02/07 at 11:00 Montelukast Sodium (Singulair) 10 mg QHS PO Last administered on 02/08/18at 20: 30; Start 02/08/18 at 21:00 Albuterol Sulfate (Ventolin Neb Soln) 2.5 mg PRN 1X PRN NEB SHORTNESS OF BREATH Last administered on 02/08/18at 12:45; Start 02/08/18 at 11:00; Stop 02/09 at 10:59 Sodium Chloride (Normal Saline Flush) 3 ml QSHIFT PRN IV AFTER MEDS AND BLOOD DRAWS; Start 02/08/18 at 11:00 Lidocaine HCl 2 ml PRN 1X PRN MM MOUTH PAIN Last administered on 02/08/18at 12: 46; Start 02/08/18 at 11:00; Stop 02/09/18 at 10:59 Lidocaine HCl (Lidocaine 1% 50ml Vial) 50 ml PRN 1X PRN INJ SEE COMMENTS; Start 02/08/18 at 11:00; Stop 02/09/18 at 10:59 Epinephrine HCl (Adrenalin) 1 mg PRN 1X PRN INJ SEE COMMENTS; Start 02/08/18 at 11:00; Stop 02/09/18 at 10:59 Lidocaine HCl 50 ml PRN 1X PRN MM SEE COMMENTS Last administered on 02/08/18at 12:47; Start 02/08/18 at 11:00; Stop 02/09/18 at 10:59 Ringer's Solution 1,000 ml @ 75 mls/hr [id number] IV Last administered on at 13:39; Start 02/08/18 at 13:00 Propofol 20 ml @ As Directed STK-MED ONCE IV ; Start 02/08/18 at 13:32; Stop at 13:33; Status DC Active Scripts Active Budesonide 0.5 Mg/2 Ml Ampul.neb 0.5 Mg NEB RTBID 30 Days Furosemide 80 Mg Tablet 80 Mg PO [id number] 30 Days Omeprazole 40 Mg Capsule.dr 40 Mg PO DAILY 30 Days Prednisone (Prednisone) 10 Mg Tablet 40 Mg PO DAILY 8 Days Duoneb 0.5-3(2.5) Mg/3 Ml (Albuterol/Ipratropium) 3 Ml Ampul.neb 3 Ml NEB RTQID 30 Days Flomax (Tamsulosin Hcl) 0.4 Mg Cap.er.24h 0.4 Mg PO DAILY 30 Days Reported Proair Respiclick (Albuterol Sulfate) 90 Mcg Aer.pow.ba 1 Puff IH PRN Q4HRS PRN Vitamin D3 (Cholecalciferol (Vitamin D3)) 1,000 Unit Tablet 1 Tab PO DAILY Protonix (Pantoprazole Sodium) 20 Mg Tablet.dr 40 Mg PO DAILY Montelukast Sodium Chew.tablet (Montelukast Sodium) 5 Mg Tab.chew 10 Mg PO HS Metolazone 2.5 Mg Tablet 2.5 Mg PO TWICE WEEKLY Senokot (Sennosides) 8.6 Mg Tablet 1 Tab PO BID Miralax (Polyethylene Glycol 3350) 17 Gm Powd.pack 1 Packet PO DAILY Carvedilol 3.125 Mg Tablet 1 Tab PO BID Clonidine Hcl 0.1 Mg Tablet 0.1 Mg PO TID Vitals/I & O Vital Sign - Last 24 Hours 02/08/18 02/08/18 02/08/18 02/08/18 11:07 11:51 12:16 12:26 Temp 97.5 97.4 97.5 97.4 Pulse 53 54 Resp 18 20 B/P (MAP) 185/57 (99) Pulse Ox 99 97 99 O2 Delivery Nasal Cannula Nasal Cannula Nasal Cannula O2 Flow Rate 2.0 2.0 2.0 02/08/18 02/08/18 02/08/18 02/08/18 12:47 13:26 13:41 13:56 Temp 97.4 97.4 97.4 97.4 97.4 97.4 Pulse 57 58 58 Resp 18 18 18 B/P (MAP) 163/48 172/58 183/65 Pulse Ox 96 99 92 93 O2 Delivery Nasal Cannula Nasal Cannula Nasal Cannula Nasal Cannula Simple Mask Simple Mask O2 Flow Rate 2.0 8 2 2 02/08/18 02/08/18 02/08/18 02/08/18 15:30 17:18 18:34 19:44 Temp 97.9 98.0 97.9 98.0 Pulse 59 59 65 Resp 20 20 B/P (MAP) 127/40 (69) 127/40 190/58 (102) Pulse Ox 99 99 96 O2 Delivery Nasal Cannula Nasal Cannula Nasal Cannula O2 Flow Rate 2.0 2.0 2.0 02/08/18 02/08/18 02/08/18 02/09/18 20:00 20:29 23:00 03:19 Temp 97.9 97.5 97.9 97.5 Pulse 64 64 Resp 16 18 B/P (MAP) 190/58 156/50 (85) 153/50 (84) Pulse Ox 100 97 O2 Delivery Nasal Cannula Nasal Cannula Nasal Cannula O2 Flow Rate 2.0 2.0 2.0 02/09/18 02/09/18 02/09/18 07:14 07:17 07:35 Temp 97.7 97.7 Pulse 58 Resp 18 B/P (MAP) 161/52 (88) Pulse Ox 97 97 98 O2 Delivery Nasal Cannula Nasal Cannula Nasal Cannula O2 Flow Rate 2.0 2.0 2.0 Intake and Output 02/08/18 02/08/18 02/09/18 15:00 23:00 07:00 Intake Total 200 ml 400 ml 400 ml Output Total 450 ml 500 ml Balance 200 ml -50 ml -100 ml HANS ELIZONDO MD Feb 09, 2018 09:12
[2018-02-09] MEDS: CHOLECALCIFEROL (VITAMIN D3) 1,000 UNIT TABLET PO SCH (09:15)
[2018-02-09] MEDS: methylPREDNISolone SOD SUCC PF 40 MG/ML VIAL. IV SCH ×2 (09:15→21:17)
[2018-02-09] MEDS: PANTOPRAZOLE 40 MG TABLET.DR. PO SCH (09:16)
[2018-02-09] MEDS: POLYETHYLENE GLYCOL 3350 17 GM PACKET. PO SCH (09:16)
[2018-02-09] MEDS: cloNIDine HCL 0.1 MG TABLET PO SCH ×3 (09:16→21:16)
[2018-02-09] MEDS: IV NORMAL SALINE 1000ML BAG 1,000 ML IV SCH (09:25)
--- NOTE | 2018-02-09 10:37 | PDOC ---
Renal-Progress Notes Subjective Notes Notes SITTING UP AND FEELING MUCH BETTER History of Present Illness Hx of present illness STABLE Vitals Vitals Vital Signs Date Time Temp Pulse Resp B/P (MAP) Pulse Ox O2 Delivery O2 Flow Rate FiO2 02/09/18 09:16 58 161/52 02/09/18 08:00 Nasal Cannula 2.0 02/09/18 07:35 97.7 18 98 97.7 Weight Weight [ ] I.O. Intake and Output Intake and Output 02/09/18 07:00 Intake Total 1000 ml Output Total 950 ml Balance 50 ml Intake Oral 800 ml IV Total 200 ml Output Urine Total 950 ml # Bowel Movements 1 Labs Labs Laboratory Tests Test 02/09/18 03:00 Sodium Level 138 mmol/L (136-145) Potassium Level 4.2 mmol/L (3.5-5.1) Chloride Level 99 mmol/L (98-107) Carbon Dioxide Level 38 mmol/L (21-32) Anion Gap 1 (6-14) Blood Urea Nitrogen 87 mg/dL (7-20) Creatinine 2.4 mg/dL (0.6-1.0) Estimated GFR (Cockcroft-Gault) 19.0 Glucose Level 137 mg/dL (70-99) Calcium Level 9.4 mg/dL (8.5-10.1) Review of Systems Constitutional: yes: alert, oriented Ears/Nose/Throat: Yes: no symptom reported Eyes: Yes: no symptom reported Pulmonary: Yes no symptom reported Cardiovascular: Yes no symptom reported Gastrointestional: Yes: no symptom reported Genitourinary: Yes: no symptom reported Musculoskeletal: Yes: no symptom reported Skin: Yes no symptom reported Endocrine: Yes: no symptom reported Physical Exam General Appearance: no apparent distress Respiratory: bilateral CTA Heart: S1S2 Abdomen: soft, bowel sounds present Extremities: pulses present Neurology: alert Musculoskeletal: Osteoarthritis Assessment Assessment IMP HTN CKD STAGE 3-STABLE CR AT 2.3 COPD ? RENAL MASS VS CYST PLAN CONT SAME NO NEED FOR FURTHER LEFT RENAL MASS F/U SINCE PT IS NOT A CANDIDATE FOR ANY TX EVEN IF IT WAS A [facility] WILL FOLLOW NEEDED ARSEN SUAREZ MD Feb 09, 2018 10:37
[2018-02-09 11:00] VITALS: BP 153/48
[2018-02-09] MEDS ORDERED: LACTULOSE 20 GM/30 ML SOLUTION. PO SCH (11:00)
--- NOTE | 2018-02-09 11:22 | PDOC ---
PULMONARY PROGRESS NOTES Subjective DENIES SOA Vitals Vital Signs Date Time Temp Pulse Resp B/P (MAP) Pulse Ox O2 Delivery O2 Flow Rate FiO2 02/09/18 11:00 97.5 48 18 153/48 (83) 99 Nasal Cannula 2.0 97.5 ROS: No Nausea, No Chest Pain, No Abdominal Pain, No Increase Cough General: Alert, No acute distress Lungs: Clear Cardiovascular: S1, S2 Abdomen: Soft, Non-tender Neuro Exam: Alert Extremities: No Edema, Other Labs Laboratory Tests Test 02/08/18 03:00 02/09/18 03:00 White Blood Count 10.0 x10^3/uL (4.0-11.0) Red Blood Count 3.06 x10^6/uL (3.50-5.40) Hemoglobin 9.3 g/dL (12.0-15.5) Hematocrit 27.5 % (36.0-47.0) Mean Corpuscular Volume 90 fL (79-100) Mean Corpuscular Hemoglobin 30 pg (25-35) Mean Corpuscular Hemoglobin Concent 34 g/dL (31-37) Red Cell Distribution Width 15.0 % (11.5-14.5) Platelet Count 243 x10^3/uL (140-400) Neutrophils (%) (Auto) 84 % (31-73) Lymphocytes (%) (Auto) 14 % (24-48) Monocytes (%) (Auto) 2 % (0-9) Eosinophils (%) (Auto) 0 % (0-3) Basophils (%) (Auto) 0 % (0-3) Neutrophils # (Auto) 8.5 x10^3uL (1.8-7.7) Lymphocytes # (Auto) 1.4 x10^3/uL (1.0-4.8) Monocytes # (Auto) 0.2 x10^3/uL (0.0-1.1) Eosinophils # (Auto) 0.0 x10^3/uL (0.0-0.7) Basophils # (Auto) 0.0 x10^3/uL (0.0-0.2) Sodium Level 135 mmol/L (136-145) 138 mmol/L (136-145) Potassium Level 4.0 mmol/L (3.5-5.1) 4.2 mmol/L (3.5-5.1) Chloride Level 96 mmol/L (98-107) 99 mmol/L (98-107) Carbon Dioxide Level 38 mmol/L (21-32) 38 mmol/L (21-32) Anion Gap 1 (6-14) 1 (6-14) Blood Urea Nitrogen 79 mg/dL (7-20) 87 mg/dL (7-20) Creatinine 2.3 mg/dL (0.6-1.0) 2.4 mg/dL (0.6-1.0) Estimated GFR (Cockcroft-Gault) 20.0 19.0 Glucose Level 153 mg/dL (70-99) 137 mg/dL (70-99) Calcium Level 9.5 mg/dL (8.5-10.1) 9.4 mg/dL (8.5-10.1) Magnesium Level 3.5 mg/dL (1.8-2.4) Laboratory Tests Test 02/09/18 03:00 Sodium Level 138 mmol/L (136-145) Potassium Level 4.2 mmol/L (3.5-5.1) Chloride Level 99 mmol/L (98-107) Carbon Dioxide Level 38 mmol/L (21-32) Anion Gap 1 (6-14) Blood Urea Nitrogen 87 mg/dL (7-20) Creatinine 2.4 mg/dL (0.6-1.0) Estimated GFR (Cockcroft-Gault) 19.0 Glucose Level 137 mg/dL (70-99) Calcium Level 9.4 mg/dL (8.5-10.1) Medications Active Scripts Medications Dose Route/Sig Max Daily Dose Days Date Category Proair Respiclick (Albuterol Sulfate) 90 Mcg Aer.pow.ba 1 Puff IH PRN Q4HRS PRN 02/05/18 Reported Vitamin D3 (Cholecalciferol (Vitamin D3)) 1,000 Unit Tablet 1 Tab PO DAILY 02/05/18 Reported Protonix (Pantoprazole Sodium) 20 Mg Tablet.dr 40 Mg PO DAILY 02/05/18 Reported Montelukast Sodium Chew.tablet (Montelukast Sodium) 5 Mg Tab.chew 10 Mg PO HS 02/05/18 Reported Metolazone 2.5 Mg Tablet 2.5 Mg PO TWICE WEEKLY 02/05/18 Reported Budesonide 0.5 Mg/2 Ml Ampul.neb 0.5 Mg NEB RTBID 30 01/13/18 Rx Furosemide 80 Mg Tablet 80 Mg PO BID92 01/13/18 Rx Omeprazole 40 Mg Capsule.dr 40 Mg PO DAILY 30 01/13/18 Rx Prednisone (Prednisone) 10 Mg Tablet 40 Mg PO DAILY 8 12/21/17 Rx Duoneb 0.5-3(2.5) Mg/3 Ml (Albuterol/Ipratropium) 3 Ml Ampul.neb 3 Ml NEB RTQID 30 12/21/17 Rx Senokot (Sennosides) 8.6 Mg Tablet 1 Tab PO BID 12/17/17 Reported Miralax (Polyethylene Glycol 3350) 17 Gm Powd.pack 1 Packet PO DAILY 12/17/17 Reported Carvedilol 3.125 Mg Tablet 1 Tab PO BID 12/17/17 Reported Flomax (Tamsulosin Hcl) 0.4 Mg Cap.er.24h 0.4 Mg PO DAILY 30 10/27/17 Rx Clonidine Hcl 0.1 Mg Tablet 0.1 Mg PO TID 08/24/17 Reported Impression . 1. Enlarging left upper lobe nodule. This is now 1.1 cm in size. This was 0.7 mm in October and 10 mm in December. 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 The patient also has a persistent right middle lobe atelectasis, which was seen in December and now is persistent. Although no obvious mass is seen on the CT chest, but a small endobronchial lesion cannot be ruled out. 2. Underlying chronic obstructive pulmonary disease with chronic hypoxic respiratory failure. 3. Weight loss over the past few years. Could be related to underlying malignancy. 4. History of coronary artery disease and diastolic heart failure, clinically compensated. 5. Chronic kidney disease. Plan . DOING BETTER HOME IN AM?, FOLLOW UP IN OFFICE OUPT PET SCAN KATALINA LE MD Feb 09, 2018 11:22
[2018-02-09 15:03] VITALS: BP 158/54
[2018-02-09] MEDS: IV RINGERS,LACTATED 1000ML 1,000 ML IV SCH (15:40)
[2018-02-09 19:15] VITALS: BP 149/41
[2018-02-09] MEDS: TAMSULOSIN 0.4 MG CAP.ER.24H. PO SCH (21:16)
[2018-02-09] MEDS: MONTELUKAST SODIUM 10 MG TABLET. PO SCH (21:16)
[2018-02-09 23:49] VITALS: BP 186/59
[2018-02-10 03:09] VITALS: BP 185/52
[2018-02-10] MEDS: IV RINGERS,LACTATED 1000ML 1,000 ML IV SCH (05:00)
[2018-02-10 07:00] VITALS: BP 176/53
[2018-02-10] MEDS: BUDESONIDE 0.5 MG/2 ML NEBU. NEB SCH ×2 (07:38→19:38)
[2018-02-10] MEDS: IPRATRPIUM/ALBUTEROL 0.5/2.5MG 3 ML NEBU. NEB SCH ×3 (07:38→19:38)
[2018-02-10] MEDS: POLYETHYLENE GLYCOL 3350 17 GM PACKET. PO SCH (08:04)
[2018-02-10] MEDS: PANTOPRAZOLE 40 MG TABLET.DR. PO SCH (08:05)
[2018-02-10] MEDS: methylPREDNISolone SOD SUCC PF 40 MG/ML VIAL. IV SCH ×2 (08:05→20:22)
[2018-02-10] MEDS: cloNIDine HCL 0.1 MG TABLET PO SCH ×3 (08:05→20:21)
[2018-02-10] MEDS: CHOLECALCIFEROL (VITAMIN D3) 1,000 UNIT TABLET PO SCH (08:06)
[2018-02-10 09:28] LABS: CALCIUM 9.2 mg/dL (8.5-10.1); CREATININE 2.3 mg/dL (0.6-1.0); POTASSIUM 4.3 mmol/L (3.5-5.1)
--- NOTE | 2018-02-10 10:05 | PDOC ---
SUBJECTIVE Subjective Patient doing well, no dysuria, hematuria. No flank pain or bladder pain. She thinks she is doing well emptying her bladder. She is not interested in following up for her kidney cysts because they are not bothering her OBJECTIVE Objective Physical Exam: General appearance: Alert and Oriented Head: Normocephalic, without obvious abnormality Eyes: conjunctivae/corneas clear. PERRL, EOM's intact. Fundi benign Back: negative Lungs: regular respirations Abdomen: soft, non-tender. Vital Signs Vital Signs Date Time Temp Pulse Resp B/P (MAP) Pulse Ox O2 Delivery O2 Flow Rate FiO2 02/10/18 08:14 Nasal Cannula 2.0 02/10/18 08:05 53 176/53 02/10/18 07:40 100 Nasal Cannula 3.0 02/10/18 07:00 98.3 53 18 176/53 (94) 100 Nasal Cannula 3.0 98.3 02/10/18 03:09 97.6 53 18 185/52 (96) 99 Nasal Cannula 2.5 97.6 02/09/18 23:49 97.6 54 18 186/59 (101) 99 Nasal Cannula 2.5 97.6 02/09/18 21:16 55 149/41 02/09/18 20:00 Nasal Cannula 2.0 02/09/18 19:29 Nasal Cannula 2.0 02/09/18 19:15 98.1 55 18 149/41 (77) 99 Nasal Cannula 2.5 98.1 02/09/18 15:14 58 158/54 02/09/18 15:03 98.1 58 18 158/54 (88) 99 Nasal Cannula 2.0 98.1 02/09/18 12:27 Nasal Cannula 2.0 02/09/18 11:00 97.5 48 18 153/48 (83) 99 Nasal Cannula 2.0 97.5 I & O Intake and Output 02/10/18 07:00 Intake Total 800 ml Output Total 600 ml Balance 200 ml Intake Oral 800 ml Output Urine Total 600 ml # Voids 1 PHYSICAL EXAM Physical Exam Physical Exam: General appearance: Alert and Oriented Head: Normocephalic, without obvious abnormality Eyes: conjunctivae/corneas clear. PERRL, EOM's intact. Fundi benign Back: negative Lungs: regular respirations Abdomen: soft, non-tender. ASSESSMENT/PLAN Assessment/Plan 87 yo female with multiple medical comorbidites found to have incidental complex renal cysts. Has baseline renal insufficiency with a Cr around 2. Dr. Huang does not recommend surgical intervention given that they are likely benign and any intervention could jeopardize her renal fcn. Dr. Huang and myself do recommend interval Ultrasounds for monitoring, the first one to occur in six months as an outpatient. However, patient declined as they are "not bothering her." She has our card should she change her mind. Will sign off at this time, but please call with questions or change in patient condition. COMMENT Lab Laboratory Tests Test 02/10/18 08:52 Sodium Level 138 mmol/L (136-145) Potassium Level 4.3 mmol/L (3.5-5.1) Chloride Level 99 mmol/L (98-107) Carbon Dioxide Level 35 mmol/L (21-32) Anion Gap 4 (6-14) Blood Urea Nitrogen 83 mg/dL (7-20) Creatinine 2.3 mg/dL (0.6-1.0) Estimated GFR (Cockcroft-Gault) 20.0 Glucose Level 171 mg/dL (70-99) Calcium Level 9.2 mg/dL (8.5-10.1) LATISHA DELAROSA APRN Feb 10, 2018 10:05
--- NOTE | 2018-02-10 10:22 | PDOC ---
PULMONARY PROGRESS NOTES Subjective DENIES SOA Vitals Vital Signs Date Time Temp Pulse Resp B/P (MAP) Pulse Ox O2 Delivery O2 Flow Rate FiO2 02/10/18 08:14 Nasal Cannula 2.0 02/10/18 08:05 53 176/53 02/10/18 07:40 100 02/10/18 07:00 98.3 18 98.3 ROS: No Nausea, No Chest Pain, No Abdominal Pain, No Increase Cough General: Alert, No acute distress Lungs: Clear Cardiovascular: S1, S2 Abdomen: Soft, Non-tender Neuro Exam: Alert Extremities: No Edema, Other Labs Laboratory Tests Test 02/09/18 03:00 02/10/18 08:52 Sodium Level 138 mmol/L (136-145) 138 mmol/L (136-145) Potassium Level 4.2 mmol/L (3.5-5.1) 4.3 mmol/L (3.5-5.1) Chloride Level 99 mmol/L (98-107) 99 mmol/L (98-107) Carbon Dioxide Level 38 mmol/L (21-32) 35 mmol/L (21-32) Anion Gap 1 (6-14) 4 (6-14) Blood Urea Nitrogen 87 mg/dL (7-20) 83 mg/dL (7-20) Creatinine 2.4 mg/dL (0.6-1.0) 2.3 mg/dL (0.6-1.0) Estimated GFR (Cockcroft-Gault) 19.0 20.0 Glucose Level 137 mg/dL (70-99) 171 mg/dL (70-99) Calcium Level 9.4 mg/dL (8.5-10.1) 9.2 mg/dL (8.5-10.1) Laboratory Tests Test 02/10/18 08:52 Sodium Level 138 mmol/L (136-145) Potassium Level 4.3 mmol/L (3.5-5.1) Chloride Level 99 mmol/L (98-107) Carbon Dioxide Level 35 mmol/L (21-32) Anion Gap 4 (6-14) Blood Urea Nitrogen 83 mg/dL (7-20) Creatinine 2.3 mg/dL (0.6-1.0) Estimated GFR (Cockcroft-Gault) 20.0 Glucose Level 171 mg/dL (70-99) Calcium Level 9.2 mg/dL (8.5-10.1) Medications Active Scripts Medications Dose Route/Sig Max Daily Dose Days Date Category Proair Respiclick (Albuterol Sulfate) 90 Mcg Aer.pow.ba 1 Puff IH PRN Q4HRS PRN 02/05/18 Reported Vitamin D3 (Cholecalciferol (Vitamin D3)) 1,000 Unit Tablet 1 Tab PO DAILY 02/05/18 Reported Protonix (Pantoprazole Sodium) 20 Mg Tablet.dr 40 Mg PO DAILY 02/05/18 Reported Montelukast Sodium Chew.tablet (Montelukast Sodium) 5 Mg Tab.chew 10 Mg PO HS 02/05/18 Reported Metolazone 2.5 Mg Tablet 2.5 Mg PO TWICE WEEKLY 02/05/18 Reported Budesonide 0.5 Mg/2 Ml Ampul.neb 0.5 Mg NEB RTBID 30 01/13/18 Rx Furosemide 80 Mg Tablet 80 Mg PO BID92 30 01/13/18 Rx Omeprazole 40 Mg Capsule.dr 40 Mg PO DAILY 30 01/13/18 Rx Prednisone (Prednisone) 10 Mg Tablet 40 Mg PO DAILY 8 12/21/17 Rx Duoneb 0.5-3(2.5) Mg/3 Ml (Albuterol/Ipratropium) 3 Ml Ampul.neb 3 Ml NEB RTQID 30 12/21/17 Rx Senokot (Sennosides) 8.6 Mg Tablet 1 Tab PO BID 12/17/17 Reported Miralax (Polyethylene Glycol 3350) 17 Gm Powd.pack 1 Packet PO DAILY 12/17/17 Reported Carvedilol 3.125 Mg Tablet 1 Tab PO BID 12/17/17 Reported Flomax (Tamsulosin Hcl) 0.4 Mg Cap.er.24h 0.4 Mg PO DAILY 30 10/27/17 Rx Clonidine Hcl 0.1 Mg Tablet 0.1 Mg PO TID 08/24/17 Reported Impression . 1. Enlarging left upper lobe nodule. This is now 1.1 cm in size. This was 0.7 mm in October and 10 mm in December. 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 The patient also has a persistent right middle lobe atelectasis, which was seen in December and now is persistent. Although no obvious mass is seen on the CT chest, but a small endobronchial lesion cannot be ruled out. 2. Underlying chronic obstructive pulmonary disease with chronic hypoxic respiratory failure. 3. Weight loss over the past few years. Could be related to underlying malignancy. 4. History of coronary artery disease and diastolic heart failure, clinically compensated. 5. Chronic kidney disease. Plan . RESP STATUS IS COMPENSATED WILL CONTINUE THE SAME FOLLOW UP IN OFFICE OUPT PET SCAN KATALINA LE MD Feb 10, 2018 10:22
[2018-02-10 11:00] VITALS: BP 141/40
--- NOTE | 2018-02-10 11:04 | PDOC ---
Renal-Progress Notes Subjective Notes Notes NONE History of Present Illness Hx of present illness STABLE Vitals Vitals Vital Signs Date Time Temp Pulse Resp B/P (MAP) Pulse Ox O2 Delivery O2 Flow Rate FiO2 02/10/18 08:14 Nasal Cannula 2.0 02/10/18 08:05 53 176/53 02/10/18 07:40 100 02/10/18 07:00 98.3 18 98.3 Weight Weight [ ] I.O. Intake and Output Intake and Output 02/10/18 07:00 Intake Total 800 ml Output Total 600 ml Balance 200 ml Intake Oral 800 ml Output Urine Total 600 ml # Voids 1 Labs Labs Laboratory Tests Test 02/10/18 08:52 Sodium Level 138 mmol/L (136-145) Potassium Level 4.3 mmol/L (3.5-5.1) Chloride Level 99 mmol/L (98-107) Carbon Dioxide Level 35 mmol/L (21-32) Anion Gap 4 (6-14) Blood Urea Nitrogen 83 mg/dL (7-20) Creatinine 2.3 mg/dL (0.6-1.0) Estimated GFR (Cockcroft-Gault) 20.0 Glucose Level 171 mg/dL (70-99) Calcium Level 9.2 mg/dL (8.5-10.1) Review of Systems Constitutional: yes: alert, oriented Ears/Nose/Throat: Yes: no symptom reported Eyes: Yes: no symptom reported Pulmonary: Yes no symptom reported Cardiovascular: Yes no symptom reported Gastrointestional: Yes: no symptom reported Genitourinary: Yes: no symptom reported Musculoskeletal: Yes: no symptom reported Skin: Yes no symptom reported Endocrine: Yes: no symptom reported Physical Exam General Appearance: no apparent distress Respiratory: bilateral CTA Heart: S1S2 Abdomen: soft, bowel sounds present Extremities: pulses present Neurology: alert Musculoskeletal: Osteoarthritis Assessment Assessment IMP HTN-LABILE CKD STAGE 3-STABLE CR AT 2.3 COPD ? RENAL MASS VS CYST PLAN LOW DOSE NORVASC NO NEED FOR FURTHER LEFT RENAL MASS F/U SINCE PT IS NOT A CANDIDATE FOR ANY TX EVEN IF IT WAS A [facility] WILL FOLLOW NEEDED ARSEN SUAREZ MD Feb 10, 2018 11:04
[2018-02-10] MEDS: IV NORMAL SALINE 1000ML BAG 1,000 ML IV SCH (14:52)
[2018-02-10] MEDS: amLODIPine BESYLATE 2.5 MG TABLET PO SCH (14:53)
[2018-02-10 15:00] VITALS: BP 139/60
--- NOTE | 2018-02-10 15:24 | PDOC ---
PROGRESS NOTES Subjective Subjective seen earlier today. feels better. constipated and told nurse to give dulcolax suppository. labs reviewed. Objective Objective Vital Signs Date Time Temp Pulse Resp B/P (MAP) Pulse Ox O2 Delivery O2 Flow Rate FiO2 02/10/18 14:53 57 141/40 02/10/18 12:53 Nasal Cannula 2.0 02/10/18 11:00 98.1 16 98 98.1 Intake and Output 02/10/18 07:00 Intake Total 800 ml Output Total 600 ml Balance 200 ml Intake Oral 800 ml Output Urine Total 600 ml # Voids 1 Physical Exam Abdomen: Soft Heart: Regular rate, Normal S1, Normal S2 Extremities: No edema General: Alert HEENT: Atraumatic Lungs: Other (few rhonchi) Neuro: Normal speech Psych/Mental Status: Mental status NL Skin: No rashes Assessment Assessment Problems Acute exacerbation of chronic obstructive pulmonary disease. improved 2. Recent syncopal episode. 3. Chronic diastolic congestive heart failure. 4. chronic kidney disease stage 4. EST GFR 21. bun higher 5. Hypokalemia.resolved 6. Hypomagnesemia.resolved 7. Hypertension. 8. Secondary pulmonary hypertension with chronic cor pulmonale. 9. Left lung nodule.slow increase in size 10. Chronic hypoxic respiratory failure. 11. Anemia of chronic disease. RML atelectasis. no endobronchial lesion per bronchoscopy left kidney mass. stable on 10/30 ultrasound. likely cyst on ct scan abdomen/pelvis constipation Medical Problems: (1) Chronic kidney disease (CKD) Status: Acute (2) Hypokalemia Status: Acute (3) Syncope Status: Acute Plan Plan of Care d/c iv fluids lab tomorrow anticipate dismissal tomorrow continue nebulizer rx hold furosemide Comment Review of Relevant I have reviewed the following items brandan (where applicable) has been applied. Labs Laboratory Tests Test 02/09/18 03:00 02/10/18 08:52 Sodium Level 138 mmol/L (136-145) 138 mmol/L (136-145) Potassium Level 4.2 mmol/L (3.5-5.1) 4.3 mmol/L (3.5-5.1) Chloride Level 99 mmol/L (98-107) 99 mmol/L (98-107) Carbon Dioxide Level 38 mmol/L (21-32) 35 mmol/L (21-32) Anion Gap 1 (6-14) 4 (6-14) Blood Urea Nitrogen 87 mg/dL (7-20) 83 mg/dL (7-20) Creatinine 2.4 mg/dL (0.6-1.0) 2.3 mg/dL (0.6-1.0) Estimated GFR (Cockcroft-Gault) 19.0 20.0 Glucose Level 137 mg/dL (70-99) 171 mg/dL (70-99) Calcium Level 9.4 mg/dL (8.5-10.1) 9.2 mg/dL (8.5-10.1) Laboratory Tests Test 02/10/18 08:52 Sodium Level 138 mmol/L (136-145) Potassium Level 4.3 mmol/L (3.5-5.1) Chloride Level 99 mmol/L (98-107) Carbon Dioxide Level 35 mmol/L (21-32) Anion Gap 4 (6-14) Blood Urea Nitrogen 83 mg/dL (7-20) Creatinine 2.3 mg/dL (0.6-1.0) Estimated GFR (Cockcroft-Gault) 20.0 Glucose Level 171 mg/dL (70-99) Calcium Level 9.2 mg/dL (8.5-10.1) Medications Current Medications Potassium Chloride (Klor-Con) 40 meq 1X ONCE PO Last administered on at 11:36; Start 02/05/18 at 11:30; Stop 02/05/18 at 11:31; Status DC Albuterol/ Ipratropium (Duoneb) 3 ml RTQID NEB Last administered on 02/06/18at 15:27; Start 02/05/18 at 16:30; Stop 02/07/18 at 10:38; Status DC Methylprednisolone Sodium Succinate (SOLU-Medrol 40MG VIAL) 40 mg Q8HRS IV Last administered on 02/07/18at 05:25; Start 02/05/18 at 22:00; Stop 02/07/18 at 10:38; Status DC Vitamin D (Vitamin D3) 1,000 unit DAILY PO Last administered on 02/10/18at 08:06 ; Start 02/06/18 at 09:00 Clonidine HCl (Catapres) 0.1 mg TID PO Last administered on 02/10/18at 14:53; Start 02/05/18 at 21:00 Tamsulosin HCl (Flomax) 0.4 mg QHS PO Last administered on 02/09/18 21:16; Start 02/05/18 at 21:00 Carvedilol (Coreg) 3.125 mg BIDWMEALS PO Last administered on 02/06/18 08:05; Start 02/05/18 at 18:00; Stop 02/06/18 at 11:23; Status DC Pantoprazole Sodium (Protonix) 40 mg DAILYAC PO Last administered on 02/10/18 08:05; Start 02/06/18 at 07:30 Polyethylene Glycol (miraLAX PACKET) 17 gm DAILY PO Last administered on 08:04; Start 02/06/18 at 09:00 Acetaminophen (Tylenol) 650 mg PRN Q6HRS PRN PO MILD PAIN / TEMP; Start at 17:45 Albuterol Sulfate (Ventolin Neb Soln) 2.5 mg PRN Q4HRS PRN NEB SHORTNESS OF BREATH; Start 02/05/18 at 18:00 Magnesium Sulfate 50 ml @ 25 mls/hr 1X ONCE IV Last administered on 02/05/18at 18:38; Start 02/05/18 at 17:45; Stop 02/05/18 at 19:44; Status DC Lactulose (Lactulose) 20 gm BID PO Last administered on 02/06/18 12:43; Start 02/06/18 at 13:00; Stop 02/06/18 at 18:00; Status DC Budesonide (Pulmicort) 0.5 mg RTBID NEB Last administered on 02/10/18at 07:38; Start 02/06/18 at 20:00 Al Hydroxide/Mg Hydroxide (Mylanta Plus Xs) 30 ml PRN Q2HR PRN PO HEARTBURN / GAS Last administered on 02/06/18 17:55; Start 02/06/18 at 15:15; Stop at 15:06; Status DC Albuterol/ Ipratropium (Duoneb) 3 ml TID NEB Last administered on 02/10/18 12: 52; Start 02/07/18 at 14:00 Methylprednisolone Sodium Succinate (SOLU-Medrol 40MG VIAL) 40 mg Q12HR IV Last administered on 02/10/18at 08:05; Start 02/07/18 at 21:00 Ondansetron HCl (Zofran Odt) 4 mg PRN Q6HRS PRN PO NAUSEA/VOMITING 1ST CHOICE; Start 02/07/18 at 11:00 Montelukast Sodium (Singulair) 10 mg QHS PO Last administered on 02/09/18at 21: 16; Start 02/08/18 at 21:00 Albuterol Sulfate (Ventolin Neb Soln) 2.5 mg PRN 1X PRN NEB SHORTNESS OF BREATH Last administered on 02/08/18at 12:45; Start 02/08/18 at 11:00; Stop 02/09 at 10:59; Status DC Sodium Chloride (Normal Saline Flush) 3 ml QSHIFT PRN IV AFTER MEDS AND BLOOD DRAWS; Start 02/08/18 at 11:00 Lidocaine HCl 2 ml PRN 1X PRN MM MOUTH PAIN Last administered on 02/08/18at 12: 46; Start 02/08/18 at 11:00; Stop 02/09/18 at 10:59; Status DC Lidocaine HCl (Lidocaine 1% 50ml Vial) 50 ml PRN 1X PRN INJ SEE COMMENTS; Start 02/08/18 at 11:00; Stop 02/09/18 at 10:59; Status DC Epinephrine HCl (Adrenalin) 1 mg PRN 1X PRN INJ SEE COMMENTS; Start 02/08/18 at 11:00; Stop 02/09/18 at 10:59; Status DC Lidocaine HCl 50 ml PRN 1X PRN MM SEE COMMENTS Last administered on 02/08/18at 12:47; Start 02/08/18 at 11:00; Stop 02/09/18 at 10:59; Status DC Ringer's Solution 1,000 ml @ 75 mls/hr [id number] IV Last administered on at 13:39; Start 02/08/18 at 13:00; Stop 02/10/18 at 15:08; Status DC Propofol 20 ml @ As Directed STK-MED ONCE IV ; Start 02/08/18 at 13:32; Stop at 13:33; Status DC Lactulose (Lactulose) 20 gm BID PO Last administered on 02/09/18at 11:12; Start 02/09/18 at 11:00; Stop 02/09/18 at 16:00; Status DC Sodium Chloride 1,000 ml @ 40 mls/hr Q24H IV Last administered on 02/10/18at 14 :52; Start 02/09/18 at 09:15 Amlodipine Besylate (Norvasc) 2.5 mg DAILY PO Last administered on 02/10/18at 14 :53; Start 02/10/18 at 11:30 Active Scripts Active Budesonide 0.5 Mg/2 Ml Ampul.neb 0.5 Mg NEB RTBID 30 Days Furosemide 80 Mg Tablet 80 Mg PO BID92 30 Days Omeprazole 40 Mg Capsule.dr 40 Mg PO DAILY 30 Days Prednisone (Prednisone) 10 Mg Tablet 40 Mg PO DAILY 8 Days Duoneb 0.5-3(2.5) Mg/3 Ml (Albuterol/Ipratropium) 3 Ml Ampul.neb 3 Ml NEB RTQID 30 Days Flomax (Tamsulosin Hcl) 0.4 Mg Cap.er.24h 0.4 Mg PO DAILY 30 Days Reported Proair Respiclick (Albuterol Sulfate) 90 Mcg Aer.pow.ba 1 Puff IH PRN Q4HRS PRN Vitamin D3 (Cholecalciferol (Vitamin D3)) 1,000 Unit Tablet 1 Tab PO DAILY Protonix (Pantoprazole Sodium) 20 Mg Tablet.dr 40 Mg PO DAILY Montelukast Sodium Chew.tablet (Montelukast Sodium) 5 Mg Tab.chew 10 Mg PO HS Metolazone 2.5 Mg Tablet 2.5 Mg PO TWICE WEEKLY Senokot (Sennosides) 8.6 Mg Tablet 1 Tab PO BID Miralax (Polyethylene Glycol 3350) 17 Gm Powd.pack 1 Packet PO DAILY Carvedilol 3.125 Mg Tablet 1 Tab PO BID Clonidine Hcl 0.1 Mg Tablet 0.1 Mg PO TID Vitals/I & O Vital Sign - Last 24 Hours 02/09/18 02/09/18 02/09/18 02/09/18 19:15 19:29 20:00 21:16 Temp 98.1 98.1 Pulse 55 55 Resp 18 B/P (MAP) 149/41 (77) 149/41 Pulse Ox 99 O2 Delivery Nasal Cannula Nasal Cannula Nasal Cannula O2 Flow Rate 2.5 2.0 2.0 02/09/18 02/10/18 02/10/18 02/10/18 23:49 03:09 07:00 07:40 Temp 97.6 97.6 98.3 97.6 97.6 98.3 Pulse 54 53 53 Resp 18 18 18 B/P (MAP) 186/59 (101) 185/52 (96) 176/53 (94) Pulse Ox 99 99 100 100 O2 Delivery Nasal Cannula Nasal Cannula Nasal Cannula Nasal Cannula O2 Flow Rate 2.5 2.5 3.0 3.0 02/10/18 02/10/18 02/10/18 02/10/18 08:05 08:14 11:00 12:53 Temp 98.1 98.1 Pulse 53 57 Resp 16 B/P (MAP) 176/53 141/40 (73) Pulse Ox 98 O2 Delivery Nasal Cannula Nasal Cannula Nasal Cannula O2 Flow Rate 2.0 2.0 2.0 02/10/18 02/10/18 14:53 14:53 Pulse 57 57 B/P (MAP) 141/40 141/40 Intake and Output 02/09/18 02/09/18 02/10/18 15:00 23:00 07:00 Intake Total 500 ml 300 ml Output Total 300 ml 300 ml Balance 200 ml 0 ml HANS ELIZONDO MD Feb 10, 2018 15:24
[2018-02-10 19:52] VITALS: BP 162/48
[2018-02-10] MEDS: MONTELUKAST SODIUM 10 MG TABLET. PO SCH (20:21)
[2018-02-10] MEDS: TAMSULOSIN 0.4 MG CAP.ER.24H. PO SCH (20:21)
[2018-02-10 23:20] VITALS: BP 159/42
[2018-02-11 02:56] VITALS: BP 166/52
[2018-02-11] MEDS: IPRATRPIUM/ALBUTEROL 0.5/2.5MG 3 ML NEBU. NEB SCH ×2 (06:07→11:50)
[2018-02-11] MEDS: BUDESONIDE 0.5 MG/2 ML NEBU. NEB SCH (06:07)
[2018-02-11 07:00] VITALS: BP 166/46
[2018-02-11] MEDS: PANTOPRAZOLE 40 MG TABLET.DR. PO SCH (08:27)
[2018-02-11] MEDS: CHOLECALCIFEROL (VITAMIN D3) 1,000 UNIT TABLET PO SCH (08:27)
[2018-02-11] MEDS: POLYETHYLENE GLYCOL 3350 17 GM PACKET. PO SCH (08:27)
[2018-02-11] MEDS: cloNIDine HCL 0.1 MG TABLET PO SCH ×2 (08:28→13:23)
[2018-02-11] MEDS: amLODIPine BESYLATE 2.5 MG TABLET PO SCH (08:28)
[2018-02-11] MEDS: methylPREDNISolone SOD SUCC PF 40 MG/ML VIAL. IV SCH (08:28)
[2018-02-11] MEDS ORDERED: BISACODYL 10 MG SUPP.RECT. PR ONE (09:00)
--- NOTE | 2018-02-11 09:19 | PDOC ---
PULMONARY PROGRESS NOTES Subjective DENIES SOA Vitals Vital Signs Date Time Temp Pulse Resp B/P (MAP) Pulse Ox O2 Delivery O2 Flow Rate FiO2 02/11/18 08:28 58 166/46 02/11/18 07:35 Nasal Cannula 2.0 02/11/18 07:00 97.8 18 97 97.8 ROS: No Nausea, No Chest Pain, No Abdominal Pain, No Increase Cough General: Alert, No acute distress Lungs: Clear Cardiovascular: S1, S2 Abdomen: Soft, Non-tender Neuro Exam: Alert Extremities: No Edema, Other Labs Laboratory Tests Test 02/10/18 08:52 02/11/18 05:54 Sodium Level 138 mmol/L (136-145) Potassium Level 4.3 mmol/L (3.5-5.1) Chloride Level 99 mmol/L (98-107) Carbon Dioxide Level 35 mmol/L (21-32) Anion Gap 4 (6-14) Blood Urea Nitrogen 83 mg/dL (7-20) Creatinine 2.3 mg/dL (0.6-1.0) Estimated GFR (Cockcroft-Gault) 20.0 Glucose Level 171 mg/dL (70-99) Calcium Level 9.2 mg/dL (8.5-10.1) Glucose (Fingerstick) 133 mg/dL (70-99) Laboratory Tests Test 02/11/18 05:54 Glucose (Fingerstick) 133 mg/dL (70-99) Medications Active Scripts Medications Dose Route/Sig Max Daily Dose Days Date Category Proair Respiclick (Albuterol Sulfate) 90 Mcg Aer.pow.ba 1 Puff IH PRN Q4HRS PRN 02/05/18 Reported Vitamin D3 (Cholecalciferol (Vitamin D3)) 1,000 Unit Tablet 1 Tab PO DAILY 02/05/18 Reported Protonix (Pantoprazole Sodium) 20 Mg Tablet.dr 40 Mg PO DAILY 02/05/18 Reported Montelukast Sodium Chew.tablet (Montelukast Sodium) 5 Mg Tab.chew 10 Mg PO HS 02/05/18 Reported Metolazone 2.5 Mg Tablet 2.5 Mg PO TWICE WEEKLY 02/05/18 Reported Budesonide 0.5 Mg/2 Ml Ampul.neb 0.5 Mg NEB RTBID 30 01/13/18 Rx Furosemide 80 Mg Tablet 80 Mg PO BID92 30 01/13/18 Rx Omeprazole 40 Mg Capsule.dr 40 Mg PO DAILY 30 01/13/18 Rx Prednisone (Prednisone) 10 Mg Tablet 40 Mg PO DAILY 8 12/21/17 Rx Duoneb 0.5-3(2.5) Mg/3 Ml (Albuterol/Ipratropium) 3 Ml Ampul.neb 3 Ml NEB RTQID 30 12/21/17 Rx Senokot (Sennosides) 8.6 Mg Tablet 1 Tab PO BID 12/17/17 Reported Miralax (Polyethylene Glycol 3350) 17 Gm Powd.pack 1 Packet PO DAILY 12/17/17 Reported Carvedilol 3.125 Mg Tablet 1 Tab PO BID 12/17/17 Reported Flomax (Tamsulosin Hcl) 0.4 Mg Cap.er.24h 0.4 Mg PO DAILY 30 10/27/17 Rx Clonidine Hcl 0.1 Mg Tablet 0.1 Mg PO TID 08/24/17 Reported Impression . 1. Enlarging left upper lobe nodule. This is now 1.1 cm in size. This was 0.7 mm in October and 10 mm in December. 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 The patient also has a persistent right middle lobe atelectasis, which was seen in December and now is persistent. Although no obvious mass is seen on the CT chest, but a small endobronchial lesion cannot be ruled out. 2. Underlying chronic obstructive pulmonary disease with chronic hypoxic respiratory failure. 3. Weight loss over the past few years. Could be related to underlying malignancy. 4. History of coronary artery disease and diastolic heart failure, clinically compensated. 5. Chronic kidney disease. Plan . RESP STATUS IS COMPENSATED WILL CONTINUE THE SAME FOLLOW UP IN OFFICE OUPT PET SCAN KATALINA LE MD Feb 11, 2018 09:19
[2018-02-11 11:00] VITALS: BP 161/43
--- NOTE | 2018-02-11 11:29 | PDOC ---
Renal-Progress Notes Subjective Notes Notes NONE History of Present Illness Hx of present illness STABLE Vitals Vitals Vital Signs Date Time Temp Pulse Resp B/P (MAP) Pulse Ox O2 Delivery O2 Flow Rate FiO2 02/11/18 11:00 98.0 53 18 161/43 (82) 97 Nasal Cannula 2.0 98.0 Weight Weight [ ] I.O. Intake and Output Intake and Output 02/11/18 07:00 Intake Total 1700 ml Output Total 1250 ml Balance 450 ml Intake Oral 1700 ml Output Urine Total 1250 ml # Voids 1 Labs Labs Laboratory Tests Test 02/11/18 05:54 Glucose (Fingerstick) 133 mg/dL (70-99) Review of Systems Constitutional: yes: alert, oriented Ears/Nose/Throat: Yes: no symptom reported Eyes: Yes: no symptom reported Pulmonary: Yes no symptom reported Cardiovascular: Yes no symptom reported Gastrointestional: Yes: no symptom reported Genitourinary: Yes: no symptom reported Musculoskeletal: Yes: no symptom reported Skin: Yes no symptom reported Endocrine: Yes: no symptom reported Physical Exam General Appearance: no apparent distress Respiratory: bilateral CTA Heart: S1S2 Abdomen: soft, bowel sounds present Extremities: pulses present Neurology: alert Musculoskeletal: Osteoarthritis Assessment Assessment IMP HTN-LABILE CKD STAGE 3-STABLE CR AT 2.3 COPD ? RENAL MASS VS CYST PLAN INCREASE NORVASC NO NEED FOR FURTHER LEFT RENAL MASS F/U SINCE PT IS NOT A CANDIDATE FOR ANY TX EVEN IF IT WAS A [facility] WILL FOLLOW NEEDED ARSEN SUAREZ MD Feb 11, 2018 11:29
--- NOTE | 2018-02-11 12:46 | PDOC ---
PROGRESS NOTES Subjective Subjective feels well. ready for dismissal. Objective Objective Vital Signs Date Time Temp Pulse Resp B/P (MAP) Pulse Ox O2 Delivery O2 Flow Rate FiO2 02/11/18 11:50 97 Nasal Cannula 2.0 02/11/18 11:00 98.0 53 18 161/43 (82) 98.0 Intake and Output 02/11/18 07:00 Intake Total 1700 ml Output Total 1250 ml Balance 450 ml Intake Oral 1700 ml Output Urine Total 1250 ml # Voids 1 Physical Exam Abdomen: Soft Heart: Regular rate, Normal S1, Normal S2 Extremities: Other (trace edema legs) General: Alert HEENT: Atraumatic Lungs: Other (few rhonchi. decreased breath sounds) Neuro: Normal speech Psych/Mental Status: Mood NL Skin: No rashes Assessment Assessment ProblemsAcute exacerbation of chronic obstructive pulmonary disease. improved 2. Recent syncopal episode. 3. Chronic diastolic congestive heart failure. 4. chronic kidney disease stage 4. EST GFR 21. bun higher 5. Hypokalemia.resolved 6. Hypomagnesemia.resolved 7. Hypertension. 8. Secondary pulmonary hypertension with chronic cor pulmonale. 9. Left lung nodule.slow increase in size 10. Chronic hypoxic respiratory failure. 11. Anemia of chronic disease. RML atelectasis. no endobronchial lesion per bronchoscopy left kidney mass. stable on 10/30 ultrasound. likely cyst on ct scan abdomen/pelvis Medical Problems: (1) Chronic kidney disease (CKD) Status: Acute (2) Hypokalemia Status: Acute (3) Syncope Status: Acute Plan Plan of Care dismiss today will need to start oral furosemide 80 mg po bid starting tomorrow and will keep off of metolazone for now maintain amlodipine as higher doses have caused increased leg edema Comment Review of Relevant I have reviewed the following items brandan (where applicable) has been applied. Labs Laboratory Tests Test 02/10/18 08:52 02/11/18 05:54 Sodium Level 138 mmol/L (136-145) Potassium Level 4.3 mmol/L (3.5-5.1) Chloride Level 99 mmol/L (98-107) Carbon Dioxide Level 35 mmol/L (21-32) Anion Gap 4 (6-14) Blood Urea Nitrogen 83 mg/dL (7-20) Creatinine 2.3 mg/dL (0.6-1.0) Estimated GFR (Cockcroft-Gault) 20.0 Glucose Level 171 mg/dL (70-99) Calcium Level 9.2 mg/dL (8.5-10.1) Glucose (Fingerstick) 133 mg/dL (70-99) Laboratory Tests Test 02/11/18 05:54 Glucose (Fingerstick) 133 mg/dL (70-99) Medications Current Medications Potassium Chloride (Klor-Con) 40 meq 1X ONCE PO Last administered on at 11:36; Start 02/05/18 at 11:30; Stop 02/05/18 at 11:31; Status DC Albuterol/ Ipratropium (Duoneb) 3 ml RTQID NEB Last administered on 02/06/18 15:27; Start 02/05/18 at 16:30; Stop 02/07/18 at 10:38; Status DC Methylprednisolone Sodium Succinate (SOLU-Medrol 40MG VIAL) 40 mg Q8HRS IV Last administered on 02/07/18 05:25; Start 02/05/18 at 22:00; Stop 02/07/18 at 10:38; Status DC Vitamin D (Vitamin D3) 1,000 unit DAILY PO Last administered on 02/11/18 08:27 ; Start 02/06/18 at 09:00 Clonidine HCl (Catapres) 0.1 mg TID PO Last administered on 02/11/18 08:28; Start 02/05/18 at 21:00 Tamsulosin HCl (Flomax) 0.4 mg QHS PO Last administered on 02/10/18at 20:21; Start 02/05/18 at 21:00 Carvedilol (Coreg) 3.125 mg BIDWMEALS PO Last administered on 02/06/18 08:05; Start 02/05/18 at 18:00; Stop 02/06/18 at 11:23; Status DC Pantoprazole Sodium (Protonix) 40 mg DAILYAC PO Last administered on 02/11/18 08:27; Start 02/06/18 at 07:30 Polyethylene Glycol (miraLAX PACKET) 17 gm DAILY PO Last administered on 08:27; Start 02/06/18 at 09:00 Acetaminophen (Tylenol) 650 mg PRN Q6HRS PRN PO MILD PAIN / TEMP; Start at 17:45 Albuterol Sulfate (Ventolin Neb Soln) 2.5 mg PRN Q4HRS PRN NEB SHORTNESS OF BREATH; Start 02/05/18 at 18:00 Magnesium Sulfate 50 ml @ 25 mls/hr 1X ONCE IV Last administered on 02/05/18at 18:38; Start 02/05/18 at 17:45; Stop 02/05/18 at 19:44; Status DC Lactulose (Lactulose) 20 gm BID PO Last administered on 02/06/18at 12:43; Start 02/06/18 at 13:00; Stop 02/06/18 at 18:00; Status DC Budesonide (Pulmicort) 0.5 mg RTBID NEB Last administered on 02/11/18at 06:07; Start 02/06/18 at 20:00 Al Hydroxide/Mg Hydroxide (Mylanta Plus Xs) 30 ml PRN Q2HR PRN PO HEARTBURN / GAS Last administered on 02/06/18at 17:55; Start 02/06/18 at 15:15; Stop at 15:06; Status DC Albuterol/ Ipratropium (Duoneb) 3 ml TID NEB Last administered on 02/11/18at 11: 50; Start 02/07/18 at 14:00 Methylprednisolone Sodium Succinate (SOLU-Medrol 40MG VIAL) 40 mg Q12HR IV Last administered on 02/11/18at 08:28; Start 02/07/18 at 21:00 Ondansetron HCl (Zofran Odt) 4 mg PRN Q6HRS PRN PO NAUSEA/VOMITING 1ST CHOICE; Start 02/07/18 at 11:00 Montelukast Sodium (Singulair) 10 mg QHS PO Last administered on 02/10/18at 20: 21; Start 02/08/18 at 21:00 Albuterol Sulfate (Ventolin Neb Soln) 2.5 mg PRN 1X PRN NEB SHORTNESS OF BREATH Last administered on 02/08/18at 12:45; Start 02/08/18 at 11:00; Stop 02/09 at 10:59; Status DC Sodium Chloride (Normal Saline Flush) 3 ml QSHIFT PRN IV AFTER MEDS AND BLOOD DRAWS; Start 02/08/18 at 11:00 Lidocaine HCl 2 ml PRN 1X PRN MM MOUTH PAIN Last administered on 02/08/18at 12: 46; Start 02/08/18 at 11:00; Stop 02/09/18 at 10:59; Status DC Lidocaine HCl (Lidocaine 1% 50ml Vial) 50 ml PRN 1X PRN INJ SEE COMMENTS; Start 02/08/18 at 11:00; Stop 02/09/18 at 10:59; Status DC Epinephrine HCl (Adrenalin) 1 mg PRN 1X PRN INJ SEE COMMENTS; Start 02/08/18 at 11:00; Stop 02/09/18 at 10:59; Status DC Lidocaine HCl 50 ml PRN 1X PRN MM SEE COMMENTS Last administered on 02/08/18at 12:47; Start 02/08/18 at 11:00; Stop 02/09/18 at 10:59; Status DC Ringer's Solution 1,000 ml @ 75 mls/hr [id number] IV Last administered on at 13:39; Start 02/08/18 at 13:00; Stop 02/10/18 at 15:08; Status DC Propofol 20 ml @ As Directed STK-MED ONCE IV ; Start 02/08/18 at 13:32; Stop at 13:33; Status DC Lactulose (Lactulose) 20 gm BID PO Last administered on 02/09/18at 11:12; Start 02/09/18 at 11:00; Stop 02/09/18 at 16:00; Status DC Sodium Chloride 1,000 ml @ 40 mls/hr Q24H IV Last administered on 02/10/18at 14 :52; Start 02/09/18 at 09:15; Stop 02/10/18 at 15:27; Status DC Amlodipine Besylate (Norvasc) 2.5 mg DAILY PO Last administered on 02/11/18at 08 :28; Start 02/10/18 at 11:30; Stop 02/11/18 at 11:30; Status DC Bisacodyl (Dulcolax Supp) 10 mg 1X ONCE RI Last administered on 02/11/18at 08: 33; Start 02/11/18 at 09:00; Stop 02/11/18 at 09:01; Status DC Amlodipine Besylate (Norvasc) 5 mg DAILY PO ; Start 02/12/18 at 09:00 Active Scripts Active Budesonide 0.5 Mg/2 Ml Ampul.neb 0.5 Mg NEB RTBID 30 Days Furosemide 80 Mg Tablet 80 Mg PO BID92 30 Days Omeprazole 40 Mg Capsule.dr 40 Mg PO DAILY 30 Days Prednisone (Prednisone) 10 Mg Tablet 40 Mg PO DAILY 8 Days Duoneb 0.5-3(2.5) Mg/3 Ml (Albuterol/Ipratropium) 3 Ml Ampul.neb 3 Ml NEB RTQID 30 Days Flomax (Tamsulosin Hcl) 0.4 Mg Cap.er.24h 0.4 Mg PO DAILY 30 Days Reported Proair Respiclick (Albuterol Sulfate) 90 Mcg Aer.pow.ba 1 Puff IH PRN Q4HRS PRN Vitamin D3 (Cholecalciferol (Vitamin D3)) 1,000 Unit Tablet 1 Tab PO DAILY Protonix (Pantoprazole Sodium) 20 Mg Tablet.dr 40 Mg PO DAILY Montelukast Sodium Chew.tablet (Montelukast Sodium) 5 Mg Tab.chew 10 Mg PO HS Metolazone 2.5 Mg Tablet 2.5 Mg PO TWICE WEEKLY Senokot (Sennosides) 8.6 Mg Tablet 1 Tab PO BID Miralax (Polyethylene Glycol 3350) 17 Gm Powd.pack 1 Packet PO DAILY Carvedilol 3.125 Mg Tablet 1 Tab PO BID Clonidine Hcl 0.1 Mg Tablet 0.1 Mg PO TID Vitals/I & O Vital Sign - Last 24 Hours 02/10/18 02/10/18 02/10/18 02/10/18 12:53 14:53 14:53 15:00 Temp 98.1 98.1 Pulse 57 57 49 Resp 16 B/P (MAP) 141/40 141/40 139/60 (86) Pulse Ox 98 O2 Delivery Nasal Cannula Nasal Cannula O2 Flow Rate 2.0 2.0 02/10/18 02/10/18 02/10/18 02/10/18 19:39 19:39 19:52 20:00 Temp 97.6 97.6 Pulse 62 Resp 18 B/P (MAP) 162/48 (86) Pulse Ox 98 O2 Delivery Nasal Cannula Nasal Cannula Nasal Cannula Nasal Cannula O2 Flow Rate 2.0 2.0 2.5 2.0 02/10/18 02/10/18 02/11/18 02/11/18 20:21 23:20 02:56 06:08 Temp 97.6 97.9 97.6 97.9 Pulse 62 53 56 Resp 18 18 B/P (MAP) 162/48 159/42 (81) 166/52 (90) Pulse Ox 100 99 97 O2 Delivery Nasal Cannula Nasal Cannula Nasal Cannula O2 Flow Rate 2.5 2.5 2.0 02/11/18 02/11/18 02/11/18 02/11/18 06:11 07:00 07:35 08:28 Temp 97.8 97.8 Pulse 58 58 Resp 18 B/P (MAP) 166/46 (86) 166/46 Pulse Ox 97 O2 Delivery Nasal Cannula Nasal Cannula Nasal Cannula O2 Flow Rate 2.0 2.0 2.0 02/11/18 02/11/18 02/11/18 08:28 11:00 11:50 Temp 98.0 98.0 Pulse 58 53 Resp 18 B/P (MAP) 166/46 161/43 (82) Pulse Ox 97 97 O2 Delivery Nasal Cannula Nasal Cannula O2 Flow Rate 2.0 2.0 Intake and Output 02/10/18 02/10/18 02/11/18 15:00 23:00 07:00 Intake Total 1600 ml 100 ml Output Total 950 ml 300 ml Balance 650 ml -200 ml HANS ELIZONDO MD Feb 11, 2018 12:45
--- NOTE | 2018-02-11 12:58 | PDOC ---
Provider Note Provider Note discharge summary dictated # [id number] HANS ELIZONDO MD Feb 11, 2018 12:58
--- NOTE | 2018-02-11 13:29 | DS ---
DATE OF DISCHARGE: 02/11/2018 CONSULTANTS: Include Dr. Grigsby, Dr. Paradise Arshad, Dr. Ku, Dr. Ace, Dr. Huang, Dr. Jade. FINAL DIAGNOSES: 1. Acute exacerbation of chronic obstructive pulmonary disease. 2. Recent syncopal episode. 3. Chronic diastolic congestive heart failure. 4. Acute kidney injury on top of chronic kidney disease stage 4 expected due to her diuretics with an estimated GFR of 22. 5. Hypokalemia, resolved. 6. Hypomagnesemia, resolved. 7. Hypertension. 8. Secondary pulmonary hypertension with chronic cor pulmonale. 9. Left lung nodule slowly increasing in size and she will have an outpatient PET scan, to be followed by Dr. Grigsby and Dr. Ace. 10. Chronic hypoxic respiratory failure. 11. Anemia of chronic disease. 12. Right middle lobe atelectasis with no endobronchial lesion noted per bronchoscopy. 13. Left kidney mass, which is stable, most probably a cyst noted on the CAT scan of the abdomen and pelvis. PROCEDURE: Bronchoscopy. HOSPITAL COURSE: The patient is an 87-year-old white female with history of chronic diastolic congestive heart failure and COPD with chronic kidney disease stage 4, secondary pulmonary hypertension, left upper lobe lung nodule slowly increasing in size. There is bilateral lower extremity swelling secondary to chronic diastolic congestive heart failure secondary to hypertension, treated with diuretics, admitted to [facility] at the Emergency Room on 02/05/2018 for apparent syncopal episode about a week prior to admission. She apparently was leaving the bathroom and fell backwards striking her head and left shoulder on the tub and toilet and remembers coming off the floor and crawling to the kitchen, used the corner to help herself up and she was able to get up into a chair. She hurt her head behind the left ear. She was actually seen in the office a couple days ago on 02/02/2018. A CAT scan of head was ordered, but apparently she showed up in the Emergency Room where she was noted to have acute kidney injury as expected due to her diuretic on top of chronic kidney disease stage 4. Serum creatinine went up from 2 to 2.5, BUN went up from 71 to 80s. She had a CAT scan of head, which showed no acute abnormality. She had a chest x-ray, which showed left upper lobe nodule, was increased to 1.1 cm. An echocardiogram done in 10/2017 showed a preserved left ventricular ejection fraction of 50-55%. She did not have any arrhythmias. She was seen by the industrial electrician journeyman, I believe Dr. Jade. Diuretics were held, which included furosemide 80 mg p.o. b.i.d. and metolazone 2.5 mg on Tuesdays and Fridays. The lower extremity edema that she had, which was 3+ prior to admission, resolved with the diuretics. She had an acute exacerbation of chronic obstructive pulmonary disease with shortness of breath and wheezing. She was treated with IV Solu-Medrol and nebulizer treatments. She continued to improve. Her blood pressure medicine was changed to amlodipine 2.5 mg every day and heart rate was around 57, so the carvedilol was discontinued. Her wheezing improved. She underwent a bronchoscopy, had right middle lobe atelectasis and no endobronchial lesions noted. She will have an outpatient CAT scan per Dr. Grigsby and Dr. Ace to evaluate the slowly growing left upper lobe lung nodule. She was given laxatives. She had hypokalemia and hypomagnesemia that were treated and corrected. She will be dismissed to home health. She was told to make an appointment to see Dr. Henao in the office next week and she will be dismissed on Tylenol 650 mg every 6 hours p.r.n., budesonide 0.5 mg b.i.d. per nebulizer, vitamin D 1000 units every day. She is on a DuoNeb nebulizer treatment t.i.d. and she will be on Singulair 10 mg at bedtime. Also take MiraLax 17 grams daily, tamsulosin 0.4 mg every day, amlodipine is going to be 2.5 mg every day, clonidine will be 0.1 mg t.i.d. She will be on a prednisone taper 40 mg daily for 2 days, 30 mg daily for 2 days, 20 mg daily for 2 days, 10 mg daily for 2 days and then she will stop the prednisone. She will start furosemide 80 mg p.o. b.i.d. starting tomorrow. She will stay off the metolazone and stay off the carvedilol. She was told to elevate her legs and stick to a low salt diet. HANS HENAO MD DR: Ray JOB#: [id number] / [id number]
[2018-02-12] MEDS ORDERED: amLODIPine BESYLATE 5 MG TABLET PO SCH (09:00)
[2018-02-12] MEDS ORDERED: amLODIPine BESYLATE 2.5 MG TABLET PO SCH (09:00)
[2018-02-12] MEDS ORDERED: predniSONE 20 MG TABLET PO SCH (09:00)
--- NOTE | 2018-02-12 09:11 | PATHOLOGY ---
Note [facility] Accession Number: [id number] TESTS RESULT FLAG UNITS REF RANGE LAB Clinician Provided Cytology Information No. of containers..01 ThinPrep Vial Source: RML BAL DIAGNOSIS: RML BAL NEGATIVE FOR MALIGNANT CELLS. NORMAL BRONCHIAL CELLS AND MACROPHAGES ARE PRESENT. ABUNDANT RED BLOOD CELLS ARE PRESENT. Signed out by: 02 Fletcher Rust MD, Pathologist NPI- [id number] Performed by: Wanda Howard, Tinning Machine Set Up Operator ([facility]) Gross description: 01 5ML, RED, CLOUDY /LCS FLAG LEGEND: L-Low Normal,H-High Normal,LL-Alert Low,HH-Alert High <-Panic Low,>-Panic High,A-Abnormal,AA-Critical Abnormal Performed at: [address] [place] [address] Ronn Fitzpatrick MD, 02 [facility] [address] [place] [address] Fletcher Rust MD, A courtesy copy of this report has been sent to [phone]. Performed at: [address], [place], [place] [id number] MD Ronn Fitzpatrick MD Phone: [phone]
== END 2018-02-11 13:30 | disposition home health service (06) | DRG 167 ==
LOC: ER 08:18 → 6 SOUTH 11:54
PROVIDERS: ADMIT Internal Medicine; ATTEND Internal Medicine
PROC: 0B9D8ZX Drainage of Right Middle Lung Lobe, Via Natural or Artificial Opening Endoscopic, Diagnostic (ICD-10-PCS; principal; 2018-02-08 13:00)
DX: J44.1 Chronic obstructive pulmonary disease with (acute) exacerbation (principal); J98.11 Atelectasis; J96.11 Chronic respiratory failure with hypoxia; N17.9 Acute kidney failure, unspecified; I50.32 Chronic diastolic (congestive) heart failure; I13.0 Hypertensive heart and chronic kidney disease with heart failure and stage 1 through stage 4 chronic kidney disease, or unspecified chronic kidney disease; N18.4 Chronic kidney disease, stage 4 (severe); D63.8 Anemia in other chronic diseases classified elsewhere; E87.6 Hypokalemia; I27.29 Other secondary pulmonary hypertension; I25.10 Atherosclerotic heart disease of native coronary artery without angina pectoris; G47.33 Obstructive sleep apnea (adult) (pediatric); E83.42 Hypomagnesemia; M19.90 Unspecified osteoarthritis, unspecified site; E78.5 Hyperlipidemia, unspecified; K59.00 Constipation, unspecified; K21.9 Gastro-esophageal reflux disease without esophagitis; K57.90 Diverticulosis of intestine, part unspecified, without perforation or abscess without bleeding; N28.89 Other specified disorders of kidney and ureter; N26.1 Atrophy of kidney (terminal); T50.2X5A Adverse effect of carbonic-anhydrase inhibitors, benzothiadiazides and other diuretics, initial encounter; W07.XXXA Fall from chair, initial encounter; Z82.49 Family history of ischemic heart disease and other diseases of the circulatory system; Z87.11 Personal history of peptic ulcer disease; Z87.891 Personal history of nicotine dependence; Z99.81 Dependence on supplemental oxygen; Z90.710 Acquired absence of both cervix and uterus; Z88.6 Allergy status to analgesic agent; Z88.1 Allergy status to other antibiotic agents; Z91.02 Food additives allergy status
CPT/HCPCS: 31622; 36415; 70450; 71045; 76770; 80048; 80053; 81001; 82570; 82575; 82962; 83735; 83880; 83970; 84156; 84439; 84443; 84484; 85025; 85610; 86704; 88112; 93005; 94640; 94760; J2704; J2920; J3475; J7030; J7120; J7613; J7620; J7626; 97110; 97116; 97530; 97535; 99285-25

== ENCOUNTER → 2018-03-04 | Outpatient (CLI) | payer MEDICARE ==
[2018-02-11 11:00] VITALS: BP 161/43
[~2018-03-04] MED LIST changes: +CHOL10003 PO; +METO2.5T PO; +MONT5TAB9 PO; +PANT20TA2 PO; +PROAIR RESPICL90 MCG IH; +TAMS0.4C2 PO
--- NOTE | 2018-03-04 11:14 | RAD ---
FDG tumor localization scan, PET/CT, 03/04/2018: History: Lung mass Following IV injection of 14.2 mCi of 18 F-FDG, imaging was performed from the skull base to the proximal thighs. The noncontrast CT component was performed for attenuation correction and anatomic localization purposes rather than for primary diagnosis. The patient's blood glucose level at the time of injection was 130 MG/DL. Physiologic activity is present in the neck. 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 There is a hypermetabolic component in the left lobe of the gland extending into the isthmus with maximum SUV values of 4.0-6.7. A prominent component arising from the posterior aspect of the lower pole of the right lobe of the gland which extends into the upper mediastinum adjacent to the esophagus does not demonstrate hypermetabolic activity. The patient's known 13 mm lobulated left upper lobe pulmonary nodule is hypermetabolic with a maximum SUV of 10.2. Tiny nearby nodules along the lateral aspect of this main nodule demonstrate only faint FDG uptake which is likely related to their sizes. These could be satellite nodules or inflammatory foci. There is a small amount of left-sided pleural fluid. There is hypermetabolic pulmonary infiltrate in the posterolateral aspect of the right lower lobe. The maximum SUV within this infiltrate is 4.4. There is adjacent pleural fluid. There is a lesser degree of peripheral infiltrate superomedially in the right lower lobe which is mildly hypermetabolic. There is a separate hypermetabolic focus in the posterior aspect of the right lower lobe which corresponds in location to a 14 mm thin-walled irregular cavitary nodule. The maximum SUV at this level is 3.8. Activity at the right hilum is slightly greater than that of the mediastinal background. No definite underlying adenopathy is seen. Normal GI tract and urinary tract activity is present in the abdomen and pelvis. No hypermetabolic abdominal or pelvic lesion is seen. Incidental CT findings include the presence of moderate right renal atrophy. There are bilateral renal cysts. A medium density nodule arises from the posterior aspect of the left kidney. A solid renal mass cannot be excluded. Several sigmoid diverticula are noted. IMPRESSION: 1. Hypermetabolic pulmonary nodule in the left upper lobe suggesting malignancy, probably a primary lung malignancy, although metastasis cannot be excluded. 2. Hypermetabolic peripheral infiltrates in the right lower lobe are probably inflammatory. 3. A small cavitary nodule in the right lower lobe is hypermetabolic and may be neoplastic or inflammatory. 4. Minimally increased FDG uptake at the right hilum could be reactive or neoplastic. 5. Multinodular thyroid gland with a moderate sized hypermetabolic component on the left extending into the isthmus. This could be benign or malignant.
== END | disposition home or self-care (01) ==
LOC: PETSC 08:21
PROVIDERS: ATTEND Internal Medicine Pulmonary Disease
DX: R91.1 Solitary pulmonary nodule (principal); J44.9 Chronic obstructive pulmonary disease, unspecified; N18.9 Chronic kidney disease, unspecified; Z87.891 Personal history of nicotine dependence; Z88.8 Allergy status to other drugs, medicaments and biological substances; Z79.899 Other long term (current) drug therapy
CPT/HCPCS: 78815; A9552

== ENCOUNTER 2018-04-16 15:54 | Inpatient (IN) | payer MEDICARE ==
[~2018-04-16] VITALS: Ht 157.5 cm; Wt 65.3 kg
[2018-04-16] MEDS ORDERED: 0.9 % SODIUM CHLORIDE 10 ML DISP.SYRIN. IV PRN (16:45)
[2018-04-16] MEDS ORDERED: MAGNESIUM HYDROXIDE 2,400 MG/30 ML ORAL.SUSP. PO PRN (17:00)
[2018-04-16] MEDS ORDERED: ACETAMINOPHEN 325 MG TABLET. PO PRN (17:00)
[2018-04-16 18:08] LABS: BILIRUBIN,URINE NEGATIVE (NEG); CLARITY,URINE CLEAR; COLOR,URINE YELLOW; NITRITE,URINE NEGATIVE (NEG); PH,URINE 6.5; PROTEIN,URINE NEGATIVE (NEG-TRACE); UROBILINOGEN,URINE 0.2 mg/dL (0.2 mg/dL)
[2018-04-16] MEDS: TAMSULOSIN 0.4 MG CAP.ER.24H. PO SCH (18:08)
[2018-04-16] MEDS: ACETAMINOPHEN 325 MG TABLET. PO PRN ×2 (18:08→22:17)
[2018-04-16] MEDS: CHOLECALCIFEROL (VITAMIN D3) 1,000 UNIT TABLET PO SCH (18:09)
[2018-04-16] MEDS: POTASSIUM CHLORIDE 10 MEQ TABLET.ER. PO SCH (18:09)
[2018-04-16] MEDS: amLODIPine BESYLATE 2.5 MG TABLET PO SCH (18:13)
[2018-04-16 18:16] LABS: BACTERIA,URINE MANY /HPF (0-FEW); RBC,URINE 0 /HPF (0-2); SQUAMOUS EPITHELIAL CELL,UR FEW /LPF
[2018-04-16 19:00] VITALS: BP 164/51
[2018-04-16] MEDS: PANTOPRAZOLE IV PUSH 40 MG VIAL. IVP SCH (19:37)
[2018-04-16] MEDS: MONTELUKAST SODIUM 10 MG TABLET. PO SCH (20:47)
[2018-04-16] MEDS: HEPARIN for SUB-Q USE 5,000 UNIT/ML VIAL. SQ SCH (20:55)
[2018-04-16 20:58] LABS: BASO % 0 % (0-3); EOS # 0.3 x10^3/uL (0.0-0.7); EOS % 5 % (0-3); HEMATOCRIT 24.2 % (36.0-47.0); HEMOGLOBIN 8.2 g/dL (12.0-15.5); LYMPH # 1.7 x10^3/uL (1.0-4.8); LYMPH % 27 % (24-48); MEAN CORPUSCULAR HEMOGLOBIN 30 pg (25-35); MEAN CORPUSCULAR HGB CONC 34 g/dL (31-37); MEAN CORPUSCULAR VOLUME 89 fL (79-100); MONO # 0.6 x10^3/uL (0.0-1.1); MONO % 10 % (0-9); NEUT # 3.7 x10^3uL (1.8-7.7); NEUT % 57 % (31-73); PLATELET COUNT 280 x10^3/uL (140-400); RED BLOOD COUNT 2.73 x10^6/uL (3.50-5.40); WHITE BLOOD COUNT 6.4 x10^3/uL (4.0-11.0)
[2018-04-16 21:24] LABS: ALBUMIN 2.6 g/dL (3.4-5.0); ALBUMIN/GLOBULIN RATIO 0.7 (1.0-1.7); CALCIUM 9.7 mg/dL (8.5-10.1); CREATININE 2.3 mg/dL (0.6-1.0); POTASSIUM 4.3 mmol/L (3.5-5.1); TOTAL BILIRUBIN 0.2 mg/dL (0.2-1.0); TOTAL PROTEIN 6.3 g/dL (6.4-8.2)
--- NOTE | 2018-04-16 21:26 | EKG ---
[facility] [address] [place] [address] Test Date: 2018-04-16 Test Time: 21:21:15 Pat Name: BINU FONTAINE Department: Room: 432 1 Gender: F Phlebotomy Supervisor: JEANETHRT : [id number] Requested By: HANS ELIZONDO Order Number: [id number] Reading MD: Clemente Nichols MD Measurements Intervals [place] Rate: 97 P: 49 MI: 158 QRS: 10 QRSD: 84 T: 41 QT: 348 QTc: 446 Interpretive Statements SINUS RHYTHM PAC'S Electronically Signed On 04-19-2018 14:08:31 [employer] by Clemente Nichols MD
--- NOTE | 2018-04-16 22:13 | RAD ---
Examination: CHEST AP ONLY History: Anasarca, lung ca Comparison/Correlation: 02/05/2018 portable upright chest x-ray exam Findings: Portable upright frontal views of chest were obtained. Heart size is within upper limits of normal. Pulmonary vasculature congestion is present. No pneumothorax. Right medial apical infiltrate may present. Oblique positioning on the images provided limits assessment. Small pleural effusions noted. Interstitial edema of lung girard noted. Osteopenia present. Small hiatal hernia is suspected. Impression: Congestive heart failure. Small pleural effusions. Right upper lung field infiltrate may present. Interval follow-up two-view chest x-ray is recommended to assess for resolution. Electronically signed by: Patricio Juarez MD (04/16/2018 10:10 PM) [facility]
[2018-04-16] MEDS: cloNIDine HCL 0.1 MG TABLET PO SCH (22:18)
[2018-04-16] MEDS: FUROSEMIDE 100 MG/10 ML VIAL. IVP SCH (22:18)
[2018-04-16 23:00] VITALS: BP 153/49
[2018-04-17 03:00] VITALS: BP 130/39
[2018-04-17 05:07] LABS: CALCIUM 9.4 mg/dL (8.5-10.1); CREATININE 2.2 mg/dL (0.6-1.0); MAGNESIUM 2.3 mg/dL (1.8-2.4); POTASSIUM 4.5 mmol/L (3.5-5.1)
[2018-04-17] MEDS: cloNIDine HCL 0.1 MG TABLET PO SCH ×3 (06:00→21:39)
[2018-04-17] MEDS: FUROSEMIDE 100 MG/10 ML VIAL. IVP SCH ×3 (06:11→16:00)
[2018-04-17 07:39] VITALS: BP 147/44
--- NOTE | 2018-04-17 08:13 | RAD ---
Examination: Lower Extremity Venous Doppler Ultrasound History: Bilateral lower extremity swelling Comparison: None Procedure: Shaw scale, color flow 2D and spectal waveform analysis images are obtained with and without compression in the area of the common femoral vein, superficial femoral vein - femoral vein junction, main femoral vein (superficial femoral vein) and popliteal vein. Veins of the proximal calf are also imaged. Findings: There is normal duplex flow, color flow and compressibility of all visualized vein segments. No evidence of deep venous thrombus is present. There is a 4 cm fluid collection identified in the right popliteal fossa likely popliteal cyst. Impression: 1. No evidence of DVT. 2. 4 cm right popliteal cyst. Electronically signed by: Masood Pacheco MD (04/17/2018 8:10 AM) [facility]
[2018-04-17] MEDS: TAMSULOSIN 0.4 MG CAP.ER.24H. PO SCH (08:56)
[2018-04-17] MEDS: PANTOPRAZOLE IV PUSH 40 MG VIAL. IVP SCH (08:57)
[2018-04-17] MEDS: POTASSIUM CHLORIDE 10 MEQ TABLET.ER. PO SCH (08:57)
[2018-04-17] MEDS: CHOLECALCIFEROL (VITAMIN D3) 1,000 UNIT TABLET PO SCH (08:57)
[2018-04-17] MEDS: amLODIPine BESYLATE 2.5 MG TABLET PO SCH (08:57)
[2018-04-17] MEDS: HEPARIN for SUB-Q USE 5,000 UNIT/ML VIAL. SQ SCH ×2 (09:07→21:34)
--- NOTE | 2018-04-17 10:37 | PDOC ---
Provider Note Provider Note history and physical dictated # [id number] HANS ELIZONDO MD Apr 17, 2018 10:37
[2018-04-17 11:00] VITALS: BP 155/44
--- NOTE | 2018-04-17 11:58 | HP ---
ADMIT DATE: 04/17/2018 LOCATION: She is in room 432. HISTORY OF PRESENT ILLNESS: The patient is an 87-year-old white female with history of chronic diastolic congestive heart failure, chronic hypoxic respiratory failure, chronic cor pulmonale, chronic kidney disease stage 4, chronic obstructive pulmonary disease, anemia of chronic disease, who was admitted to [facility] from my office on 04/16/2018 with a 1-week history of increasing bilateral lower extremity swelling. She denied any shortness of breath, normally uses oxygen 2-4 liters per nasal cannula at home. She does take furosemide at home 80 mg p.o. b.i.d. She tends to sit in a chair good part of the day and has not been elevating her legs. She had significant bilateral lower extremity edema in the office and was subsequently admitted to the hospital for further evaluation and treatment. ALLERGIES AND INTOLERANCES: ASPIRIN, CIPROFLOXACIN, HONEY HYDRALAZINE, SERTRALINE AND SIMVASTATIN. MEDICATIONS: Prior to admission include amlodipine 2.5 mg every day, clonidine 0.1 mg t.i.d., DuoNeb nebulizer treatments every 4 hours p.r.n., furosemide 80 mg p.o. b.i.d., potassium chloride 10 mEq every day, Protonix 40 mg every day, Singulair 10 mg every evening, tamsulosin 0.4 mg every day, Ventolin inhaler 2 puffs every 4 hours p.r.n., vitamin D 1000 units every day. PAST MEDICAL HISTORY: Significant for obstructive sleep apnea, but she does not use a CPAP and she is I believe CPAP intolerant. She also has a history of chronic obstructive pulmonary disease, hypertension, anemia of chronic disease, chronic respiratory failure with hypoxia, chronic kidney disease stage 4, hypertension, chronic cor pulmonale. She had gastritis and esophagitis in 2010. She had a cardiac catheterization in 2003. She had a colonoscopy with biopsy in 2010. She had an EGD with an esophageal dilatation in 2010. She has had abdominal hernia repair in 2010, benign colon polypectomy in 2008, release of a small-bowel obstruction for adhesions in 2007. She had pneumonia in 2002, history of gastric ulcer. She has had an appendectomy, cataract extraction, hysterectomy. She has gastroesophageal reflux disease and hyperlipidemia. She has morbid obesity. FAMILY HISTORY: Remarkable in that mother had diabetes mellitus. REVIEW OF SYSTEMS: GENERAL: She denies any fever, chills or sweats. CARDIOVASCULAR: No chest pain. PULMONARY: Denies any cough or shortness of breath. GASTROINTESTINAL: No constipation. ENDOCRINE: No diabetes mellitus. SKIN: No rashes. NEUROLOGIC: No focal weakness. The rest of systems reviewed are negative except as stated in history of present illness. PHYSICAL EXAMINATION: VITAL SIGNS: Temperature is 97.9 degrees, apical pulse regular at 60, respiratory rate 18, blood pressure 147/44, oxygen saturation 98% on 2 liters per nasal cannula. HEENT: Eyes: Gaze is conjugate. Extraocular muscles are intact. Mouth: Tongue is midline. NECK: There is no cervical lymphadenopathy or thyroid enlargement. HEART: Reveals an S1, S2. There is no S3 or murmur. LUNGS: Reveal decreased breath sounds with a few scattered wheezes. ABDOMEN: Soft, nontender. EXTREMITIES: Lower extremities, she has got 2+ edema, improved from yesterday. NEUROLOGIC: Shows she is coherent, but hard of hearing, without any focal weakness in arms or legs or facial asymmetry. SKIN: No rashes. LABORATORY TESTS: The white count 6.4, hemoglobin 8.2, similar to last time. Platelet count 280,000, 57 polys and 27 lymphocytes. Serum sodium today is 143, potassium 4.5, chloride 104, total CO2 35, BUN 51, creatinine 2.2, blood sugar 114. Magnesium 2.3, albumin was 2.6 yesterday. Liver function tests were okay. Urinalysis showed 1-4 white cells and 0 red blood cell. EKG showed normal sinus rhythm with premature atrial contraction. She had a bilateral lower extremity venous Doppler, which was negative for deep vein thrombosis. She had a 4-cm right popliteal cyst. A chest x-ray was consistent with congestive heart failure with small pleural effusions. She had a possible right upper lung infiltrate. ASSESSMENT: 1. Acute on chronic diastolic congestive heart failure. She had an echocardiogram in 10/2007, which showed preserved left ventricular ejection fraction 55% and also had a [id number] pulmonary hypertension with moderate tricuspid regurgitation. 2. Anasarca. 3. Chronic kidney disease, stage 4. 4. Chronic obstructive pulmonary disease. 5. Chronic cor pulmonale. 6. Chronic hypoxic respiratory failure. 7. Hypertension. 8. Anemia of chronic disease. 9. Severe protein-calorie malnutrition. PLAN: At this time is to consult Dr. Jade for Cardiology and Dr. Ku for Nephrology. We will continue with IV Lasix 80 mg IV every 8 hours, follow her labs daily including a basic metabolic profile and magnesium level. We will continue the heparin for deep vein thrombosis prophylaxis. Nebulizer treatments every 4 hours p.r.n. Continue amlodipine and clonidine for the hypertension. She had a Kwong catheter placed also. We will be following her urine output and place her on a 1500 mL fluid restriction and elevate her legs. Continue with her oxygen. She wishes to be a full code. HANS ELIZONDO MD DR: BENNY/jessica JOB#: [id number] / [id number]
--- NOTE | 2018-04-17 13:33 | PDOC2 ---
CONSULT Date of Consult Date of Consult DATE: 04/17/18 TIME: 13:32 Reason for Consult Reason for Consult: Congestive heart failure Referring Physician Referring Physician: Dr. Henao Identification/Chief Complaint Chief Complaint Edema Source Source: Chart review, Patient History of Present Illness Reason for Visit: 87-year-old female with history of chronic diastolic heart failure was seen by PCP for one week history of progressive lower extremity edema and admitted for further management. She denied any chest pain, orthopnea/PND, palpitations or syncope. She claimed compliance with medications. Past Medical History Cardiovascular: CHF, HTN, Hyperlipidemia, Valve insufficiency, Pulmonary hypertension Pulmonary: COPD, Other CENTRAL NERVOUS SYSTEM: Other GI: Constipation, Diverticulosis, GERD, Peptic Ulcer disease Heme/Onc: Anemia NOS Hepatobiliary: No pertinent hx Musculoskeletal: Osteoarthritis Renal/: Chronic renal insuff, Urinary Incontinence Endocrine: No pertinent hx Past Surgical History Past Surgical History: Appendectomy, Cataract Removal, Hernia Repair Family History Family History: Hypertension Social History ALCOHOL: rare Drugs: None Lives: with Family Current Medications Current Medications Current Medications Sodium Chloride (Normal Saline Flush) 3 ml PRN DAILY PRN IV AFTER MEDS AND BLOOD DRAWS; Start 04/16/18 at 16:45 Furosemide (Lasix) 80 mg Q8HRS IVP Last administered on 04/17/18 06:11; Start 04/16/18 at 22:00 Amlodipine Besylate (Norvasc) 2.5 mg DAILY PO Last administered on 04/17/18 08 :57; Start 04/16/18 at 17:30 Clonidine HCl (Catapres) 0.1 mg Q8HRS PO Last administered on 04/16/18 22:18; Start 04/16/18 at 22:00 Pantoprazole Sodium (PROTONIX VIAL for IV PUSH) 40 mg DAILYAC IVP Last administered on 04/17/18 08:57; Start 04/16/18 at 17:30 Montelukast Sodium (Singulair) 10 mg QHS PO Last administered on 04/16/18 20: 47; Start 04/16/18 at 21:00 Tamsulosin HCl (Flomax) 0.4 mg DAILY PO Last administered on 04/17/18 08:56; Start 04/16/18 at 17:30 Vitamin D (Vitamin D3) 1,000 unit DAILY PO Last administered on 11/3/18at 08:57 ; Start 04/16/18 at 17:30 Acetaminophen (Tylenol) 325 mg PRN Q4HRS PRN PO MILD PAIN / TEMP; Start at 17:00 Acetaminophen (Tylenol) 650 mg PRN Q4HRS PRN PO MILD PAIN Last administered on 04/16/18at 22:17; Start 04/16/18 at 17:00 Magnesium Hydroxide (Milk Of Magnesia) 2,400 mg PRN DAILY PRN PO CONSTIPATION; Start 04/16/18 at 17:00 Potassium Chloride (Klor-Con) 10 meq DAILYWBKFT PO Last administered on at 08:57; Start 04/16/18 at 17:30 Heparin Sodium (Porcine) (Heparin Sodium) 5,000 unit Q12HR SQ Last administered on 04/17/18at 09:07; Start 04/16/18 at 21:00 Albuterol Sulfate (Ventolin Neb Soln) 2.5 mg PRN Q4HRS PRN NEB SHORTNESS OF BREATH; Start 04/17/18 at 10:30 Active Scripts Active Budesonide 0.5 Mg/2 Ml Ampul.neb 0.5 Mg NEB RTBID 30 Days Furosemide 80 Mg Tablet 80 Mg PO [id number] 30 Days Omeprazole 40 Mg Capsule.dr 40 Mg PO DAILY 30 Days Prednisone (Prednisone) 10 Mg Tablet 40 Mg PO DAILY 8 Days Duoneb 0.5-3(2.5) Mg/3 Ml (Albuterol/Ipratropium) 3 Ml Ampul.neb 3 Ml NEB RTQID 30 Days Flomax (Tamsulosin Hcl) 0.4 Mg Cap.er.24h 0.4 Mg PO DAILY 30 Days Reported Proair Respiclick (Albuterol Sulfate) 90 Mcg Aer.pow.ba 1 Puff IH PRN Q4HRS PRN Vitamin D3 (Cholecalciferol (Vitamin D3)) 1,000 Unit Tablet 1 Tab PO DAILY Montelukast Sodium Chew.tablet (Montelukast Sodium) 5 Mg Tab.chew 10 Mg PO HS Senokot (Sennosides) 8.6 Mg Tablet 1 Tab PO BID Miralax (Polyethylene Glycol 3350) 17 Gm Powd.pack 1 Packet PO DAILY Clonidine Hcl 0.1 Mg Tablet 0.1 Mg PO TID Allergies Allergies: Coded Allergies: aspirin (Verified Allergy, Intermediate, 02/08/18) ciprofloxacin (Verified Allergy, Intermediate, Unknown, 02/08/18) honey (Verified Allergy, Intermediate, 02/08/18) hydralazine (Verified Allergy, Intermediate, Leg Edema, 02/08/18) sertraline (Verified Allergy, Intermediate, Anxiety, 02/08/18) simvastatin (Verified Allergy, Mild, Nausea, 02/08/18) ROS PSYCHOLOGICAL ROS: No: Hallucinations Eyes: No Loss of vision HEENT: No: Epistaxis Respiratory: No: Cough, Hemoptysis, Shortness of breath Cardiovascular: yes Edema; No Chest Pain, No Palpitations Gastrointestinal: No Vomiting Genitourinary: No Hematuria Neurological: No Seizures Skin: No Rash Physical Exam General: Alert, No acute distress HEENT: Atraumatic Lungs: Clear to auscultation Heart: Regular rate Abdomen: Soft, No tenderness Extremities: Other (2+ pitting edema) Psych/Mental Status: Mood NL Vitals VITALS Vital Signs Date Time Temp Pulse Resp B/P (MAP) Pulse Ox O2 Delivery O2 Flow Rate FiO2 04/17/18 11:00 98.3 59 16 155/44 (81) 96 Nasal Cannula 2.0 98.3 Labs Labs Laboratory Tests Test 04/16/18 18:00 04/16/18 20:40 04/17/18 03:53 Urine Collection Type Unknown Urine Color Yellow Urine Clarity Clear Urine pH 6.5 Urine Specific [place] 1.010 Urine Protein Negative mg/dL (NEG-TRACE) Urine Glucose (UA) Negative mg/dL (NEG) Urine Ketones (Stick) Negative mg/dL (NEG) Urine Blood Negative (NEG) Urine Nitrite Negative (NEG) Urine Bilirubin Negative (NEG) Urine Urobilinogen Dipstick 0.2 mg/dL (0.2 mg/dL) Urine Leukocyte Esterase Trace (NEG) Urine RBC 0 /HPF (0-2) Urine WBC 1-4 /HPF (0-4) Urine Squamous Epithelial Cells Few /LPF Urine Bacteria Many /HPF (0-FEW) Urine Mucus Slight /LPF White Blood Count 6.4 x10^3/uL (4.0-11.0) Red Blood Count 2.73 x10^6/uL (3.50-5.40) Hemoglobin 8.2 g/dL (12.0-15.5) Hematocrit 24.2 % (36.0-47.0) Mean Corpuscular Volume 89 fL (79-100) Mean Corpuscular Hemoglobin 30 pg (25-35) Mean Corpuscular Hemoglobin Concent 34 g/dL (31-37) Red Cell Distribution Width 14.0 % (11.5-14.5) Platelet Count 280 x10^3/uL (140-400) Neutrophils (%) (Auto) 57 % (31-73) Lymphocytes (%) (Auto) 27 % (24-48) Monocytes (%) (Auto) 10 % (0-9) Eosinophils (%) (Auto) 5 % (0-3) Basophils (%) (Auto) 0 % (0-3) Neutrophils # (Auto) 3.7 x10^3uL (1.8-7.7) Lymphocytes # (Auto) 1.7 x10^3/uL (1.0-4.8) Monocytes # (Auto) 0.6 x10^3/uL (0.0-1.1) Eosinophils # (Auto) 0.3 x10^3/uL (0.0-0.7) Basophils # (Auto) 0.0 x10^3/uL (0.0-0.2) Sodium Level 139 mmol/L (136-145) 143 mmol/L (136-145) Potassium Level 4.3 mmol/L (3.5-5.1) 4.5 mmol/L (3.5-5.1) Chloride Level 100 mmol/L (98-107) 104 mmol/L (98-107) Carbon Dioxide Level 35 mmol/L (21-32) 35 mmol/L (21-32) Anion Gap 4 (6-14) 4 (6-14) Blood Urea Nitrogen 50 mg/dL (7-20) 51 mg/dL (7-20) Creatinine 2.3 mg/dL (0.6-1.0) 2.2 mg/dL (0.6-1.0) Estimated GFR (Cockcroft-Gault) 20.0 21.0 BUN/Creatinine Ratio 22 (6-20) Glucose Level 158 mg/dL (70-99) 114 mg/dL (70-99) Calcium Level 9.7 mg/dL (8.5-10.1) 9.4 mg/dL (8.5-10.1) Total Bilirubin 0.2 mg/dL (0.2-1.0) Aspartate Amino Transf (AST/SGOT) 14 U/L (15-37) Alanine Aminotransferase (ALT/SGPT) 6 U/L (14-59) Alkaline Phosphatase 76 U/L (46-116) Total Protein 6.3 g/dL (6.4-8.2) Albumin 2.6 g/dL (3.4-5.0) Albumin/Globulin Ratio 0.7 (1.0-1.7) Magnesium Level 2.3 mg/dL (1.8-2.4) Laboratory Tests Test 04/16/18 18:00 04/16/18 20:40 04/17/18 03:53 Urine Collection Type Unknown Urine Color Yellow Urine Clarity Clear Urine pH 6.5 Urine Specific [place] 1.010 Urine Protein Negative mg/dL (NEG-TRACE) Urine Glucose (UA) Negative mg/dL (NEG) Urine Ketones (Stick) Negative mg/dL (NEG) Urine Blood Negative (NEG) Urine Nitrite Negative (NEG) Urine Bilirubin Negative (NEG) Urine Urobilinogen Dipstick 0.2 mg/dL (0.2 mg/dL) Urine Leukocyte Esterase Trace (NEG) Urine RBC 0 /HPF (0-2) Urine WBC 1-4 /HPF (0-4) Urine Squamous Epithelial Cells Few /LPF Urine Bacteria Many /HPF (0-FEW) Urine Mucus Slight /LPF White Blood Count 6.4 x10^3/uL (4.0-11.0) Red Blood Count 2.73 x10^6/uL (3.50-5.40) Hemoglobin 8.2 g/dL (12.0-15.5) Hematocrit 24.2 % (36.0-47.0) Mean Corpuscular Volume 89 fL (79-100) Mean Corpuscular Hemoglobin 30 pg (25-35) Mean Corpuscular Hemoglobin Concent 34 g/dL (31-37) Red Cell Distribution Width 14.0 % (11.5-14.5) Platelet Count 280 x10^3/uL (140-400) Neutrophils (%) (Auto) 57 % (31-73) Lymphocytes (%) (Auto) 27 % (24-48) Monocytes (%) (Auto) 10 % (0-9) Eosinophils (%) (Auto) 5 % (0-3) Basophils (%) (Auto) 0 % (0-3) Neutrophils # (Auto) 3.7 x10^3uL (1.8-7.7) Lymphocytes # (Auto) 1.7 x10^3/uL (1.0-4.8) Monocytes # (Auto) 0.6 x10^3/uL (0.0-1.1) Eosinophils # (Auto) 0.3 x10^3/uL (0.0-0.7) Basophils # (Auto) 0.0 x10^3/uL (0.0-0.2) Sodium Level 139 mmol/L (136-145) 143 mmol/L (136-145) Potassium Level 4.3 mmol/L (3.5-5.1) 4.5 mmol/L (3.5-5.1) Chloride Level 100 mmol/L (98-107) 104 mmol/L (98-107) Carbon Dioxide Level 35 mmol/L (21-32) 35 mmol/L (21-32) Anion Gap 4 (6-14) 4 (6-14) Blood Urea Nitrogen 50 mg/dL (7-20) 51 mg/dL (7-20) Creatinine 2.3 mg/dL (0.6-1.0) 2.2 mg/dL (0.6-1.0) Estimated GFR (Cockcroft-Gault) 20.0 21.0 BUN/Creatinine Ratio 22 (6-20) Glucose Level 158 mg/dL (70-99) 114 mg/dL (70-99) Calcium Level 9.7 mg/dL (8.5-10.1) 9.4 mg/dL (8.5-10.1) Total Bilirubin 0.2 mg/dL (0.2-1.0) Aspartate Amino Transf (AST/SGOT) 14 U/L (15-37) Alanine Aminotransferase (ALT/SGPT) 6 U/L (14-59) Alkaline Phosphatase 76 U/L (46-116) Total Protein 6.3 g/dL (6.4-8.2) Albumin 2.6 g/dL (3.4-5.0) Albumin/Globulin Ratio 0.7 (1.0-1.7) Magnesium Level 2.3 mg/dL (1.8-2.4) Assessment/Plan Assessment/Plan 1. Acute on chronic diastolic heart failure: 2-D echo in December 2017 showed LVEF 55%, [id number] mitral regurgitation and moderate to severe pulmonary hypertension. Lower extremity venous duplex scan did not show any DVT. Continue diuresis with intravenous Lasix with close monitoring of BUN/ creatinine. 2. COPD/cor pulmonale: Appears stable. Continue current medical regimen. 3. Hypertension: Controlled 4. Chronic renal insufficiency: Nephrology team consulted 5. Protein calorie malnutrition/hypoalbuminemia/anasarca Thank you for your consultation J CARLOS FERREIRA MD Apr 17, 2018 13:33
[2018-04-17] MEDS: ACETAMINOPHEN 325 MG TABLET. PO PRN ×2 (13:45→21:35)
[2018-04-17 14:40] VITALS: BP 122/33
[2018-04-17] MEDS: ALBUTEROL SULFATE 2.5 MG/3 ML NEBU. NEB PRN (15:58)
[2018-04-17 19:00] VITALS: BP 180/50
[2018-04-17] MEDS: MONTELUKAST SODIUM 10 MG TABLET. PO SCH (21:26)
[2018-04-17 23:00] VITALS: BP 173/53
[2018-04-18] MEDS: ACETAMINOPHEN 325 MG TABLET. PO PRN (01:41)
[2018-04-18 03:00] VITALS: BP 154/49
[2018-04-18 05:36] LABS: BASO % 0 % (0-3); EOS # 0.4 x10^3/uL (0.0-0.7); EOS % 6 % (0-3); HEMATOCRIT 22.4 % (36.0-47.0); HEMOGLOBIN 7.5 g/dL (12.0-15.5); LYMPH # 1.9 x10^3/uL (1.0-4.8); LYMPH % 30 % (24-48); MEAN CORPUSCULAR HEMOGLOBIN 30 pg (25-35); MEAN CORPUSCULAR HGB CONC 33 g/dL (31-37); MEAN CORPUSCULAR VOLUME 89 fL (79-100); MONO # 0.7 x10^3/uL (0.0-1.1); MONO % 11 % (0-9); NEUT # 3.3 x10^3uL (1.8-7.7); NEUT % 53 % (31-73); PLATELET COUNT 263 x10^3/uL (140-400); RED BLOOD COUNT 2.53 x10^6/uL (3.50-5.40); RED CELL DISTRIBUTION WIDTH 13.8 % (11.5-14.5); WHITE BLOOD COUNT 6.3 x10^3/uL (4.0-11.0)
[2018-04-18 05:48] LABS: CALCIUM 9.3 mg/dL (8.5-10.1); CREATININE 2.3 mg/dL (0.6-1.0); MAGNESIUM 2.2 mg/dL (1.8-2.4); POTASSIUM 4.1 mmol/L (3.5-5.1)
[2018-04-18] MEDS: cloNIDine HCL 0.1 MG TABLET PO SCH ×3 (06:00→22:31)
[2018-04-18 07:00] VITALS: BP 162/46
[2018-04-18] MEDS: CHOLECALCIFEROL (VITAMIN D3) 1,000 UNIT TABLET PO SCH (09:11)
[2018-04-18] MEDS: PANTOPRAZOLE 40 MG TABLET.DR. PO SCH (09:11)
[2018-04-18] MEDS: POTASSIUM CHLORIDE 10 MEQ TABLET.ER. PO SCH (09:11)
[2018-04-18] MEDS: TAMSULOSIN 0.4 MG CAP.ER.24H. PO SCH (09:13)
[2018-04-18] MEDS: amLODIPine BESYLATE 2.5 MG TABLET PO SCH (09:13)
[2018-04-18] MEDS: HEPARIN for SUB-Q USE 5,000 UNIT/ML VIAL. SQ SCH ×2 (09:16→20:50)
[2018-04-18] MEDS: FUROSEMIDE 100 MG/10 ML VIAL. IVP SCH (09:18)
--- NOTE | 2018-04-18 10:22 | PDOC2 ---
CONSULT Date of Consult Date of Consult DATE: 04/18/18 TIME: 10:16 Reason for Consult Reason for Consult: RENAL FAILURE Referring Physician Referring Physician: CARO Identification/Chief Complaint Chief Complaint SOB AND LE EDEMA Source Source: Chart review, Patient History of Present Illness Reason for Visit: THIS IS AN 87 YR OLD WITH SOB AND INCREASING LE EDEMA. PT NOTED TO HAVE A CR OF 2.2. THIS IS C/W HER CKD STAGE 4. HER CR IS STABLE. SHE IS NOTED TO HAVE AN EF OF ABOUT 55% BUT HAS VALVULAR HEART DISEASE AND DIASTOLIC CHF ALONG WITH SEVERE PULMONARY HTN. SHE IS CURRENTLY ON LASIX IV. NO NEPHROTOXINS NOTED. NO HEMODYNAMIC INSTABILITY NOTED Past Medical History Cardiovascular: CHF, HTN, Hyperlipidemia, Valve insufficiency, Pulmonary hypertension Pulmonary: COPD, Other CENTRAL NERVOUS SYSTEM: Other GI: Constipation, Diverticulosis, GERD, Peptic Ulcer disease Heme/Onc: Anemia NOS Hepatobiliary: No pertinent hx Musculoskeletal: Osteoarthritis Renal/: Chronic renal insuff, Urinary Incontinence Endocrine: No pertinent hx Past Surgical History Past Surgical History: Appendectomy, Cataract Removal, Hernia Repair Family History Family History: Hypertension Social History ALCOHOL: rare Drugs: None Lives: with Family Current Medications Current Medications Current Medications Sodium Chloride (Normal Saline Flush) 3 ml PRN DAILY PRN IV AFTER MEDS AND BLOOD DRAWS; Start 04/16/18 at 16:45 Furosemide (Lasix) 80 mg Q8HRS IVP Last administered on 04/17/18at 14:19; Start 04/16/18 at 22:00; Stop 04/17/18 at 15:37; Status DC Amlodipine Besylate (Norvasc) 2.5 mg DAILY PO Last administered on 04/18/18at 09 :13; Start 04/16/18 at 17:30 Clonidine HCl (Catapres) 0.1 mg Q8HRS PO Last administered on 04/17/18at 21:39; Start 04/16/18 at 22:00 Pantoprazole Sodium (PROTONIX VIAL for IV PUSH) 40 mg DAILYAC IVP Last administered on 04/17/18at 08:57; Start 04/16/18 at 17:30; Stop 04/17/18 at 14:56 ; Status DC Montelukast Sodium (Singulair) 10 mg QHS PO Last administered on 04/17/18at 21: 26; Start 04/16/18 at 21:00 Tamsulosin HCl (Flomax) 0.4 mg DAILY PO Last administered on 04/18/18 09:13; Start 04/16/18 at 17:30 Vitamin D (Vitamin D3) 1,000 unit DAILY PO Last administered on 04/18/18 09:11 ; Start 04/16/18 at 17:30 Acetaminophen (Tylenol) 325 mg PRN Q4HRS PRN PO MILD PAIN / TEMP; Start at 17:00 Acetaminophen (Tylenol) 650 mg PRN Q4HRS PRN PO MILD PAIN Last administered on 04/18/18at 01:41; Start 04/16/18 at 17:00 Magnesium Hydroxide (Milk Of Magnesia) 2,400 mg PRN DAILY PRN PO CONSTIPATION; Start 04/16/18 at 17:00 Potassium Chloride (Klor-Con) 10 meq DAILYWBKFT PO Last administered on 09:11; Start 04/16/18 at 17:30 Heparin Sodium (Porcine) (Heparin Sodium) 5,000 unit Q12HR SQ Last administered on 04/18/18 09:16; Start 04/16/18 at 21:00 Albuterol Sulfate (Ventolin Neb Soln) 2.5 mg PRN Q4HRS PRN NEB SHORTNESS OF BREATH Last administered on 04/17/18at 15:58; Start 04/17/18 at 10:30 Pantoprazole Sodium (Protonix) 40 mg DAILYAC PO Last administered on 04/18/18 09:11; Start 04/18/18 at 07:30 Furosemide (Lasix) 80 mg BID92 IVP Last administered on 04/18/18at 09:18; Start 04/17/18 at 16:00 Active Scripts Active Budesonide 0.5 Mg/2 Ml Ampul.neb 0.5 Mg NEB RTBID 30 Days Furosemide 80 Mg Tablet 80 Mg PO BID92 30 Days Omeprazole 40 Mg Capsule.dr 40 Mg PO DAILY 30 Days Prednisone (Prednisone) 10 Mg Tablet 40 Mg PO DAILY 8 Days Duoneb 0.5-3(2.5) Mg/3 Ml (Albuterol/Ipratropium) 3 Ml Ampul.neb 3 Ml NEB RTQID 30 Days Flomax (Tamsulosin Hcl) 0.4 Mg Cap.er.24h 0.4 Mg PO DAILY 30 Days Reported Proair Respiclick (Albuterol Sulfate) 90 Mcg Aer.pow.ba 1 Puff IH PRN Q4HRS PRN Vitamin D3 (Cholecalciferol (Vitamin D3)) 1,000 Unit Tablet 1 Tab PO DAILY Montelukast Sodium Chew.tablet (Montelukast Sodium) 5 Mg Tab.chew 10 Mg PO HS Senokot (Sennosides) 8.6 Mg Tablet 1 Tab PO BID Miralax (Polyethylene Glycol 3350) 17 Gm Powd.pack 1 Packet PO DAILY Clonidine Hcl 0.1 Mg Tablet 0.1 Mg PO TID Allergies Allergies: Coded Allergies: aspirin (Verified Allergy, Intermediate, 02/08/18) ciprofloxacin (Verified Allergy, Intermediate, Unknown, 02/08/18) honey (Verified Allergy, Intermediate, 02/08/18) hydralazine (Verified Allergy, Intermediate, Leg Edema, 02/08/18) sertraline (Verified Allergy, Intermediate, Anxiety, 02/08/18) simvastatin (Verified Allergy, Mild, Nausea, 02/08/18) ROS General: YES: Fatigue, Malaise, Appetite PSYCHOLOGICAL ROS: YES: Anxiety Eyes: Yes Decreased vision HEENT: YES: Heacaches Respiratory: YES: Cough, Orthopnea, Shortness of breath Cardiovascular: yes Orthopnea, yes Edema Gastrointestinal: Yes Constipation Genitourinary: YES Incontinence Musculoskeletal: Yes Muscular Weakness Neurological: Yes Weakness Skin: Yes Dry Skin Physical Exam General: Alert, Oriented X3, Cooperative, No acute distress HEENT: Atraumatic, PERRLA, EOMI, Mucous membr. moist/pink Lungs: Other (BASILAR RALES) Heart: Regular rate Abdomen: Normal bowel sounds, Soft Extremities: No clubbing, Other (2+ EDEMA) Skin: No rashes, No breakdown Psych/Mental Status: Mental status NL, Mood NL MUSCULOSKELETAL: No deformity Vitals VITALS Vital Signs Date Time Temp Pulse Resp B/P (MAP) Pulse Ox O2 Delivery O2 Flow Rate FiO2 04/18/18 09:13 65 162/46 04/18/18 07:00 98.2 16 98 Nasal Cannula 2.0 98.2 Labs Labs Laboratory Tests Test 04/16/18 18:00 04/16/18 20:40 04/17/18 03:53 04/17/18 14:47 Urine Collection Type Unknown Urine Color Yellow Urine Clarity Clear Urine pH 6.5 Urine Specific [place] 1.010 Urine Protein Negative mg/dL (NEG-TRACE) Urine Glucose (UA) Negative mg/dL (NEG) Urine Ketones (Stick) Negative mg/dL (NEG) Urine Blood Negative (NEG) Urine Nitrite Negative (NEG) Urine Bilirubin Negative (NEG) Urine Urobilinogen Dipstick 0.2 mg/dL (0.2 mg/dL) Urine Leukocyte Esterase Trace (NEG) Urine RBC 0 /HPF (0-2) Urine WBC 1-4 /HPF (0-4) Urine Squamous Epithelial Cells Few /LPF Urine Bacteria Many /HPF (0-FEW) Urine Mucus Slight /LPF White Blood Count 6.4 x10^3/uL (4.0-11.0) Red Blood Count 2.73 x10^6/uL (3.50-5.40) Hemoglobin 8.2 g/dL (12.0-15.5) Hematocrit 24.2 % (36.0-47.0) Mean Corpuscular Volume 89 fL (79-100) Mean Corpuscular Hemoglobin 30 pg (25-35) Mean Corpuscular Hemoglobin Concent 34 g/dL (31-37) Red Cell Distribution Width 14.0 % (11.5-14.5) Platelet Count 280 x10^3/uL (140-400) Neutrophils (%) (Auto) 57 % (31-73) Lymphocytes (%) (Auto) 27 % (24-48) Monocytes (%) (Auto) 10 % (0-9) Eosinophils (%) (Auto) 5 % (0-3) Basophils (%) (Auto) 0 % (0-3) Neutrophils # (Auto) 3.7 x10^3uL (1.8-7.7) Lymphocytes # (Auto) 1.7 x10^3/uL (1.0-4.8) Monocytes # (Auto) 0.6 x10^3/uL (0.0-1.1) Eosinophils # (Auto) 0.3 x10^3/uL (0.0-0.7) Basophils # (Auto) 0.0 x10^3/uL (0.0-0.2) Sodium Level 139 mmol/L (136-145) 143 mmol/L (136-145) Potassium Level 4.3 mmol/L (3.5-5.1) 4.5 mmol/L (3.5-5.1) Chloride Level 100 mmol/L (98-107) 104 mmol/L (98-107) Carbon Dioxide Level 35 mmol/L (21-32) 35 mmol/L (21-32) Anion Gap 4 (6-14) 4 (6-14) Blood Urea Nitrogen 50 mg/dL (7-20) 51 mg/dL (7-20) Creatinine 2.3 mg/dL (0.6-1.0) 2.2 mg/dL (0.6-1.0) Estimated GFR (Cockcroft-Gault) 20.0 21.0 BUN/Creatinine Ratio 22 (6-20) Glucose Level 158 mg/dL (70-99) 114 mg/dL (70-99) Calcium Level 9.7 mg/dL (8.5-10.1) 9.4 mg/dL (8.5-10.1) Total Bilirubin 0.2 mg/dL (0.2-1.0) Aspartate Amino Transf (AST/SGOT) 14 U/L (15-37) Alanine Aminotransferase (ALT/SGPT) 6 U/L (14-59) Alkaline Phosphatase 76 U/L (46-116) Total Protein 6.3 g/dL (6.4-8.2) Albumin 2.6 g/dL (3.4-5.0) Albumin/Globulin Ratio 0.7 (1.0-1.7) Magnesium Level 2.3 mg/dL (1.8-2.4) Lactic Acid Level 1.2 mmol/L (0.4-2.0) Test 04/18/18 05:00 White Blood Count 6.3 x10^3/uL (4.0-11.0) Red Blood Count 2.53 x10^6/uL (3.50-5.40) Hemoglobin 7.5 g/dL (12.0-15.5) Hematocrit 22.4 % (36.0-47.0) Mean Corpuscular Volume 89 fL (79-100) Mean Corpuscular Hemoglobin 30 pg (25-35) Mean Corpuscular Hemoglobin Concent 33 g/dL (31-37) Red Cell Distribution Width 13.8 % (11.5-14.5) Platelet Count 263 x10^3/uL (140-400) Neutrophils (%) (Auto) 53 % (31-73) Lymphocytes (%) (Auto) 30 % (24-48) Monocytes (%) (Auto) 11 % (0-9) Eosinophils (%) (Auto) 6 % (0-3) Basophils (%) (Auto) 0 % (0-3) Neutrophils # (Auto) 3.3 x10^3uL (1.8-7.7) Lymphocytes # (Auto) 1.9 x10^3/uL (1.0-4.8) Monocytes # (Auto) 0.7 x10^3/uL (0.0-1.1) Eosinophils # (Auto) 0.4 x10^3/uL (0.0-0.7) Basophils # (Auto) 0.0 x10^3/uL (0.0-0.2) Sodium Level 142 mmol/L (136-145) Potassium Level 4.1 mmol/L (3.5-5.1) Chloride Level 102 mmol/L (98-107) Carbon Dioxide Level 35 mmol/L (21-32) Anion Gap 5 (6-14) Blood Urea Nitrogen 47 mg/dL (7-20) Creatinine 2.3 mg/dL (0.6-1.0) Estimated GFR (Cockcroft-Gault) 20.0 Glucose Level 93 mg/dL (70-99) Calcium Level 9.3 mg/dL (8.5-10.1) Magnesium Level 2.2 mg/dL (1.8-2.4) Laboratory Tests Test 04/17/18 14:47 04/18/18 05:00 Lactic Acid Level 1.2 mmol/L (0.4-2.0) White Blood Count 6.3 x10^3/uL (4.0-11.0) Red Blood Count 2.53 x10^6/uL (3.50-5.40) Hemoglobin 7.5 g/dL (12.0-15.5) Hematocrit 22.4 % (36.0-47.0) Mean Corpuscular Volume 89 fL (79-100) Mean Corpuscular Hemoglobin 30 pg (25-35) Mean Corpuscular Hemoglobin Concent 33 g/dL (31-37) Red Cell Distribution Width 13.8 % (11.5-14.5) Platelet Count 263 x10^3/uL (140-400) Neutrophils (%) (Auto) 53 % (31-73) Lymphocytes (%) (Auto) 30 % (24-48) Monocytes (%) (Auto) 11 % (0-9) Eosinophils (%) (Auto) 6 % (0-3) Basophils (%) (Auto) 0 % (0-3) Neutrophils # (Auto) 3.3 x10^3uL (1.8-7.7) Lymphocytes # (Auto) 1.9 x10^3/uL (1.0-4.8) Monocytes # (Auto) 0.7 x10^3/uL (0.0-1.1) Eosinophils # (Auto) 0.4 x10^3/uL (0.0-0.7) Basophils # (Auto) 0.0 x10^3/uL (0.0-0.2) Sodium Level 142 mmol/L (136-145) Potassium Level 4.1 mmol/L (3.5-5.1) Chloride Level 102 mmol/L (98-107) Carbon Dioxide Level 35 mmol/L (21-32) Anion Gap 5 (6-14) Blood Urea Nitrogen 47 mg/dL (7-20) Creatinine 2.3 mg/dL (0.6-1.0) Estimated GFR (Cockcroft-Gault) 20.0 Glucose Level 93 mg/dL (70-99) Calcium Level 9.3 mg/dL (8.5-10.1) Magnesium Level 2.2 mg/dL (1.8-2.4) Assessment/Plan Assessment/Plan IMP LE EDEMA ACUTE DIASTOLIC CHF VALVULAR HEART DISEASE PULMONARY HTN CKD STAGE 4 HX OF HTN SEVERE ANEMIA PLAN CONT WITH DIURESIS CHECK IRON STORES MAY NEED STEFFI CARDIOLOGY EVAL AND TX WILL FOLLOW ARSEN SUAREZ MD Apr 18, 2018 10:22
--- NOTE | 2018-04-18 10:42 | PDOC ---
PROGRESS NOTES Subjective Subjective Patient denied any chest pain or dyspnea Objective Objective Vital Signs Date Time Temp Pulse Resp B/P (MAP) Pulse Ox O2 Delivery O2 Flow Rate FiO2 04/18/18 09:13 65 162/46 04/18/18 07:00 98.2 16 98 Nasal Cannula 2.0 98.2 Intake and Output 04/18/18 07:00 Intake Total 270 ml Output Total 2727 ml Balance -2457 ml Intake Oral 270 ml Output Urine Total 2725 ml Stool Total 2 ml # Voids 1 Physical Exam Abdomen: Normal bowel sounds, Soft Heart: Regular rate Extremities: No clubbing, Other (2+ EDEMA) General: Alert, Oriented X3, Cooperative, No acute distress HEENT: Atraumatic, PERRLA, EOMI, Mucous membr. moist/pink Lungs: Other (BASILAR RALES) MUSCULOSKELETAL: No deformity Psych/Mental Status: Mental status NL, Mood NL Skin: No rashes, No breakdown Assessment Assessment 1. Acute on chronic diastolic heart failure: 2-D echo in December 2017 showed LVEF 55%, [id number] mitral regurgitation and moderate to severe pulmonary hypertension. Lower extremity venous duplex scan did not show any DVT. Continue gentle diuresis with intravenous Lasix with close monitoring of BUN/creatinine. 2. COPD/cor pulmonale: Appears stable. Continue current medical regimen. 3. Hypertension: Controlled 4. Chronic renal insufficiency: Nephrology team following 5. Protein calorie malnutrition/hypoalbuminemia/anasarca Comment Review of Relevant I have reviewed the following items brandan (where applicable) has been applied. Labs Laboratory Tests Test 04/17/18 14:47 04/18/18 05:00 Lactic Acid Level 1.2 mmol/L (0.4-2.0) White Blood Count 6.3 x10^3/uL (4.0-11.0) Red Blood Count 2.53 x10^6/uL (3.50-5.40) Hemoglobin 7.5 g/dL (12.0-15.5) Hematocrit 22.4 % (36.0-47.0) Mean Corpuscular Volume 89 fL (79-100) Mean Corpuscular Hemoglobin 30 pg (25-35) Mean Corpuscular Hemoglobin Concent 33 g/dL (31-37) Red Cell Distribution Width 13.8 % (11.5-14.5) Platelet Count 263 x10^3/uL (140-400) Neutrophils (%) (Auto) 53 % (31-73) Lymphocytes (%) (Auto) 30 % (24-48) Monocytes (%) (Auto) 11 % (0-9) Eosinophils (%) (Auto) 6 % (0-3) Basophils (%) (Auto) 0 % (0-3) Neutrophils # (Auto) 3.3 x10^3uL (1.8-7.7) Lymphocytes # (Auto) 1.9 x10^3/uL (1.0-4.8) Monocytes # (Auto) 0.7 x10^3/uL (0.0-1.1) Eosinophils # (Auto) 0.4 x10^3/uL (0.0-0.7) Basophils # (Auto) 0.0 x10^3/uL (0.0-0.2) Sodium Level 142 mmol/L (136-145) Potassium Level 4.1 mmol/L (3.5-5.1) Chloride Level 102 mmol/L (98-107) Carbon Dioxide Level 35 mmol/L (21-32) Anion Gap 5 (6-14) Blood Urea Nitrogen 47 mg/dL (7-20) Creatinine 2.3 mg/dL (0.6-1.0) Estimated GFR (Cockcroft-Gault) 20.0 Glucose Level 93 mg/dL (70-99) Calcium Level 9.3 mg/dL (8.5-10.1) Magnesium Level 2.2 mg/dL (1.8-2.4) Medications Current Medications Furosemide (Lasix) 80 mg BID92 IVP Last administered on 04/18/18at 09:18; Start 04/17/18 at 16:00 Pantoprazole Sodium (Protonix) 40 mg DAILYAC PO Last administered on 04/18/18at 09:11; Start 04/18/18 at 07:30 Vitals/I & O Vital Sign - Last 24 Hours 04/17/18 04/17/18 04/17/18 04/17/18 11:00 14:00 14:40 16:01 Temp 98.3 98.1 98.3 98.1 Pulse 59 60 65 Resp 16 16 B/P (MAP) 155/44 (81) 122/33 122/33 (62) Pulse Ox 96 98 O2 Delivery Nasal Cannula Nasal Cannula Nasal Cannula O2 Flow Rate 2.0 2.0 2.0 04/17/18 04/17/18 04/17/18 04/17/18 19:00 20:00 21:39 23:00 Temp 98.3 98.3 98.3 98.3 Pulse 73 73 72 Resp 16 18 B/P (MAP) 180/50 (93) 180/50 173/53 (93) Pulse Ox 97 97 O2 Delivery Nasal Cannula Room Air Nasal Cannula O2 Flow Rate 2.0 2.0 2.0 04/18/18 04/18/18 04/18/18 04/18/18 03:00 06:00 07:00 09:13 Temp 98.2 98.2 98.2 98.2 Pulse 60 65 65 65 Resp 18 16 B/P (MAP) 154/49 (84) 162/46 162/46 (84) 162/46 Pulse Ox 97 98 O2 Delivery Nasal Cannula Nasal Cannula O2 Flow Rate 2.0 2.0 Intake and Output 04/17/18 04/17/18 04/18/18 15:00 23:00 07:00 Intake Total 210 ml 50 ml 10 ml Output Total 1375 ml 252 ml 1100 ml Balance -1165 ml -202 ml -1090 ml J CARLOS FERREIRA MD Apr 18, 2018 10:42
[2018-04-18 10:57] VITALS: BP 169/52
--- NOTE | 2018-04-18 11:12 | PDOC ---
PROGRESS NOTES Subjective Subjective hard of hearing. feels better. has less leg edema. had a good diuresis. lab reviewed. renal function stable. Objective Objective Vital Signs Date Time Temp Pulse Resp B/P (MAP) Pulse Ox O2 Delivery O2 Flow Rate FiO2 04/18/18 10:57 62 14 169/52 (91) 98 Nasal Cannula 2.0 04/18/18 07:00 98.2 98.2 Intake and Output 04/18/18 07:00 Intake Total 270 ml Output Total 2727 ml Balance -2457 ml Intake Oral 270 ml Output Urine Total 2725 ml Stool Total 2 ml # Voids 1 Physical Exam Abdomen: Soft Heart: Regular rate, Normal S1, Normal S2 Extremities: Other (1 plus edema bilaterally) General: Alert HEENT: Atraumatic Lungs: Other (crackles right lung base) Neuro: Normal speech Psych/Mental Status: Mood NL Skin: No rashes Assessment Assessment 1. Acute on chronic diastolic congestive heart failure. She had an echocardiogram in 11/01/17, which showed preserved left ventricular ejection fraction 55% and also had a [id number] pulmonary hypertension with moderate tricuspid regurgitation and mild/mod MR 2. Anasarca. better 3. Chronic kidney disease, stage 4. 4. Chronic obstructive pulmonary disease. 5. Chronic cor pulmonale. 6. Chronic hypoxic respiratory failure. 7. Hypertension. 8. Anemia of chronic disease. 9. Severe protein-calorie malnutrition. Plan Plan of Care decrease iv lasix to daily lab tomorrow PT and OT heparin for DVT prophylaxis cxr tomorrow continue amlodipine and clonidine Comment Review of Relevant I have reviewed the following items brandan (where applicable) has been applied. Labs Laboratory Tests Test 04/16/18 18:00 04/16/18 20:40 04/17/18 03:53 04/17/18 14:47 Urine Collection Type Unknown Urine Color Yellow Urine Clarity Clear Urine pH 6.5 Urine Specific [place] 1.010 Urine Protein Negative mg/dL (NEG-TRACE) Urine Glucose (UA) Negative mg/dL (NEG) Urine Ketones (Stick) Negative mg/dL (NEG) Urine Blood Negative (NEG) Urine Nitrite Negative (NEG) Urine Bilirubin Negative (NEG) Urine Urobilinogen Dipstick 0.2 mg/dL (0.2 mg/dL) Urine Leukocyte Esterase Trace (NEG) Urine RBC 0 /HPF (0-2) Urine WBC 1-4 /HPF (0-4) Urine Squamous Epithelial Cells Few /LPF Urine Bacteria Many /HPF (0-FEW) Urine Mucus Slight /LPF White Blood Count 6.4 x10^3/uL (4.0-11.0) Red Blood Count 2.73 x10^6/uL (3.50-5.40) Hemoglobin 8.2 g/dL (12.0-15.5) Hematocrit 24.2 % (36.0-47.0) Mean Corpuscular Volume 89 fL (79-100) Mean Corpuscular Hemoglobin 30 pg (25-35) Mean Corpuscular Hemoglobin Concent 34 g/dL (31-37) Red Cell Distribution Width 14.0 % (11.5-14.5) Platelet Count 280 x10^3/uL (140-400) Neutrophils (%) (Auto) 57 % (31-73) Lymphocytes (%) (Auto) 27 % (24-48) Monocytes (%) (Auto) 10 % (0-9) Eosinophils (%) (Auto) 5 % (0-3) Basophils (%) (Auto) 0 % (0-3) Neutrophils # (Auto) 3.7 x10^3uL (1.8-7.7) Lymphocytes # (Auto) 1.7 x10^3/uL (1.0-4.8) Monocytes # (Auto) 0.6 x10^3/uL (0.0-1.1) Eosinophils # (Auto) 0.3 x10^3/uL (0.0-0.7) Basophils # (Auto) 0.0 x10^3/uL (0.0-0.2) Sodium Level 139 mmol/L (136-145) 143 mmol/L (136-145) Potassium Level 4.3 mmol/L (3.5-5.1) 4.5 mmol/L (3.5-5.1) Chloride Level 100 mmol/L (98-107) 104 mmol/L (98-107) Carbon Dioxide Level 35 mmol/L (21-32) 35 mmol/L (21-32) Anion Gap 4 (6-14) 4 (6-14) Blood Urea Nitrogen 50 mg/dL (7-20) 51 mg/dL (7-20) Creatinine 2.3 mg/dL (0.6-1.0) 2.2 mg/dL (0.6-1.0) Estimated GFR (Cockcroft-Gault) 20.0 21.0 BUN/Creatinine Ratio 22 (6-20) Glucose Level 158 mg/dL (70-99) 114 mg/dL (70-99) Calcium Level 9.7 mg/dL (8.5-10.1) 9.4 mg/dL (8.5-10.1) Total Bilirubin 0.2 mg/dL (0.2-1.0) Aspartate Amino Transf (AST/SGOT) 14 U/L (15-37) Alanine Aminotransferase (ALT/SGPT) 6 U/L (14-59) Alkaline Phosphatase 76 U/L (46-116) Total Protein 6.3 g/dL (6.4-8.2) Albumin 2.6 g/dL (3.4-5.0) Albumin/Globulin Ratio 0.7 (1.0-1.7) Magnesium Level 2.3 mg/dL (1.8-2.4) Lactic Acid Level 1.2 mmol/L (0.4-2.0) Test 04/18/18 05:00 White Blood Count 6.3 x10^3/uL (4.0-11.0) Red Blood Count 2.53 x10^6/uL (3.50-5.40) Hemoglobin 7.5 g/dL (12.0-15.5) Hematocrit 22.4 % (36.0-47.0) Mean Corpuscular Volume 89 fL (79-100) Mean Corpuscular Hemoglobin 30 pg (25-35) Mean Corpuscular Hemoglobin Concent 33 g/dL (31-37) Red Cell Distribution Width 13.8 % (11.5-14.5) Platelet Count 263 x10^3/uL (140-400) Neutrophils (%) (Auto) 53 % (31-73) Lymphocytes (%) (Auto) 30 % (24-48) Monocytes (%) (Auto) 11 % (0-9) Eosinophils (%) (Auto) 6 % (0-3) Basophils (%) (Auto) 0 % (0-3) Neutrophils # (Auto) 3.3 x10^3uL (1.8-7.7) Lymphocytes # (Auto) 1.9 x10^3/uL (1.0-4.8) Monocytes # (Auto) 0.7 x10^3/uL (0.0-1.1) Eosinophils # (Auto) 0.4 x10^3/uL (0.0-0.7) Basophils # (Auto) 0.0 x10^3/uL (0.0-0.2) Sodium Level 142 mmol/L (136-145) Potassium Level 4.1 mmol/L (3.5-5.1) Chloride Level 102 mmol/L (98-107) Carbon Dioxide Level 35 mmol/L (21-32) Anion Gap 5 (6-14) Blood Urea Nitrogen 47 mg/dL (7-20) Creatinine 2.3 mg/dL (0.6-1.0) Estimated GFR (Cockcroft-Gault) 20.0 Glucose Level 93 mg/dL (70-99) Calcium Level 9.3 mg/dL (8.5-10.1) Magnesium Level 2.2 mg/dL (1.8-2.4) Laboratory Tests Test 04/17/18 14:47 04/18/18 05:00 Lactic Acid Level 1.2 mmol/L (0.4-2.0) White Blood Count 6.3 x10^3/uL (4.0-11.0) Red Blood Count 2.53 x10^6/uL (3.50-5.40) Hemoglobin 7.5 g/dL (12.0-15.5) Hematocrit 22.4 % (36.0-47.0) Mean Corpuscular Volume 89 fL (79-100) Mean Corpuscular Hemoglobin 30 pg (25-35) Mean Corpuscular Hemoglobin Concent 33 g/dL (31-37) Red Cell Distribution Width 13.8 % (11.5-14.5) Platelet Count 263 x10^3/uL (140-400) Neutrophils (%) (Auto) 53 % (31-73) Lymphocytes (%) (Auto) 30 % (24-48) Monocytes (%) (Auto) 11 % (0-9) Eosinophils (%) (Auto) 6 % (0-3) Basophils (%) (Auto) 0 % (0-3) Neutrophils # (Auto) 3.3 x10^3uL (1.8-7.7) Lymphocytes # (Auto) 1.9 x10^3/uL (1.0-4.8) Monocytes # (Auto) 0.7 x10^3/uL (0.0-1.1) Eosinophils # (Auto) 0.4 x10^3/uL (0.0-0.7) Basophils # (Auto) 0.0 x10^3/uL (0.0-0.2) Sodium Level 142 mmol/L (136-145) Potassium Level 4.1 mmol/L (3.5-5.1) Chloride Level 102 mmol/L (98-107) Carbon Dioxide Level 35 mmol/L (21-32) Anion Gap 5 (6-14) Blood Urea Nitrogen 47 mg/dL (7-20) Creatinine 2.3 mg/dL (0.6-1.0) Estimated GFR (Cockcroft-Gault) 20.0 Glucose Level 93 mg/dL (70-99) Calcium Level 9.3 mg/dL (8.5-10.1) Magnesium Level 2.2 mg/dL (1.8-2.4) Medications Current Medications Sodium Chloride (Normal Saline Flush) 3 ml PRN DAILY PRN IV AFTER MEDS AND BLOOD DRAWS; Start 04/16/18 at 16:45 Furosemide (Lasix) 80 mg Q8HRS IVP Last administered on 04/17/18 14:19; Start 04/16/18 at 22:00; Stop 04/17/18 at 15:37; Status DC Amlodipine Besylate (Norvasc) 2.5 mg DAILY PO Last administered on 04/18/18at 09 :13; Start 04/16/18 at 17:30 Clonidine HCl (Catapres) 0.1 mg Q8HRS PO Last administered on 04/17/18 21:39; Start 04/16/18 at 22:00 Pantoprazole Sodium (PROTONIX VIAL for IV PUSH) 40 mg DAILYAC IVP Last administered on 04/17/18 08:57; Start 04/16/18 at 17:30; Stop 04/17/18 at 14:56 ; Status DC Montelukast Sodium (Singulair) 10 mg QHS PO Last administered on 04/17/18 21: 26; Start 04/16/18 at 21:00 Tamsulosin HCl (Flomax) 0.4 mg DAILY PO Last administered on 04/18/18 09:13; Start 04/16/18 at 17:30 Vitamin D (Vitamin D3) 1,000 unit DAILY PO Last administered on 04/18/18at 09:11 ; Start 04/16/18 at 17:30 Acetaminophen (Tylenol) 325 mg PRN Q4HRS PRN PO MILD PAIN / TEMP; Start at 17:00 Acetaminophen (Tylenol) 650 mg PRN Q4HRS PRN PO MILD PAIN Last administered on 04/18/18at 01:41; Start 04/16/18 at 17:00 Magnesium Hydroxide (Milk Of Magnesia) 2,400 mg PRN DAILY PRN PO CONSTIPATION; Start 04/16/18 at 17:00 Potassium Chloride (Klor-Con) 10 meq [id number] PO Last administered on at 09:11; Start 04/16/18 at 17:30 Heparin Sodium (Porcine) (Heparin Sodium) 5,000 unit Q12HR SQ Last administered on 04/18/18at 09:16; Start 04/16/18 at 21:00 Albuterol Sulfate (Ventolin Neb Soln) 2.5 mg PRN Q4HRS PRN NEB SHORTNESS OF BREATH Last administered on 04/17/18at 15:58; Start 04/17/18 at 10:30 Pantoprazole Sodium (Protonix) 40 mg DAILYAC PO Last administered on 04/18/18at 09:11; Start 04/18/18 at 07:30 Furosemide (Lasix) 80 mg [id number] IVP Last administered on 04/18/18at 09:18; Start 04/17/18 at 16:00 Active Scripts Active Budesonide 0.5 Mg/2 Ml Ampul.neb 0.5 Mg NEB RTBID 30 Days Furosemide 80 Mg Tablet 80 Mg PO [id number] 30 Days Omeprazole 40 Mg Capsule.dr 40 Mg PO DAILY 30 Days Prednisone (Prednisone) 10 Mg Tablet 40 Mg PO DAILY 8 Days Duoneb 0.5-3(2.5) Mg/3 Ml (Albuterol/Ipratropium) 3 Ml Ampul.neb 3 Ml NEB RTQID 30 Days Flomax (Tamsulosin Hcl) 0.4 Mg Cap.er.24h 0.4 Mg PO DAILY 30 Days Reported Proair Respiclick (Albuterol Sulfate) 90 Mcg Aer.pow.ba 1 Puff IH PRN Q4HRS PRN Vitamin D3 (Cholecalciferol (Vitamin D3)) 1,000 Unit Tablet 1 Tab PO DAILY Montelukast Sodium Chew.tablet (Montelukast Sodium) 5 Mg Tab.chew 10 Mg PO HS Senokot (Sennosides) 8.6 Mg Tablet 1 Tab PO BID Miralax (Polyethylene Glycol 3350) 17 Gm Powd.pack 1 Packet PO DAILY Clonidine Hcl 0.1 Mg Tablet 0.1 Mg PO TID Vitals/I & O Vital Sign - Last 24 Hours 04/17/18 04/17/18 04/17/18 04/17/18 14:00 14:40 16:01 19:00 Temp 98.1 98.3 98.1 98.3 Pulse 60 65 73 Resp 16 16 B/P (MAP) 122/33 122/33 (62) 180/50 (93) Pulse Ox 98 97 O2 Delivery Nasal Cannula Nasal Cannula Nasal Cannula O2 Flow Rate 2.0 2.0 2.0 04/17/18 04/17/18 04/17/18 04/18/18 20:00 21:39 23:00 03:00 Temp 98.3 98.2 98.3 98.2 Pulse 73 72 60 Resp 18 18 B/P (MAP) 180/50 173/53 (93) 154/49 (84) Pulse Ox 97 97 O2 Delivery Room Air Nasal Cannula Nasal Cannula O2 Flow Rate 2.0 2.0 2.0 04/18/18 04/18/18 04/18/18 04/18/18 06:00 07:00 09:13 10:57 Temp 98.2 98.2 Pulse 65 65 65 62 Resp 16 14 B/P (MAP) 162/46 162/46 (84) 162/46 169/52 (91) Pulse Ox 98 98 O2 Delivery Nasal Cannula Nasal Cannula O2 Flow Rate 2.0 2.0 Intake and Output 04/17/18 04/17/18 04/18/18 15:00 23:00 07:00 Intake Total 210 ml 50 ml 10 ml Output Total 1375 ml 252 ml 1100 ml Balance -1165 ml -202 ml -1090 ml HANS ELIZONDO MD Apr 18, 2018 11:12
[2018-04-18 15:14] VITALS: BP 147/36
[2018-04-18 19:20] VITALS: BP 147/37
[2018-04-18] MEDS: MONTELUKAST SODIUM 10 MG TABLET. PO SCH (20:46)
[2018-04-18 23:19] VITALS: BP 184/57
[2018-04-19 03:30] VITALS: BP 149/42
[2018-04-19] MEDS: cloNIDine HCL 0.1 MG TABLET PO SCH ×2 (06:13→14:25)
[2018-04-19] MEDS: PANTOPRAZOLE 40 MG TABLET.DR. PO SCH (06:14)
[2018-04-19 07:01] LABS: BASO % 0 % (0-3); EOS # 0.4 x10^3/uL (0.0-0.7); EOS % 6 % (0-3); HEMATOCRIT 25.8 % (36.0-47.0); HEMOGLOBIN 8.5 g/dL (12.0-15.5); LYMPH # 1.9 x10^3/uL (1.0-4.8); LYMPH % 27 % (24-48); MEAN CORPUSCULAR HEMOGLOBIN 29 pg (25-35); MEAN CORPUSCULAR HGB CONC 33 g/dL (31-37); MEAN CORPUSCULAR VOLUME 89 fL (79-100); MONO # 0.8 x10^3/uL (0.0-1.1); MONO % 11 % (0-9); NEUT % 56 % (31-73); PLATELET COUNT 286 x10^3/uL (140-400); RED BLOOD COUNT 2.89 x10^6/uL (3.50-5.40); RED CELL DISTRIBUTION WIDTH 14.2 % (11.5-14.5); WHITE BLOOD COUNT 7.1 x10^3/uL (4.0-11.0)
[2018-04-19 07:21] LABS: CALCIUM 9.6 mg/dL (8.5-10.1); CREATININE 2.2 mg/dL (0.6-1.0); MAGNESIUM 2.2 mg/dL (1.8-2.4); POTASSIUM 4.1 mmol/L (3.5-5.1)
[2018-04-19 07:50] VITALS: BP 118/83
--- NOTE | 2018-04-19 07:57 | RAD ---
CHEST AP ONLY dated 04/19/2018 7:22 AM. Comparison: 04/16/2018 Clinical Indication: chf, SHORTNESS OF BREATH Findings: Single upright portable exam performed. Heart and mediastinal contours are stable. There are prominent interstitial markings throughout both lungs, unchanged. Small to moderate size bilateral pleural effusions, similar given differences in technique. Asymmetric patchy infiltrate in the right upper lobe with some thickening of the right hilum, similar to prior study. Impression: No significant interval change compared to 04/16/2018. Electronically signed by: Tim Rogers MD (04/19/2018 7:53 AM) [id number]
[2018-04-19] MEDS: POTASSIUM CHLORIDE 10 MEQ TABLET.ER. PO SCH (07:59)
[2018-04-19] MEDS: ALBUTEROL SULFATE 2.5 MG/3 ML NEBU. NEB PRN (08:27)
[2018-04-19] MEDS: amLODIPine BESYLATE 2.5 MG TABLET PO SCH (08:43)
[2018-04-19] MEDS: CHOLECALCIFEROL (VITAMIN D3) 1,000 UNIT TABLET PO SCH (08:43)
[2018-04-19] MEDS: HEPARIN for SUB-Q USE 5,000 UNIT/ML VIAL. SQ SCH ×2 (08:50→20:32)
[2018-04-19] MEDS ORDERED: FUROSEMIDE 100 MG/10 ML VIAL. IVP SCH (09:00)
[2018-04-19] MEDS: TAMSULOSIN 0.4 MG CAP.ER.24H. PO SCH (09:32)
--- NOTE | 2018-04-19 10:19 | PDOC ---
SUBJECTIVE ROS C KD stage IV, anasarca edema Patient claims she's feeling much better, breathing easier. CVS: no Orthopnea, no CP RESP: no SOB, no BECERRA: Has not been ambulated yet GI: no Nausea, no Vomiting : no Dysuria, no Urgency OBJECTIVE Vital Signs Vital Signs Date Time Temp Pulse Resp B/P (MAP) Pulse Ox O2 Delivery O2 Flow Rate FiO2 04/19/18 08:43 64 118/83 04/19/18 08:29 100 Nasal Cannula 2.0 04/19/18 07:50 97.7 16 97.7 I & 0 Intake and Output 04/19/18 07:00 Intake Total 905 ml Output Total 1350 ml Balance -445 ml Intake Oral 905 ml Output Urine Total 1350 ml # Bowel Movements 1 PHYSICAL EXAM Physical Exam GEN: Awake, Oriented x 3, In no distress EYES: Vision Unchanged, Conjunctiva Normal EN: No EN Drainage, Mucous Membranes moist NECK: + JVD, + JVP, Supple, no Thyromegaly CVS: S1S2, + syst Murmur, No Gallop, No Rub,+1 Edema: Mostly around the ankles RESP: Few basal Rales, occasional Rhonchi, no Acc. Muscle Use GI: BS + ve, NO Bruit, Non Tender, Non Distended : No CVA tenderness, no Suprapubic Tenderness DIAGNOSIS/ASSESSMENT Assessment & Plan LE EDEMA: Much improved with diuretics as ordered and ongoing negative fluid balance. No significant proteinuria noted on UA hypoalbuminemia as noted on presentation may be contributing some to this also. ACUTE DIASTOLIC CHF: Clinically much improved. VALVULAR HEART DISEASE & PULMONARY HTN (as previously documented): This was not seen on most recent echocardiogram. This may be contributing cause of her underlying anasarca : Diuresis as needed CKD STAGE 4 with creatinine clearance of 22 mL/min I 24-hour urine collection January 2018 HX OF HTN: Blood pressure is currently well controlled on present regimen SEVERE ANEMIA: Adequate iron currently. Start Epogen Okay to discharge from renal standpoint once respiratory status is optimized. COMMENT/RELEVANT DATA Meds Current Medications Medications (Trade) Dose Ordered Sig/Ofe Start Time Stop Time Status Last Admin Dose Admin Acetaminophen (Tylenol) 650 mg PRN Q4HRS PRN 04/16/18 17:00 04/18/18 01:41 650 MG Albuterol Sulfate (Ventolin Neb Soln) 2.5 mg PRN Q4HRS PRN 04/17/18 10:30 04/19/18 08:27 2.5 MG Amlodipine Besylate (Norvasc) 2.5 mg DAILY 04/16/18 17:30 04/19/18 08:43 2.5 MG Clonidine HCl (Catapres) 0.1 mg Q8HRS 04/16/18 22:00 04/19/18 06:13 0.1 MG Furosemide (Lasix) 80 mg DAILY 04/19/18 09:00 04/19/18 08:44 80 MG Heparin Sodium (Porcine) (Heparin Sodium) 5,000 unit Q12HR 04/16/18 21:00 04/19/18 08:50 5,000 UNIT Magnesium Hydroxide (Milk Of Magnesia) 2,400 mg PRN DAILY PRN 04/16/18 17:00 Montelukast Sodium (Singulair) 10 mg QHS 04/16/18 21:00 04/18/18 20:46 10 MG Pantoprazole Sodium (PROTONIX VIAL for IV PUSH) 40 mg DAILYAC 04/16/18 17:30 04/17/18 14:56 DC 04/17/18 08:57 40 MG Pantoprazole Sodium (Protonix) 40 mg DAILYAC 04/18/18 07:30 04/19/18 06:14 40 MG Potassium Chloride (Klor-Con) 10 meq DAILYWBKFT 04/16/18 17:30 04/19/18 07:59 10 MEQ Sodium Chloride (Normal Saline Flush) 3 ml PRN DAILY PRN 04/16/18 16:45 Tamsulosin HCl (Flomax) 0.4 mg DAILY 04/16/18 17:30 04/19/18 09:32 0.4 MG Vitamin D (Vitamin D3) 1,000 unit DAILY 04/16/18 17:30 04/19/18 08:43 1,000 UNIT Lab Laboratory Tests Test 04/19/18 06:20 White Blood Count 7.1 x10^3/uL (4.0-11.0) Red Blood Count 2.89 x10^6/uL (3.50-5.40) Hemoglobin 8.5 g/dL (12.0-15.5) Hematocrit 25.8 % (36.0-47.0) Mean Corpuscular Volume 89 fL (79-100) Mean Corpuscular Hemoglobin 29 pg (25-35) Mean Corpuscular Hemoglobin Concent 33 g/dL (31-37) Red Cell Distribution Width 14.2 % (11.5-14.5) Platelet Count 286 x10^3/uL (140-400) Neutrophils (%) (Auto) 56 % (31-73) Lymphocytes (%) (Auto) 27 % (24-48) Monocytes (%) (Auto) 11 % (0-9) Eosinophils (%) (Auto) 6 % (0-3) Basophils (%) (Auto) 0 % (0-3) Neutrophils # (Auto) 4.0 x10^3uL (1.8-7.7) Lymphocytes # (Auto) 1.9 x10^3/uL (1.0-4.8) Monocytes # (Auto) 0.8 x10^3/uL (0.0-1.1) Eosinophils # (Auto) 0.4 x10^3/uL (0.0-0.7) Basophils # (Auto) 0.0 x10^3/uL (0.0-0.2) Sodium Level 141 mmol/L (136-145) Potassium Level 4.1 mmol/L (3.5-5.1) Chloride Level 102 mmol/L (98-107) Carbon Dioxide Level 34 mmol/L (21-32) Anion Gap 5 (6-14) Blood Urea Nitrogen 43 mg/dL (7-20) Creatinine 2.2 mg/dL (0.6-1.0) Estimated GFR (Cockcroft-Gault) 21.0 Glucose Level 127 mg/dL (70-99) Calcium Level 9.6 mg/dL (8.5-10.1) Magnesium Level 2.2 mg/dL (1.8-2.4) Iron Level 50 ug/dL (50-170) Total Iron Binding Capacity 225 ug/dL (250-450) Iron Saturation 22 % (15-34) Results All relevant outside records, renal labs, imaging studies, telemetry/EKG's were reviewed. Other Single upright portable exam performed. Heart and mediastinal contours are stable. There are prominent interstitial markings throughout both lungs, unchanged. Small to moderate size bilateral pleural effusions, similar given differences in technique. Asymmetric patchy infiltrate in the right upper lobe with some thickening of the right hilum, similar to prior study. Impression: No significant interval change compared to 04/16/2018. KAYLYNN JIMENEZ MD Apr 19, 2018 10:19
--- NOTE | 2018-04-19 10:32 | PDOC ---
PROGRESS NOTES Subjective Subjective feels better. leg edema much improved. has some wheezing and will start scheduled nebulizer rx . lab reviewed. cxr unchanged Objective Objective Vital Signs Date Time Temp Pulse Resp B/P (MAP) Pulse Ox O2 Delivery O2 Flow Rate FiO2 04/19/18 08:43 64 118/83 04/19/18 08:29 100 Nasal Cannula 2.0 04/19/18 07:50 97.7 16 97.7 Intake and Output 04/19/18 07:00 Intake Total 905 ml Output Total 1350 ml Balance -445 ml Intake Oral 905 ml Output Urine Total 1350 ml # Bowel Movements 1 Physical Exam Abdomen: Soft Heart: Regular rate, Normal S1, Normal S2 Extremities: Other (trace edema legs) General: Alert HEENT: Atraumatic Lungs: Other (expiratory wheezes and bilateral decreased breath sounds) Neuro: Normal speech Psych/Mental Status: Mood NL Skin: No rashes Assessment Assessment 1. Acute on chronic diastolic congestive heart failure. She had an echocardiogram in 11/01/17, which showed preserved left ventricular ejection fraction 55% and also had a kozrdmhv-yj-pxailr pulmonary hypertension with moderate tricuspid regurgitation and mild/mod MR. acute diastolic chf compensated clinically 2. Anasarca. resolved 3. Chronic kidney disease, stage 4. 4. Chronic obstructive pulmonary disease. 5. Chronic cor pulmonale. 6. Chronic hypoxic respiratory failure. 7. Hypertension. 8. Anemia of chronic disease. 9. Severe protein-calorie malnutrition. expiratory wheezes Plan Plan of Care switch tor oral lasix d/c hickman start duoneb nebulizer rx and budesonide rx consult pulmonary PT and OT palliative care consult for goals of care and code status Comment Review of Relevant I have reviewed the following items brandan (where applicable) has been applied. Labs Laboratory Tests Test 04/17/18 14:47 04/18/18 05:00 04/19/18 06:20 Lactic Acid Level 1.2 mmol/L (0.4-2.0) White Blood Count 6.3 x10^3/uL (4.0-11.0) 7.1 x10^3/uL (4.0-11.0) Red Blood Count 2.53 x10^6/uL (3.50-5.40) 2.89 x10^6/uL (3.50-5.40) Hemoglobin 7.5 g/dL (12.0-15.5) 8.5 g/dL (12.0-15.5) Hematocrit 22.4 % (36.0-47.0) 25.8 % (36.0-47.0) Mean Corpuscular Volume 89 fL (79-100) 89 fL (79-100) Mean Corpuscular Hemoglobin 30 pg (25-35) 29 pg (25-35) Mean Corpuscular Hemoglobin Concent 33 g/dL (31-37) 33 g/dL (31-37) Red Cell Distribution Width 13.8 % (11.5-14.5) 14.2 % (11.5-14.5) Platelet Count 263 x10^3/uL (140-400) 286 x10^3/uL (140-400) Neutrophils (%) (Auto) 53 % (31-73) 56 % (31-73) Lymphocytes (%) (Auto) 30 % (24-48) 27 % (24-48) Monocytes (%) (Auto) 11 % (0-9) 11 % (0-9) Eosinophils (%) (Auto) 6 % (0-3) 6 % (0-3) Basophils (%) (Auto) 0 % (0-3) 0 % (0-3) Neutrophils # (Auto) 3.3 x10^3uL (1.8-7.7) 4.0 x10^3uL (1.8-7.7) Lymphocytes # (Auto) 1.9 x10^3/uL (1.0-4.8) 1.9 x10^3/uL (1.0-4.8) Monocytes # (Auto) 0.7 x10^3/uL (0.0-1.1) 0.8 x10^3/uL (0.0-1.1) Eosinophils # (Auto) 0.4 x10^3/uL (0.0-0.7) 0.4 x10^3/uL (0.0-0.7) Basophils # (Auto) 0.0 x10^3/uL (0.0-0.2) 0.0 x10^3/uL (0.0-0.2) Sodium Level 142 mmol/L (136-145) 141 mmol/L (136-145) Potassium Level 4.1 mmol/L (3.5-5.1) 4.1 mmol/L (3.5-5.1) Chloride Level 102 mmol/L (98-107) 102 mmol/L (98-107) Carbon Dioxide Level 35 mmol/L (21-32) 34 mmol/L (21-32) Anion Gap 5 (6-14) 5 (6-14) Blood Urea Nitrogen 47 mg/dL (7-20) 43 mg/dL (7-20) Creatinine 2.3 mg/dL (0.6-1.0) 2.2 mg/dL (0.6-1.0) Estimated GFR (Cockcroft-Gault) 20.0 21.0 Glucose Level 93 mg/dL (70-99) 127 mg/dL (70-99) Calcium Level 9.3 mg/dL (8.5-10.1) 9.6 mg/dL (8.5-10.1) Magnesium Level 2.2 mg/dL (1.8-2.4) 2.2 mg/dL (1.8-2.4) Iron Level 50 ug/dL (50-170) Total Iron Binding Capacity 225 ug/dL (250-450) Iron Saturation 22 % (15-34) Laboratory Tests Test 04/19/18 06:20 White Blood Count 7.1 x10^3/uL (4.0-11.0) Red Blood Count 2.89 x10^6/uL (3.50-5.40) Hemoglobin 8.5 g/dL (12.0-15.5) Hematocrit 25.8 % (36.0-47.0) Mean Corpuscular Volume 89 fL (79-100) Mean Corpuscular Hemoglobin 29 pg (25-35) Mean Corpuscular Hemoglobin Concent 33 g/dL (31-37) Red Cell Distribution Width 14.2 % (11.5-14.5) Platelet Count 286 x10^3/uL (140-400) Neutrophils (%) (Auto) 56 % (31-73) Lymphocytes (%) (Auto) 27 % (24-48) Monocytes (%) (Auto) 11 % (0-9) Eosinophils (%) (Auto) 6 % (0-3) Basophils (%) (Auto) 0 % (0-3) Neutrophils # (Auto) 4.0 x10^3uL (1.8-7.7) Lymphocytes # (Auto) 1.9 x10^3/uL (1.0-4.8) Monocytes # (Auto) 0.8 x10^3/uL (0.0-1.1) Eosinophils # (Auto) 0.4 x10^3/uL (0.0-0.7) Basophils # (Auto) 0.0 x10^3/uL (0.0-0.2) Sodium Level 141 mmol/L (136-145) Potassium Level 4.1 mmol/L (3.5-5.1) Chloride Level 102 mmol/L (98-107) Carbon Dioxide Level 34 mmol/L (21-32) Anion Gap 5 (6-14) Blood Urea Nitrogen 43 mg/dL (7-20) Creatinine 2.2 mg/dL (0.6-1.0) Estimated GFR (Cockcroft-Gault) 21.0 Glucose Level 127 mg/dL (70-99) Calcium Level 9.6 mg/dL (8.5-10.1) Magnesium Level 2.2 mg/dL (1.8-2.4) Iron Level 50 ug/dL (50-170) Total Iron Binding Capacity 225 ug/dL (250-450) Iron Saturation 22 % (15-34) Microbiology 04/16/18 Urine Culture - Preliminary, Resulted 04/16/18 Urine Culture Result 1 (NIKKI) - Preliminary, Resulted Medications Current Medications Sodium Chloride (Normal Saline Flush) 3 ml PRN DAILY PRN IV AFTER MEDS AND BLOOD DRAWS; Start 04/16/18 at 16:45 Furosemide (Lasix) 80 mg Q8HRS IVP Last administered on 04/17/18at 14:19; Start 04/16/18 at 22:00; Stop 04/17/18 at 15:37; Status DC Amlodipine Besylate (Norvasc) 2.5 mg DAILY PO Last administered on 04/19/18at 08 :43; Start 04/16/18 at 17:30 Clonidine HCl (Catapres) 0.1 mg Q8HRS PO Last administered on 04/19/18at 06:13; Start 04/16/18 at 22:00 Pantoprazole Sodium (PROTONIX VIAL for IV PUSH) 40 mg DAILYAC IVP Last administered on 04/17/18 08:57; Start 04/16/18 at 17:30; Stop 04/17/18 at 14:56 ; Status DC Montelukast Sodium (Singulair) 10 mg QHS PO Last administered on 04/18/18 20: 46; Start 04/16/18 at 21:00 Tamsulosin HCl (Flomax) 0.4 mg DAILY PO Last administered on 04/19/18 09:32; Start 04/16/18 at 17:30 Vitamin D (Vitamin D3) 1,000 unit DAILY PO Last administered on 04/19/18 08:43 ; Start 04/16/18 at 17:30 Acetaminophen (Tylenol) 325 mg PRN Q4HRS PRN PO MILD PAIN / TEMP; Start at 17:00 Acetaminophen (Tylenol) 650 mg PRN Q4HRS PRN PO MILD PAIN Last administered on 04/18/18 01:41; Start 04/16/18 at 17:00 Magnesium Hydroxide (Milk Of Magnesia) 2,400 mg PRN DAILY PRN PO CONSTIPATION; Start 04/16/18 at 17:00 Potassium Chloride (Klor-Con) 10 meq DAILYWBKFT PO Last administered on 07:59; Start 04/16/18 at 17:30 Heparin Sodium (Porcine) (Heparin Sodium) 5,000 unit Q12HR SQ Last administered on 04/19/18 08:50; Start 04/16/18 at 21:00 Albuterol Sulfate (Ventolin Neb Soln) 2.5 mg PRN Q4HRS PRN NEB SHORTNESS OF BREATH Last administered on 04/19/18 08:27; Start 04/17/18 at 10:30 Pantoprazole Sodium (Protonix) 40 mg DAILYAC PO Last administered on 04/19/18 06:14; Start 04/18/18 at 07:30 Furosemide (Lasix) 80 mg BID92 IVP Last administered on 04/18/18 09:18; Start 04/17/18 at 16:00; Stop 04/18/18 at 11:09; Status DC Furosemide (Lasix) 80 mg DAILY IVP Last administered on 04/19/18 08:44; Start 04/19/18 at 09:00 Darbepoetin Gonsalo (Aranesp) 60 mcg Mo SQ ; Start 04/19/18 at 21:00 Active Scripts Active Budesonide 0.5 Mg/2 Ml Ampul.neb 0.5 Mg NEB RTBID 30 Days Furosemide 80 Mg Tablet 80 Mg PO BID92 30 Days Omeprazole 40 Mg Capsule.dr 40 Mg PO DAILY 30 Days Prednisone (Prednisone) 10 Mg Tablet 40 Mg PO DAILY 8 Days Duoneb 0.5-3(2.5) Mg/3 Ml (Albuterol/Ipratropium) 3 Ml Ampul.neb 3 Ml NEB RTQID 30 Days Flomax (Tamsulosin Hcl) 0.4 Mg Cap.er.24h 0.4 Mg PO DAILY 30 Days Reported Proair Respiclick (Albuterol Sulfate) 90 Mcg Aer.pow.ba 1 Puff IH PRN Q4HRS PRN Vitamin D3 (Cholecalciferol (Vitamin D3)) 1,000 Unit Tablet 1 Tab PO DAILY Montelukast Sodium Chew.tablet (Montelukast Sodium) 5 Mg Tab.chew 10 Mg PO HS Senokot (Sennosides) 8.6 Mg Tablet 1 Tab PO BID Miralax (Polyethylene Glycol 3350) 17 Gm Powd.pack 1 Packet PO DAILY Clonidine Hcl 0.1 Mg Tablet 0.1 Mg PO TID Vitals/I & O Vital Sign - Last 24 Hours 04/18/18 04/18/18 04/18/18 04/18/18 10:57 14:00 15:14 19:20 Temp 97.9 98.2 97.9 98.2 Pulse 62 64 64 64 Resp 20 B/P (MAP) 169/52 (91) 147/36 147/36 (73) 147/37 (73) Pulse Ox 98 98 O2 Delivery Nasal Cannula Nasal Cannula Nasal Cannula O2 Flow Rate 2.0 2.0 2.0 04/18/18 04/18/18 04/18/18 04/19/18 20:00 22:31 23:19 03:30 Temp 98.2 97.9 98.2 97.9 Pulse 66 67 63 Resp 18 B/P (MAP) 184/54 184/57 (99) 149/42 (77) Pulse Ox 97 96 O2 Delivery Nasal Cannula Nasal Cannula Nasal Cannula O2 Flow Rate 2.0 2.0 2.0 04/19/18 04/19/18 04/19/18 04/19/18 06:13 07:50 08:29 08:43 Temp 97.7 97.7 Pulse 63 55 64 Resp 16 B/P (MAP) 149/42 118/83 (95) 118/83 Pulse Ox 99 100 O2 Delivery Nasal Cannula Nasal Cannula O2 Flow Rate 2.0 2.0 Intake and Output 04/18/18 04/18/18 04/19/18 15:00 23:00 07:00 Intake Total 135 ml 720 ml 50 ml Output Total 1350 ml Balance 135 ml -630 ml 50 ml HANS ELIZONDO MD Apr 19, 2018 10:32
[2018-04-19] MEDS ORDERED: ALBUTEROL SULFATE 2.5 MG/3 ML NEBU. NEB PRN (10:45)
[2018-04-19 11:22] VITALS: BP 141/52
[2018-04-19] MEDS: BUDESONIDE 0.5 MG/2 ML NEBU. NEB SCH ×2 (11:38→18:39)
[2018-04-19] MEDS: IPRATRPIUM/ALBUTEROL 0.5/2.5MG 3 ML NEBU. NEB SCH ×3 (11:38→18:38)
--- NOTE | 2018-04-19 11:39 | PDOC2 ---
PALLIATIVE CARE Palliative Care Note Palliative Care Consult requested by Dr. Henao to address code status and goals of care Medical Assessment per medical record 1. Acute on chronic diastolic congestive heart failure. She had an echocardiogram in 10/2007, which showed preserved left ventricular ejection fraction 55% and also had a noevjwrl-iz-ocozmd pulmonary hypertension with moderate tricuspid regurgitation. 2. Anasarca. 3. Chronic kidney disease, stage 4. 4. Chronic obstructive pulmonary disease. 5. Chronic cor pulmonale. 6. Chronic hypoxic respiratory failure. 7. Hypertension. 8. Anemia of chronic disease. 9. Severe protein-calorie malnutrition. 1200 Patient is alert and oriented. Lives by herself with support from family. Patient is able to state some of medical condition: "kidney problems, heart problems, breathing problems" Also stated "you know I have cancer--must be lung " Discussed Code Status; States he want resuscitation so she can live to be 88 years old. "It works on TV so I want it so I can live. Discussed risks and benefits. Sons Tim and Christopher and other family members help with care and decisions. Pulmonary Consult pending. PT/OT Will await more information from pulmonology and therapy ALPESH HANNA Apr 19, 2018 11:39
--- NOTE | 2018-04-19 13:47 | PDOC ---
CARDIO Progress Notes Date and Time Date of Service 04/19/2018 Time of Evaluation 1330 Subjective Subjective: No Chest Pain, No shortness of breath, No Palpitations, Other ( trying to sleep, feels much better today) Vitals Vitals Vital Signs Date Time Temp Pulse Resp B/P (MAP) Pulse Ox O2 Delivery O2 Flow Rate FiO2 04/19/18 11:39 100 Nasal Cannula 3.0 04/19/18 11:22 97.9 62 16 141/52 (81) 97.9 Weight Weight [ ] Input and Output Intake and Output Intake and Output 04/19/18 07:00 Intake Total 905 ml Output Total 1350 ml Balance -445 ml Intake Oral 905 ml Output Urine Total 1350 ml # Bowel Movements 1 Laboratory Labs Laboratory Tests Test 04/19/18 06:20 White Blood Count 7.1 x10^3/uL (4.0-11.0) Red Blood Count 2.89 x10^6/uL (3.50-5.40) Hemoglobin 8.5 g/dL (12.0-15.5) Hematocrit 25.8 % (36.0-47.0) Mean Corpuscular Volume 89 fL (79-100) Mean Corpuscular Hemoglobin 29 pg (25-35) Mean Corpuscular Hemoglobin Concent 33 g/dL (31-37) Red Cell Distribution Width 14.2 % (11.5-14.5) Platelet Count 286 x10^3/uL (140-400) Neutrophils (%) (Auto) 56 % (31-73) Lymphocytes (%) (Auto) 27 % (24-48) Monocytes (%) (Auto) 11 % (0-9) Eosinophils (%) (Auto) 6 % (0-3) Basophils (%) (Auto) 0 % (0-3) Neutrophils # (Auto) 4.0 x10^3uL (1.8-7.7) Lymphocytes # (Auto) 1.9 x10^3/uL (1.0-4.8) Monocytes # (Auto) 0.8 x10^3/uL (0.0-1.1) Eosinophils # (Auto) 0.4 x10^3/uL (0.0-0.7) Basophils # (Auto) 0.0 x10^3/uL (0.0-0.2) Sodium Level 141 mmol/L (136-145) Potassium Level 4.1 mmol/L (3.5-5.1) Chloride Level 102 mmol/L (98-107) Carbon Dioxide Level 34 mmol/L (21-32) Anion Gap 5 (6-14) Blood Urea Nitrogen 43 mg/dL (7-20) Creatinine 2.2 mg/dL (0.6-1.0) Estimated GFR (Cockcroft-Gault) 21.0 Glucose Level 127 mg/dL (70-99) Calcium Level 9.6 mg/dL (8.5-10.1) Magnesium Level 2.2 mg/dL (1.8-2.4) Iron Level 50 ug/dL (50-170) Total Iron Binding Capacity 225 ug/dL (250-450) Iron Saturation 22 % (15-34) Microbiology Micro Microbiology 04/16/18 Urine Culture - Preliminary, Resulted 04/16/18 Urine Culture Result 1 (NIKKI) - Preliminary, Resulted Physical Exam HEENT: Neck Supple W Full Motion Chest: Symmetric LUNGS: Other (basilar crackles) Heart: S1S2, RRR (SR with episodes of asymptomlatic SB upper 40s) Abdomen: Soft N/T Extremities: Other (2+ bilateral LE pitting edema) Neurology: alert, oriented, follow commands Assessment Assessment 1. Acute on chronic diastolic heart failure: Recent EF nml. 2. Sndr-ju-cczbrujs mitral regurgitation 3. COPD/cor pulmonale: SOA better 4. Hypertension: Controlled 5. CKD4: Cr at 2.2 6. Protein calorie malnutrition/hypoalbuminemia/anasarca 7. Normocytic anemia: Hgb 8.5 8. Asymptomatic SB. lowest at mid 40s. Mean HR at 60s Recommendations 1. Continue with lasix therapy. Defer adjustment per renal. 2. Bp controlled. Would recommend titrating off clonidine with bradycardia episodes and placing her on full dose norvasc. May add imdur pending BP trend. Will change clonidine to PRN. 3. Supportive care. USAMA CUETO ARCHITECT INTERN Apr 19, 2018 13:46
[2018-04-19] MEDS: FUROSEMIDE 80 MG TABLET. PO SCH (14:25)
[2018-04-19 15:00] VITALS: BP 149/45
--- NOTE | 2018-04-19 16:48 | PDOC ---
PULMONARY PROGRESS NOTES Vitals Vital Signs Date Time Temp Pulse Resp B/P (MAP) Pulse Ox O2 Delivery O2 Flow Rate FiO2 04/19/18 15:38 99 Nasal Cannula 3.0 04/19/18 15:00 98.8 68 16 149/45 (79) 98.8 General: Alert, No acute distress Lungs: Clear Cardiovascular: S1, S2 Abdomen: Soft, Non-tender Extremities: No Edema, Other Labs Laboratory Tests Test 04/18/18 05:00 04/19/18 06:20 White Blood Count 6.3 x10^3/uL (4.0-11.0) 7.1 x10^3/uL (4.0-11.0) Red Blood Count 2.53 x10^6/uL (3.50-5.40) 2.89 x10^6/uL (3.50-5.40) Hemoglobin 7.5 g/dL (12.0-15.5) 8.5 g/dL (12.0-15.5) Hematocrit 22.4 % (36.0-47.0) 25.8 % (36.0-47.0) Mean Corpuscular Volume 89 fL (79-100) 89 fL (79-100) Mean Corpuscular Hemoglobin 30 pg (25-35) 29 pg (25-35) Mean Corpuscular Hemoglobin Concent 33 g/dL (31-37) 33 g/dL (31-37) Red Cell Distribution Width 13.8 % (11.5-14.5) 14.2 % (11.5-14.5) Platelet Count 263 x10^3/uL (140-400) 286 x10^3/uL (140-400) Neutrophils (%) (Auto) 53 % (31-73) 56 % (31-73) Lymphocytes (%) (Auto) 30 % (24-48) 27 % (24-48) Monocytes (%) (Auto) 11 % (0-9) 11 % (0-9) Eosinophils (%) (Auto) 6 % (0-3) 6 % (0-3) Basophils (%) (Auto) 0 % (0-3) 0 % (0-3) Neutrophils # (Auto) 3.3 x10^3uL (1.8-7.7) 4.0 x10^3uL (1.8-7.7) Lymphocytes # (Auto) 1.9 x10^3/uL (1.0-4.8) 1.9 x10^3/uL (1.0-4.8) Monocytes # (Auto) 0.7 x10^3/uL (0.0-1.1) 0.8 x10^3/uL (0.0-1.1) Eosinophils # (Auto) 0.4 x10^3/uL (0.0-0.7) 0.4 x10^3/uL (0.0-0.7) Basophils # (Auto) 0.0 x10^3/uL (0.0-0.2) 0.0 x10^3/uL (0.0-0.2) Sodium Level 142 mmol/L (136-145) 141 mmol/L (136-145) Potassium Level 4.1 mmol/L (3.5-5.1) 4.1 mmol/L (3.5-5.1) Chloride Level 102 mmol/L (98-107) 102 mmol/L (98-107) Carbon Dioxide Level 35 mmol/L (21-32) 34 mmol/L (21-32) Anion Gap 5 (6-14) 5 (6-14) Blood Urea Nitrogen 47 mg/dL (7-20) 43 mg/dL (7-20) Creatinine 2.3 mg/dL (0.6-1.0) 2.2 mg/dL (0.6-1.0) Estimated GFR (Cockcroft-Gault) 20.0 21.0 Glucose Level 93 mg/dL (70-99) 127 mg/dL (70-99) Calcium Level 9.3 mg/dL (8.5-10.1) 9.6 mg/dL (8.5-10.1) Magnesium Level 2.2 mg/dL (1.8-2.4) 2.2 mg/dL (1.8-2.4) Iron Level 50 ug/dL (50-170) Total Iron Binding Capacity 225 ug/dL (250-450) Iron Saturation 22 % (15-34) Laboratory Tests Test 04/19/18 06:20 White Blood Count 7.1 x10^3/uL (4.0-11.0) Red Blood Count 2.89 x10^6/uL (3.50-5.40) Hemoglobin 8.5 g/dL (12.0-15.5) Hematocrit 25.8 % (36.0-47.0) Mean Corpuscular Volume 89 fL (79-100) Mean Corpuscular Hemoglobin 29 pg (25-35) Mean Corpuscular Hemoglobin Concent 33 g/dL (31-37) Red Cell Distribution Width 14.2 % (11.5-14.5) Platelet Count 286 x10^3/uL (140-400) Neutrophils (%) (Auto) 56 % (31-73) Lymphocytes (%) (Auto) 27 % (24-48) Monocytes (%) (Auto) 11 % (0-9) Eosinophils (%) (Auto) 6 % (0-3) Basophils (%) (Auto) 0 % (0-3) Neutrophils # (Auto) 4.0 x10^3uL (1.8-7.7) Lymphocytes # (Auto) 1.9 x10^3/uL (1.0-4.8) Monocytes # (Auto) 0.8 x10^3/uL (0.0-1.1) Eosinophils # (Auto) 0.4 x10^3/uL (0.0-0.7) Basophils # (Auto) 0.0 x10^3/uL (0.0-0.2) Sodium Level 141 mmol/L (136-145) Potassium Level 4.1 mmol/L (3.5-5.1) Chloride Level 102 mmol/L (98-107) Carbon Dioxide Level 34 mmol/L (21-32) Anion Gap 5 (6-14) Blood Urea Nitrogen 43 mg/dL (7-20) Creatinine 2.2 mg/dL (0.6-1.0) Estimated GFR (Cockcroft-Gault) 21.0 Glucose Level 127 mg/dL (70-99) Calcium Level 9.6 mg/dL (8.5-10.1) Magnesium Level 2.2 mg/dL (1.8-2.4) Iron Level 50 ug/dL (50-170) Total Iron Binding Capacity 225 ug/dL (250-450) Iron Saturation 22 % (15-34) Medications Active Scripts Medications Dose Route/Sig Max Daily Dose Days Date Category Proair Respiclick (Albuterol Sulfate) 90 Mcg Aer.pow.ba 1 Puff IH PRN Q4HRS PRN 02/05/18 Reported Vitamin D3 (Cholecalciferol (Vitamin D3)) 1,000 Unit Tablet 1 Tab PO DAILY 02/05/18 Reported Montelukast Sodium Chew.tablet (Montelukast Sodium) 5 Mg Tab.chew 10 Mg PO HS 02/05/18 Reported Budesonide 0.5 Mg/2 Ml Ampul.neb 0.5 Mg NEB RTBID 30 01/13/18 Rx Furosemide 80 Mg Tablet 80 Mg PO BID92 30 01/13/18 Rx Omeprazole 40 Mg Capsule.dr 40 Mg PO DAILY 30 01/13/18 Rx Prednisone (Prednisone) 10 Mg Tablet 40 Mg PO DAILY 8 12/21/17 Rx Duoneb 0.5-3(2.5) Mg/3 Ml (Albuterol/Ipratropium) 3 Ml Ampul.neb 3 Ml NEB RTQID 30 12/21/17 Rx Senokot (Sennosides) 8.6 Mg Tablet 1 Tab PO BID 12/17/17 Reported Miralax (Polyethylene Glycol 3350) 17 Gm Powd.pack 1 Packet PO DAILY 12/17/17 Reported Flomax (Tamsulosin Hcl) 0.4 Mg Cap.er.24h 0.4 Mg PO DAILY 30 10/27/17 Rx Clonidine Hcl 0.1 Mg Tablet 0.1 Mg PO TID 08/24/17 Reported Impression . NOTE DICTATED WILL REVIEW MY OFFICE NOTES I BELIEVE PT AND FAMILY DECIDED NOT TO WORK UP THE NODULE NO CLINICAL SIGN OF PNEUMONIA IMPRESSION: 1. New small bilateral pleural effusions with adjacent compressive atelectasis versus pulmonary infiltrates. Multifocal patchy areas of airspace consolidation along the subpleural lower lobes favors pulmonary infiltrates. There is bronchial wall thickening suggestive of bronchitis. 2. Marginal increase in size of a previously 7 mm solid noncalcific pulmonary nodule, currently measuring 10 mm in the left upper lobe. Adjacent nodule measures 6 mm and is stable. Attention on follow-up exams is recommended. Consideration may be given for PET/CT or tissue sampling once acute inflammatory changes have resolved. 3. Moderate centrilobular pulmonary emphysema. 4. Stable thyroid nodules with a posterior right thyroid nodule extending posterior to the trachea. KATALINA LE MD Apr 19, 2018 16:48
[2018-04-19 19:00] VITALS: BP 134/44
[2018-04-19] MEDS: MONTELUKAST SODIUM 10 MG TABLET. PO SCH (20:27)
[2018-04-19] MEDS ORDERED: DARBEPOETIN ALFA 60 MCG/0.3 ML DISP.SYRIN. SQ SCH (21:00)
--- NOTE | 2018-04-19 22:20 | CONS ---
DATE OF CONSULTATION: 04/19/2018 ATTENDING PHYSICIAN: Dr. Henao. REASON FOR CONSULTATION: The patient is seen in pulmonary consultation at the request of Dr. Henao for abnormal chest x-ray. HISTORY OF PRESENT ILLNESS: The patient is an 87-year-old well known to me from previous hospitalization and outpatient department. She actually presented back in December with abnormal CT of the chest. There was a 7-mm noncalcified pulmonary nodule, which had increased in size to 10 mm. The patient followed up in my office. I do not recall the specifics, but I believe we elected not to proceed with a repeat CT. I will have to get my office notes. The patient at this time presented because of increasing lower extremity edema and some shortness of breath, no fever, chills. No productive cough. Her x-ray actually reveals evidence of CHF. She normally wears 2-4 liters of oxygen at home. She takes furosemide. PAST MEDICAL HISTORY: Otherwise remarkable for chronic heart failure, chronic respiratory failure, chronic kidney disease, hypertension, hyperlipidemia, obstructive sleep apnea, noncompliant with CPAP. PAST SURGICAL HISTORY: Status post abdominal hernia repair, hysterectomy, cataract extraction, release of bowel due to adhesions in 2007. SOCIAL HISTORY: She continues to smoke on a daily basis approximately 3-5 cigarettes per day. FAMILY HISTORY: Noncontributory in this age group. REVIEW OF SYSTEMS: CONSTITUTIONAL: No fever or chills. EYES: No changes in visual acuity. HEENT: No nasal congestion, no sore throat. PULMONARY: As indicated above. CARDIOVASCULAR: No chest pain or pressure. GASTROINTESTINAL: No nausea, vomiting, or diarrhea. GENITOURINARY: No dysuria or frequency. MUSCULOSKELETAL: No localized muscle aches or joint pains. SKIN: No new skin lesions. PHYSICAL EXAMINATION: GENERAL: The patient was in no respiratory distress. VITAL SIGNS: Stable. O2 saturation was greater than 92%, currently on 2 liters. HEENT: Eyes, the sclerae were nonicteric. NECK: Jugular venous distention was not elevated. No lymphadenopathy. CHEST: Full expansion. LUNGS: Crackles in the bases, otherwise no wheezes. CARDIOVASCULAR: Regular rate and rhythm with S1, S2, no S3. ABDOMEN: Soft, nontender, nondistended. EXTREMITIES: No clubbing, cyanosis or edema. NEUROLOGIC: The patient was awake, alert, following commands. A detailed neuro exam was not performed. LABORATORY DATA: Reviewed. White count was normal. Electrolytes were normal. BUN and creatinine were elevated. UA was noted. Chest x-ray revealed possible right upper lobe infiltrate in addition to the CHF. Venous Dopplers of the lower extremities were negative for DVT. IMPRESSION: 1. Acute on chronic diastolic heart failure. 2. Anasarca. 3. Chronic kidney stage 4. 4. Chronic obstructive pulmonary disease with mild acute exacerbation. 5. Chronic hypoxemic respiratory failure. 6. Hypertension. 7. Anemia of chronic disease. 8. Severe protein malnutrition, present upon admission. 9. Abnormal chest revealing possible right upper lobe infiltrate. 10. Previously abnormal CT chest dated back to December revealing pulmonary nodules which had increased in size on the left upper lobe. PLAN: 1. As indicated above, the patient is followed up with me in the office, I do not recall the specifics, but I believe we elected not to proceed with aggressive measures, despite the fact that this could be a malignant process. 2. We will obtain office notes and make further recommendations. 3. Diurese and follow Nephrology input. 4. Noted that palliative care has been consulted. 5. Suspect the patient will be discharged home within the next 24-48 hours; it appears that [facility] has stated that she could be discharged. I do appreciate the privilege in sharing this patient's care. KATALINA LE MD DR: LUCINDA/jessica JOB#: [id number] / [id number]
[2018-04-19 23:00] VITALS: BP 130/51
[2018-04-19] MEDS ORDERED: ONDANSETRON ODT 4 MG TAB.RAPDIS. PO PRN (23:15)
[2018-04-20 03:00] VITALS: BP 131/56
[2018-04-20] MEDS: ACETAMINOPHEN 325 MG TABLET. PO PRN (03:08)
[2018-04-20 03:49] LABS: BASO % 0 % (0-3); EOS # 0.4 x10^3/uL (0.0-0.7); EOS % 7 % (0-3); HEMATOCRIT 23.4 % (36.0-47.0); HEMOGLOBIN 7.7 g/dL (12.0-15.5); LYMPH # 1.6 x10^3/uL (1.0-4.8); LYMPH % 27 % (24-48); MEAN CORPUSCULAR HEMOGLOBIN 29 pg (25-35); MEAN CORPUSCULAR HGB CONC 33 g/dL (31-37); MEAN CORPUSCULAR VOLUME 89 fL (79-100); MONO # 0.6 x10^3/uL (0.0-1.1); MONO % 10 % (0-9); NEUT # 3.5 x10^3uL (1.8-7.7); NEUT % 56 % (31-73); PLATELET COUNT 271 x10^3/uL (140-400); RED BLOOD COUNT 2.63 x10^6/uL (3.50-5.40); RED CELL DISTRIBUTION WIDTH 14.1 % (11.5-14.5); WHITE BLOOD COUNT 6.1 x10^3/uL (4.0-11.0)
[2018-04-20 04:04] LABS: CALCIUM 9.5 mg/dL (8.5-10.1); CREATININE 2.3 mg/dL (0.6-1.0); MAGNESIUM 2.2 mg/dL (1.8-2.4); POTASSIUM 4.8 mmol/L (3.5-5.1)
[2018-04-20 07:00] VITALS: BP 143/34
[2018-04-20] MEDS: IPRATRPIUM/ALBUTEROL 0.5/2.5MG 3 ML NEBU. NEB SCH (07:16)
[2018-04-20] MEDS: BUDESONIDE 0.5 MG/2 ML NEBU. NEB SCH (07:17)
[2018-04-20] MEDS: PANTOPRAZOLE 40 MG TABLET.DR. PO SCH (08:23)
[2018-04-20] MEDS: POTASSIUM CHLORIDE 10 MEQ TABLET.ER. PO SCH (08:23)
--- NOTE | 2018-04-20 08:36 | PDOC ---
PULMONARY PROGRESS NOTES Vitals Vital Signs Date Time Temp Pulse Resp B/P (MAP) Pulse Ox O2 Delivery O2 Flow Rate FiO2 04/20/18 07:00 97.9 63 20 143/34 (70) 97 Nasal Cannula 2.0 97.9 General: Alert, No acute distress Lungs: Clear Cardiovascular: S1, S2 Abdomen: Soft, Non-tender Extremities: No Edema, Other Labs Laboratory Tests Test 04/19/18 06:20 04/20/18 03:00 White Blood Count 7.1 x10^3/uL (4.0-11.0) 6.1 x10^3/uL (4.0-11.0) Red Blood Count 2.89 x10^6/uL (3.50-5.40) 2.63 x10^6/uL (3.50-5.40) Hemoglobin 8.5 g/dL (12.0-15.5) 7.7 g/dL (12.0-15.5) Hematocrit 25.8 % (36.0-47.0) 23.4 % (36.0-47.0) Mean Corpuscular Volume 89 fL (79-100) 89 fL (79-100) Mean Corpuscular Hemoglobin 29 pg (25-35) 29 pg (25-35) Mean Corpuscular Hemoglobin Concent 33 g/dL (31-37) 33 g/dL (31-37) Red Cell Distribution Width 14.2 % (11.5-14.5) 14.1 % (11.5-14.5) Platelet Count 286 x10^3/uL (140-400) 271 x10^3/uL (140-400) Neutrophils (%) (Auto) 56 % (31-73) 56 % (31-73) Lymphocytes (%) (Auto) 27 % (24-48) 27 % (24-48) Monocytes (%) (Auto) 11 % (0-9) 10 % (0-9) Eosinophils (%) (Auto) 6 % (0-3) 7 % (0-3) Basophils (%) (Auto) 0 % (0-3) 0 % (0-3) Neutrophils # (Auto) 4.0 x10^3uL (1.8-7.7) 3.5 x10^3uL (1.8-7.7) Lymphocytes # (Auto) 1.9 x10^3/uL (1.0-4.8) 1.6 x10^3/uL (1.0-4.8) Monocytes # (Auto) 0.8 x10^3/uL (0.0-1.1) 0.6 x10^3/uL (0.0-1.1) Eosinophils # (Auto) 0.4 x10^3/uL (0.0-0.7) 0.4 x10^3/uL (0.0-0.7) Basophils # (Auto) 0.0 x10^3/uL (0.0-0.2) 0.0 x10^3/uL (0.0-0.2) Sodium Level 141 mmol/L (136-145) 144 mmol/L (136-145) Potassium Level 4.1 mmol/L (3.5-5.1) 4.8 mmol/L (3.5-5.1) Chloride Level 102 mmol/L (98-107) 103 mmol/L (98-107) Carbon Dioxide Level 34 mmol/L (21-32) 38 mmol/L (21-32) Anion Gap 5 (6-14) 3 (6-14) Blood Urea Nitrogen 43 mg/dL (7-20) 44 mg/dL (7-20) Creatinine 2.2 mg/dL (0.6-1.0) 2.3 mg/dL (0.6-1.0) Estimated GFR (Cockcroft-Gault) 21.0 20.0 Glucose Level 127 mg/dL (70-99) 100 mg/dL (70-99) Calcium Level 9.6 mg/dL (8.5-10.1) 9.5 mg/dL (8.5-10.1) Magnesium Level 2.2 mg/dL (1.8-2.4) 2.2 mg/dL (1.8-2.4) Iron Level 50 ug/dL (50-170) Total Iron Binding Capacity 225 ug/dL (250-450) Iron Saturation 22 % (15-34) Laboratory Tests Test 04/20/18 03:00 White Blood Count 6.1 x10^3/uL (4.0-11.0) Red Blood Count 2.63 x10^6/uL (3.50-5.40) Hemoglobin 7.7 g/dL (12.0-15.5) Hematocrit 23.4 % (36.0-47.0) Mean Corpuscular Volume 89 fL (79-100) Mean Corpuscular Hemoglobin 29 pg (25-35) Mean Corpuscular Hemoglobin Concent 33 g/dL (31-37) Red Cell Distribution Width 14.1 % (11.5-14.5) Platelet Count 271 x10^3/uL (140-400) Neutrophils (%) (Auto) 56 % (31-73) Lymphocytes (%) (Auto) 27 % (24-48) Monocytes (%) (Auto) 10 % (0-9) Eosinophils (%) (Auto) 7 % (0-3) Basophils (%) (Auto) 0 % (0-3) Neutrophils # (Auto) 3.5 x10^3uL (1.8-7.7) Lymphocytes # (Auto) 1.6 x10^3/uL (1.0-4.8) Monocytes # (Auto) 0.6 x10^3/uL (0.0-1.1) Eosinophils # (Auto) 0.4 x10^3/uL (0.0-0.7) Basophils # (Auto) 0.0 x10^3/uL (0.0-0.2) Sodium Level 144 mmol/L (136-145) Potassium Level 4.8 mmol/L (3.5-5.1) Chloride Level 103 mmol/L (98-107) Carbon Dioxide Level 38 mmol/L (21-32) Anion Gap 3 (6-14) Blood Urea Nitrogen 44 mg/dL (7-20) Creatinine 2.3 mg/dL (0.6-1.0) Estimated GFR (Cockcroft-Gault) 20.0 Glucose Level 100 mg/dL (70-99) Calcium Level 9.5 mg/dL (8.5-10.1) Magnesium Level 2.2 mg/dL (1.8-2.4) Medications Active Scripts Medications Dose Route/Sig Max Daily Dose Days Date Category Proair Respiclick (Albuterol Sulfate) 90 Mcg Aer.pow.ba 1 Puff IH PRN Q4HRS PRN 02/05/18 Reported Vitamin D3 (Cholecalciferol (Vitamin D3)) 1,000 Unit Tablet 1 Tab PO DAILY 02/05/18 Reported Montelukast Sodium Chew.tablet (Montelukast Sodium) 5 Mg Tab.chew 10 Mg PO HS 02/05/18 Reported Budesonide 0.5 Mg/2 Ml Ampul.neb 0.5 Mg NEB RTBID 30 01/13/18 Rx Furosemide 80 Mg Tablet 80 Mg PO BID92 30 01/13/18 Rx Omeprazole 40 Mg Capsule.dr 40 Mg PO DAILY 30 01/13/18 Rx Prednisone (Prednisone) 10 Mg Tablet 40 Mg PO DAILY 8 12/21/17 Rx Duoneb 0.5-3(2.5) Mg/3 Ml (Albuterol/Ipratropium) 3 Ml Ampul.neb 3 Ml NEB RTQID 30 12/21/17 Rx Senokot (Sennosides) 8.6 Mg Tablet 1 Tab PO BID 12/17/17 Reported Miralax (Polyethylene Glycol 3350) 17 Gm Powd.pack 1 Packet PO DAILY 12/17/17 Reported Flomax (Tamsulosin Hcl) 0.4 Mg Cap.er.24h 0.4 Mg PO DAILY 30 10/27/17 Rx Clonidine Hcl 0.1 Mg Tablet 0.1 Mg PO TID 08/24/17 Reported Impression . NOTE DICTATED WILL REVIEW MY OFFICE NOTES I BELIEVE PT AND FAMILY DECIDED NOT TO WORK UP THE NODULE NO CLINICAL SIGN OF PNEUMONIA IMPRESSION: 1. New small bilateral pleural effusions with adjacent compressive atelectasis versus pulmonary infiltrates. Multifocal patchy areas of airspace consolidation along the subpleural lower lobes favors pulmonary infiltrates. There is bronchial wall thickening suggestive of bronchitis. 2. Marginal increase in size of a previously 7 mm solid noncalcific pulmonary nodule, currently measuring 10 mm in the left upper lobe. Adjacent nodule measures 6 mm and is stable. Attention on follow-up exams is recommended. Consideration may be given for PET/CT or tissue sampling once acute inflammatory changes have resolved. 3. Moderate centrilobular pulmonary emphysema. 4. Stable thyroid nodules with a posterior right thyroid nodule extending posterior to the trachea. KATALINA LE MD Apr 20, 2018 08:36
[2018-04-20] MEDS: FUROSEMIDE 80 MG TABLET. PO SCH (09:00)
[2018-04-20] MEDS ORDERED: amLODIPine BESYLATE 10 MG TABLET PO SCH (09:00)
[2018-04-20] MEDS: CHOLECALCIFEROL (VITAMIN D3) 1,000 UNIT TABLET PO SCH (09:18)
[2018-04-20] MEDS: TAMSULOSIN 0.4 MG CAP.ER.24H. PO SCH (09:18)
[2018-04-20] MEDS: HEPARIN for SUB-Q USE 5,000 UNIT/ML VIAL. SQ SCH (09:26)
--- NOTE | 2018-04-20 09:49 | PDOC ---
PROGRESS NOTES Subjective Subjective feels better. lab unchanged and stable. wants to go home. seen by dr. napier. Objective Objective Vital Signs Date Time Temp Pulse Resp B/P (MAP) Pulse Ox O2 Delivery O2 Flow Rate FiO2 04/20/18 07:20 99 Nasal Cannula 3.0 04/20/18 07:00 97.9 63 20 143/34 (70) 97.9 Intake and Output 04/20/18 07:00 Intake Total 1773 ml Output Total 1900 ml Balance -127 ml Intake Oral 1773 ml Output Urine Total 1900 ml # Voids 5 Physical Exam Abdomen: Soft Heart: Regular rate, Normal S1, Normal S2 Extremities: No edema General: Alert HEENT: Atraumatic Lungs: Other (mild expiratory wheezes) Neuro: Normal speech Psych/Mental Status: Mental status NL Skin: No rashes Assessment Assessment 1. Acute on chronic diastolic congestive heart failure. She had an echocardiogram in 11/01/17, which showed preserved left ventricular ejection fraction 55% and also had a [id number] pulmonary hypertension with moderate tricuspid regurgitation and mild/mod MR. acute diastolic chf compensated clinically 2. Anasarca. resolved 3. Chronic kidney disease, stage 4. 4. Chronic obstructive pulmonary disease.with mild exacerbation 5. Chronic cor pulmonale. 6. Chronic hypoxic respiratory failure. 7. Hypertension. 8. Anemia of chronic disease. 9. Severe protein-calorie malnutrition. Plan Plan of Care dismiss today Comment Review of Relevant I have reviewed the following items brandan (where applicable) has been applied. Labs Laboratory Tests Test 04/19/18 06:20 04/20/18 03:00 White Blood Count 7.1 x10^3/uL (4.0-11.0) 6.1 x10^3/uL (4.0-11.0) Red Blood Count 2.89 x10^6/uL (3.50-5.40) 2.63 x10^6/uL (3.50-5.40) Hemoglobin 8.5 g/dL (12.0-15.5) 7.7 g/dL (12.0-15.5) Hematocrit 25.8 % (36.0-47.0) 23.4 % (36.0-47.0) Mean Corpuscular Volume 89 fL (79-100) 89 fL (79-100) Mean Corpuscular Hemoglobin 29 pg (25-35) 29 pg (25-35) Mean Corpuscular Hemoglobin Concent 33 g/dL (31-37) 33 g/dL (31-37) Red Cell Distribution Width 14.2 % (11.5-14.5) 14.1 % (11.5-14.5) Platelet Count 286 x10^3/uL (140-400) 271 x10^3/uL (140-400) Neutrophils (%) (Auto) 56 % (31-73) 56 % (31-73) Lymphocytes (%) (Auto) 27 % (24-48) 27 % (24-48) Monocytes (%) (Auto) 11 % (0-9) 10 % (0-9) Eosinophils (%) (Auto) 6 % (0-3) 7 % (0-3) Basophils (%) (Auto) 0 % (0-3) 0 % (0-3) Neutrophils # (Auto) 4.0 x10^3uL (1.8-7.7) 3.5 x10^3uL (1.8-7.7) Lymphocytes # (Auto) 1.9 x10^3/uL (1.0-4.8) 1.6 x10^3/uL (1.0-4.8) Monocytes # (Auto) 0.8 x10^3/uL (0.0-1.1) 0.6 x10^3/uL (0.0-1.1) Eosinophils # (Auto) 0.4 x10^3/uL (0.0-0.7) 0.4 x10^3/uL (0.0-0.7) Basophils # (Auto) 0.0 x10^3/uL (0.0-0.2) 0.0 x10^3/uL (0.0-0.2) Sodium Level 141 mmol/L (136-145) 144 mmol/L (136-145) Potassium Level 4.1 mmol/L (3.5-5.1) 4.8 mmol/L (3.5-5.1) Chloride Level 102 mmol/L (98-107) 103 mmol/L (98-107) Carbon Dioxide Level 34 mmol/L (21-32) 38 mmol/L (21-32) Anion Gap 5 (6-14) 3 (6-14) Blood Urea Nitrogen 43 mg/dL (7-20) 44 mg/dL (7-20) Creatinine 2.2 mg/dL (0.6-1.0) 2.3 mg/dL (0.6-1.0) Estimated GFR (Cockcroft-Gault) 21.0 20.0 Glucose Level 127 mg/dL (70-99) 100 mg/dL (70-99) Calcium Level 9.6 mg/dL (8.5-10.1) 9.5 mg/dL (8.5-10.1) Magnesium Level 2.2 mg/dL (1.8-2.4) 2.2 mg/dL (1.8-2.4) Iron Level 50 ug/dL (50-170) Total Iron Binding Capacity 225 ug/dL (250-450) Iron Saturation 22 % (15-34) Laboratory Tests Test 04/20/18 03:00 White Blood Count 6.1 x10^3/uL (4.0-11.0) Red Blood Count 2.63 x10^6/uL (3.50-5.40) Hemoglobin 7.7 g/dL (12.0-15.5) Hematocrit 23.4 % (36.0-47.0) Mean Corpuscular Volume 89 fL (79-100) Mean Corpuscular Hemoglobin 29 pg (25-35) Mean Corpuscular Hemoglobin Concent 33 g/dL (31-37) Red Cell Distribution Width 14.1 % (11.5-14.5) Platelet Count 271 x10^3/uL (140-400) Neutrophils (%) (Auto) 56 % (31-73) Lymphocytes (%) (Auto) 27 % (24-48) Monocytes (%) (Auto) 10 % (0-9) Eosinophils (%) (Auto) 7 % (0-3) Basophils (%) (Auto) 0 % (0-3) Neutrophils # (Auto) 3.5 x10^3uL (1.8-7.7) Lymphocytes # (Auto) 1.6 x10^3/uL (1.0-4.8) Monocytes # (Auto) 0.6 x10^3/uL (0.0-1.1) Eosinophils # (Auto) 0.4 x10^3/uL (0.0-0.7) Basophils # (Auto) 0.0 x10^3/uL (0.0-0.2) Sodium Level 144 mmol/L (136-145) Potassium Level 4.8 mmol/L (3.5-5.1) Chloride Level 103 mmol/L (98-107) Carbon Dioxide Level 38 mmol/L (21-32) Anion Gap 3 (6-14) Blood Urea Nitrogen 44 mg/dL (7-20) Creatinine 2.3 mg/dL (0.6-1.0) Estimated GFR (Cockcroft-Gault) 20.0 Glucose Level 100 mg/dL (70-99) Calcium Level 9.5 mg/dL (8.5-10.1) Magnesium Level 2.2 mg/dL (1.8-2.4) Microbiology 04/16/18 Urine Culture - Final, Complete 04/16/18 Urine Culture Result 1 (NIKKI) - Final, Complete 04/16/18 Urine Culture Result 2 (NIKKI) - Final, Complete 04/16/18 Antimicrobic Susceptibility - Final, Complete Medications Current Medications Sodium Chloride (Normal Saline Flush) 3 ml PRN DAILY PRN IV AFTER MEDS AND BLOOD DRAWS; Start 04/16/18 at 16:45 Furosemide (Lasix) 80 mg Q8HRS IVP Last administered on 04/17/18at 14:19; Start 04/16/18 at 22:00; Stop 04/17/18 at 15:37; Status DC Amlodipine Besylate (Norvasc) 2.5 mg DAILY PO Last administered on 04/19/18at 08 :43; Start 04/16/18 at 17:30; Stop 04/19/18 at 14:57; Status DC Clonidine HCl (Catapres) 0.1 mg Q8HRS PO Last administered on 04/19/18at 14:25; Start 04/16/18 at 22:00; Stop 04/19/18 at 14:57; Status DC Pantoprazole Sodium (PROTONIX VIAL for IV PUSH) 40 mg DAILYAC IVP Last administered on 04/17/18at 08:57; Start 04/16/18 at 17:30; Stop 04/17/18 at 14:56 ; Status DC Montelukast Sodium (Singulair) 10 mg QHS PO Last administered on 04/19/18 20: 27; Start 04/16/18 at 21:00 Tamsulosin HCl (Flomax) 0.4 mg DAILY PO Last administered on 04/20/18 09:18; Start 04/16/18 at 17:30 Vitamin D (Vitamin D3) 1,000 unit DAILY PO Last administered on 04/20/18 09:18 ; Start 04/16/18 at 17:30 Acetaminophen (Tylenol) 325 mg PRN Q4HRS PRN PO MILD PAIN / TEMP; Start at 17:00 Acetaminophen (Tylenol) 650 mg PRN Q4HRS PRN PO MILD PAIN Last administered on 04/20/18 03:08; Start 04/16/18 at 17:00 Magnesium Hydroxide (Milk Of Magnesia) 2,400 mg PRN DAILY PRN PO CONSTIPATION; Start 04/16/18 at 17:00 Potassium Chloride (Klor-Con) 10 meq [id number] PO Last administered on 08:23; Start 04/16/18 at 17:30 Heparin Sodium (Porcine) (Heparin Sodium) 5,000 unit Q12HR SQ Last administered on 04/20/18 09:26; Start 04/16/18 at 21:00 Albuterol Sulfate (Ventolin Neb Soln) 2.5 mg PRN Q4HRS PRN NEB SHORTNESS OF BREATH Last administered on 04/19/18 08:27; Start 04/17/18 at 10:30; Stop 04/19 at 10:27; Status DC Pantoprazole Sodium (Protonix) 40 mg DAILYAC PO Last administered on 04/20/18 08:23; Start 04/18/18 at 07:30 Furosemide (Lasix) 80 mg BID92 IVP Last administered on 04/18/18 09:18; Start 04/17/18 at 16:00; Stop 04/18/18 at 11:09; Status DC Furosemide (Lasix) 80 mg DAILY IVP Last administered on 04/19/18 08:44; Start 04/19/18 at 09:00; Stop 04/19/18 at 10:27; Status DC Darbepoetin Gonsalo (Aranesp) 60 mcg Mo SQ Last administered on 11/5/18at 20:26; Start 04/19/18 at 21:00 Albuterol/ Ipratropium (Duoneb) 3 ml RTQID NEB Last administered on 04/20/18at 07:16; Start 04/19/18 at 12:00 Albuterol Sulfate (Ventolin Neb Soln) 2.5 mg PRN Q4HRS PRN NEB WHEEZING; Start 04/19/18 at 10:45 Furosemide (Lasix) 80 mg [id number] PO Last administered on 04/19/18at 14:25; Start 04/19/18 at 14:00 Budesonide (Pulmicort) 0.5 mg RTBID NEB Last administered on 04/20/18at 07:17; Start 04/19/18 at 11:00 Amlodipine Besylate (Norvasc) 10 mg DAILY PO ; Start 04/20/18 at 09:00 Clonidine HCl (Catapres) 0.1 mg PRN Q6HRS PRN PO HTN; Start 04/20/18 at 14:00 Ondansetron HCl (Zofran Odt) 4 mg PRN Q6HRS PRN PO NAUSEA/VOMITING Last administered on 04/19/18at 23:19; Start 04/19/18 at 23:15 Active Scripts Active Budesonide 0.5 Mg/2 Ml Ampul.neb 0.5 Mg NEB RTBID 30 Days Furosemide 80 Mg Tablet 80 Mg PO BID92 30 Days Omeprazole 40 Mg Capsule.dr 40 Mg PO DAILY 30 Days Prednisone (Prednisone) 10 Mg Tablet 40 Mg PO DAILY 8 Days Duoneb 0.5-3(2.5) Mg/3 Ml (Albuterol/Ipratropium) 3 Ml Ampul.neb 3 Ml NEB RTQID 30 Days Flomax (Tamsulosin Hcl) 0.4 Mg Cap.er.24h 0.4 Mg PO DAILY 30 Days Reported Proair Respiclick (Albuterol Sulfate) 90 Mcg Aer.pow.ba 1 Puff IH PRN Q4HRS PRN Vitamin D3 (Cholecalciferol (Vitamin D3)) 1,000 Unit Tablet 1 Tab PO DAILY Montelukast Sodium Chew.tablet (Montelukast Sodium) 5 Mg Tab.chew 10 Mg PO HS Senokot (Sennosides) 8.6 Mg Tablet 1 Tab PO BID Miralax (Polyethylene Glycol 3350) 17 Gm Powd.pack 1 Packet PO DAILY Clonidine Hcl 0.1 Mg Tablet 0.1 Mg PO TID Vitals/I & O Vital Sign - Last 24 Hours 04/19/18 04/19/18 04/19/18 04/19/18 11:22 11:39 14:25 15:00 Temp 97.9 98.8 97.9 98.8 Pulse 62 62 68 Resp 16 16 B/P (MAP) 141/52 (81) 141/52 149/45 (79) Pulse Ox 99 100 97 O2 Delivery Room Air Nasal Cannula Room Air O2 Flow Rate 3.0 04/19/18 04/19/18 04/19/18 04/19/18 15:38 19:00 20:00 23:00 Temp 97.9 97.7 97.9 97.7 Pulse 64 64 Resp 16 18 B/P (MAP) 134/44 (74) 130/51 (77) Pulse Ox 99 100 100 O2 Delivery Nasal Cannula Room Air Nasal Cannula Room Air O2 Flow Rate 3.0 3.0 04/20/18 04/20/18 04/20/18 03:00 07:00 07:20 Temp 97.7 97.9 97.7 97.9 Pulse 60 63 Resp 18 20 B/P (MAP) 131/56 (81) 143/34 (70) Pulse Ox 100 97 99 O2 Delivery Room Air Nasal Cannula Nasal Cannula O2 Flow Rate 2.0 3.0 Intake and Output 04/19/18 04/19/18 04/20/18 15:00 23:00 07:00 Intake Total 573 ml 1000 ml 200 ml Output Total 450 ml 1100 ml 350 ml Balance 123 ml -100 ml -150 ml HANS ELIZONDO MD Apr 20, 2018 09:48
[2018-04-20] MEDS ORDERED: POTA10TA12 PO (09:57)
[2018-04-20] MEDS ORDERED: Pantoprazole PO (09:57)
[2018-04-20] MEDS ORDERED: AMLO2.5T3 PO (09:57)
--- NOTE | 2018-04-20 09:59 | DISCH ---
DISCHARGE WITH HOME HEALTH DISCHARGE INFORMATION: Discharge Date: Apr 20, 2018 Final Diagnosis: acute on chronic diastolic congestive heart failure Condition on Discharge: Stable CODE STATUS: Code Status: Full HOME HEALTH: Face to Face: I certify this patient is under my care and that I, or a nurse practitioner or physician's billing and accounting staff assistant working with me, had a face to face encounter that meets the physician face to face encounter requirements with this patient on [04/20/18] . Medical Complications: CHF, COPD Physical Therapy For: Evalulation/Treatment Occupational Therapy For: Evaluation/Treatment POST DISCHARGE ORDERS: Activity Instructions for Disc: Activity as tolerated Weight Bearing Status after Di: As tolerated DIET AFTER DISCHARGE: Cardiac CHECKS AFTER DISCHARGE: Checks after discharge: Check blood press - daily, Check your Temp as needed FOLLOW-UP: Follow up with: dr. elizondo next week TREATMENT/EQUIPMENT ORDERS: Adaptive Equipment Issued: None Discharge Respiratory Equipmen: Oxygen CERTIFICATION STATEMENT: Certification Statement: Certification Statement: Based on the above finding, I certify that this patient is confined to the home and needs intermittent senior living care, physical therapy and/or speech therapy, or continues to need occupational therapy.~ This patient is under my care, and I have initiated the establishment of the plan of care.~ This patient will be followed by myself or a community physician who will periodically review the plan of care. Home Meds Active Scripts Amlodipine Besylate (AMLODIPINE BESYLATE) 2.5 Mg Tablet, 2.5 MG PO DAILY for hypertension for 30 Days, #30 TAB Prov:HANS ELIZONDO MD 04/20/18 [Pantoprazole] [address] Elliott Conflict Check, 40 MG PO DAILYAC for gerd Prov:HANS ELIZONDO MD 04/20/18 Potassium Chloride (KLOR-CON 10) 10 Meq Tablet.er, 10 MEQ PO DAILYWBKFT for hypokalemia, #30 TAB.SR 1 Refill 1 po daily Prov:HANS ELIZONDO MD 04/20/18 Budesonide (BUDESONIDE) 0.5 Mg/2 Ml Ampul.neb, 0.5 MG NEB RTBID for 30 Days, # 60 EACH Prov:HANS ELIZONDO MD 01/13/18 Furosemide (FUROSEMIDE) 80 Mg Tablet, 80 MG PO BID92 for 30 Days, #60 TAB Prov:HANS ELIZONDO MD 01/13/18 Omeprazole (OMEPRAZOLE) 40 Mg Capsule.dr, 40 MG PO DAILY for 30 Days, #30 CAP Prov:HANS ELIZONDO MD 01/13/18 Prednisone (PREDNISONE ) 10 Mg Tablet, 40 MG PO DAILY for 8 Days, #32 TAB Prov:HANS ELIZONDO MD 12/21/17 Ipratropium/Albuterol Sulfate (DUONEB 0.5-3(2.5) MG/3 ML) 3 Ml Ampul.neb, 3 ML NEB RTQID for 30 Days, #120 EACH Prov:HANS ELIZONDO MD 12/21/17 Tamsulosin Hcl (FLOMAX) 0.4 Mg Cap.er.24h, 0.4 MG PO DAILY for 30 Days, #30 CAP.SR Prov:HANS ELIZONDO MD 10/27/17 Reported Medications Albuterol Sulfate (Proair Respiclick) 90 Mcg Aer.pow.ba, 1 PUFF IH PRN Q4HRS PRN for SHORTNESS OF BREATH, INHALER 02/05/18 Cholecalciferol (Vitamin D3) (VITAMIN D3) 1,000 Unit Tablet, 1 TAB PO DAILY, # 30 TAB 5 Refills 02/05/18 Montelukast Sodium (MONTELUKAST SODIUM CHEW.TABLET) 5 Mg Tab.chew, 10 MG PO HS for FOR ASTHMA, #30 TAB.CHEW 0 Refills 02/05/18 Sennosides (SENOKOT) 8.6 Mg Tablet, 1 TAB PO BID, #40 TAB 12/17/17 Polyethylene Glycol 3350 (MIRALAX) 17 Gm Powd.pack, 1 PACKET PO DAILY, #30 PACKET 3 Refills 12/17/17 Clonidine Hcl (CLONIDINE HCL) 0.1 Mg Tablet, 0.1 MG PO TID, TAB 08/24/17 HANS ELIZONDO MD Apr 20, 2018 09:59
--- NOTE | 2018-04-20 10:06 | PDOC ---
Provider Note Provider Note discharge summary dictated # [id number] HANS ELIZONDO MD Apr 20, 2018 10:06
--- NOTE | 2018-04-20 10:20 | PDOC ---
SUBJECTIVE ROS Follow-up for edema/anasarca in the setting of CK D stage IV Patient tells me that she is going home today. She is feeling much better. Shortness of breath is improved CVS: no Orthopnea, no CP RESP: min SOB, ? BECERRA patient not ambulated GI: no Nausea, no Vomiting, appetite is pretty good : no Dysuria, no Urgency OBJECTIVE Vital Signs Vital Signs Date Time Temp Pulse Resp B/P (MAP) Pulse Ox O2 Delivery O2 Flow Rate FiO2 04/20/18 07:45 Nasal Cannula 3.0 04/20/18 07:20 99 04/20/18 07:00 97.9 63 20 143/34 (70) 97.9 I & 0 Intake and Output 04/20/18 07:00 Intake Total 1773 ml Output Total 1900 ml Balance -127 ml Intake Oral 1773 ml Output Urine Total 1900 ml # Voids 5 PHYSICAL EXAM Physical Exam GEN: Awake, Oriented x 3, In no distress EYES: Vision Unchanged, Conjunctiva Normal EN: No EN Drainage, Mucous Membranes moist NECK: min JVD, + JVP, Supple, no Thyromegaly CVS: S1S2, + syst Murmur, No Gallop, No Rub,+1 Edema: Mostly around the ankles RESP: Rare Rales, occasional and expiratory Rhonchi, no Acc. Muscle Use GI: BS + ve, NO Bruit, Non Tender, Non Distended : No CVA tenderness, no Suprapubic Tenderness DIAGNOSIS/ASSESSMENT Assessment & Plan LE EDEMA: Much improved with diuretics as ordered and ongoing negative fluid balance. No significant proteinuria noted on UA hypoalbuminemia as noted on presentation may be contributing some to this also. ACUTE DIASTOLIC CHF: Clinically much improved. VALVULAR HEART DISEASE & PULMONARY HTN (as previously documented): This was not seen on most recent echocardiogram. This may be contributing cause of her underlying anasarca : Diuresis as needed to maintain cardiopulmonary optimization CKD STAGE 4 with creatinine clearance of 22 mL/min I 24-hour urine collection January 2018. Given her grandson renal insufficiency and underlying pulmonary disease her candidacy for dialysis if and when time arises will be debatable. This may need to be addressed when discussion of goals of care is undertaken HX OF HTN: Blood pressure is currently well controlled on present regimen SEVERE ANEMIA: Adequate iron currently. Start Epogen Okay to discharge from renal standpoint once respiratory status is optimized. COMMENT/RELEVANT DATA Meds Current Medications Medications (Trade) Dose Ordered Sig/Ofe Start Time Stop Time Status Last Admin Dose Admin Acetaminophen (Tylenol) 650 mg PRN Q4HRS PRN 04/16/18 17:00 04/20/18 03:08 650 MG Albuterol Sulfate (Ventolin Neb Soln) 2.5 mg PRN Q4HRS PRN 04/19/18 10:45 Albuterol/ Ipratropium (Duoneb) 3 ml RTQID 04/19/18 12:00 04/20/18 07:16 3 ML Amlodipine Besylate (Norvasc) 10 mg DAILY 04/20/18 09:00 Budesonide (Pulmicort) 0.5 mg RTBID 04/19/18 11:00 04/20/18 07:17 0.5 MG Clonidine HCl (Catapres) 0.1 mg PRN Q6HRS PRN 04/20/18 14:00 Darbepoetin Gonsalo (Aranesp) 60 mcg Mo 04/19/18 21:00 04/19/18 20:26 60 MCG Furosemide (Lasix) 80 mg BID92 04/19/18 14:00 04/19/18 14:25 80 MG Heparin Sodium (Porcine) (Heparin Sodium) 5,000 unit Q12HR 04/16/18 21:00 04/20/18 09:26 5,000 UNIT Magnesium Hydroxide (Milk Of Magnesia) 2,400 mg PRN DAILY PRN 04/16/18 17:00 Montelukast Sodium (Singulair) 10 mg QHS 04/16/18 21:00 04/19/18 20:27 10 MG Ondansetron HCl (Zofran Odt) 4 mg PRN Q6HRS PRN 04/19/18 23:15 04/19/18 23:19 4 MG Pantoprazole Sodium (PROTONIX VIAL for IV PUSH) 40 mg DAILYAC 04/16/18 17:30 04/17/18 14:56 DC 04/17/18 08:57 40 MG Pantoprazole Sodium (Protonix) 40 mg DAILYAC 04/18/18 07:30 04/20/18 08:23 40 MG Potassium Chloride (Klor-Con) 10 meq DAILYWBKFT 04/16/18 17:30 04/20/18 08:23 10 MEQ Sodium Chloride (Normal Saline Flush) 3 ml PRN DAILY PRN 04/16/18 16:45 Tamsulosin HCl (Flomax) 0.4 mg DAILY 04/16/18 17:30 04/20/18 09:18 0.4 MG Vitamin D (Vitamin D3) 1,000 unit DAILY 04/16/18 17:30 04/20/18 09:18 1,000 UNIT Lab Laboratory Tests Test 04/20/18 03:00 White Blood Count 6.1 x10^3/uL (4.0-11.0) Red Blood Count 2.63 x10^6/uL (3.50-5.40) Hemoglobin 7.7 g/dL (12.0-15.5) Hematocrit 23.4 % (36.0-47.0) Mean Corpuscular Volume 89 fL (79-100) Mean Corpuscular Hemoglobin 29 pg (25-35) Mean Corpuscular Hemoglobin Concent 33 g/dL (31-37) Red Cell Distribution Width 14.1 % (11.5-14.5) Platelet Count 271 x10^3/uL (140-400) Neutrophils (%) (Auto) 56 % (31-73) Lymphocytes (%) (Auto) 27 % (24-48) Monocytes (%) (Auto) 10 % (0-9) Eosinophils (%) (Auto) 7 % (0-3) Basophils (%) (Auto) 0 % (0-3) Neutrophils # (Auto) 3.5 x10^3uL (1.8-7.7) Lymphocytes # (Auto) 1.6 x10^3/uL (1.0-4.8) Monocytes # (Auto) 0.6 x10^3/uL (0.0-1.1) Eosinophils # (Auto) 0.4 x10^3/uL (0.0-0.7) Basophils # (Auto) 0.0 x10^3/uL (0.0-0.2) Sodium Level 144 mmol/L (136-145) Potassium Level 4.8 mmol/L (3.5-5.1) Chloride Level 103 mmol/L (98-107) Carbon Dioxide Level 38 mmol/L (21-32) Anion Gap 3 (6-14) Blood Urea Nitrogen 44 mg/dL (7-20) Creatinine 2.3 mg/dL (0.6-1.0) Estimated GFR (Cockcroft-Gault) 20.0 Glucose Level 100 mg/dL (70-99) Calcium Level 9.5 mg/dL (8.5-10.1) Magnesium Level 2.2 mg/dL (1.8-2.4) Results All relevant outside records, renal labs, imaging studies, telemetry/EKG's were reviewed. KAYLYNN JIMENEZ MD Apr 20, 2018 10:20
[2018-04-20 11:00] VITALS: BP 150/34
--- NOTE | 2018-04-20 11:32 | PDOC ---
CARDIO Progress Notes Date and Time Date of Service 04/20/18 Time of Evaluation 1110 Subjective Subjective: No Chest Pain, No shortness of breath, No Palpitations, Other (LE edema improved) Vitals Vitals Vital Signs Date Time Temp Pulse Resp B/P (MAP) Pulse Ox O2 Delivery O2 Flow Rate FiO2 04/20/18 09:00 63 143/34 04/20/18 07:45 Nasal Cannula 3.0 04/20/18 07:20 99 04/20/18 07:00 97.9 20 97.9 Weight Weight [ ] Input and Output Intake and Output Intake and Output 04/20/18 07:00 Intake Total 1773 ml Output Total 1900 ml Balance -127 ml Intake Oral 1773 ml Output Urine Total 1900 ml # Voids 5 Laboratory Labs Laboratory Tests Test 04/20/18 03:00 White Blood Count 6.1 x10^3/uL (4.0-11.0) Red Blood Count 2.63 x10^6/uL (3.50-5.40) Hemoglobin 7.7 g/dL (12.0-15.5) Hematocrit 23.4 % (36.0-47.0) Mean Corpuscular Volume 89 fL (79-100) Mean Corpuscular Hemoglobin 29 pg (25-35) Mean Corpuscular Hemoglobin Concent 33 g/dL (31-37) Red Cell Distribution Width 14.1 % (11.5-14.5) Platelet Count 271 x10^3/uL (140-400) Neutrophils (%) (Auto) 56 % (31-73) Lymphocytes (%) (Auto) 27 % (24-48) Monocytes (%) (Auto) 10 % (0-9) Eosinophils (%) (Auto) 7 % (0-3) Basophils (%) (Auto) 0 % (0-3) Neutrophils # (Auto) 3.5 x10^3uL (1.8-7.7) Lymphocytes # (Auto) 1.6 x10^3/uL (1.0-4.8) Monocytes # (Auto) 0.6 x10^3/uL (0.0-1.1) Eosinophils # (Auto) 0.4 x10^3/uL (0.0-0.7) Basophils # (Auto) 0.0 x10^3/uL (0.0-0.2) Sodium Level 144 mmol/L (136-145) Potassium Level 4.8 mmol/L (3.5-5.1) Chloride Level 103 mmol/L (98-107) Carbon Dioxide Level 38 mmol/L (21-32) Anion Gap 3 (6-14) Blood Urea Nitrogen 44 mg/dL (7-20) Creatinine 2.3 mg/dL (0.6-1.0) Estimated GFR (Cockcroft-Gault) 20.0 Glucose Level 100 mg/dL (70-99) Calcium Level 9.5 mg/dL (8.5-10.1) Magnesium Level 2.2 mg/dL (1.8-2.4) Microbiology Micro Microbiology 04/16/18 Urine Culture - Final, Complete 04/16/18 Urine Culture Result 1 (NIKKI) - Final, Complete 04/16/18 Urine Culture Result 2 (NIKKI) - Final, Complete 04/16/18 Antimicrobic Susceptibility - Final, Complete Physical Exam HEENT: Neck Supple W Full Motion Chest: Symmetric LUNGS: Clear to Auscultation Heart: S1S2, RRR (SR ) Abdomen: Soft N/T Extremities: Other (1+ bilateral LE pitting edema) Neurology: alert, oriented, follow commands Assessment Assessment 1. Acute on chronic diastolic heart failure; LVEF 55% (7/) 2. Akin-qk-jfppllza mitral regurgitation; medical management 3. COPD/cor pulmonale: SOA improved 4. Hypertension: Controlled 5. CKD4: Cr at 2.3 6. Protein calorie malnutrition/hypoalbuminemia/anasarca 7. Normocytic anemia: Hgb 8.5 8. Asymptomatic SB. lowest at mid 40s. Mean HR at 60s Recommendations Continue oral Lasix therapy. Supportive care Patient has been discharged. Outpatient follow up in 4 weeks. LIANNE ROBLES APRN Apr 20, 2018 11:32
[2018-04-20] MEDS ORDERED: cloNIDine HCL 0.1 MG TABLET PO PRN (14:00)
--- NOTE | 2018-04-20 16:28 | DS ---
DATE OF DISCHARGE: 04/20/2018 CONSULTANTS: Include Dr. Grigsby, Dr. Ku, Dr. Jade. FINAL DIAGNOSES: 1. Acute on chronic diastolic congestive heart failure. 2. Anasarca, which resolved. 3. Chronic kidney disease, stage 4. 4. Chronic obstructive pulmonary disease, mild exacerbation. 5. Chronic cor pulmonale. 6. Chronic hypoxic respiratory failure. 7. Hypertension. 8. Anemia of chronic disease. 9. Severe protein-calorie malnutrition. HOSPITAL COURSE: The patient is an 87-year-old white female with a history of chronic diastolic congestive heart failure, chronic hypoxic respiratory failure, chronic cor pulmonale and chronic lower extremity edema who has chronic kidney disease stage 4, chronic obstructive pulmonary disease, anemia of chronic disease, admitted to [facility] from my office on 04/16/2018 with 1-week history of increasing bilateral lower extremity swelling. She denied any shortness of breath. Normally uses oxygen 2-4 liters per nasal cannula at home. Takes furosemide 80 mg p.o. b.i.d. at home, but she attempts to sit a lot during the day and causing her legs to get even more swollen. The patient was subsequently admitted to the hospital on 04/17/2018 with acute on chronic diastolic congestive heart failure and increasing lower extremity edema with anasarca. She was treated with IV Lasix 80 mg IV every 12 hours, decreased to 80 mg once a day and eventually switched to oral Lasix 80 mg b.i.d. with resolution of the leg edema as her legs were elevated in bed. She was seen in consultation by Dr. Jade for Cardiology, Dr. Grigsby for Pulmonary. She had a mild COPD exacerbation, treated with nebulizer treatments and also seen by Dr. Ku for chronic kidney disease, stage 4. Her BUN and creatinine were stable with a BUN of 44, creatinine 2.3, potassium is 4.8 today. Her leg edema is much better. Her blood pressure is under pretty good control, diastolic blood pressure is low at times. She wishes to be a full code and was seen by palliative care in consultation. She will be dismissed to home with home health and she did receive physical therapy and occupational therapy when she was here. DISCHARGE MEDICATIONS: She will be dismissed on amlodipine 2.5 mg every day, clonidine 0.1 mg t.i.d., DuoNeb nebulized treatments q.i.d., furosemide 80 mg p.o. b.i.d., potassium chloride 10 mEq every day, Protonix 40 mg every day, Singulair 10 mg every evening, tamsulosin 0.4 mg every day, Ventolin inhaler 2 puffs every 4 hours p.r.n. and vitamin D 1000 units every day. DISCHARGE INSTRUCTIONS: So, there have not been any real changes in her medications. She will make an appointment to see Dr. Henao in 1 week. She was told better lay in a couch with the legs elevated and try to avoid sitting for long periods of time, which will aggravate the edema and to adhere to a cardiac, low-salt diet. HANS HENAO MD DR: BENNY/jessica JOB#: [id number] / [id number]
== END 2018-04-20 12:40 | disposition home health service (06) | DRG 291 ==
LOC: 4 NORTH 16:10
PROVIDERS: ADMIT Internal Medicine; ATTEND Internal Medicine
DX: I13.0 Hypertensive heart and chronic kidney disease with heart failure and stage 1 through stage 4 chronic kidney disease, or unspecified chronic kidney disease (principal); I50.33 Acute on chronic diastolic (congestive) heart failure; E43 Unspecified severe protein-calorie malnutrition; J44.1 Chronic obstructive pulmonary disease with (acute) exacerbation; J96.11 Chronic respiratory failure with hypoxia; N18.4 Chronic kidney disease, stage 4 (severe); D63.8 Anemia in other chronic diseases classified elsewhere; E04.2 Nontoxic multinodular goiter; E78.5 Hyperlipidemia, unspecified; F17.210 Nicotine dependence, cigarettes, uncomplicated; G47.33 Obstructive sleep apnea (adult) (pediatric); H91.90 Unspecified hearing loss, unspecified ear; E66.01 Morbid (severe) obesity due to excess calories; I08.1 Rheumatic disorders of both mitral and tricuspid valves; I27.29 Other secondary pulmonary hypertension; I27.81 Cor pulmonale (chronic); M19.90 Unspecified osteoarthritis, unspecified site; K57.90 Diverticulosis of intestine, part unspecified, without perforation or abscess without bleeding; K21.9 Gastro-esophageal reflux disease without esophagitis; Z82.49 Family history of ischemic heart disease and other diseases of the circulatory system; Z83.3 Family history of diabetes mellitus; Z87.11 Personal history of peptic ulcer disease; Z90.710 Acquired absence of both cervix and uterus; Z91.19 Patient's noncompliance with other medical treatment and regimen; Z99.81 Dependence on supplemental oxygen; Z87.01 Personal history of pneumonia (recurrent); Z68.26 Body mass index [BMI] 26.0-26.9, adult; Z88.8 Allergy status to other drugs, medicaments and biological substances; Z79.899 Other long term (current) drug therapy
CPT/HCPCS: 36415; 71045; 80048; 80053; 81001; 83540; 83550; 83605; 83735; 85025; 87086; 87186; 93005; 93970; 94640; 94760; A4314; C9113; J0881; J1644; J1940; J7613; J7620; J7626; Q0162; 97116; 97530; 97535